=== PATIENT | female | born 1935 | race Caucasian/White ===

== ENCOUNTER 2020-07-16 14:12 | Outpatient (REF) | payer MEDICARE, SELFPAY ==
[2020-07-16 14:58] LABS: MANUAL DIFF FLAG NO
[2020-07-16 15:01] LABS: Basophils Percent Auto 0.5 % (0-2); Eosinophils Absolute Auto 0.1 X10*3/uL (0.0-0.4); Eosinophils Percent Auto 1.6 % (0-4); Hematocrit 38.2 % (37-47); Imm Gran Abs Auto 0.06 X10*3/uL (0.00-0.03); Imm Gran Pct Auto 0.8 % (0.0-0.4); Lymphocytes Absolute Auto 1.5 X10*3/uL (1.2-4.9); Lymphocytes Percent Auto 18.9 % (20-40); Mean Corpuscular HGB Conc 31.4 g/dl (31.0-35.0); Mean Corpuscular Hemoglobin 28.6 pg (27.0-33.0); Mean Platelet Volume 10.2 fL (9.4-12.3); Monocytes Absolute Auto 0.6 X10*3/uL (0.1-1.2); Monocytes Percent Auto 7.1 % (2-11); Neutrophils Absolute Auto 5.7 X10*3/uL (2.0-8.3); Neutrophils Percent Auto 71.1 % (45-73); Platelet Count 351 X10*3/uL (160-400); Red Cell Distribution Width 13.3 % (11.0-16.0)
[2020-07-16 15:30] LABS: Alanine Aminotransferase < 6 U/L (0-31); Albumin Level 3.7 g/dL (3.5-5.0); Alkaline Phosphatase 326 U/L (39-117); Amylase 51 U/L (28-100); Anion Gap 14 (12-20); Aspartate Amino Transferase 20 U/L (5-31); Bilirubin Direct 0.3 mg/dL (0.0-0.5); Bilirubin Total 0.5 mg/dL (0.0-1.0); Blood Urea Nitrogen 24 mg/dL (9-16); Calcium 9.1 mg/dL (8.4-10.2); Carbon Dioxide 26 mmol/L (22-29); Chloride 103 mmol/L (96-108); Estimated Glomerular Filt Rate 48; Glucose Random 97 mg/dL (60-115); Lipase 18 U/L (8-78); Potassium 4.5 mmol/l (3.3-5.1); Sodium 138 mmol/L (135-145); Total Protein 7.6 g/dL (6.5-8.0)
== END 2020-07-16 14:13 | disposition home or self-care (01) ==
LOC: HO.LAB 14:12
PROVIDERS: PCP Internal Medicine; Visit Provider Internal Medicine
DX: R94.5 Abnormal results of liver function studies (principal); R10.9 Unspecified abdominal pain
CPT/HCPCS: 36415; 80053; 80076; 82150; 82248; 83690; 85025

== ENCOUNTER 2020-08-18 13:52 | Outpatient (REF) | payer MEDICARE, SELFPAY ==
--- NOTE | ~2020-08-18 | XR_ITS ---
EXAMINATION: XR HAND WRIST, RIGHT CLINICAL INFORMATION: Injury, pain COMPARISON: None TECHNIQUE: The right hand and wrist are imaged together in large [id number] images for a total of 3 views. FINDINGS: There is transverse fracture at junction base and proximal shaft second, third, and fourth finger proximal phalanges. There is mild dorsal and lateral angulation distal fragments. No dislocation or destructive process. There are some accentuated trabecular markings distal shaft fourth metacarpal without cortical disruption. No visible fracture. There is prior fusion first MCP joint with osseous fusion of the joint and overlying compression plate and screws. The ulnar variance is neutral. There are degenerative changes of the triscaphe joint and first carpometacarpal joint. Prominent osteoarthritic changes involve the first, second, and third digits with lesser degenerative changes fourth and fifth DIP joints. XR/XR hand wrist RT IMPRESSION: 1. Fractures second, third, and fourth finger proximal phalanges at junction base and proximal shaft. 2. Arthritic changes lateral carpus and DIP joints. 3. Fusion first MCP. Orthopedic hardware intact.
== END 2020-08-18 13:53 | disposition home or self-care (01) ==
LOC: HO.HMGCX 13:52
PROVIDERS: PCP Internal Medicine; Visit Provider Nurse Practitioner Family
DX: Z13.89 Encounter for screening for other disorder (principal)
CPT/HCPCS: 73110; 73130

== ENCOUNTER 2020-08-18 14:46 | Emergency (ER) | payer MEDICARE, SELFPAY ==
--- NOTE | ~2020-08-18 | CT_ITS ---
EXAMINATION: CT HEAD WITHOUT CONTRAST CLINICAL INFORMATION: Trauma. Fall. COMPARISON: December 21, 2019. TECHNIQUE: Contiguous helical images of the brain were obtained without IV contrast. Multiplanar reconstructions were performed. DLP: 598 mGy-cm. FINDINGS: There are no pathologic extra-axial fluid collections. The lateral, third, fourth ventricles are mildly prominent, though age-appropriate and concordant with the appearance of the sulci. There is no evidence for acute intraparenchymal hemorrhage or infarct. There is neither mass nor mass effect. There is no shift of midline structures. The paranasal sinuses and mastoid air cells are clear. There are no osseous lesions. CT/CT head/brain wo con IMPRESSION: No evidence for acute intracranial injury. Automated exposure control (Care Dose) Adjustment of the mA and/or kv according to patient size (this includes techniques or standardized protocols for targeted exams where dose is matched to indication / reason for exam; i.e. extremities or head).
[2020-08-18 15:22] VITALS: BP 138/81; PULSE 53; RESP 18; TEMP 36.5; O2SAT 99
[2020-08-18 15:26] VITALS: BP 138/81; PULSE 53; RESP 18; TEMP 36.6; O2SAT 96; BMI 29.2
--- NOTE | 2020-08-18 17:34 | ED.FALL ---
HPI - Fall General Chief Complaint: Fall Stated Complaint: FALL R HAND INJ Time Seen by Provider: 08/18/20 15:22 Source: patient Mode of arrival: ambulatory Limitations: no limitations History of Present Illness HPI Narrative: Pleasant 85-year-old female presenting ambulatory with below noted past medical history she was seen today in the urgent care center for a mechanical fall where she tripped and fell for onto her right hand causing fracture to the 2nd 3rd and 4th finger proximal phalanges at the junction base and proximal shaft however the Urgent Care does not have Orthopedic supplies patient was sent here for splinting. Moreover she does take Eliquis for chronic atrial fibrillation and she does report hitting her head. She denies any LOC. this occurred about 8 hours prior to arrival. She denies any other injury. MD complaint: fall Onset (ago): hour(s) Place fall occurred: home Loss of consciousness: none Prolonged down time: no Context: tripped/slipped Location of injury: head Related Data Home Medications Medication Instructions Recorded Confirmed citalopram 40 mg tablet 20 mg PO DAILY 08/18/20 cyanocobalamin (vitamin B-12) 1,000 mcg PO DAILY 08/18/20 1,000 mcg capsule gabapentin 100 mg capsule 100 mg PO TID 08/18/20 losartan 50 mg tablet 50 mg PO DAILY 08/18/20 omeprazole 20 mg capsule,delayed 20 mg PO BID 08/18/20 release tizanidine 2 mg tablet 2 mg PO TID PRN 08/18/20 Previous Rx's Medication Instructions Recorded apixaban 5 mg tablet 5 mg PO BID 90 Days #180 tab 07/21/20 Allergies Allergy/AdvReac Type Severity Reaction Status Date / Time No Known Allergies [NKA] Allergy Verified 08/18/20 13:31 Review of Systems Review of Systems: Constitutional: No Weight loss, No Fever, No Chills, No Night Sweats, No Fatigue, No Malaise ENT/Mouth: No Hearing loss, No Ear Pain, No Nasal Congestion, No Sinus Pain, No Hoarseness, No sore throat, No Rhinorrhea, No Swallowing Difficulty Eyes: No Eye Pain, No Swelling, No Redness, No Foreign Body, No Discharge, No Vision Changes Cardiovascular: No Chest Pain, No SOB, No Dyspnea on Exertion, No Orthopnea, No Edema, No Palpitations Respiratory: No Cough, No Sputum, No Wheezing, No Smoke Exposure, No Dyspnea Gastrointestinal: No Nausea, No Vomiting, No Diarrhea, No Constipation, No abdominal Pain, No Hematochezia, No Melena Genitourinary: No Dysuria, No Urinary Frequency, No Hematuria, No Urinary Incontinence, No Urgency, No Flank Pain, No Urinary Flow Changes, No Hesitancy Musculoskeletal: No joint pain, No Myalgias, No Joint Swelling, as noted per HPI Skin: No Skin Lesions, No rash Neuro: No Weakness, No Numbness, No Paresthesias, No Loss of Consciousness, No Dizziness, No Headache Psych: No Social Issues Heme/Lymph: No Bruising, No Bleeding,No Lymphadenopathy Endocrine: No Polyuria, No Polydipsia, No Temperature Intolerance Yes all other systems are reviewed and are negative [facility] Past Medical History Medical History (Updated 08/18/20 @ 17:39 by Tre Prieto NP) Afib Arthritis CAD (coronary artery disease) Cataract Chiari malformation GERD (gastroesophageal reflux disease) Surgical History (Updated 08/18/20 @ 15:28 by Kemar Gomez) H/O heart artery stent Social History Social History Advance Directives: No Advance Directives Information Provided: Yes Physical Exam Vital Signs: Vital Signs: Last Vital Signs Temp 98 F 08/18/20 15:26 Pulse 53 08/18/20 15:26 Resp 18 08/18/20 15:26 BP 138/81 08/18/20 15:26 Pulse Ox 96 08/18/20 15:26 Body Mass Index 29.2 Reviewed Const: General: cooperative and healthy appearing; No acute distress or intoxicated appearing Nutritional Appearance: average body habitus Orientation/consciousness: patient oriented x3 HENMT: Head: Yes normal to inspection Ears: hearing grossly normal bilaterally Eyes: General: appearance normal, both eyes and all related structures Visual Chung: normal visual chung by confrontation Neck: Neck: Yes normal visual inspection, No positive Brudzinski's sign, No positive Kernig's sign and No tender Thyroid: Thyroid normal Chest: Chest palpation & inspection: normal inspection of the chest Resp: Effort & Inspection: normal respiratory effort Cardio: Jugular venous distension: no JVD Rhythm: regular rhythm Heart sounds: S1 normal heart sound present and S2 normal heart sound present GI: Inspection: Yes normal to inspection Percussion: Yes normal to percussion Auscultation: normal bowel sounds : General: Yes no CVA tenderness Back/Spine/Pelvis: Back: no CVA tenderness Skin: General skin exam: no rashes or lesions noted Neuro: General: patient oriented x3 Extrem: Other: Right hand has full range of motion at the wrist. Fingers are slightly ecchymosis with very slight swelling. Cap refill within normal limits. General: Yes normal to inspection Course Course Course Narrative: Head CT given that she is on Eliquis, x-ray reviewed from the outpatient clinic will placed in a volar splint. Case discussed with Dr. Spence orthopedics recommendation for follow-up in 2-[address] Davis in office. Reevaluation(s) Reevaluation #1: Head CT unremarkable delayed bleeding signs reviewed though this did occur about 8 hours prior to arrival low probability. Home safety reviewed stable for discharge with outpatient follow-up. Discharge Plan Discharge Clinical Impression: Fall, Finger fracture Patient Disposition: Home, Self-Care Instructions: Finger Fracture (ED), Fall Prevention (ED), Safe Use of Anticoagulants (ED) Additional Instructions: Leave the splint in place until you see the hand doctor Ice, elevate, compress Tylenol for pain Follow-up with Dr. Davis Return if any concerns or worsening symptoms Thank you Prescriptions: No Action Eliquis 5 mg tablet 5 mg PO BID 90 Days Qty: 180 RF: 1 Referrals: Robina Davis MD [Physician] - 2 days
== END 2020-08-18 17:57 | disposition home or self-care (01) ==
PROVIDERS: Emergency Provider Internal Medicine; PCP Internal Medicine
DX: S62.642A Nondisplaced fracture of proximal phalanx of right middle finger, initial encounter for closed fracture (principal); S62.644A Nondisplaced fracture of proximal phalanx of right ring finger, initial encounter for closed fracture; W01.0XXA Fall on same level from slipping, tripping and stumbling without subsequent striking against object, initial encounter; I48.91 Unspecified atrial fibrillation; Y93.9 Activity, unspecified; Y92.019 Unspecified place in single-family (private) house as the place of occurrence of the external cause; Y99.9 Unspecified external cause status; Z79.01 Long term (current) use of anticoagulants
CPT/HCPCS: 29125; 70450; 73110; 73130; 99283; 99284

== ENCOUNTER → 2020-08-20 12:45 | Outpatient (BNVA) | payer MEDICARE, SELFPAY | PROVIDERS: PCP Internal Medicine; Visit Provider Orthopaedic Surgery | DX: S62.610A Displaced fracture of proximal phalanx of right index finger, initial encounter for closed fracture (principal); S62.612A Displaced fracture of proximal phalanx of right middle finger, initial encounter for closed fracture; S62.614A Displaced fracture of proximal phalanx of right ring finger, initial encounter for closed fracture | CPT/HCPCS: 99202 ==

== ENCOUNTER 2020-08-27 10:54 | Day surgery (SDC) | payer MEDICARE, SELFPAY ==
--- NOTE | 2020-08-26 10:05 | P.CONAN_ITS ---
Documented by User: Angela Milana 08/26/20 10:39 HPI - Anesthesia Eval Consult details Narrative: 85yo F for Right Closed Reduction Perc Pinning,index,middle,ring fingers eliquis for afib PMFSH Active Problems Active Problems: All Active Problems (Updated 08/20/20 @ 14:23 by Robina aDvis MD) Fracture of proximal phalanx of right ring finger (Acute) Fracture of proximal phalanx of right middle finger (Acute) Fracture of proximal phalanx of right index finger (Acute) Hand injury (Acute) Wrist injury (Acute) Past Medical History Medical History Afib Anxiety Arthritis Asthma CAD (coronary artery disease) Cataract Chiari malformation Depression Essential tremor Fibromyalgia GERD (gastroesophageal reflux disease) H/O small bowel obstruction HLD (hyperlipidemia) HTN (hypertension) Osteoarthritis Surgical History Surgical History H/O heart artery stent Social History Social History Are you a primary acute care occupational therapist to a significant other at home: Yes ( is in a wheelchair) Do you presently have visiting nurse or other home services: Yes (Family to help with cooking and cleaning, also dtr is an RN) Alcohol intake: never Smoking Status: Never smoker Smoked in Last 30 Days: No Use of substances other than those prescribed or required for medical reasons: No Advance Directives: No Advance Directives Information Provided: Yes Recently lost weight without trying: Yes Current occupational status: unemployed Current occupation: right handed Meds Allergies Allergy/AdvReac Type Severity Reaction Status Date / Time No Known Allergies [NKA] Allergy Verified 08/20/20 13:03 Home Medications Medication Instructions Recorded Confirmed Last Taken Type citalopram 40 mg tablet 20 mg PO DAILY 08/18/20 08/26/20 History cyanocobalamin (vitamin B-12) 1,000 mcg PO DAILY 08/18/20 08/26/20 History 1,000 mcg capsule gabapentin 100 mg capsule 100 mg PO TID 08/18/20 08/26/20 History losartan 50 mg tablet 50 mg PO DAILY 08/18/20 08/26/20 History omeprazole 20 mg capsule,delayed 20 mg PO BID 08/18/20 08/26/20 History release tizanidine 2 mg tablet 2 mg PO TID PRN 08/18/20 08/26/20 History Exam Exam Date and Time: August 26, 2020 1005 Pertinent Lab Results Pertinent Lab Results: Laboratory Tests 07/16/20 07/16/20 14:37 14:37 WBC 8.0 Hgb 12.0 Hct 38.2 Plt Count 351 Sodium 138 Potassium 4.5 Chloride 103 Carbon Dioxide 26 BUN 24 H Creatinine 1.08 Narrative Narrative: EKG 12/2019 SB @ [address] and T wave abn ECHO 04/2019 Nml LV sys function with impaired relaxation (LVEF 60-65%) Nml valves Nml RV sys pressure No pericard effusion Lexiscan MIBI 06/2019 (s/p stenting) Nml perfusion. No ischemia or infarction. Gated LVEF nml No transient ischemic dilation EKG portion reported: baseline with flat ST's in all leads and with unspecific ST changes in leads 1,2 and T inversion in lead 3 and aVF. No arrythmias. Normotensive response to test. Assessment and Plan Assessment Anesthesia Assessment: Chart Reviewed Documented by User: Che Gunter 08/27/20 12:19 PMFSH Past Medical History Medical History Afib Anxiety Arthritis Asthma CAD (coronary artery disease) Cataract Chiari malformation Depression Essential tremor Fibromyalgia GERD (gastroesophageal reflux disease) H/O small bowel obstruction HLD (hyperlipidemia) HTN (hypertension) Osteoarthritis Surgical History Surgical History H/O heart artery stent Social History Social History Are you a primary acute care occupational therapist to a significant other at home: Yes ( is in a wheelchair) Do you presently have visiting nurse or other home services: Yes (Family to help with cooking and cleaning, also dtr is an RN) Alcohol intake: never Smoking Status: Never smoker Smoked in Last 30 Days: No Use of substances other than those prescribed or required for medical reasons: No Advance Directives: No Advance Directives Information Provided: Yes Recently lost weight without trying: Yes Current occupational status: unemployed Current occupation: right handed Meds Allergies Allergy/AdvReac Type Severity Reaction Status Date / Time No Known Allergies [NKA] Allergy Verified 08/20/20 13:03 Home Medications Medication Instructions Recorded Confirmed Last Taken Type citalopram 40 mg tablet 20 mg PO DAILY 08/18/20 08/26/20 History cyanocobalamin (vitamin B-12) 1,000 mcg PO DAILY 08/18/20 08/26/20 History 1,000 mcg capsule gabapentin 100 mg capsule 100 mg PO TID 08/18/20 08/26/20 History losartan 50 mg tablet 50 mg PO DAILY 08/18/20 08/26/20 History omeprazole 20 mg capsule,delayed 20 mg PO BID 08/18/20 08/26/20 History release tizanidine 2 mg tablet 2 mg PO TID PRN 08/18/20 08/26/20 History Assessment and Plan Assessment Anesthesia Assessment: Anesthesia Plan Discussed and Chart Reviewed Final Anesthetic Review NPO: Yes ASA Class: III Final Preanesthetic Review: No Changes in Pt Med Stat, Meds/Allgs Chart Reviewed, Consent Obtained/Reviewed and Anes Risks/Benef Reviewed Patient Risk: Intermediate Procedure Risk: Low Assessment/Block/Sedation in SS: Assess/Block/Sedation-SS Anesthetic Plan Anesthetic Plan: GA Disposition: Standard PACU
[2020-08-26 10:35] VITALS: BMI 29.2
[2020-08-27] VITALS (13 sets, daily range): BP systolic 115–145; BP diastolic 32–61; PULSE 58–72; RESP 16–20; TEMP 36.3–37; O2SAT 95–100; BMI 29.2
--- NOTE | ~2020-08-27 | FL_ITS ---
EXAMINATION: XR FLUOROSCOPY WITH IMAGES CLINICAL INFORMATION: Fractures proximal phalanges second, third, and fourth fingers. COMPARISON: Radiographs right hand 08/18/2020 TECHNIQUE: Fluoroscopy performed by Dr. Robina Davis. Fluoroscopy time: 1.37 minutes DAP: 37.97 mGycm2 Images: 3 FINDINGS: The proximal metacarpal fractures are reduced with single pin second and fourth fingers and 2 pins for the third finger. Fracture fragments are in near-anatomic alignment. Hardware is intact. There is old hardware again noted first ray. FL/FL guidance in OR IMPRESSION: Status post reduction fractures second, third, fourth fingers.
[2020-08-27] MEDS: Lactated Ringers 1,000 ML 50 ML IVCONT (11:56)
--- NOTE | 2020-08-27 12:19 | P.CONAN_ITS ---
[facility] Active Problems Active Problems: All Active Problems (Updated 08/26/20 @ 10:34 by Angela kim) Fracture of proximal phalanx of right ring finger (Acute) Fracture of proximal phalanx of right middle finger (Acute) Fracture of proximal phalanx of right index finger (Acute) Hand injury (Acute) Wrist injury (Acute) Past Medical History Medical History Afib Anxiety Arthritis Asthma CAD (coronary artery disease) Cataract Chiari malformation Depression Essential tremor Fibromyalgia GERD (gastroesophageal reflux disease) H/O small bowel obstruction HLD (hyperlipidemia) HTN (hypertension) Osteoarthritis Surgical History Surgical History H/O heart artery stent Social History Social History Are you a primary clinical manager home care to a significant other at home: Yes ( is in a wheelchair) Do you presently have visiting nurse or other home services: Yes (Family to help with cooking and cleaning, also dtr is an RN) Alcohol intake: never Smoking Status: Never smoker Smoked in Last 30 Days: No Use of substances other than those prescribed or required for medical reasons: No Advance Directives: No Advance Directives Information Provided: Yes Recently lost weight without trying: Yes Current occupational status: unemployed Current occupation: right handed Meds Allergies Allergy/AdvReac Type Severity Reaction Status Date / Time No Known Allergies [NKA] Allergy Verified 08/20/20 13:03 Active Medications: Current Medications Generic Name Dose Route Start Last Admin Trade Name Freq PRN Reason Stop Dose Admin Albuterol Sulfate 2.5 mg 08/27/20 10:57 Albuterol Sulfate (0.083%) 2.5 Mg/3 Ml Vial.Neb INHALE ONCE PRN Shortness of Breath/Wheezing Lactated Ringer's 1,000 mls @ 50 mls/hr 08/27/20 11:55 08/27/20 11:56 Lr IVCONT 50 mls/hr .Q20H CARLA Administration Home Medications Medication Instructions Recorded Confirmed Last Taken Type citalopram 40 mg tablet 20 mg PO DAILY 08/18/20 08/26/20 History cyanocobalamin (vitamin B-12) 1,000 mcg PO DAILY 08/18/20 08/26/20 History 1,000 mcg capsule gabapentin 100 mg capsule 100 mg PO TID 08/18/20 08/26/20 History losartan 50 mg tablet 50 mg PO DAILY 08/18/20 08/26/20 History omeprazole 20 mg capsule,delayed 20 mg PO BID 08/18/20 08/26/20 History release tizanidine 2 mg tablet 2 mg PO TID PRN 08/18/20 08/26/20 History Exam Exam Date and Time: August 27, 2020 121 Height,Weight and Vital Signs: Height 5 ft Weight 68.039 kg Last Vital Signs Temp 98.6 F 08/27/20 11:24 Pulse 58 08/27/20 11:24 Resp 16 08/27/20 11:24 BP 145/61 H 08/27/20 11:24 Pulse Ox 99 08/27/20 11:24 Airway Mallampati Class: II TM Dist: >3cm Neck ROM: Limited
--- NOTE | 2020-08-27 14:29 | MHC.SHP ---
Pre-Procedural Eval Section B Chief Complaint: fx of index,middle,and ring finger Allergies: Allergies Allergy/AdvReac Type Severity Reaction Status Date / Time No Known Allergies [NKA] Allergy Verified 08/20/20 13:03 Plan I have reviewed the history and physical and performed a pertinent physical examination on my patient. No changes have occurred unless specified.
--- NOTE | 2020-08-27 14:29 | W.PM.OPN ---
Operative Note Operative Note Date of Service: 08/27/20 Narrative: Operative Note Narrative: Preop diagnosis: 1. Right index finger proximal phalanx base fracture 2. Right middle finger proximal phalanx base fracture 3. Right ring finger proximal phalanx base fracture Postop diagnosis: Same Procedure: 1. Right index finger proximal phalanx base fracture closed reduction percutaneous pinning 2. Right middle finger proximal phalanx base fracture closed reduction percutaneous pinning 3. Right ring finger proximal phalanx base fracture closed reduction percutaneous pinning Surgeon: Robina Davis MD Anesthesia: Mac plus regional block Findings: Finger fractures Implants: 0.045 K-wires x4 Tourniquet time: None minutes EBL: 5.0 ml Specimen: None Drains: None Complications: None Disposition: Brought to the recovery room in stable condition Plan: Follow-up in 10-14 days for wound check and placement in a finger spica cast Anticipate K-wire removal between 4-5 weeks postop Likely to need hand therapy Indications: The patient is a 85 year old woman with right index finger, middle finger, ring finger proximal phalanx base fractures . The risks and benefits of operative treatment, including but not limited to risk of damage to blood vessels, nerves, tendons, infection, recurrence, persistent pain or numbness, incomplete resolution of preoperative symptoms, or need for further surgery were discussed with the patient and they wished to proceed with surgery. Procedure: Once consent was obtained patient was brought back to the operating suite and placed in the operating table in a supine position. . Perioperative antibiotics and anesthesia was administered by the anesthesia team. A tourniquet was applied to the proximal aspect of the right upper extremity and the limb was prepped and draped in a standard surgical fashion. Tourniquet was not inflated FluoroScan was used throughout the case to assess our fracture reduction and placement of all implants. I 1st performed a gentle closed reduction on the patient's right index finger proximal phalanx. I then placed a 0.045 K-wire through the ulnar base of the proximal phalanx. It was advanced distally across the fracture site and into the shaft of the proximal phalanx. I was satisfied with our reduction and placement of the K-wire. I then performed a gentle closed reduction on the patient's right middle finger proximal phalanx. I then placed a 0.045 K-wire through the ulnar base of the proximal phalanx. It was advanced distally across the fracture site and into the shaft of the proximal phalanx. A 2nd 0.045 K-wire was passed through the radial base of the proximal phalanx. This also was advanced distally across the fracture site and into the shaft of the proximal phalanx. I was satisfied with our reduction and placement of these K-wires. I then performed a gentle closed reduction on the patient's right ring finger proximal phalanx. I then placed a 0.045 K-wire through the radial base of the proximal phalanx. It was advanced distally across the fracture site and into the shaft of the proximal phalanx. I was satisfied with our reduction and placement of this K-wire. The fingers were assessed in some extension and also in flexion. No rotational or angular malalignment was appreciated. Pins were bent cut short had pin caps applied. The were copiously irrigated with normal saline. . The wound was infiltrated with some 1% lidocaine with epinephrine for postop pain control and a sterile dressing was applied. She also had a transverse laceration in the palm that appear to be healing well. We placed a dressing across his wound is well. A volar splint extending from the PIP joints of the volar forearm was then placed.. The patient appears to have tolerated the procedure well and with no complications. All digits were well vascularized conclusion of the case.
[2020-08-27] MEDS: Acetaminophen 325 MG TABLET 650 MG PO (14:44)
[2020-08-27] MEDS: oxyCODONE HCl Immed Release 5 MG TABLET PO (14:45)
[2020-08-27] MEDS: fentaNYL citrate/PF 100 MCG/2 ML VIAL 25 MCG IVPUSH ×3 (14:45→14:55)
== END 2020-08-27 16:00 | disposition home or self-care (01) ==
PROVIDERS: PCP Internal Medicine; Visit Provider Orthopaedic Surgery
PROC: (CPT 26742; principal; 2020-08-27 12:30)
DX: S62.610A Displaced fracture of proximal phalanx of right index finger, initial encounter for closed fracture (principal); S62.612A Displaced fracture of proximal phalanx of right middle finger, initial encounter for closed fracture; S62.614A Displaced fracture of proximal phalanx of right ring finger, initial encounter for closed fracture; W01.0XXA Fall on same level from slipping, tripping and stumbling without subsequent striking against object, initial encounter; Y93.9 Activity, unspecified; Y92.9 Unspecified place or not applicable; Y99.8 Other external cause status; J45.909 Unspecified asthma, uncomplicated; I10 Essential (primary) hypertension; G25.0 Essential tremor; I48.91 Unspecified atrial fibrillation; Z79.02 Long term (current) use of antithrombotics/antiplatelets; Z79.899 Other long term (current) drug therapy
CPT/HCPCS: 26742 ×3; J0690; J1100; J2405; J3010

== ENCOUNTER 2020-09-08 10:55 | Outpatient (REF) | payer MEDICARE, SELFPAY ==
--- NOTE | ~2020-09-08 | XR_ITS ---
EXAMINATION: XR HAND, RIGHT CLINICAL INFORMATION: Pain in the right hand COMPARISON: 08/18/2020 TECHNIQUE: PA, lateral, and oblique views of the right hand. FINDINGS: K wire placement performed across the fractures of the proximal phalanges of the second, third, and fourth digit. Alignment is near-anatomic. There are [address] at the third digit. Plate and screw fixation across the first metacarpophalangeal joint is unchanged. Advanced degenerative changes at the distal interphalangeal joints of the second and third digits. The carpal rows are aligned. Degenerative changes at the triscaphe joint and first carpal metacarpal joint. Mild soft tissue swelling of the hand. XR/XR hand RT min 3V IMPRESSION: K wire fixation of the fractures at the second, third, and fourth digit proximal phalanges with alignment maintained. Degenerative changes as above.
== END 2020-09-08 10:56 | disposition home or self-care (01) ==
LOC: HO.HOSX 10:55
PROVIDERS: PCP Internal Medicine; Visit Provider Orthopaedic Surgery
DX: S62.614D Displaced fracture of proximal phalanx of right ring finger, subsequent encounter for fracture with routine healing (principal); S62.621D Displaced fracture of middle phalanx of left index finger, subsequent encounter for fracture with routine healing; S62.620D Displaced fracture of middle phalanx of right index finger, subsequent encounter for fracture with routine healing; Z47.89 Encounter for other orthopedic aftercare
CPT/HCPCS: 73130; 99212

== ENCOUNTER 2020-10-01 11:04 | Outpatient (REF) | payer MEDICARE, SELFPAY ==
--- NOTE | ~2020-10-01 | XR_ITS ---
EXAMINATION: XR HAND, RIGHT CLINICAL INFORMATION: Right hand pain COMPARISON: None TECHNIQUE: PA, lateral, and oblique views of the right hand. FINDINGS: There are fractures of the bases of the second third and fourth proximal phalanges with K wire fixation. This appears unchanged. Bone alignment is near anatomic and appears unchanged. Fracture lines are still seen.. There is a plate and screws across the first MCP joint and ankylosis of the joint. There is arthritis at the IP joints. There are there is arthritis at the first DETENTION joint and trapezoid trapezium scaphoid joints. XR/XR hand RT min 3V IMPRESSION: ORIF of second third and fourth phalanx fractures unchanged from previous exam. Plate and screws and arthrodesis of the first MCP joint. Arthritis.
== END 2020-10-01 11:05 | disposition home or self-care (01) ==
LOC: HO.HOSX 11:04
PROVIDERS: PCP Internal Medicine; Visit Provider Orthopaedic Surgery
DX: S62.610D Displaced fracture of proximal phalanx of right index finger, subsequent encounter for fracture with routine healing (principal); S62.612D Displaced fracture of proximal phalanx of right middle finger, subsequent encounter for fracture with routine healing; S62.614D Displaced fracture of proximal phalanx of right ring finger, subsequent encounter for fracture with routine healing
CPT/HCPCS: 73130; 99212

== ENCOUNTER 2020-10-06 10:21 | Outpatient (REF) | payer MEDICARE, SELFPAY ==
[2020-10-06 13:37] LABS: SARS COV2 PCR INHOUSE POSITIVE (Negative)
== END 2020-10-06 10:22 | disposition home or self-care (01) ==
LOC: HO.LAB 10:21
PROVIDERS: Visit Provider Internal Medicine
DX: Z20.822 Contact with and (suspected) exposure to COVID-19 (principal)
CPT/HCPCS: C9803; U0003

== ENCOUNTER 2020-10-28 16:02 | Outpatient (REF) | payer MEDICARE, SELFPAY ==
--- NOTE | ~2020-10-28 | XR_ITS ---
EXAMINATION: XR HAND, RIGHT CLINICAL INFORMATION: Hand pain. COMPARISON: 09/21/2020 TECHNIQUE: PA, lateral, and oblique views of the right hand. FINDINGS: Redemonstrated is plate and screw across the 1st MCP joint and ankylosis of the joint. Interval removal of the previously noted K wires in the 2nd, 3rd, 4th proximal phalanges. Partial healing of the fractures of the base of the 2nd, 3rd, 4th proximal phalanges with portion of the fracture plane remaining visible. Redemonstrated is arthritis in the hand. This includes severe triscaphe, severe 2nd and 3rd DIP joint arthritis. Diffuse osteopenia. No acute fractures identified. XR/XR hand RT min 3V IMPRESSION: Interval removal of the hardware, with partial healing of the 2nd, 3rd, 4th proximal phalangeal fractures. Plate and screw hardware with arthrodesis of the 1st MCP joint.
== END 2020-10-28 16:03 | disposition home or self-care (01) ==
LOC: HO.HOSX 16:02
PROVIDERS: Visit Provider Orthopaedic Surgery
DX: M79.641 Pain in right hand (principal)
CPT/HCPCS: 73130

== ENCOUNTER → 2020-10-29 14:58 | Outpatient (BNVA) | payer MEDICARE, SELFPAY | PROVIDERS: PCP Internal Medicine; Visit Provider Orthopaedic Surgery | DX: S62.614D Displaced fracture of proximal phalanx of right ring finger, subsequent encounter for fracture with routine healing (principal); S62.612D Displaced fracture of proximal phalanx of right middle finger, subsequent encounter for fracture with routine healing; S62.610D Displaced fracture of proximal phalanx of right index finger, subsequent encounter for fracture with routine healing | CPT/HCPCS: 99212 ==

== ENCOUNTER 2020-11-03 13:20 | Outpatient (REF) | payer MEDICARE, SELFPAY ==
[2020-11-03 14:15] LABS: MANUAL DIFF FLAG NO
[2020-11-03 14:23] LABS: Basophils Percent Auto 0.3 % (0-2); Eosinophils Absolute Auto 0.1 X10*3/uL (0.0-0.4); Eosinophils Percent Auto 1.6 % (0-4); Hematocrit 37.7 % (37-47); Hemoglobin 11.6 g/dl (12.0-16.0); Imm Gran Abs Auto 0.04 X10*3/uL (0.00-0.03); Imm Gran Pct Auto 0.5 % (0.0-0.4); Lymphocytes Absolute Auto 1.5 X10*3/uL (1.2-4.9); Lymphocytes Percent Auto 18.6 % (20-40); Mean Corpuscular HGB Conc 30.8 g/dl (31.0-35.0); Mean Corpuscular Volume 94.3 fL (80-98); Mean Platelet Volume 10.3 fL (9.4-12.3); Monocytes Absolute Auto 0.4 X10*3/uL (0.1-1.2); Monocytes Percent Auto 5.3 % (2-11); Neutrophils Absolute Auto 5.9 X10*3/uL (2.0-8.3); Neutrophils Percent Auto 73.7 % (45-73); Platelet Count 240 X10*3/uL (160-400); White Blood Count 7.9 X10*3/uL (4.8-10.8)
[2020-11-03 14:49] LABS: Alanine Aminotransferase 13 U/L (0-31); Albumin Level 3.9 g/dL (3.5-5.0); Alkaline Phosphatase 162 U/L (39-117); Anion Gap 12 (12-20); Aspartate Amino Transferase 28 U/L (5-31); Bilirubin Total 0.4 mg/dL (0.0-1.0); Blood Urea Nitrogen 19 mg/dL (9-16); Calcium 9.4 mg/dL (8.4-10.2); Carbon Dioxide 29 mmol/L (22-29); Chloride 101 mmol/L (96-108); Estimated Glomerular Filt Rate > 60; Glucose Random 121 mg/dL (60-115); Potassium 4.6 mmol/L (3.3-5.1); Sodium 137 mmol/L (135-145); Total Protein 7.2 g/dL (6.5-8.0)
== END 2020-11-03 13:21 | disposition home or self-care (01) ==
LOC: HO.LAB 13:20
PROVIDERS: PCP Internal Medicine; Visit Provider Internal Medicine
DX: I10 Essential (primary) hypertension (principal); K21.9 Gastro-esophageal reflux disease without esophagitis; E78.00 Pure hypercholesterolemia, unspecified
CPT/HCPCS: 36415; 80053; 85025

== ENCOUNTER 2020-11-04 11:54 | Emergency (ER) | payer MEDICARE, SELFPAY ==
--- NOTE | ~2020-11-04 | XR_ITS ---
EXAMINATION: RIGHT ELBOW, RIGHT HAND WRIST AND RIGHT SHOULDER CLINICAL INFORMATION: Fall, pain. COMPARISON: Right hand 10/21/2020 TECHNIQUE: Right elbow 3 views. Right hand and wrist 3 views. Right shoulder 3 views FINDINGS: Right elbow: There is no visible acute fracture, dislocation or subluxation. There is no abnormal joint effusion. The soft tissues are normal. Right shoulder: There is no visible acute fracture or dislocation. The cephalic migration of humeral head in relation to the acromion with lateral acromial spurring. There is mild arthritic changes right AC joint. The soft tissues are normal. Right hand/wrist: Again visualized is a plate and screws present first MCP joint for ankylosis of the joint. No acute fracture or dislocation seen right hand. There is severe loss of PIP and DIP joint space of all digits with periarticular spurring. There are healing fractures proximal end proximal phalanges third and fourth digits. XR/XR elbow RT 2V IMPRESSION: Unremarkable right elbow exam. Cephalic migration of humeral head in relation to acromion with inferior acromial spurring. No visible acute fracture, dislocation or subluxation seen. Ankylosed first metacarpophalangeal joint with plate and screws along the dorsal aspect. Healing fractures proximal end proximal phalanx third and fourth digits.
--- NOTE | ~2020-11-04 | XR_ITS ---
EXAMINATION: RIGHT ELBOW, RIGHT HAND WRIST AND RIGHT SHOULDER CLINICAL INFORMATION: Fall, pain. COMPARISON: Right hand 10/21/2020 TECHNIQUE: Right elbow 3 views. Right hand and wrist 3 views. Right shoulder 3 views FINDINGS: Right elbow: There is no visible acute fracture, dislocation or subluxation. There is no abnormal joint effusion. The soft tissues are normal. Right shoulder: There is no visible acute fracture or dislocation. The cephalic migration of humeral head in relation to the acromion with lateral acromial spurring. There is mild arthritic changes right AC joint. The soft tissues are normal. Right hand/wrist: Again visualized is a plate and screws present first MCP joint for ankylosis of the joint. No acute fracture or dislocation seen right hand. There is severe loss of PIP and DIP joint space of all digits with periarticular spurring. There are healing fractures proximal end proximal phalanges third and fourth digits. XR/XR hand wrist RT IMPRESSION: Unremarkable right elbow exam. Cephalic migration of humeral head in relation to acromion with inferior acromial spurring. No visible acute fracture, dislocation or subluxation seen. Ankylosed first metacarpophalangeal joint with plate and screws along the dorsal aspect. Healing fractures proximal end proximal phalanx third and fourth digits.
--- NOTE | ~2020-11-04 | XR_ITS ---
EXAMINATION: RIGHT ELBOW, RIGHT HAND WRIST AND RIGHT SHOULDER CLINICAL INFORMATION: Fall, pain. COMPARISON: Right hand 10/21/2020 TECHNIQUE: Right elbow 3 views. Right hand and wrist 3 views. Right shoulder 3 views FINDINGS: Right elbow: There is no visible acute fracture, dislocation or subluxation. There is no abnormal joint effusion. The soft tissues are normal. Right shoulder: There is no visible acute fracture or dislocation. The cephalic migration of humeral head in relation to the acromion with lateral acromial spurring. There is mild arthritic changes right AC joint. The soft tissues are normal. Right hand/wrist: Again visualized is a plate and screws present first MCP joint for ankylosis of the joint. No acute fracture or dislocation seen right hand. There is severe loss of PIP and DIP joint space of all digits with periarticular spurring. There are healing fractures proximal end proximal phalanges third and fourth digits. XR/XR shoulder RT min 2V IMPRESSION: Unremarkable right elbow exam. Cephalic migration of humeral head in relation to acromion with inferior acromial spurring. No visible acute fracture, dislocation or subluxation seen. Ankylosed first metacarpophalangeal joint with plate and screws along the dorsal aspect. Healing fractures proximal end proximal phalanx third and fourth digits.
[2020-11-04 12:09] VITALS: BP 138/71; PULSE 73; RESP 18; TEMP 36.6; O2SAT 98; BMI 30.2
--- NOTE | 2020-11-04 12:13 | ED.FALL ---
HPI - Fall General Chief Complaint: Fall Stated Complaint: mechanical fall, ?wrist fracture Time Seen by Provider: 11/04/20 12:11 Source: EMS Mode of arrival: EMS Limitations: no limitations History of Present Illness HPI Narrative: 85 yo female with past medical history of afib on eliquis, anxiety, arthritis, asthma, CAD, depression, esential tremor, fibromyalgia, GERD, HTN, HLD here with complaints of right wrist/hand pain s/p fall. Denies hitting head or LOC. Received 100mcg IN fentanyl by EMS. Related Data Home Medications Medication Instructions Recorded Confirmed citalopram 40 mg tablet 20 mg PO DAILY 08/18/20 cyanocobalamin (vitamin B-12) 1,000 mcg PO DAILY 08/18/20 1,000 mcg capsule gabapentin 100 mg capsule 100 mg PO TID 08/18/20 losartan 50 mg tablet 50 mg PO DAILY 08/18/20 omeprazole 20 mg capsule,delayed 20 mg PO BID 08/18/20 release tizanidine 2 mg tablet 2 mg PO TID PRN 08/18/20 Previous Rx's Medication Instructions Recorded apixaban 5 mg tablet 5 mg PO BID 90 Days #180 tab 07/21/20 hydrocodone-acetaminophen 1 tab PO Q4-6H PRN #10 tab 08/27/20 metoprolol tartrate 25 mg tablet 12.5 mg PO BID 90 Days #90 tab 09/01/20 cephalexin 500 mg capsule 500 mg PO BID #10 cap 10/01/20 atorvastatin 20 mg tablet 20 mg PO DAILY #90 tab 10/27/20 oxycodone 5 mg PO Q6H PRN #10 tab 11/04/20 Allergies Allergy/AdvReac Type Severity Reaction Status Date / Time No Known Allergies [NKA] Allergy Verified 10/29/20 15:06 Review of Systems Review of Systems: Yes all other systems are reviewed and are negative Constitutional: Constitutional: Reports no additional constitutional complaints, Denies body ache(s), Denies chills, Denies fever(s), Denies headache(s) and Denies weakness Eyes: Eyes: Reports no additional eye complaints and Denies change in vision ENT: Reports system reviewed and no additional complaints, except as documented, Denies dizziness, Denies headache(s), Denies nasal congestion, Denies nasal discharge and Denies neck pain Cardiovascular: Cardiovascular: Reports no additional cardiovascular complaints, Denies chest pain, Denies leg edema and Denies dyspnea Respiratory: Respiratory: Reports no additional respiratory complaints, Denies cough and Denies dyspnea Gastrointestinal: Gastrointestinal: Reports no additional gastrointestinal complaints, Denies abdominal pain, Denies diarrhea, Denies nausea and Denies vomiting Genitourinary: Genitourinary: Reports no additional female genitourinary complaints and Denies urinary incontinence Musculoskeletal: Musculoskeletal: Reports no additional musculoskeletal complaints, Denies back pain, Reports arthralgias, Reports joint swelling, Reports limited range of motion, Denies neck pain, Denies numbness and Denies tingling Integumentary/Breasts: Skin/Breast: Reports system reviewed and no additional complaints, except as docu and Denies rash Neurologic: Reports system reviewed and no additional complaints, except as documented, Denies Abnormal speech present, Denies dizziness, Denies headache(s), Denies numbness, Denies tingling and Denies weakness PMFSH Past Medical History Attestation statement: The following information was validated with the patient. Source: old records reviewed and nursing notes reviewed Medical History Afib Anxiety Arthritis Asthma CAD (coronary artery disease) Cataract Chiari malformation Depression Essential tremor Fibromyalgia GERD (gastroesophageal reflux disease) H/O small bowel obstruction HLD (hyperlipidemia) HTN (hypertension) Osteoarthritis Surgical History H/O heart artery stent Social History Social History Alcohol intake: never Smoking Status: Never smoker Current occupational status: unemployed Current occupation: right handed Physical Exam Vital Signs: Vital Signs: Last Vital Signs Temp 98 F 11/04/20 12:09 Pulse 73 11/04/20 12:09 Resp 18 11/04/20 12:09 BP 138/71 11/04/20 12:09 Pulse Ox 98 11/04/20 12:09 Body Mass Index 30.2 Const: General: cooperative, healthy appearing, comfortable and no acute distress Orientation/consciousness: patient oriented x3 Limitations: no limitations HENMT: Head: Yes normal to inspection Ears: hearing grossly normal bilaterally General nose exam: Normal external nose present Face and sinus: Yes normal facial exam Mouth: Normal oral and palatal mucosa present Throat: Yes posterior oropharynx normal Eyes: General: appearance normal, both eyes and all related structures Pupils: Equal, round and reactive pupils present Neck: Neck: Yes normal visual inspection Chest: Chest palpation & inspection: normal inspection of the chest Resp: Effort & Inspection: normal respiratory effort Auscultation: clear to auscultation bilaterally Cardio: Rate: regular rate Rhythm: regular rhythm Peripheral pulses: Peripheral pulses 2+ throughout GI: Inspection: Yes normal to inspection Palpation (GI): Soft to palpation and nontender Auscultation: normal bowel sounds Back/Spine/Pelvis: Thoracic/Lumbar Spine: thoracic and lumbar spine normal to inspection Skin: General skin exam: no rashes or lesions noted Neuro: General: patient oriented x3, no focal motor deficits and normal sensation to monofilament Cranial nerves: Yes Equal, round and reactive pupils present, Yes Bilaterally intact EOM present, Yes Nystagmus not present, Yes Normal facial strength present and Yes Midline tongue present Cognition (Neuro): normal cognition Speech: No Abnormal speech present Gait exam (Neuro): Normal gait present Motor exam (neuro): 5/5 motor strength present throughout Sensory Exam: Normal double simultaneous stimulation for sensation Extrem: Other: Tenderness over the dorsal radial wrist with mild swelling. Palpable distal pulses. Neurovascular intact distally. No tenderness over the hand. There is some mild discomfort over the lateral elbow with full range of motion with no obvious deformity. Mild tenderness over the proximal humerus with no obvious swelling or deformity. Full range of motion General: Yes normal to inspection Course Course Course Narrative: Mechanical fall here with right upper extremity pain and swelling. Received fentanyl intranasal prior to arrival. No head injury or loss of consciousness. Neurologically intact. Will need x-rays, analgesia. 1300-x-rays read as no acute fracture dislocation. On my own independent review there is a distal impacted radial fracture with no angulation or displacement. Patient has significant tenderness over this site. Called radiology for review. Will place and volar splint and sling and have follow-up with Orthopedics. Reviewed worrisome signs and symptoms of when to return to the emergency department. Comfortable discharge home. Procedures Orthopedic Splinting/Casting Injury #1: Side: right Upper Extremity Injury Location: forearm Upper Extremity Immobilizer: sling/shoulder immobilizer and volar splint MDM - Fall Medical Records Attestation: I reviewed the patient's medical records. Lab Data Attestation: I reviewed the patient's lab results. Imaging Data Right elbow x-ray: Attestation: I personally reviewed and interpreted this imaging study as follows: Radiologist's impression: Right elbow: There is no visible acute fracture, dislocation or subluxation. There is no abnormal joint effusion. The soft tissues are normal. right humerus: Attestation: I personally reviewed and interpreted this imaging study as follows: Radiologist's impression: Right shoulder: There is no visible acute fracture or dislocation. The cephalic migration of humeral head in relation to the acromion with lateral acromial spurring. There is mild arthritic changes right AC joint. The soft tissues are normal. right hand/wrist x-ray: Attestation: I personally reviewed and interpreted this imaging study as follows: Radiologist's impression: Right hand/wrist: Again visualized is a plate and screws present first MCP joint for ankylosis of the joint. No acute fracture or dislocation seen right hand. There is severe loss of PIP and DIP joint space of all digits with periarticular spurring. There are healing fractures proximal end proximal phalanges third and fourth digits. Discharge Plan Discharge Clinical Impression: Wrist injury Qualifiers: Encounter type: initial encounter Laterality: right Qualified Code(s): S69.91XA - Unspecified injury of right wrist, hand and finger(s), initial encounter Patient Disposition: Home, Self-Care Instructions: Wrist Injury (ED) Additional Instructions: Your x-ray shows a small fracture in the radius which is the bone in the lower arm near the wrist. You have been placed in a splint. This must stay dry at all times. Do not remove it. Sling for elevation Follow-up with Dr. Davis Prescriptions: New oxycodone 5 mg tablet 5 mg PO Q6H PRN (Reason: pain) Qty: 10 RF: 0 No Action Eliquis 5 mg tablet 5 mg PO BID 90 Days Qty: 180 RF: 1 metoprolol tartrate 25 mg tablet 12.5 mg PO BID 90 Days Qty: 90 RF: 3 atorvastatin 20 mg tablet 20 mg PO DAILY Qty: 90 RF: 1 hydrocodone-acetaminophen 5-325 mg tablet 1 tab PO Q4-6H PRN (Reason: pain) Qty: 10 RF: 0 cephalexin 500 mg capsule 500 mg PO BID Qty: 10 RF: 0 Referrals: Robina Davis MD [Physician] - 2 days Interventions: ED Discharge Assessment Last Done: 11/04/20 13:47 Discharge Date/Time: 11/04/20 13:49
[2020-11-04] MEDS: Acetaminophen 325 MG TABLET 650 MG PO (12:21)
[2020-11-04] MEDS: oxyCODONE HCl Immed Release 5 MG TABLET PO (12:22)
== END 2020-11-04 13:49 | disposition home or self-care (01) ==
PROVIDERS: Emergency Provider Emergency Medicine; PCP Internal Medicine
DX: S69.91XA Unspecified injury of right wrist, hand and finger(s), initial encounter (principal); W01.0XXA Fall on same level from slipping, tripping and stumbling without subsequent striking against object, initial encounter; Y93.9 Activity, unspecified; Y92.039 Unspecified place in apartment as the place of occurrence of the external cause; Y99.9 Unspecified external cause status; I10 Essential (primary) hypertension; I48.0 Paroxysmal atrial fibrillation
CPT/HCPCS: 29125; 73030; 73070; 73110; 73130; 99283; 99284

== ENCOUNTER → 2020-11-05 14:23 | Outpatient (BNVA) | payer MEDICARE, SELFPAY | PROVIDERS: Visit Provider Orthopaedic Surgery | DX: S52.501A Unspecified fracture of the lower end of right radius, initial encounter for closed fracture (principal) | CPT/HCPCS: 25600; 99212 ==

== ENCOUNTER 2020-11-10 18:00 | Outpatient (REF) | payer MEDICARE, SELFPAY | END 2020-11-10 18:01 | disposition home or self-care (01) | LOC: HO.HOSX 18:00 | PROVIDERS: Visit Provider Orthopaedic Surgery | DX: Z13.89 Encounter for screening for other disorder (principal) ==

== ENCOUNTER → 2020-11-11 15:11 | Outpatient (BNVA) | payer MEDICARE, SELFPAY | PROVIDERS: PCP Internal Medicine; Referring Provider Internal Medicine; Visit Provider Internal Medicine | DX: I25.10 Atherosclerotic heart disease of native coronary artery without angina pectoris (principal); I48.0 Paroxysmal atrial fibrillation; I10 Essential (primary) hypertension | CPT/HCPCS: 93005; 99212 ==

== ENCOUNTER 2020-11-12 14:33 | Outpatient (REF) | payer MEDICARE, SELFPAY ==
--- NOTE | ~2020-11-12 | XR_ITS ---
EXAMINATION: XR WRIST, RIGHT CLINICAL INFORMATION: Pain COMPARISON: Previous x-ray 11/04/2020 TECHNIQUE: 3 views right wrist FINDINGS: There is a plate and screws across the first MCP joint and ankylosis of the joint space. There is a transverse nondisplaced distal radius fracture. There is a fracture of the proximal phalanx of the second through fourth fingers that appears unchanged. The bones are osteopenic. Soft tissues are unremarkable. XR/XR wrist RT min 3V IMPRESSION: No change in transverse nondisplaced distal radius fracture and fractures of the base of the second and third and fourth proximal phalanges.
== END 2020-11-12 14:34 | disposition home or self-care (01) ==
LOC: HO.HOSX 14:33
PROVIDERS: Visit Provider Orthopaedic Surgery
DX: S52.501D Unspecified fracture of the lower end of right radius, subsequent encounter for closed fracture with routine healing (principal); S62.610D Displaced fracture of proximal phalanx of right index finger, subsequent encounter for fracture with routine healing; S62.612D Displaced fracture of proximal phalanx of right middle finger, subsequent encounter for fracture with routine healing; S62.614D Displaced fracture of proximal phalanx of right ring finger, subsequent encounter for fracture with routine healing; M25.641 Stiffness of right hand, not elsewhere classified
CPT/HCPCS: 73110; 99212

== ENCOUNTER 2020-12-02 16:24 | Outpatient (REF) | payer MEDICARE, SELFPAY | END 2020-12-02 16:25 | disposition home or self-care (01) | LOC: HO.HOSX 16:24 | PROVIDERS: Visit Provider Orthopaedic Surgery | DX: Z13.89 Encounter for screening for other disorder (principal) ==

== ENCOUNTER 2020-12-03 09:11 | Outpatient (REF) | payer MEDICARE, SELFPAY ==
--- NOTE | ~2020-12-03 | XR_ITS ---
EXAMINATION: XR WRIST, RIGHT CLINICAL INFORMATION: Distal radius fracture, follow-up. COMPARISON: 11/04/2020 right wrist radiographs. TECHNIQUE: PA, lateral, and oblique views of the right wrist. FINDINGS: Again seen is a healing/healed transverse fracture of the distal radial metaphysis with good anatomic alignment. Increased sclerosis is seen at the level the fracture. Mild widening of the distal radial ulnar joint space is seen. The carpal bones are normally aligned. Moderate first carpometacarpal and triscaphe degenerative joint changes are seen. A reconstruction plate in the first digit transfixing of the metacarpal phalangeal joint is intact without abnormality. XR/XR wrist RT min 3V IMPRESSION: Evidence for interval healing of distal radial metaphysis fracture with good anatomic alignment. No other significant change.
== END 2020-12-03 09:12 | disposition home or self-care (01) ==
LOC: HO.HOSX 09:11
PROVIDERS: Visit Provider Orthopaedic Surgery
DX: S62.614D Displaced fracture of proximal phalanx of right ring finger, subsequent encounter for fracture with routine healing (principal); S62.612D Displaced fracture of proximal phalanx of right middle finger, subsequent encounter for fracture with routine healing; S62.610D Displaced fracture of proximal phalanx of right index finger, subsequent encounter for fracture with routine healing; S52.501D Unspecified fracture of the lower end of right radius, subsequent encounter for closed fracture with routine healing
CPT/HCPCS: 73110; 99212

== ENCOUNTER → 2020-12-31 11:28 | Outpatient (BNVA) | payer MEDICARE, SELFPAY | PROVIDERS: PCP Internal Medicine; Visit Provider Orthopaedic Surgery | DX: S52.501D Unspecified fracture of the lower end of right radius, subsequent encounter for closed fracture with routine healing (principal); M25.641 Stiffness of right hand, not elsewhere classified | CPT/HCPCS: 99212 ==

== ENCOUNTER → 2021-01-14 14:24 | Outpatient (BNVA) | payer MEDICARE, SELFPAY | PROVIDERS: PCP Internal Medicine; Visit Provider Physician Assistant | DX: M12.811 Other specific arthropathies, not elsewhere classified, right shoulder (principal) | CPT/HCPCS: 20610; 99212; J1040 ==

== ENCOUNTER 2021-01-28 14:53 | Outpatient (REF) | payer MEDICARE, SELFPAY ==
[2021-01-28 15:40] LABS: MANUAL DIFF FLAG NO
[2021-01-28 15:42] LABS: Basophils Percent Auto 0.3 % (0-2); Eosinophils Absolute Auto 0.2 X10*3/uL (0.0-0.4); Eosinophils Percent Auto 2.3 % (0-4); Hematocrit 39.7 % (37-47); Hemoglobin 12.2 g/dl (12.0-16.0); Imm Gran Abs Auto 0.05 X10*3/uL (0.00-0.03); Imm Gran Pct Auto 0.6 % (0.0-0.4); Lymphocytes Absolute Auto 1.4 X10*3/uL (1.2-4.9); Lymphocytes Percent Auto 17.4 % (20-40); Mean Corpuscular HGB Conc 30.7 g/dl (31.0-35.0); Mean Corpuscular Hemoglobin 28.6 pg (27.0-33.0); Mean Corpuscular Volume 93.2 fL (80-98); Mean Platelet Volume 11.3 fL (9.4-12.3); Monocytes Absolute Auto 0.7 X10*3/uL (0.1-1.2); Monocytes Percent Auto 9.2 % (2-11); Neutrophils Absolute Auto 5.6 X10*3/uL (2.0-8.3); Neutrophils Percent Auto 70.2 % (45-73); Platelet Count 195 X10*3/uL (160-400); Red Blood Count 4.26 X10*6/uL (4.20-5.50); Red Cell Distribution Width 13.5 % (11.0-16.0); White Blood Count 7.9 X10*3/uL (4.8-10.8)
[2021-01-28 15:49] LABS: Estimated Average Glucose 111 mg/dL; Hemoglobin A1c % 5.5 %
[2021-01-28 15:57] LABS: Alanine Aminotransferase 11 U/L (0-31); Alkaline Phosphatase 172 U/L (39-117); Anion Gap 15 (12-20); Aspartate Amino Transferase 18 U/L (5-31); Bilirubin Total 0.3 mg/dL (0.0-1.0); Blood Urea Nitrogen 22 mg/dL (9-16); C Reactive Protein 0.47 mg/dL (< or = 0.50); Calcium 9.5 mg/dL (8.4-10.2); Carbon Dioxide 27 mmol/L (22-29); Chloride 102 mmol/L (96-108); Estimated Glomerular Filt Rate > 60; Glucose Random 86 mg/dL (60-115); Potassium 4.6 mmol/L (3.3-5.1); Sodium 139 mmol/L (135-145); Total Protein 7.6 g/dL (6.5-8.0)
== END 2021-01-28 14:54 | disposition home or self-care (01) ==
LOC: HO.LAB 14:53
PROVIDERS: PCP Internal Medicine; Visit Provider Internal Medicine
DX: I48.0 Paroxysmal atrial fibrillation (principal); I10 Essential (primary) hypertension; R73.03 Prediabetes; R06.02 Shortness of breath
CPT/HCPCS: 36415; 80053; 83036; 85025; 86140

== ENCOUNTER 2021-02-02 14:00 | Outpatient (RCR) | payer MEDICARE, SELFPAY ==
--- NOTE | 2021-01-08 15:08 | MHC.PT.EP ---
[facility] [place] Office [place] Office [place] Office [address] Miguel Cui [address] [phone] F: [phone] F: [phone] F: [phone] F: [phone] Physical Therapy Plan of Care Date of Evaluation: Date of Surgery: Diagnosis: This is an 85 yo female presenting to skilled PT with a script for balance and fall prevention Assessment: This is an 85 yo female presenting to skilled PT with a script for balance and fall prevention. Patient arrives today after multiple falls this year (at least 9 times in the past 3 years). Her last fall caused a distal radius fracture, nondisplaced on 11/04, being followed by ortho and not having surgery (also in aug, fx middle three fingers and had surgery, no OT). She was referred for OT and PT. She reports that the past two falls she does not recall what actually happened; does not remember dizziness or tripping. She walks with a straight cane, still drives. She has a cleaning lady who comes every 2 weeks. Assessment reveals pain that ranges up to a 7/10 in the shoulder. She demos decreased gross/general UB and LB ROM, decreased shoulder/RU strength/LB strength, impaired gait pattern with poor use of cane, Decreased balance as evidenced by DGI, impaired safety and functional transfers as well as gross functional decline with housework, driving. She is a good candidate for skilled PT 2x/wk for 10wks to address balance deficits, strength deficits as well as functional safety concerns. I spoke with OT and they are okay with PT also treating wrist deficits as well. I will put a call in to ortho to let them know as well. Frequency and Duration: The patient will be seen 2x/wk for 10 wks Short Term Goals: I in HEP proper use of cane Assess [place] Longterm Goals: at least 4/5 B shoulders, wrist and LE's at least 10 degs improvement in shoulder AROM on the R able to open jar on own improve DGI to non falls risk level Treatment Plan: Modalities to reduce pain, spasms and effusion. Manual therapy to restore motion and function. Therapeutic exercise to improve strength and flexibility. Neuromuscular re-education for posture and balance. Therapeutic activities to return to functional activities of daily living. Electronically signed by: Cecelia Medeiros PT Please sign and return to therapist. Thank you for your referral.
--- NOTE | 2021-02-02 15:35 | MHC.PT.DC ---
[facility] [place] Office [place] Office [place] Office [address] Miguel Cui [address] [phone] F: [phone] F: [phone] F: [phone] F: [phone] Physical Therapy Discharge Report Diagnosis: This is an 85 yo female presenting to skilled PT with a script for balance and fall prevention Date of Surgery: Date of Evaluation: 01/08/21 Date of Discharge: Treatments to Date: 6 Cancellations to Date: 0 No Shows to Date: 0 Discharge Status: Achieved Goals Improved Function Independent with HEP Patient Elected to Stop Discharge Summary: Reviewed josue TOPETE ability to perform on own safely and educated her on anatomy and healing times. She reports that she is ready for DC at this time. DC to HEP. Electronically signed by: Cecelia Medeiros PT Please sign and return to therapist. Thank you for your referral.
== END 2021-02-02 15:35 | disposition home or self-care (01) ==
LOC: HO.PTCHIC 14:00
PROVIDERS: PCP Internal Medicine; Visit Provider Orthopaedic Surgery
DX: Z91.81 History of falling (principal)
CPT/HCPCS: 97110; 97112; 97163

== ENCOUNTER 2021-05-01 14:40 | Outpatient (REF) | payer MEDICARE, SELFPAY ==
[2021-05-01 15:00] LABS: MANUAL DIFF FLAG NO
[2021-05-01 15:17] LABS: Basophils Percent Auto 0.3 % (0-2); Eosinophils Absolute Auto 0.2 X10*3/uL (0.0-0.4); Hematocrit 39.4 % (37-47); Hemoglobin 12.1 g/dl (12.0-16.0); Imm Gran Abs Auto 0.06 X10*3/uL (0.00-0.03); Imm Gran Pct Auto 0.8 % (0.0-0.4); Lymphocytes Absolute Auto 1.7 X10*3/uL (1.2-4.9); Lymphocytes Percent Auto 21.8 % (20-40); Mean Corpuscular HGB Conc 30.7 g/dl (31.0-35.0); Mean Corpuscular Hemoglobin 29.1 pg (27.0-33.0); Mean Corpuscular Volume 94.7 fL (80-98); Mean Platelet Volume 10.2 fL (9.4-12.3); Monocytes Absolute Auto 0.7 X10*3/uL (0.1-1.2); Monocytes Percent Auto 8.3 % (2-11); Neutrophils Absolute Auto 5.3 X10*3/uL (2.0-8.3); Neutrophils Percent Auto 66.8 % (45-73); Platelet Count 239 X10*3/uL (160-400); Red Blood Count 4.16 X10*6/uL (4.20-5.50); Red Cell Distribution Width 13.8 % (11.0-16.0)
[2021-05-01 15:39] LABS: Alanine Aminotransferase < 6 U/L (0-31); Albumin Level 4.2 g/dL (3.5-5.0); Alkaline Phosphatase 126 U/L (39-117); Anion Gap 13 (12-20); Aspartate Amino Transferase 21 U/L (5-31); Bilirubin Total 0.3 mg/dL (0.0-1.0); Blood Urea Nitrogen 28 mg/dL (9-16); C Reactive Protein 0.12 mg/dL (< or = 0.50); Calcium 9.3 mg/dL (8.4-10.2); Carbon Dioxide 28 mmol/L (22-29); Chloride 102 mmol/L (96-108); Estimated Glomerular Filt Rate 50; Glucose Random 95 mg/dL (60-115); Lipase 18 U/L (8-78); Potassium 4.7 mmol/L (3.3-5.1); Sodium 138 mmol/L (135-145); Total Protein 7.5 g/dL (6.5-8.0)
== END 2021-05-01 14:41 | disposition home or self-care (01) ==
LOC: HO.LAB 14:40
PROVIDERS: PCP Internal Medicine; Visit Provider Internal Medicine
DX: R10.9 Unspecified abdominal pain (principal); I25.10 Atherosclerotic heart disease of native coronary artery without angina pectoris
CPT/HCPCS: 36415; 80053; 83690; 85025; 86140

== ENCOUNTER 2021-10-20 10:46 | Inpatient (IN) | payer MEDICARE, SELFPAY ==
[2021-10-20] VITALS (9 sets, daily range): BP systolic 100–138; BP diastolic 55–88; PULSE 66–170; RESP 16–20; TEMP 36.1–36.9; O2SAT 94–98; BMI 35.0
--- NOTE | 2021-10-20 | ECG_ITS ---
Test Reason : chest pain Blood Pressure : / mmHG Vent. Rate : 161 BPM Atrial Rate : 000 BPM P-R Int : 000 ms QRS Dur : 090 ms QT Int : 288 ms P-R-T Axes : 000 -13 211 degrees QTc Int : 471 ms Atrial fibrillation with rapid ventricular response Marked ST abnormality, possible inferolateral subendocardial injury Abnormal ECG When compared with ECG of 21-DEC-2019 19:21, Atrial fibrillation has replaced Sinus rhythm Vent. rate has increased BY [address] now depressed in Inferior leads ST now depressed in Lateral leads T wave inversion now evident in Lateral leads Referred By: Caren Mckinney Electronically Signed By:EDUARDO SHETTY MD
--- NOTE | ~2021-10-20 | NM_ITS ---
Lexiscan Myocardial perfusion study Indication: Elevated troponins, known LAD disease. Technique: The patient was brought in for a Lexiscan perfusion study on 10/22/2021 and was injected 0.4 mg of Lexiscan intravenously. Within a minute of this injection 30 mCi of sestamibi was given intravenously. Images were obtained using the SPECT gamma camera interlaced with the gating device. Images were obtained in supine position. Resting perfusion study was performed on 10/21/2021. Patient was administered 30 mCi of sestamibi intravenously at rest. Images were then obtained in supine position. Total DLP 105mGy-cm. Images were processed with the software and compared side to side in short axis, horizontal long axis and vertical long axis views. Findings: Raw acquisition was reviewed. The stress perfusion study showed mildly diminished tracer uptake in the distal lateral wall. With CT attenuation correction, there is slightly diminished tracer uptake in the apical part of anterior wall. Overall these are probably artifactual. The gated study shows normal LV systolic function with calculated LVEF of 61%. LV cavity is normal in size. The gated study shows normal wall thickening and contraction of segments. Resting study shows no significant perfusion abnormality. Gating at rest reveals normal wall motion with ejection fraction at 71%. The findings are consistent with mild reversible apical lateral defect but with normal contractility and likely artifactual. NM/NM [place] perf SPECT rest & str Impression: 1. Myocardial perfusion imaging study shows likely normal myocardial perfusion. 2. Gated LVEF is 61% during stress and 71% during rest. 3. Transient ischemic dilatation not present. EKG component of the test reported separately.
--- NOTE | ~2021-10-20 | XR_ITS ---
EXAMINATION: XR CHEST CLINICAL INFORMATION: Dyspnea. COMPARISON: 03/29/2018 chest radiographs. TECHNIQUE: Frontal view of the chest was obtained. FINDINGS: No significant abnormality is noted involving the heart, lungs, mediastinum, bony thorax or soft tissues. XR/XR chest 1V IMPRESSION: No acute cardiopulmonary process.
--- NOTE | 2021-10-20 10:57 | ED.CHESTPAIN ---
HPI - Chest Pain General Chief Complaint: Chest Pain Stated Complaint: CHEST PAIN Time Seen by Provider: 10/20/21 10:55 Source: patient Mode of arrival: EMS Limitations: other (vague historian) History of Present Illness MD complaint: chest pain (shortness of breath, sweats, heaviness, not feeling well) Pertinent past history: other (afib) Onset (ago): day(s) (2+ days ago) Timing of current episode: episodic Prior episodes: Yes Onset: during rest and during exertion Pain location: right chest Pain radiation: none Severity: moderate Quality: dull Relieving factors: nothing Exacerbating factors: exertion and movement Context: other (states she doesn't always take her medications and missed DOAC yesterday. she hasn't been feeling well recently. Unable to take any medications this AM) Associated symptoms: nausea and dyspnea Treatment prior to arrival: none Related Data Home Medications Medication Instructions Recorded Confirmed citalopram 40 mg tablet 20 mg PO DAILY 08/18/20 10/20/21 carbidopa 25 mg-levodopa 100 mg 2 tab PO TID 11/11/20 10/20/21 tablet primidone 50 mg tablet 50 mg PO DAILY 11/11/20 10/20/21 gabapentin 300 mg capsule 300 mg PO TID 01/14/21 10/20/21 omeprazole 20 mg capsule,delayed 1 cap PO BID PRN 10/20/21 10/20/21 release Previous Rx's Medication Instructions Recorded atorvastatin 20 mg tablet 20 mg PO DAILY #90 tab 04/23/21 apixaban 5 mg tablet (Eliquis) 5 mg PO BID 90 Days #180 tab 07/29/21 metoprolol tartrate 25 mg tablet 12.5 mg PO BID 90 Days #90 tab 09/04/21 Allergies Allergy/AdvReac Type Severity Reaction Status Date / Time No Known Allergies [NKA] Allergy Verified 10/20/21 11:04 Review of Systems Review of Systems: Constitutional : No Weight loss, No Fever, No Chills, pos sweats ENT/Mouth : No sore throat, No Rhinorrhea Eyes: No Eye Pain, No Swelling Cardiovascular : pos Chest Pain, pos SOB, no Dyspnea on Exertion, No Orthopnea, No Edema, No Palpitations Respiratory : No Cough, No Sputum Gastrointestinal : pos Nausea, No Vomiting, No Diarrhea, No abdominal Pain, No Hematochezia, No Melena Genitourinary : No Dysuria, No Urinary Frequency Musculoskeletal : No joint pain, No Myalgias, No Joint Swelling Skin : No Skin Lesions, No rash Neuro : pos Weakness, No Numbness, No Dizziness, No Headache Psych : No Anxiety/Panic, No Depression Heme/Lymph: No Bruising, No Lymphadenopathy Endocrine : No Polyuria, No Polydipsia All other systems reviewed and are negative [facility] Past Medical History Attestation statement: The following information was validated with the patient. Medical History (Updated 10/20/21 @ 17:11 by Chanel Barrett RN) Afib Anxiety Arthritis Asthma Atherosclerotic cardiovascular disease CAD (coronary artery disease) Cataract Chiari malformation Depression Essential tremor Fibromyalgia GERD (gastroesophageal reflux disease) H/O small bowel obstruction HLD (hyperlipidemia) HTN (hypertension) Osteoarthritis Paroxysmal atrial fibrillation Surgical History H/O heart artery stent Family History Family History (Updated 10/20/21 @ 17:10 by Chanel Barrett RN) Mother CAD (coronary artery disease) Social History Social History (Updated 10/20/21 @ 17:09 by Chanel Barrett RN) Household Members: Spouse Housing: House Are you a primary health careers instructor to a significant other at home: Yes ( is in a wheelchair) Do you presently have visiting nurse or other home services: Yes (Family to help with cooking and cleaning, also dtr is an RN) Alcohol intake: never Patient Tobacco Use Status: Never used Tobacco Use of substances other than those prescribed or required for medical reasons: No Currently Displaying Signs/Symptoms of Drug Intoxication Withdrawal: No Have you been hit, kicked, punched, or otherwise hurt by someone within the past year? If so, by whom?: No Do you feel safe in your current relationship?: Yes Is there a partner from a previous relationship who is making you feel unsafe now?: No Are you made to feel afraid or neglected: No Advance Directives: Yes Advance Directives Information Provided: No Advance Directives on File: No Advance Directives Date on File: 10/20/21 Do you have thoughts of harming others: None Do you have a plan to hurt others: No Plan Recently lost weight without trying: No How much weight loss: 2-13 pounds Eating poorly because of decreased appetite: No Nutrition screen score: 1 Nutrition Risks: No Nutritional Risk Current occupational status: unemployed Current occupation: right handed Physical Exam Vital Signs: Vital Signs: Last Vital Signs Temp 96.9 F 10/20/21 18:54 Pulse 80 10/20/21 18:54 Resp 20 10/20/21 18:54 BP 116/57 L 10/20/21 18:54 Pulse Ox 94 10/20/21 18:54 BMI result Body Mass Index 35.0 Appearance: Alert. Oriented X3. No acute distress. Eyes: Pupils equal, round and reactive to light. ENT: Pharynx normal. Neck: Normal inspection. Neck supple. CVS: tachycardic and irregular heart rate and rhythm. Pulses normal. Respiratory: No respiratory distress. Breath sounds bases diminished. Abdomen: Soft and nontender. Skin: Skin warm and dry. pale skin color. Normal skin turgor. Extremities: No lower extremity edema. No calf ttp Neuro: Oriented X 3. No motor deficit. No sensory deficit. Course Course Course Narrative: BP stable repeat dilt ordered two doses of dilt BP holding dilt gtt ordered HR 120s still on dilt gtt will admit for further HR control MDM - Chest Pain MDM Narrative Medical decision making narrative: 86 yo female with HTN, HLD, afib on eliquis and metoprolol chronic headaches - had MRI recently with headaches - no ICH possible chiari malformation notes that she has been feeling sweaty with chest pain and dyspnea. At this time will need labs, IV dilt, CXR, missed her eliquis yesterday. At this time she is in rapid afib. Did mention her medications were messing up her stomach and hasn't been compliant. At this time will likely end up on dilt gtt and admission for rapid afib possibly related to non compliance Lab Data Result diagrams: 10/20/21 11:22 10/20/21 11:22 Labs: Lab Results 10/20/21 10/20/21 10/20/21 Range/Units 11:22 11:22 11:22 WBC 9.5 (4.8-10.8) X10*3/uL RBC 4.91 (4.20-5.50) X10*6/uL Hgb 14.4 (12.0-16.0) g/dl Hct 44.3 (37.0-47.0) % MCV 90.2 (80.0-98.0) fL MCH 29.3 (27.0-33.0) pg MCHC 32.5 (31.0-35.0) g/dl RDW 13.2 (11.0-16.0) % Plt Count 231 (160-400) X10*3/uL MPV 11.1 (9.4-12.3) fL Immature Gran % (Auto) 0.4 (0.0-0.4) % Neut % (Auto) 72.2 (45-73) % Lymph % (Auto) 19.4 L (20-40) % [place] % (Auto) 7.3 (2-11) % Eos % (Auto) 0.5 (0-4) % Baso % (Auto) 0.2 (0-2) % Lymph # (Auto) 1.8 (1.2-4.9) X10*3/uL [place] # (Auto) 0.7 (0.1-1.2) X10*3/uL Eos # (Auto) 0.1 (0.0-0.4) X10*3/uL Baso # (Auto) 0.0 (0.0-0.2) X10*3/uL Abs Immat Gran (auto) 0.04 H (0.00-0.03) X10*3/uL Absolute Neuts (auto) 6.9 (2.0-8.3) x10*3/uL Absolute Nucleated RBC 0.000 (0.0-0.012) X10*3/uL Nucleated RBC % (auto) 0.0 (0.0-0.2) /100WBC PT (9.9-13.0) SEC INR (0.9-1.1) APTT (24.1-38.0) SEC Sodium 138 (135-145) mmol/L Potassium 4.1 (3.3-5.1) mmol/L Chloride 104 (96-108) mmol/L Carbon Dioxide 19 L (22-29) mmol/L Anion Gap 19 (12-20) BUN 17 H (9-16) mg/dL Creatinine 0.84 (0.5-1.4) mg/dL Estim Creat Clear Calc 46.2 Estimated GFR > 60 Random Glucose 137 H (60-115) mg/dL Calcium 10.2 D (8.4-10.2) mg/dL Magnesium 1.6 (1.6-2.6) mg/dL Total Bilirubin 0.8 (0.0-1.0) mg/dL Direct Bilirubin 0.3 (0.0-0.5) mg/dL AST 19 (5-31) U/L ALT 15 (0-31) U/L Alkaline Phosphatase 111 (39-117) U/L Troponin I High Sens (<3.5-17.0) ng/L B-Natriuretic Peptide 290 H (<100) pg/mL Total Protein 7.8 (6.5-8.0) g/dL Albumin 4.2 (3.5-5.0) g/dL Lipase 19 (8-78) U/L TSH (0.32-4.0) uIU/mL COVID-19 (JACEY) (Negative) COVID-19 Clin Com 10/20/21 10/20/21 10/20/21 Range/Units 11:22 11:22 11:22 WBC (4.8-10.8) X10*3/uL RBC (4.20-5.50) X10*6/uL Hgb (12.0-16.0) g/dl Hct (37.0-47.0) % MCV (80.0-98.0) fL MCH (27.0-33.0) pg MCHC (31.0-35.0) g/dl RDW (11.0-16.0) % Plt Count (160-400) X10*3/uL MPV (9.4-12.3) fL Immature Gran % (Auto) (0.0-0.4) % Neut % (Auto) (45-73) % Lymph % (Auto) (20-40) % [place] % (Auto) (2-11) % Eos % (Auto) (0-4) % Baso % (Auto) (0-2) % Lymph # (Auto) (1.2-4.9) X10*3/uL [place] # (Auto) (0.1-1.2) X10*3/uL Eos # (Auto) (0.0-0.4) X10*3/uL Baso # (Auto) (0.0-0.2) X10*3/uL Abs Immat Gran (auto) (0.00-0.03) X10*3/uL Absolute Neuts (auto) (2.0-8.3) x10*3/uL Absolute Nucleated RBC (0.0-0.012) X10*3/uL Nucleated RBC % (auto) (0.0-0.2) /100WBC PT 13.8 H (9.9-13.0) SEC INR 1.2 H (0.9-1.1) APTT 39.5 H (24.1-38.0) SEC Sodium (135-145) mmol/L Potassium (3.3-5.1) mmol/L Chloride (96-108) mmol/L Carbon Dioxide (22-29) mmol/L Anion Gap (12-20) BUN (9-16) mg/dL Creatinine (0.5-1.4) mg/dL Estim Creat Clear Calc Estimated GFR Random Glucose (60-115) mg/dL Calcium (8.4-10.2) mg/dL Magnesium (1.6-2.6) mg/dL Total Bilirubin (0.0-1.0) mg/dL Direct Bilirubin (0.0-0.5) mg/dL AST (5-31) U/L ALT (0-31) U/L Alkaline Phosphatase (39-117) U/L Troponin I High Sens 12.3 (<3.5-17.0) ng/L B-Natriuretic Peptide (<100) pg/mL Total Protein (6.5-8.0) g/dL Albumin (3.5-5.0) g/dL Lipase (8-78) U/L TSH (0.32-4.0) uIU/mL COVID-19 (JACEY) Negative (Negative) COVID-19 Clin Com See Note 10/20/21 Range/Units 11:22 WBC (4.8-10.8) X10*3/uL RBC (4.20-5.50) X10*6/uL Hgb (12.0-16.0) g/dl Hct (37.0-47.0) % MCV (80.0-98.0) fL MCH (27.0-33.0) pg MCHC (31.0-35.0) g/dl RDW (11.0-16.0) % Plt Count (160-400) X10*3/uL MPV (9.4-12.3) fL Immature Gran % (Auto) (0.0-0.4) % Neut % (Auto) (45-73) % Lymph % (Auto) (20-40) % [place] % (Auto) (2-11) % Eos % (Auto) (0-4) % Baso % (Auto) (0-2) % Lymph # (Auto) (1.2-4.9) X10*3/uL [place] # (Auto) (0.1-1.2) X10*3/uL Eos # (Auto) (0.0-0.4) X10*3/uL Baso # (Auto) (0.0-0.2) X10*3/uL Abs Immat Gran (auto) (0.00-0.03) X10*3/uL Absolute Neuts (auto) (2.0-8.3) x10*3/uL Absolute Nucleated RBC (0.0-0.012) X10*3/uL Nucleated RBC % (auto) (0.0-0.2) /100WBC PT (9.9-13.0) SEC INR (0.9-1.1) APTT (24.1-38.0) SEC Sodium (135-145) mmol/L Potassium (3.3-5.1) mmol/L Chloride (96-108) mmol/L Carbon Dioxide (22-29) mmol/L Anion Gap (12-20) BUN (9-16) mg/dL Creatinine (0.5-1.4) mg/dL Estim Creat Clear Calc Estimated GFR Random Glucose (60-115) mg/dL Calcium (8.4-10.2) mg/dL Magnesium (1.6-2.6) mg/dL Total Bilirubin (0.0-1.0) mg/dL Direct Bilirubin (0.0-0.5) mg/dL AST (5-31) U/L ALT (0-31) U/L Alkaline Phosphatase (39-117) U/L Troponin I High Sens (<3.5-17.0) ng/L B-Natriuretic Peptide (<100) pg/mL Total Protein (6.5-8.0) g/dL Albumin (3.5-5.0) g/dL Lipase (8-78) U/L TSH 1.26 (0.32-4.0) uIU/mL COVID-19 (JACEY) (Negative) COVID-19 Clin Com ECG Data ECG #1: Attestation: I personally reviewed and interpreted this ECG as follows: ECG interpretation date: 10/20/21 ECG interpretation time: 11:20 Interpretation: Rate: 161 Rhythm: afib with RVR [place]: left Normal QRS complex. ST T wave : ST seg depressions lateral leads no MELITON qTC: normal prior studies:changed from prior The study has been interpreted contemporaneously by me. . Critical Care Time Critical Care Time Critical Care Time: Yes Total Critical Care Time: 45 Attestation: dilt gtt, repeat IV bolus I attest to this time spent taking care of the patient Discharge Plan Discharge Clinical Impression: Atrial fibrillation with rapid ventricular response Patient Disposition: Admitted As Inpatient Interventions: Admission Worksheet (ED) Last Done: 10/20/21 15:36 Discharge Date/Time: 10/20/21 15:37
[2021-10-20] MEDS: dilTIAZem HCL 50 MG/10 ML VIAL 10 MG IVPUSH ×2 (11:09→11:19)
[2021-10-20 11:28] LABS: MANUAL DIFF FLAG NO
[2021-10-20 11:30] LABS: Basophils Percent Auto 0.2 % (0-2); Eosinophils Absolute Auto 0.1 X10*3/uL (0.0-0.4); Eosinophils Percent Auto 0.5 % (0-4); Hematocrit 44.3 % (37.0-47.0); Hemoglobin 14.4 g/dl (12.0-16.0); Imm Gran Abs Auto 0.04 X10*3/uL (0.00-0.03); Imm Gran Pct Auto 0.4 % (0.0-0.4); Lymphocytes Absolute Auto 1.8 X10*3/uL (1.2-4.9); Lymphocytes Percent Auto 19.4 % (20-40); Mean Corpuscular HGB Conc 32.5 g/dl (31.0-35.0); Mean Corpuscular Hemoglobin 29.3 pg (27.0-33.0); Mean Corpuscular Volume 90.2 fL (80.0-98.0); Mean Platelet Volume 11.1 fL (9.4-12.3); Monocytes Absolute Auto 0.7 X10*3/uL (0.1-1.2); Monocytes Percent Auto 7.3 % (2-11); Neutrophils Absolute Auto 6.9 x10*3/uL (2.0-8.3); Neutrophils Percent Auto 72.2 % (45-73); Platelet Count 231 X10*3/uL (160-400); Red Blood Count 4.91 X10*6/uL (4.20-5.50); Red Cell Distribution Width 13.2 % (11.0-16.0); White Blood Count 9.5 X10*3/uL (4.8-10.8)
[2021-10-20] MEDS: dilTIAZem HCL 125 MG in 0.9 % Sodium Chloride 100 ML 10 MG IVCONT (11:39)
[2021-10-20 11:40] LABS: INTERNATIONAL NORM RATIO 1.2 (0.9-1.1); Prothrombin Time 13.8 SEC (9.9-13.0)
[2021-10-20 11:43] LABS: Partial Thromboplastin Time 39.5 SEC (24.1-38.0)
[2021-10-20 11:49] LABS: B Type Natriuretic Peptide 290 pg/mL (<100); COVID-19 Test Negative (Negative)
[2021-10-20] MEDS: dilTIAZem HCL 125 MG in 0.9 % Sodium Chloride 100 ML 15 MG IVCONT (11:54)
[2021-10-20 12:05] LABS: TSH reflex Free T4 1.26 uIU/mL (0.32-4.0)
[2021-10-20 12:23] LABS: Alanine Aminotransferase 15 U/L (0-31); Albumin Level 4.2 g/dL (3.5-5.0); Alkaline Phosphatase 111 U/L (39-117); Anion Gap 19 (12-20); Aspartate Amino Transferase 19 U/L (5-31); Bilirubin Direct 0.3 mg/dL (0.0-0.5); Bilirubin Total 0.8 mg/dL (0.0-1.0); Blood Urea Nitrogen 17 mg/dL (9-16); Calcium 10.2 mg/dL (8.4-10.2); Carbon Dioxide 19 mmol/L (22-29); Chloride 104 mmol/L (96-108); Creatinine Clr Calc Pharmacy 46.2; Estimated Glomerular Filt Rate > 60; Glucose Random 137 mg/dL (60-115); Lipase 19 U/L (8-78); Magnesium 1.6 mg/dL (1.6-2.6); Potassium 4.1 mmol/L (3.3-5.1); Sodium 138 mmol/L (135-145); Total Protein 7.8 g/dL (6.5-8.0)
--- NOTE | 2021-10-20 12:23 | PHA.MEDREC ---
Pharmacy Consult ? Medication Reconciliation Pharmacy has completed the medication reconciliation.
[2021-10-20 12:25] LABS: Troponin-I High Sensitivity 12.3 ng/L (<3.5-17.0)
--- NOTE | 2021-10-20 14:01 | P.HPHOSP_ITS ---
History of Present Illness Date of Service: 10/20/21 Chief Complaint: chest discomfort 86F with pmh CAD, pafib, presented with 1 day chest discomfort. Patient states that on a.m. of admission she was walking around and suddenly felt a strange sensation in her chest, diaphoretic, lightheaded. She decided to go to bed, and that she laid on her left side and felt an indescribable discomfort in her chest associated with shortness of breath. She denies nausea, vomiting, fever, chills. Patient came to the ED, in ED patient was in atrial fibrillation with rapid ventricular response in the 200s, she received IV diltiazem and heart rate improved to 120s to 150s with significant improvement in symptoms. Review of Systems Review of Systems: Constitutional: Denies fever, denies Chills Eyes: denies blurry vision ENT: denies sore throat CVS: chest pain Respiratory: dyspnea GI: Decreased appetite : denies dysuria MSK: denies neck pain Skin: denies rash Neuro: denies specific motor weakness Psych: denies suicidal ideation Endocrine: denies heat/cold intolerance Hematologic: denies easy bleeding Allergy: denies hives [facility] Medical History Afib Anxiety Arthritis Asthma Atherosclerotic cardiovascular disease CAD (coronary artery disease) Cataract Chiari malformation Depression Essential tremor Fibromyalgia GERD (gastroesophageal reflux disease) H/O small bowel obstruction HLD (hyperlipidemia) HTN (hypertension) Osteoarthritis Paroxysmal atrial fibrillation Family History Mother CAD (coronary artery disease) Surgical History H/O heart artery stent Social History Are you a primary landcare 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 to a significant other at home: Yes ( is in a wheelchair) Do you presently have visiting nurse or other home services: Yes (Family to help with cooking and cleaning, also dtr is an RN) Alcohol intake: never Patient Tobacco Use Status: Never used Tobacco Advance Directives: Yes Advance Directives Information Provided: No Advance Directives on File: No Current occupational status: unemployed Current occupation: right handed Meds Allergies Allergy/AdvReac Type Severity Reaction Status Date / Time No Known Allergies [NKA] Allergy Verified 10/20/21 11:04 Active Medications: Current Medications Acetaminophen (Acetaminophen 325 Mg Tablet) 650 mg PO Q6H PRN PRN Reason: Pain, Mild (Pain Scale 1-3) Apixaban (Apixaban 5 Mg Tablet) 5 mg PO BID [facility] Atorvastatin Calcium (Atorvastatin Calcium 20 Mg Tablet) 20 mg PO BEDTIME [facility] Carbidopa/Levodopa (Carbidopa/Levodopa 25/100 Tablet) 2 tab PO TID [facility] Escitalopram Oxalate (Escitalopram Oxalate 20 Mg Tablet) 20 mg PO DAILY [facility] Gabapentin (Gabapentin 300 Mg Capsule) 300 mg PO TID [facility] Diltiazem HCl 125 mg/ Sodium (Chloride) 125 mls @ 0 mls/hr IVCONT .Q0M [facility]; Protocol Last Admin: 10/20/21 11:54 Dose: 15 mg/hr, 15 mls/hr Documented by: Magnesium Oxide (Magnesium Oxide 400 Mg Tablet) 400 mg PO BIDPC [facility] Metoprolol Tartrate (Metoprolol Tartrate 12.5 Mg Halftab) 12.5 mg PO BID [facility]; Protocol Omeprazole (Omeprazole 20 Mg Capsule.) 20 mg PO BID PRN PRN Reason: Acid Reflux Pharmacy Consult (Consult Rx Perform Med Rec) 1 each MISCELLANE ONCE PRN PRN Reason: Consult order Primidone (Primidone 50 Mg Tablet) 50 mg PO DAILY [facility] Sodium Chloride (0.9 % Sodium Chloride Flush 3 Ml Syringe) 3 ml IVFLUSH QSHIFT [facility] Home Medications Medication Instructions Recorded Confirmed Last Taken Type citalopram 40 mg tablet 20 mg PO DAILY 08/18/20 10/20/21 10/18/21 History carbidopa 25 mg-levodopa 100 mg 2 tab PO TID 11/11/20 10/20/21 10/18/21 History tablet primidone 50 mg tablet 50 mg PO DAILY 11/11/20 10/20/21 10/18/21 History gabapentin 300 mg capsule 300 mg PO TID 01/14/21 10/20/21 10/18/21 History omeprazole 20 mg capsule,delayed 1 cap PO BID PRN 10/20/21 10/20/21 10/18/21 History release Physical Exam Vital Signs and Narrative: Vital Signs: Last Vital Signs Temp 98.2 F 10/20/21 11:05 Pulse 115 H 10/20/21 13:32 Resp 19 10/20/21 13:32 BP 123/88 10/20/21 13:32 Pulse Ox 97 10/20/21 13:32 BMI result Body Mass Index 35.0 General: no acute distress HEENT: atraumatic Neck: normal to visual inspection CVS: S1, S2, Rapid irregular Resp: CTA bilateral Chest: non tender GI: soft, non tender, non distended : no CVA tenderness Skin: echymoses Extremities: no edema Neuro: Oriented X3, grossly intact Psych: cooperative Results Labs CBC and Chem 7: 10/20/21 11:22 10/20/21 11:22 Labs: Laboratory Results - last 24 hr 10/20/21 10/20/21 10/20/21 11:22 11:22 11:22 MCV 90.2 MCH 29.3 MCHC 32.5 RDW 13.2 Plt Count 231 MPV 11.1 Immature Gran % (Auto) 0.4 Neut % (Auto) 72.2 Lymph % (Auto) 19.4 L [place] % (Auto) 7.3 Eos % (Auto) 0.5 Baso % (Auto) 0.2 Lymph # (Auto) 1.8 [place] # (Auto) 0.7 Eos # (Auto) 0.1 Baso # (Auto) 0.0 Abs Immat Gran (auto) 0.04 H Absolute Neuts (auto) 6.9 Absolute Nucleated RBC 0.000 Nucleated RBC % (auto) 0.0 PT INR APTT Anion Gap 19 Estim Creat Clear Calc 46.2 Estimated GFR > 60 Random Glucose 137 H Calcium 10.2 D Magnesium 1.6 Total Bilirubin 0.8 Direct Bilirubin 0.3 AST 19 ALT 15 Alkaline Phosphatase 111 Troponin I High Sens B-Natriuretic Peptide 290 H Total Protein 7.8 Albumin 4.2 Lipase 19 TSH COVID-19 (JACEY) COVID-19 Clin Com 10/20/21 10/20/21 10/20/21 11:22 11:22 11:22 MCV MCH MCHC RDW Plt Count MPV Immature Gran % (Auto) Neut % (Auto) Lymph % (Auto) [place] % (Auto) Eos % (Auto) Baso % (Auto) Lymph # (Auto) [place] # (Auto) Eos # (Auto) Baso # (Auto) Abs Immat Gran (auto) Absolute Neuts (auto) Absolute Nucleated RBC Nucleated RBC % (auto) PT 13.8 H INR 1.2 H APTT 39.5 H Anion Gap Estim Creat Clear Calc Estimated GFR Random Glucose Calcium Magnesium Total Bilirubin Direct Bilirubin AST ALT Alkaline Phosphatase Troponin I High Sens 12.3 B-Natriuretic Peptide Total Protein Albumin Lipase TSH COVID-19 (JACEY) Negative COVID-19 Clin Com See Note 10/20/21 11:22 MCV MCH MCHC RDW Plt Count MPV Immature Gran % (Auto) Neut % (Auto) Lymph % (Auto) [place] % (Auto) Eos % (Auto) Baso % (Auto) Lymph # (Auto) [place] # (Auto) Eos # (Auto) Baso # (Auto) Abs Immat Gran (auto) Absolute Neuts (auto) Absolute Nucleated RBC Nucleated RBC % (auto) PT INR APTT Anion Gap Estim Creat Clear Calc Estimated GFR Random Glucose Calcium Magnesium Total Bilirubin Direct Bilirubin AST ALT Alkaline Phosphatase Troponin I High Sens B-Natriuretic Peptide Total Protein Albumin Lipase TSH 1.26 COVID-19 (JACEY) COVID-19 Clin Com Imaging Radiologist's Impressions: Impressions Chest X-Ray 10/20/21 12:21 IMPRESSION: No acute cardiopulmonary process. Assessment and Plan (1) Atrial fibrillation with rapid ventricular response: Status: Acute Plan 86F presented with chest discomfort, found to have atrial fibrillation with rapid ventricular response paroxysmal atrial fibrillation with rapid ventricular response IV diltiazem infusion check troponin repeat Cardiology eval monitor on telemetry continue Eliquis metoprolol coronary disease continue Eliquis and statin essential tremor continue Sinemet and primidone mood disorder Lexapro mild hypo magnesemia of 1.6 magnesium supplement, monitor DNR/DNI patient was symptomatic AFib with rapid ventricular response requiring continuous IV infusion of diltiazem with risk factors of coronary disease and advanced age, therefore likely to require at least 2 midnights in the hospital. Quality Stroke Does the patient have a stroke diagnosis?: No VTE Prior VTE?: No VTE Risk Level:: Medical - moderate - high VTE Device Contraindication: Treatment Not Indicated VTE Drug Contraindication: N/A - Med Ordered
--- NOTE | 2021-10-20 14:53 | PC.NURSE ---
patient assisted to bedside commode, patient noted to feel dizzy with standing and beceomes increasingly tachy to 160's. at rest returns to rate of 120'2. patient in no obvious distress post commode use, states im tired
[2021-10-20] MEDS: 0.9 % Sodium Chloride Flush 3 ML SYRINGE IVFLUSH ×2 (16:59→20:44)
[2021-10-20] MEDS: Carbidopa/Levodopa 25/100 TABLET 2 TAB PO ×2 (16:59→20:43)
[2021-10-20] MEDS: Magnesium Oxide 400 MG TABLET PO (16:59)
--- NOTE | 2021-10-20 18:17 | PC.NURSE ---
PT c/o of nausea and dry MD nithya notified. Telephone ordered received for 4mg IVPUSH Zofran Q8HR PRN.
--- NOTE | 2021-10-20 18:24 | PC.NURSE ---
PT converted back to SR, made aware;new order to stop Cardizem drip and monitor while Lopressor added to regimen.
[2021-10-20] MEDS: Metoprolol Tartrate 12.5 MG HALFTAB PO (18:30)
[2021-10-20] MEDS: ondansetron HCL 4 MG/2 ML VIAL IVPUSH (18:36)
[2021-10-20] MEDS: Apixaban 5 MG TABLET PO (20:42)
[2021-10-21] VITALS (7 sets, daily range): BP systolic 107–136; BP diastolic 55–65; PULSE 59–71; RESP 16–20; TEMP 36.1–36.9; O2SAT 95–98
[2021-10-21] MEDS: ondansetron HCL 4 MG/2 ML VIAL IVPUSH (04:50)
[2021-10-21 05:41] LABS: Hemoglobin 13.4 g/dl (12.0-16.0); Mean Corpuscular HGB Conc 31.9 g/dl (31.0-35.0); Mean Corpuscular Hemoglobin 29.6 pg (27.0-33.0); Mean Corpuscular Volume 92.9 fL (80.0-98.0); Mean Platelet Volume 10.8 fL (9.4-12.3); Platelet Count 228 X10*3/uL (160-400); Red Blood Count 4.52 X10*6/uL (4.20-5.50); Red Cell Distribution Width 13.4 % (11.0-16.0); White Blood Count 8.9 X10*3/uL (4.8-10.8)
[2021-10-21 06:26] LABS: Anion Gap 15 (12-20); Blood Urea Nitrogen 20 mg/dL (9-16); Calcium 9.3 mg/dL (8.4-10.2); Carbon Dioxide 22 mmol/L (22-29); Chloride 102 mmol/L (96-108); Creatinine Clr Calc Pharmacy 42.7; Estimated Glomerular Filt Rate 59; Glucose Fasting 129 mg/dL (60-99); Potassium 4.1 mmol/L (3.3-5.1); Sodium 135 mmol/L (135-145)
--- NOTE | 2021-10-21 09:21 | MHC.CM.PN ---
CM met with Patient at bedside and addressed IMM with her, providing her with the original and placing a copy on the chart.[facility] and uses a cane to assist with mobility. Patient states that she may need a new VNA (she is caring for her who is in a w/c and has Dementia); CM explained that family may need to assist her in getting her more care support. Home is the goal for dc and CM has initiated and will follow for dc planning. PCP is Dr. Wesley Livingston and Patient has received Moderna/Covid vax X3.
--- NOTE | 2021-10-21 09:49 | ECG_ITS ---
Test Reason : CHECK QTC Blood Pressure : / mmHG Vent. Rate : 067 BPM Atrial Rate : 067 BPM P-R Int : 144 ms QRS Dur : 082 ms QT Int : 432 ms P-R-T Axes : 056 -17 019 degrees QTc Int : 456 ms Normal sinus rhythm Normal ECG When compared with ECG of 21-OCT-2021 10:19, Nonspecific T wave abnormality, improved in Lateral leads Referred By: Eamon Garcia Electronically Signed By:EAMON GARCIA MD
--- NOTE | 2021-10-21 09:49 | ECG_ITS ---
Test Reason : CK QTC CK NSR Blood Pressure : / mmHG Vent. Rate : 066 BPM Atrial Rate : 066 BPM P-R Int : 138 ms QRS Dur : 082 ms QT Int : 420 ms P-R-T Axes : 035 -12 -03 degrees QTc Int : 440 ms Normal sinus rhythm Nonspecific T wave abnormality Abnormal ECG When compared with ECG of 20-OCT-2021 11:02, Sinus rhythm has replaced Atrial fibrillation Vent. rate has decreased BY [address] no longer depressed in Inferior leads ST no longer depressed in Anterolateral leads T wave inversion no longer evident in Lateral leads Referred By: Eamon Garcia Electronically Signed By:EAMON GARCIA MD
[2021-10-21] MEDS: Metoprolol Tartrate 12.5 MG HALFTAB PO ×2 (09:52→20:08)
[2021-10-21] MEDS: Carbidopa/Levodopa 25/100 TABLET 2 TAB PO ×3 (09:52→20:08)
[2021-10-21] MEDS: Primidone 50 MG TABLET PO (09:52)
[2021-10-21] MEDS: Magnesium Oxide 400 MG TABLET PO ×2 (09:52→15:45)
[2021-10-21] MEDS: Escitalopram Oxalate 20 MG TABLET PO (09:52)
[2021-10-21] MEDS: Apixaban 5 MG TABLET PO ×2 (09:52→20:08)
[2021-10-21] MEDS: 0.9 % Sodium Chloride Flush 3 ML SYRINGE IVFLUSH ×3 (09:53→20:09)
--- NOTE | 2021-10-21 10:37 | P.CONCA_ITS ---
History of Present Illness History of Present Illness Date of Service: 10/21/21 Requesting physician: Shannan Dutton Consult reason: atrial fibrillation Chief complaint: afib rvr Narrative: I was requested to see Cintia in cardiology consultation today for recurrent atrial fibrillation rapid ventricular response leading to hospitalization. She is 86-year-old woman who sees Dr. Flores in cardiology clinic with prior history of LAD stenting in 2018 for symptoms of shortness of breath although she is not 100% sure, paroxysmal atrial fibrillation on oral anticoagulation with Eliquis, present to the hospital yesterday not feeling well. She says she has a lot of stress recently because of taking care of her who has dementia. She is having involved in his care and is not be able to cope up with it. Yesterday morning she started feeling not well short of breath and developed upper retrosternal chest pressure associated with weakness. She subsequently called her son and then called EMT who brought her to the hospital. In the hospital she was noted to have atrial fibrillation rapid ventricular response. She said she was given couple boluses of IV medications and heart rate will come down she would feel better. On presentation troponin were negative however after 4 hours a troponin emerson from 12.3-83. Around 17:00 yesterday she converted back to sinus rhythm. And since then she has been feeling well. No more chest pressure. She is very anxious about having to go home again to take care of her . She feels that she is weak. She had no lightheadedness or syncope yesterday. She does not recall her symptoms with prior atrial fibrillation. She takes all her medications. Also takes her oral anticoagulation without missing the dose. Review of Systems Constitutional: Constitutional: Reports lethargy and Reports weakness Eyes: Eyes: Reports no additional eye complaints Cardiovascular: Cardiovascular: Reports chest pain at rest, Reports palpitations and Reports dyspnea Respiratory: Respiratory: Reports no additional respiratory complaints and Reports dyspnea Gastrointestinal: Gastrointestinal: Reports no additional gastrointestinal complaints Genitourinary: Genitourinary: Reports no additional female genitourinary complaints Musculoskeletal: Musculoskeletal: Reports no additional musculoskeletal complaints Integumentary/Breasts: Skin/Breast: Reports system reviewed and no additional complaints, except as docu Neurologic: Reports system reviewed and no additional complaints, except as documented and Reports weakness Psychiatric: Psychiatric: Reports no additional psychiatric complaints Endocrine: Endocrine: Reports no additional endocrine complaints and Reports palpitations Hematologic/Lymphatic: Hematologic/Lymphatic: Reports no additional hematologic/lymphatic complaints [facility] Past Medical History Medical History Afib Anxiety Arthritis Asthma Atherosclerotic cardiovascular disease CAD (coronary artery disease) Cataract Chiari malformation Depression Essential tremor Fibromyalgia GERD (gastroesophageal reflux disease) H/O small bowel obstruction HLD (hyperlipidemia) HTN (hypertension) Osteoarthritis Paroxysmal atrial fibrillation Family History Family History Mother CAD (coronary artery disease) Surgical History Surgical History H/O heart artery stent Social History Social History Household Members: Spouse Housing: House Are you a primary menagerie caretaker to a significant other at home: Yes ( is in a wheelchair) Do you presently have visiting nurse or other home services: Yes (Family to help with cooking and cleaning, also dtr is an RN) Alcohol intake: never Patient Tobacco Use Status: Never used Tobacco Use of substances other than those prescribed or required for medical reasons: No Currently Displaying Signs/Symptoms of Drug Intoxication Withdrawal: No Have you been hit, kicked, punched, or otherwise hurt by someone within the past year? If so, by whom?: No Do you feel safe in your current relationship?: Yes Is there a partner from a previous relationship who is making you feel unsafe now?: No Are you made to feel afraid or neglected: No Advance Directives: Yes Advance Directives Information Provided: No Advance Directives on File: No Advance Directives Date on File: 10/20/21 Do you have thoughts of harming others: None Do you have a plan to hurt others: No Plan Recently lost weight without trying: No How much weight loss: 2-13 pounds Eating poorly because of decreased appetite: No Nutrition screen score: 1 Nutrition Risks: No Nutritional Risk service: No Current occupational status: retired Current occupation: right handed Meds Allergies Allergy/AdvReac Type Severity Reaction Status Date / Time No Known Allergies [NKA] Allergy Verified 10/20/21 11:04 Active Medications: Current Medications Acetaminophen (Acetaminophen 325 Mg Tablet) 650 mg PO Q6H PRN PRN Reason: Pain, Mild (Pain Scale 1-3) Apixaban (Apixaban 5 Mg Tablet) 5 mg PO BID [facility] Last Admin: 10/21/21 09:52 Dose: 5 mg Documented by: Atorvastatin Calcium (Atorvastatin Calcium 20 Mg Tablet) 20 mg PO BEDTIME [facility] Carbidopa/Levodopa (Carbidopa/Levodopa 25/100 Tablet) 2 tab PO TID [facility] Last Admin: 10/21/21 09:52 Dose: 2 tab Documented by: Dronedarone (Dronedarone Hcl 400 Mg Tablet) 400 mg PO BID [facility] Escitalopram Oxalate (Escitalopram Oxalate 20 Mg Tablet) 20 mg PO DAILY [facility] Last Admin: 10/21/21 09:52 Dose: 20 mg Documented by: Gabapentin (Gabapentin 300 Mg Capsule) 300 mg PO TID [facility] Last Admin: 10/21/21 10:02 Dose: Not Given Documented by: Magnesium Oxide ([facility] Last Admin: 10/21/21 09:52 Dose: 400 mg Documented by: Metoclopramide HCl (Metoclopramide Hcl 5 Mg Tablet) 5 mg PO TIDAC [facility] Metoprolol Tartrate (Metoprolol Tartrate 12.5 Mg Halftab) 12.5 mg PO BID [facility]; Protocol Last Admin: 10/21/21 09:52 Dose: 12.5 mg Documented by: Omeprazole (Omeprazole 20 Mg Capsule.Dr) 20 mg PO BID@0630,1630 [facility] Ondansetron HCl (Ondansetron Hcl 4 Mg/2 Ml Vial) 4 mg IVPUSH Q8H PRN PRN Reason: Nausea Last Admin: 10/21/21 04:50 Dose: 4 mg Documented by: Pharmacy Consult (Consult Rx Perform Med Rec) 1 each MISCELLANE ONCE PRN PRN Reason: Consult order Primidone (Primidone 50 Mg Tablet) 50 mg PO DAILY [facility] Last Admin: 10/21/21 09:52 Dose: 50 mg Documented by: Sodium Chloride (0.9 % Sodium Chloride Flush 3 Ml Syringe) 3 ml IVFLUSH QSHIFT [facility] Last Admin: 10/21/21 09:53 Dose: 3 ml Documented by: Home Medications Medication Instructions Recorded Confirmed Last Taken Type citalopram 40 mg tablet 20 mg PO DAILY 08/18/20 10/20/21 10/18/21 History carbidopa 25 mg-levodopa 100 mg 2 tab PO TID 11/11/20 10/20/21 10/18/21 History tablet primidone 50 mg tablet 50 mg PO DAILY 11/11/20 10/20/21 10/18/21 History gabapentin 300 mg capsule 300 mg PO TID 01/14/21 10/20/21 10/18/21 History omeprazole 20 mg capsule,delayed 1 cap PO BID PRN 10/20/21 10/20/21 10/18/21 History release Physical Exam Vital Signs: Vital Signs: Last Vital Signs Temp 98.5 F 10/21/21 07:25 Pulse 59 10/21/21 07:25 Resp 18 10/21/21 07:25 BP 119/57 L 10/21/21 07:25 Pulse Ox 97 10/21/21 07:25 BMI result Body Mass Index 35.0 Const: General: cooperative, comfortable, no acute distress, alert, awake and anxious Nutritional Appearance: obese Orientation/consciousness: patient oriented x3 Limitations: no limitations HEENT: Head: Yes normocephalic and Yes atraumatic Neck: Neck: Yes trachea midline, Yes supple and Yes no JVD Chest: Chest palpation & inspection: normal inspection of the chest Resp: Effort & Inspection: normal respiratory effort Auscultation: clear to auscultation bilaterally Cardio: Jugular venous distension: no JVD Palpation: normal PMI Rate: regular rate Rhythm: regular rhythm Heart sounds: S1 normal heart sound present, S2 normal heart sound present, no click, no gallops and no murmurs GI: Auscultation: normal bowel sounds Skin: General skin exam: no rashes or lesions noted Neuro: General: patient oriented x3 and no focal motor deficits Extrem: General: Yes no clubbing, cyanosis or edema Psych: Appearance: grossly normal Affect: Anxious affect present Objective Labs and Meds Result diagrams: 10/21/21 05:22 10/21/21 05:22 Lab results: Laboratory Results - last 24 hr 10/20/21 10/20/21 10/20/21 11:22 11:22 11:22 WBC 9.5 RBC 4.91 Hgb 14.4 Hct 44.3 MCV 90.2 MCH 29.3 MCHC 32.5 RDW 13.2 Plt Count 231 MPV 11.1 Immature Gran % (Auto) 0.4 Neut % (Auto) 72.2 Lymph % (Auto) 19.4 L [place] % (Auto) 7.3 Eos % (Auto) 0.5 Baso % (Auto) 0.2 Lymph # (Auto) 1.8 [place] # (Auto) 0.7 Eos # (Auto) 0.1 Baso # (Auto) 0.0 Abs Immat Gran (auto) 0.04 H Absolute Neuts (auto) 6.9 Absolute Nucleated RBC 0.000 Nucleated RBC % (auto) 0.0 PT INR APTT Sodium 138 Potassium 4.1 Chloride 104 Carbon Dioxide 19 L Anion Gap 19 BUN 17 H Creatinine 0.84 Estim Creat Clear Calc 46.2 Estimated GFR > 60 Random Glucose 137 H Fasting Glucose Calcium 10.2 D Magnesium 1.6 Total Bilirubin 0.8 Direct Bilirubin 0.3 AST 19 ALT 15 Alkaline Phosphatase 111 Troponin I High Sens B-Natriuretic Peptide 290 H Total Protein 7.8 Albumin 4.2 Lipase 19 TSH COVID-19 (JACEY) COVID-19 [facility] 10/20/21 10/20/21 10/20/21 11:22 11:22 11:22 WBC RBC Hgb Hct MCV MCH MCHC RDW Plt Count MPV Immature Gran % (Auto) Neut % (Auto) Lymph % (Auto) [place] % (Auto) Eos % (Auto) Baso % (Auto) Lymph # (Auto) [place] # (Auto) Eos # (Auto) Baso # (Auto) Abs Immat Gran (auto) Absolute Neuts (auto) Absolute Nucleated RBC Nucleated RBC % (auto) PT 13.8 H INR 1.2 H APTT 39.5 H Sodium Potassium Chloride Carbon Dioxide Anion Gap BUN Creatinine Estim Creat Clear Calc Estimated GFR Random Glucose Fasting Glucose Calcium Magnesium Total Bilirubin Direct Bilirubin AST ALT Alkaline Phosphatase Troponin I High Sens 12.3 B-Natriuretic Peptide Total Protein Albumin Lipase TSH COVID-19 (JACEY) Negative COVID-19 [employer] See Note 10/20/21 10/20/21 10/21/21 11:22 15:07 05:22 WBC 8.9 RBC 4.52 Hgb 13.4 Hct 42.0 MCV 92.9 MCH 29.6 MCHC 31.9 RDW 13.4 Plt Count 228 MPV 10.8 Immature Gran % (Auto) Neut % (Auto) Lymph % (Auto) [place] % (Auto) Eos % (Auto) Baso % (Auto) Lymph # (Auto) [place] # (Auto) Eos # (Auto) Baso # (Auto) Abs Immat Gran (auto) Absolute Neuts (auto) Absolute Nucleated RBC 0.000 Nucleated RBC % (auto) 0.0 PT INR APTT Sodium Potassium Chloride Carbon Dioxide Anion Gap BUN Creatinine Estim Creat Clear Calc Estimated GFR Random Glucose Fasting Glucose Calcium Magnesium Total Bilirubin Direct Bilirubin AST ALT Alkaline Phosphatase Troponin I High Sens 83.0 H* D B-Natriuretic Peptide Total Protein Albumin Lipase TSH 1.26 COVID-19 (JACEY) COVID-19 Clin Com 10/21/21 05:22 WBC RBC Hgb Hct MCV MCH MCHC RDW Plt Count MPV Immature Gran % (Auto) Neut % (Auto) Lymph % (Auto) [place] % (Auto) Eos % (Auto) Baso % (Auto) Lymph # (Auto) [place] # (Auto) Eos # (Auto) Baso # (Auto) Abs Immat Gran (auto) Absolute Neuts (auto) Absolute Nucleated RBC Nucleated RBC % (auto) PT INR APTT Sodium 135 Potassium 4.1 Chloride 102 Carbon Dioxide 22 Anion Gap 15 BUN 20 H Creatinine 0.91 Estim Creat Clear Calc 42.7 Estimated GFR 59 Random Glucose Fasting Glucose 129 H Calcium 9.3 D Magnesium 2.0 Total Bilirubin Direct Bilirubin AST ALT Alkaline Phosphatase Troponin I High Sens B-Natriuretic Peptide Total Protein Albumin Lipase TSH COVID-19 (JACEY) COVID-19 Clin Com Imaging Radiologist's impression: Impressions Chest X-Ray 10/20/21 12:21 IMPRESSION: No acute cardiopulmonary process. Assessment and Plan (1) Chest pressure: Status: Acute Patient presents with symptoms of chest pressure as a predominant symptom associated with atrial fibrillation rapid ventricular response most likely sugge stive of rate-related myocardial ischemia. However given her prior history of CAD and bump in troponin, need to rule out obstructive CAD. Will obtain a inpatient myocardial perfusion imaging for further assessment of her myocardial perfusion. She will have resting perfusion study performed today and stress tomorrow. Also obtain an echocardiogram to assess LV systolic and diastolic function. (2) Paroxysmal atrial fibrillation: Status: Acute Paroxysmal atrial fibrillation leading to hospitalization. Most likely cause for most of her symptoms. She requires rhythm control approach to prevent recurrent hospitalization. Given her multiple risk factors will start her on Multaq 400 mg b.i.d.. Watch EKG for QT prolongation given her other medications she is on. Management was discussed with her in details. She remains very anxious and says she has lot of stress at home. Social intervention needs to be pursued. Continue full oral anticoagulation, currently on Eliquis 5 mg b.i.d.. Will follow with you Procedures Date of Service Date of Service: 10/21/21
--- NOTE | 2021-10-21 10:45 | CA_ITS ---
Acquisition Time: 2021-10-22 10:18:06 Total Exercise Time: 00:02:00 Test Indications: Abnormal ECG Medications: SEE EMAR Protocol: LEXISCAN Max HR: 091 BPM 67% of Pred: 135 BPM Max BP: 102/064 mmHG Max Work Load: 1.0 METS Pharmacological stress test using Lexiscan while sitting. Pt reported feeling of lightheaded after the injection., reversed with Aminophyline 75 mg IV. EKG with no arrhythmia, non-diagnostic for ischemia. Nuclear images to follow. Normotensive response to test. Test reviewed with Dr. Garcia. Referred By: Eamon Garcia Overread By: Augustina Rodriguez NP
--- NOTE | 2021-10-21 10:45 | CA_ITS ---
Transthoracic Echocardiogram Patient (Last, First, Middle): Cintia Gandhi, Gender: Female Date of : 1935 Age: 86 Procedure Date: 10/21/2021 Procedure Type: Transthoracic Echocardiogram Location: [facility] Height: 154.94 cm Weight: 81.65 kg BSA: 1.81 m2 Heart Rate: bpm BP: 119 / 57 mmHg Sales Merchandiser: Referring MD: Eamon Garcia MD [employer] Design Engineer: Eamon Garcia MD Symptoms: Elevated troponin, paroxysmal atrial fibrillation Study Quality: Fair ECG Rhythm: Sinus Conclusions: - 1. Normal LV systolic function with impaired relaxation filling pattern 2. Moderate mitral calcification with normal cardiac valvular Doppler 3. Normal RV systolic pressure 4. No gross pericardial effusion Findings Procedure Information Contrast agent, definity, is being given per protocol without apparent complications. Left Ventricle Normal left ventricular size, thickness, and systolic function. The visually estimated ejection fraction is between 60-65%. Spectral Doppler is indicative of an impaired relaxation filling pattern. E/E prime ratio is between 8 and 15 consistent with indeterminate filling pressures. Right Ventricle Normal right ventricular cavity size and systolic function. Atria The left atrium is mildly dilated. There is no evidence of interatrial shunt. The right atrium is normal in size. Aortic Valve The aortic valve was not well visualized. There is mild calcification of the aortic valve. There is no aortic valve stenosis. There is no aortic valve regurgitation. Mitral Valve The mitral valve was not well visualized. There is moderate posterior mitral leaflet thickening. There is moderate mitral annular calcification. There is trace mitral valve regurgitation. There is no mitral valve stenosis. Pulmonic Valve The pulmonic valve was not well visualized. Tricuspid Valve Likely normal tricuspid valve structure and function. There is mild tricuspid valve regurgitation. The right ventricular systolic pressure is normal. The right ventricular systolic pressure is 32 mmHg. There is no evidence of pulmonary hypertension. Great Vessels All visible segments of the aorta are normal in size. The pulmonary artery was not well visualized. Venous The inferior vena cava is normal in size and collapses greater than 50% with inspiration. Pericardium/Pleural There is no evidence of pericardial effusion. Prior Study Comparison No significant change compared to prior study dated: 04/30/2019. Measurements 2D Linear Measurements IVSd: 1.02 0.6-0.9/0.6-1.0 cm LVIDd: 3.73 3.9-5.3/4.2-5.9 cm LVIDd Index: 2.06 2.4-3.2/2.2-3.1 cm/m2 LVIDs: 2.21 2.0-3.6 cm LVPWd: 1.11 0.7-1.1 cm Ao Root: 3.10 2.1-3.5 cm LA Diam: 3.40 2.7-3.8/3.0-4.0 cm LAIDs Index: 1.88 1.5-2.3 cm/m2 LV Mass: 155.31 67-162/88-224 g LV Mass Index: 85.81 43-95/49-115 g/m2 LVOT Diam: 2.00 3.0+(-)1.3 cm Mitral Valve E'Lateral: 7.40 E'Medial: 6.09 Aortic Valve AoV Pk Efrain: 1.21 AoV Mn Efrain: 0.83 AoV VTI: 0.30 AoV Pk Grad: 6.00 Aov Mn Grad: 3.00 CARLEE Cont.VTI: 2.70 LVOT LVOT Pk Efrain: 1.01 LVOT Mn Efrain: 0.79 LVOT VTI: 0.26 LVOT Pk Grad: 4.00 LVOT Mn Grad: 3.00 LVOT Diam: 2.00 LVOT Area: 3.14 Diastolic Function E'Medial: 6.09 E' Laterial: 7.40 Tricuspid Valve TR Pk Efrain: 2.69 TR Pk Grad: 29.00 RA Press: 3.00 RVSP: 32.00 Great Vessels Aorta Ao Root-2D: 3.10 2.0-3.7 cm Ao Asc: 3.10 2.1-3.4 cm Pulmonary Valve PV Pk Efrain: 0.81 Peak PV Grad: 3.00 Updated in Other Vendor System with Status of Final Eamon Garcia MD electronically signed on 10/21/2021 12:20:52 PM with status of Final
[2021-10-21] MEDS: Dronedarone HCl 400 MG TABLET PO ×2 (11:58→20:08)
[2021-10-21] MEDS: Metoclopramide HCl 5 MG TABLET PO ×2 (11:58→15:45)
[2021-10-21] MEDS: Omeprazole 20 MG CAPSULE.DR PO ×2 (11:59→15:45)
--- NOTE | 2021-10-21 12:58 | P.PNIM_ITS ---
Subjective Subjective Date of Service: 10/21/21 Interval History: the patient was seen and evaluated this morning Laying in bed, feels improvement of the chest tightness Still complaining of abdominal discomfort, nausea Denies any fever, chills or shortness of breath No reported other overnight events. Systemic review: No fever, chills or weakness chest discomfort at presentation, palpitation No shortness of breath or coughing abdominal discomfort associated with mild nausea and no vomiting No urinary symptoms No any rash or wounds Physical Exam Vital Signs: Vital Signs: Last Vital Signs Temp 98.5 F 10/21/21 07:25 Pulse 59 10/21/21 11:09 Resp 18 10/21/21 07:25 BP 119/57 L 10/21/21 11:09 Pulse Ox 97 10/21/21 11:09 BMI result Body Mass Index 35.0 Objective Data Active Medications Acetaminophen (Acetaminophen 325 Mg Tablet) 650 mg PO Q6H PRN PRN Reason: Pain, Mild (Pain Scale 1-3) Apixaban (Apixaban 5 Mg Tablet) 5 mg PO BID [facility] Last Admin: 10/21/21 09:52 Dose: 5 mg Documented by: SURINDER Atorvastatin Calcium (Atorvastatin Calcium 20 Mg Tablet) 20 mg PO BEDTIME [facility] Carbidopa/Levodopa (Carbidopa/Levodopa 25/100 Tablet) 2 tab PO TID [facility] Last Admin: 10/21/21 09:52 Dose: 2 tab Documented by: SURINDER Dronedarone (Dronedarone Hcl 400 Mg Tablet) 400 mg PO BID [facility] Last Admin: 10/21/21 11:58 Dose: 400 mg Documented by: SURINDER Escitalopram Oxalate (Escitalopram Oxalate 20 Mg Tablet) 20 mg PO DAILY [facility] Last Admin: 10/21/21 09:52 Dose: 20 mg Documented by: SURINDER Gabapentin (Gabapentin 300 Mg Capsule) 300 mg PO TID [facility] Last Admin: 10/21/21 10:02 Dose: Not Given Documented by: SURINDER Non-Admin Reason: Patient Refused Magnesium Oxide (Magnesium Oxide 400 Mg Tablet) 400 mg PO BIDPC [facility] Last Admin: 10/21/21 09:52 Dose: 400 mg Documented by: SURINDER Metoclopramide HCl (Metoclopramide Hcl 5 Mg Tablet) 5 mg PO TIDAC [facility] Last Admin: 10/21/21 11:58 Dose: 5 mg Documented by: SURINDER Metoprolol Tartrate (Metoprolol Tartrate 12.5 Mg Halftab) 12.5 mg PO BID [facility]; Protocol Last Admin: 10/21/21 09:52 Dose: 12.5 mg Documented by: SURINDER Omeprazole (Omeprazole 20 Mg Capsule.Dr) 20 mg PO BID@0630,1630 [facility] Last Admin: 10/21/21 11:59 Dose: 20 mg Documented by: SURINDER Ondansetron HCl (Ondansetron Hcl 4 Mg/2 Ml Vial) 4 mg IVPUSH Q8H PRN PRN Reason: Nausea Last Admin: 10/21/21 04:50 Dose: 4 mg Documented by: IVETTE Pharmacy Consult (Consult Rx Perform Med Rec) 1 each MISCELLANE ONCE PRN PRN Reason: Consult order Primidone (Primidone 50 Mg Tablet) 50 mg PO DAILY [facility] Last Admin: 10/21/21 09:52 Dose: 50 mg Documented by: SURINDER Sodium Chloride (0.9 % Sodium Chloride Flush 3 Ml Syringe) 3 ml IVFLUSH QSHIFT [facility] Last Admin: 10/21/21 09:53 Dose: 3 ml Documented by: SURINDER Labs CBC & Chem 7: 10/21/21 05:22 10/21/21 05:22 Labs: Laboratory Results - last 24 hr 10/20/21 10/21/21 10/21/21 15:07 05:22 05:22 MCV 92.9 MCH 29.6 MCHC 31.9 RDW 13.4 Plt Count 228 MPV 10.8 Absolute Nucleated RBC 0.000 Nucleated RBC % (auto) 0.0 Anion Gap 15 Estim Creat Clear Calc 42.7 Estimated GFR 59 Fasting Glucose 129 H Calcium 9.3 D Magnesium 2.0 Troponin I High Sens 83.0 H* D Assessment and Plan (1) Atrial fibrillation with rapid ventricular response: Status: Acute (2) Chest pressure: Status: Acute Plan 86F presented with chest discomfort, found to have atrial fibrillation with rapid ventricular response paroxysmal atrial fibrillation with rapid ventricular response Converted back to sinus discontinue IV diltiazem infusion Cardiology input appreciated continue Eliquis continue metoprolol chest pressure with hx coronary disease could be rate-related myocardial ischemia to do inpatient myocardial perfusion imaging. resting perfusion study performed today and stress tomorrow echocardiogram showing within normal LV systolic and diastolic function with no wall motion abnormality continue Eliquis and statin essential tremor continue Sinemet and primidone mood disorder Lexapro mild hypo magnesemia magnesium supplement, monitor DNR/DNI patient will need to stay overnight to continue evaluation for chest pressure with risk factors of coronary disease and advanced age given high chance of decompensation Quality Stroke Does the patient have a stroke diagnosis?: No VTE Prior VTE?: No VTE Risk Level:: Medical - moderate - high VTE Device Contraindication: Treatment Not Indicated VTE Drug Contraindication: N/A - Med Ordered
[2021-10-21] MEDS: Acetaminophen 325 MG TABLET 650 MG PO (15:45)
[2021-10-21] MEDS: Atorvastatin Calcium 20 MG TABLET PO (20:08)
[2021-10-22 03:28] VITALS: BP 112/53; PULSE 56; RESP 16; TEMP 36.4; O2SAT 97
[2021-10-22] MEDS: Omeprazole 20 MG CAPSULE.DR PO ×2 (05:53→16:14)
[2021-10-22 06:43] LABS: Anion Gap 12 (12-20); Blood Urea Nitrogen 19 mg/dL (9-16); Calcium 9.2 mg/dL (8.4-10.2); Carbon Dioxide 27 mmol/L (22-29); Chloride 102 mmol/L (96-108); Creatinine Clr Calc Pharmacy 45.1; Estimated Glomerular Filt Rate > 60; Glucose Random 102 mg/dL (60-115); Potassium 4.7 mmol/L (3.3-5.1); Sodium 136 mmol/L (135-145)
[2021-10-22 07:13] VITALS: BP 119/55; PULSE 56; RESP 19; TEMP 36.5; O2SAT 98
--- NOTE | 2021-10-22 08:54 | HE.PHANOTE ---
Patient is currently on Sinemet and Reglan, I messaged the provider to discuss the interaction between the two medications. Reglan can decrease the affect of Sinemet, I made him aware and he stated he would look into changing it after seeing the patient this morning.
[2021-10-22 09:34] VITALS: BP 119/55; PULSE 56; O2SAT 98
--- NOTE | 2021-10-22 10:07 | P.PNCA_ITS ---
Subjective Subjective Date of Service: 10/22/21 Principal diagnosis: Paroxysmal atrial fibrillation, elevated troponins Interval history: Patient complains of some GI issues but no cardiac symptoms. Overnight has remained in normal sinus rhythm. Hemodynamically stable. Awaiting to undergo stress test. Echocardiogram showed normal LV systolic function with no major valvular abnormalities. Review of Systems Constitutional: Reports no additional constitutional complaints Eyes: Reports no additional eye complaints Cardiovascular: Reports no additional cardiovascular complaints Gastrointestinal: Reports dyspepsia Musculoskeletal: Reports no additional musculoskeletal complaints Skin/Breast: Reports system reviewed and no additional complaints, except as docu Reports system reviewed and no additional complaints, except as documented Psychiatric: Reports no additional psychiatric complaints Endocrine: Reports no additional endocrine complaints Physical Exam Vital Signs: Last Vital Signs Temp 97.7 F 10/22/21 07:13 Pulse 56 10/22/21 09:34 Resp 19 10/22/21 07:13 BP 119/55 L 10/22/21 09:34 Pulse Ox 98 10/22/21 09:34 BMI result Body Mass Index 35.0 Const General: cooperative, comfortable, no acute distress, alert, awake and anxious Nutritional Appearance: obese Orientation/consciousness: patient oriented x3 Neck Neck: Yes trachea midline, Yes supple and Yes no JVD Resp Effort & Inspection: normal respiratory effort Auscultation: clear to auscultation bilaterally Cardio Jugular venous distension: no JVD Palpation: normal PMI Rate: regular rate Rhythm: regular rhythm Heart sounds: S1 normal heart sound present, S2 normal heart sound present, no click, no gallops and no murmurs GI Auscultation: normal bowel sounds Neuro General: patient oriented x3 and no focal motor deficits Objective Labs and Meds Result diagrams: 10/21/21 05:22 10/22/21 05:47 Lab results: Laboratory Results - last 24 hr 10/22/21 05:47 Sodium 136 Potassium 4.7 Chloride 102 Carbon Dioxide 27 Anion Gap 12 BUN 19 H Creatinine 0.86 Estim Creat Clear Calc 45.1 Estimated GFR > 60 Random Glucose 102 Calcium 9.2 Progress Note: A&P Assessment and plan (1) Paroxysmal atrial fibrillation: Status: Acute Assessment and Plan: Paroxysmal atrial fibrillation, has remained suppressed. Led to hospitalization. Continue Multaq therapy to suppress atrial fibrillation. Continue full oral anticoagulation Eliquis. Importance of compliance with medications especially not missing oral anticoagulants to reduce stroke risk was discussed with her. She understands agrees. Blood pressure is well optimized. (2) Elevated troponin: Status: Acute Assessment and Plan: Elevated troponin most likely secondary to atrial fibrillation rapid ventricular response. Given her prior CAD history needs to undergo myocardial perfusion imaging to assess for myocardial ischemia. Further treatment based on the finding of the stress test. If this is negative she can be discharged home later today. Will set up for outpatient follow-up. Will follow with you. Thank you for allowing me to partake in the care Fall Risk Details Current Medications: Current Medications Acetaminophen (Acetaminophen 325 Mg Tablet) 650 mg PO Q6H PRN PRN Reason: Pain, Mild (Pain Scale 1-3) Last Admin: 10/21/21 15:45 Dose: 650 mg Documented by: Apixaban (Apixaban 5 Mg Tablet) 5 mg PO BID [facility] [place] Last Admin: 10/21/21 20:08 Dose: 5 mg Documented by: Atorvastatin Calcium (Atorvastatin Calcium 20 Mg Tablet) 20 mg PO BEDTIME [facility] [place] Last Admin: 10/21/21 20:08 Dose: 20 mg Documented by: Carbidopa/Levodopa (Carbidopa/Levodopa 25/100 Tablet) 2 tab PO TID [facility] [place] Last Admin: 10/21/21 20:08 Dose: 2 tab Documented by: Dronedarone (Dronedarone Hcl 400 Mg Tablet) 400 mg PO BID [facility] [place] Last Admin: 10/21/21 20:08 Dose: 400 mg Documented by: Escitalopram Oxalate (Escitalopram Oxalate 20 Mg Tablet) 20 mg PO DAILY [facility] [place] Last Admin: 10/21/21 09:52 Dose: 20 mg Documented by: Gabapentin (Gabapentin 300 Mg Capsule) 300 mg PO TID [facility] [place] Last Admin: 10/21/21 20:08 Dose: Not Given Documented by: Magnesium Oxide (Magnesium Oxide 400 Mg Tablet) 400 mg PO BIDPC [facility] [place] Last Admin: 10/21/21 15:45 Dose: 400 mg Documented by: Metoclopramide HCl (Metoclopramide Hcl 5 Mg Tablet) 5 mg PO TIDAC [facility] [place] Last Admin: 10/21/21 15:45 Dose: 5 mg Documented by: Metoprolol Tartrate (Metoprolol Tartrate 12.5 Mg Halftab) 12.5 mg PO BID [facility] [place]; Protocol Last Admin: 10/21/21 20:08 Dose: 12.5 mg Documented by: Omeprazole (Omeprazole 20 Mg Capsule.) 20 mg PO BID@0630,1630 [facility] [place] Last Admin: 10/22/21 05:53 Dose: 20 mg Documented by: Ondansetron HCl (Ondansetron Hcl 4 Mg/2 Ml Vial) 4 mg IVPUSH Q8H PRN PRN Reason: Nausea Last Admin: 10/21/21 04:50 Dose: 4 mg Documented by: Pharmacy Consult (Consult Rx Perform Med Rec) 1 each MISCELLANE ONCE PRN PRN Reason: Consult order Primidone (Primidone 50 Mg Tablet) 50 mg PO DAILY [facility] [place] Last Admin: 10/21/21 09:52 Dose: 50 mg Documented by: Simethicone (Simethicone 80 Mg Tab.Chew) 80 mg PO QIDWMHS [facility] [place] Sodium Chloride (0.9 % Sodium Chloride Flush 3 Ml Syringe) 3 ml IVFLUSH QSHIFT [facility] [place] Last Admin: 10/21/21 20:09 Dose: 3 ml Documented by: Time Spent With Patient Time: Total time spent is greater than 50% in coordination of care (as documented) at patient's floor/unit and/or counseling patient: Progress Note: Quality Stroke Does the patient have a stroke diagnosis?: No Procedures Date of Service Date of Service: 10/22/21
[2021-10-22] MEDS: Apixaban 5 MG TABLET PO (11:58)
[2021-10-22] MEDS: Metoprolol Tartrate 12.5 MG HALFTAB PO (11:58)
[2021-10-22] MEDS: Simethicone 80 MG TAB.CHEW PO ×2 (11:58→16:14)
[2021-10-22] MEDS: Dronedarone HCl 400 MG TABLET PO (11:58)
[2021-10-22] MEDS: Magnesium Oxide 400 MG TABLET PO (11:58)
[2021-10-22] MEDS: Primidone 50 MG TABLET PO (11:58)
[2021-10-22] MEDS: Carbidopa/Levodopa 25/100 TABLET 2 TAB PO ×2 (11:59→16:14)
[2021-10-22 12:00] VITALS: BP 117/73; PULSE 63; RESP 17; TEMP 36.9; O2SAT 97
[2021-10-22] MEDS: 0.9 % Sodium Chloride Flush 3 ML SYRINGE IVFLUSH ×2 (12:04→16:15)
[2021-10-22] MEDS: Escitalopram Oxalate 20 MG TABLET PO (12:04)
--- NOTE | 2021-10-22 13:59 | W.MHC.F2F ---
Service Date Service Date: 10/22/21 Encounter Date of encounter: 10/22/21 Reasons for Services Signs and symptoms assessed: Physical deconditioning Reason for physical therapy: home safety and mobility and therapeutic exercises Homebound: Leaving the home is medically contraindicated at this time without the asist of a device and/or another person due th the listed conditions above and below. Reason homebound: unsteady gait / fall risk Certification: Based on the above findings, I certify that this patient is confined to the home and needs intermittent detention care, physical therapy and/or speech therapy, or continues to need occupational therapy. The patient is under my care, and I have initiated the establishment of the plan of care. The patient will be followed by a physician who will periodically review the plan of care.
--- NOTE | 2021-10-22 14:00 | MHC.CM.PN ---
Patient has been medically cleared for dc to home today, with services. A referral was made to Indira HERNANDEZ, who has been notified of today's dc. Last IMM addressed yesterday.
--- NOTE | 2021-10-22 14:01 | PM.DS ---
DS: Providers Provider Date of Service: 10/22/21 Date of admission: 10/20/21 14:00 Primary care physician: Wesley Livingston MD Consults: 10/20/21 13:29 Consult to Cardiology Routine Consulting Provider: Eamon Garcia Reason for consultation: afib rvr DS: Diagnosis Discharge Diagnosis (1) Elevated troponin: Status: Acute (2) Chest pressure: Status: Acute (3) Atrial fibrillation with rapid ventricular response: Status: Acute DS: Summary Hospital Course Hospital Course: admission note HPI 86F with pmh CAD, pafib, presented with 1 day chest discomfort. ? Patient states that on a.m. of admission she was walking around and suddenly felt a strange sensation in her chest, diaphoretic, lightheaded.? She decided to go to bed, and that she laid on her left side and felt an indescribable discomfort in her chest associated with shortness of breath.? She denies nausea, vomiting, fever, chills.? Patient came to the ED, in ED patient was in atrial fibrillation with rapid ventricular response in the 200s, she received IV diltiazem and heart rate improved to 120s to 150s with significant improvement in symptoms.? Hospital course The patient was admitted to the hospital for evaluation of chest pressure in found to have atrial fibrillation with RVR in the emergency treated with IV Cardizem drip with good response as the patient converted back to sinus rhythm and was evaluated by Cardiology team who recommended starting Multaq. Evaluated by myocardial perfusion imaging and stress test for possible coronary syndrome Which came back negative. Echo showed normal LV systolic and diastolic function. Cardiology cleared the patient to be discharged home to continue Eliquis and statin. Take medications as prescribed Start Multaq 400 mg twice Daily Start taking omeprazole 20 mg twice Daily To follow up with Cardiology as outpatient. Time Spent with Patient Time attestation: Total time spent providing and/or coordinating discharge services: Discharge coordination time: Greater than 30 minutes Quality: Safe Use of Opioids Does Pt have an Active Cancer Diagnosis on the Problem List?: No Quality: Stroke Does the patient have a stroke diagnosis?: No Physical Exam Vital Signs: Vital Signs: Last Vital Signs Temp 98.5 F 10/22/21 12:00 Pulse 63 10/22/21 12:00 Resp 17 10/22/21 12:00 BP 117/73 10/22/21 12:00 Pulse Ox 97 04/21/22 12:00 BMI result Body Mass Index 35.0 Const: Other: Constitutional : Alert, oriented, not in distress Neck : Normal inspection, Supple Cardiovascular : RRR, no JVP, no lower extremity edema Respiratory : fair bilateral air entry, no crackles, wheezes or rhonchi Gastrointestinal: soft, lax, Normal bowel sounds, Non tender Skin : Warm, Dry Neurological : Alert & oriented x3, No focal deficit , CN 2-12 within normal DS: Data Data Completed and Pending Labs on day of discharge: Laboratory Results - last 24 hr 10/22/21 05:47 Sodium 136 Potassium 4.7 Chloride 102 Carbon Dioxide 27 Anion Gap 12 BUN 19 H Creatinine 0.86 Estim Creat Clear Calc 45.1 Estimated GFR > 60 Random Glucose 102 Calcium 9.2 Discharge Plan Discharge Patient Disposition: Home Health Service Discharge Diagnosis: atrial fibrillation with rapid ventricular response Chest pressure Referrals: Indira Coelho [Outside] - 1 Week Wesley Livingston MD [Primary Care Provider] - 1 Week Discharge Medications: New Multaq 400 mg Tablet 400 mg PO BID Qty: 60 0RF Continued atorvastatin 20 mg tablet 20 mg PO DAILY Qty: 90 3RF Eliquis 5 mg tablet 5 mg PO BID 90 Days Qty: 180 3RF metoprolol tartrate 25 mg tablet 12.5 mg PO BID 90 Days Qty: 90 3RF citalopram 40 mg tablet 20 mg PO DAILY 0RF gabapentin 300 mg capsule 300 mg PO TID 0RF carbidopa-levodopa 25-100 mg tablet 2 tab PO TID 0RF primidone 50 mg tablet 50 mg PO DAILY 0RF Changed omeprazole 20 mg capsule,delayed release(DR/EC) 1 cap PO BID Qty: 60 0RF Discharge Orders: Discharge Order (Routine); Ordered 10/22/21 Ordered By: Shannan Dutton Diet: advance to usual diet Activity on Discharge: As tolerated Stand Alone Forms: Patient Portal Discharge page Care Plan Goals: Read below Health Concerns: Read below Plan of Treatment: Read below Assessment: you were admitted to the hospital for evaluation of chest pressure. Found to have rapid atrial fibrillation requiring IV and oral medications with better control as your rhythm converted back to regular sinus. Evaluated by service dispatcher who recommended starting Multaq 400 mg twice daily. You were also evaluated by a stress test which came back negative for any acute coronary syndrome. Take your medications as prescribed Start Multaq 400 mg twice Daily Start taking omeprazole 20 mg twice Daily To follow up with Cardiology as outpatient.
== END 2021-10-22 17:15 | disposition home health service (06) | DRG 310 ==
LOC: HO.ED 13:15 → HO.EDOVER 14:10 → HO.IMC 14:18
PROVIDERS: Admitting Provider Internal Medicine; Emergency Provider Emergency Medicine; PCP Internal Medicine; Visit Provider Student in an Organized Health Care Education/Training Program
DX: I48.0 Paroxysmal atrial fibrillation (principal); Z66 Do not resuscitate; G25.0 Essential tremor; E83.42 Hypomagnesemia; I25.10 Atherosclerotic heart disease of native coronary artery without angina pectoris; E78.5 Hyperlipidemia, unspecified; Z79.01 Long term (current) use of anticoagulants; Z20.822 Contact with and (suspected) exposure to COVID-19; Z79.899 Other long term (current) drug therapy
CPT/HCPCS: 36415; 71045; 78452; 80048; 80076; 83690; 83735; 83880; 84443; 84484; 85025; 85027; 85610; 85730; 87635; 93005; 93017; 93306; 96365; 96366; 96375; 97110; 97116; 97162; 99285; 99291; A9500; J0280; J2405; J2785; Q9957

== ENCOUNTER 2021-11-05 13:23 | Outpatient (REF) | payer MEDICARE, SELFPAY ==
[2021-11-05 13:41] LABS: MANUAL DIFF FLAG NO
[2021-11-05 14:11] LABS: Basophils Percent Auto 0.3 % (0-2); Eosinophils Absolute Auto 0.3 X10*3/uL (0.0-0.4); Hematocrit 39.4 % (37.0-47.0); Hemoglobin 12.5 g/dl (12.0-16.0); Imm Gran Abs Auto 0.04 X10*3/uL (0.00-0.03); Imm Gran Pct Auto 0.5 % (0.0-0.4); Lymphocytes Absolute Auto 1.9 X10*3/uL (1.2-4.9); Lymphocytes Percent Auto 21.6 % (20-40); Mean Corpuscular HGB Conc 31.7 g/dl (31.0-35.0); Mean Corpuscular Hemoglobin 29.5 pg (27.0-33.0); Mean Corpuscular Volume 92.9 fL (80.0-98.0); Monocytes Absolute Auto 0.6 X10*3/uL (0.1-1.2); Monocytes Percent Auto 7.1 % (2-11); Neutrophils Absolute Auto 5.8 x10*3/uL (2.0-8.3); Neutrophils Percent Auto 67.5 % (45-73); Platelet Count 245 X10*3/uL (160-400); Red Blood Count 4.24 X10*6/uL (4.20-5.50); Red Cell Distribution Width 13.2 % (11.0-16.0); White Blood Count 8.6 X10*3/uL (4.8-10.8)
[2021-11-05 14:47] LABS: Alanine Aminotransferase < 6 U/L (0-31); Albumin Level 3.8 g/dL (3.5-5.0); Alkaline Phosphatase 98 U/L (39-117); Anion Gap 12 (12-20); Aspartate Amino Transferase 20 U/L (5-31); Bilirubin Total 0.4 mg/dL (0.0-1.0); Blood Urea Nitrogen 16 mg/dL (9-16); Calcium 9.5 mg/dL (8.4-10.2); Carbon Dioxide 26 mmol/L (22-29); Chloride 104 mmol/L (96-108); Estimated Glomerular Filt Rate 59; Glucose Random 104 mg/dL (60-115); Potassium 4.5 mmol/L (3.3-5.1); Sodium 137 mmol/L (135-145)
== END 2021-11-05 13:24 | disposition home or self-care (01) ==
LOC: HO.LAB 13:23
PROVIDERS: PCP Internal Medicine; Visit Provider Internal Medicine
DX: I48.0 Paroxysmal atrial fibrillation (principal); I10 Essential (primary) hypertension; G20 Parkinson's disease; R10.9 Unspecified abdominal pain
CPT/HCPCS: 36415; 80053; 85025

== ENCOUNTER → 2021-11-18 14:11 | Outpatient (BNVA) | payer MEDICARE, SELFPAY | PROVIDERS: PCP Internal Medicine; Referring Provider Internal Medicine; Visit Provider Internal Medicine | DX: I25.10 Atherosclerotic heart disease of native coronary artery without angina pectoris (principal); I48.0 Paroxysmal atrial fibrillation; I10 Essential (primary) hypertension | CPT/HCPCS: 93005; 99212 ==

== ENCOUNTER 2021-11-30 18:42 | Emergency (ER) | payer MEDICARE, SELFPAY ==
--- NOTE | ~2021-11-30 | CT_ITS ---
EXAMINATION: CT ABDOMEN AND PELVIS WITHOUT CONTRAST CLINICAL INFORMATION: Abdominal pain, weight loss, nausea and vomiting. COMPARISON: CT abdomen dated from 10/04/2019. TECHNIQUE: Multidetector volumetric imaging was performed from the superior aspect of the liver through the pubic symphysis. Sagittal and coronal reformatted images were obtained on the technologist's workstation. This CT examination was performed using dose optimization techniques as appropriate, variously including the following: *Automated exposure control *Adjustment of mA and/or kV according to patient size (this includes techniques or standardized protocols for targeted exams where dose is matched to indication/reason for exam; i.e. extremities or head) *Use of iterative reconstruction technique DLP: 819 mGy-cm FINDINGS: LUNG BASES: Platelike opacities predominantly in the region of the lingula, likely representing subsegmental atelectasis. No dense consolidation or pleural effusion. Partially imaged coronary calcifications. LIVER, GALLBLADDER, AND BILIARY TREE: Hepatic steatosis. The gallbladder is not visualized and could be contracted or surgically removed. There is no biliary ductal dilatation. PANCREAS: Atrophic. SPLEEN: Unremarkable. ADRENAL GLANDS: Unchanged asymmetric prominence of the left adrenal gland. KIDNEYS AND URETERS: No nephrolithiasis or hydronephrosis. Exophytic subcentimeter water density cyst in the lower pole of the right kidney. BLADDER: Unremarkable. GASTROINTESTINAL TRACT: No evidence of bowel obstruction. No acute diverticulitis or colitis. The appendix is not definitely visualized, however there are no regional inflammatory changes to suspect acute appendicitis. ABDOMINAL WALL: No significant hernia is appreciated. LYMPH NODES: No lymphadenopathy by size criteria. VASCULAR: Scattered atherosclerotic disease. PELVIC VISCERA: Unremarkable. OSSEOUS STRUCTURES: Posterior fusion hardware at L4-L5. No acute or aggressive appearing osseous abnormalities. Multilevel degenerative changes of the spine. CT/CT abdomen pelvis wo con IMPRESSION: The lack of intravenous contrast limits evaluation of the solid visceral organs including the liver, spleen, pancreas, and kidneys. Hepatic steatosis. No significant bowel abnormality. Atherosclerotic disease and coronary calcifications.
[2021-11-30 19:03] VITALS: BP 115/65; PULSE 77; RESP 18; TEMP 36.7; O2SAT 97; BMI 32.8
--- NOTE | 2021-11-30 20:13 | ECG_ITS ---
Test Reason : NAUSEA Blood Pressure : / mmHG Vent. Rate : 065 BPM Atrial Rate : 065 BPM P-R Int : 142 ms QRS Dur : 080 ms QT Int : 416 ms P-R-T Axes : 042 -12 013 degrees QTc Int : 432 ms Normal sinus rhythm Normal ECG When compared with ECG of 21-OCT-2021 13:53, No significant change was found Referred By: Keila Gautam Electronically Signed By:EDUARDO SHETTY MD
--- NOTE | 2021-11-30 20:15 | ED_ITS ---
HPI - Abdominal Pain General Chief Complaint: Abdominal Pain Stated Complaint: nausea/vomiting/abd pain Time Seen by Provider: 11/30/21 20:12 Source: patient Mode of arrival: ambulatory Limitations: no limitations History of Present Illness HPI narrative: 86 yo female with history of HTN, afib, anxiety, asthma, CAD, fibromyalgia, HLD, depression, hx SBO, arthritis, hx falls who presents to the ER from home with g eneralized weakness for the last 3 months along with nausea, vomiting and middle abdominal pain. She presents with her daughter who helps provide history. Daughter reports the patient had a similar episode a few years ago, had a million dollar workup with Dr. Amador that was negative. She lost 70 lbs at that time. She eventually slowly got better. For the last 3-4 months patient reports increased stress at home caring for her with dementia. She had been depressed and anxious. He sometimes yells and scares her. She has been unable to take her SSRI due to interactions with her cardiac medications. She saw her PCP last week for the same who ordered labs and CT scan with plan to restart a new antidepressant soon. She has made statements in frustration that she doesn't want to do this anymore. She has lost about 15 lbs unintentionally. MD elicited complaint: abdominal pain Pertinent past history: none Onset (ago): month(s) Pain Consistency: constant Location: epigastric Severity: moderate Quality: aching Radiation: none Migration to: no migration Exacerbating factors: eating Relieving factors: nothing Context: history of similar episodes Associated symptoms: nausea Related Data Home Medications Medication Instructions Recorded Confirmed carbidopa 25 mg-levodopa 100 mg 2 tab PO TID 11/11/20 11/18/21 tablet primidone 50 mg tablet 50 mg PO DAILY 11/11/20 11/18/21 gabapentin 300 mg capsule 300 mg PO TID 01/14/21 11/18/21 Previous Rx's Medication Instructions Recorded atorvastatin 20 mg tablet 20 mg PO DAILY #90 tab 04/23/21 apixaban 5 mg tablet (Eliquis) 5 mg PO BID 90 Days #180 tab 07/29/21 metoprolol tartrate 25 mg tablet 12.5 mg PO BID 90 Days #90 tab 09/04/21 omeprazole 20 mg capsule,delayed 1 cap PO BID #60 cap 10/22/21 release dronedarone 400 mg tablet (Multaq) 400 mg PO BID 90 Days #180 tab 11/18/21 Allergies Allergy/AdvReac Type Severity Reaction Status Date / Time No Known Allergies [NKA] Allergy Verified 11/30/21 19:03 Review of Systems Review of Systems Constitutional: No Fever, No Chills ENT/Mouth: No sore throat, No Rhinorrhea, No Swallowing Difficulty Eyes: No Eye Pain, No Swelling, No Redness Cardiovascular: No Chest Pain, No SOB, No Orthopnea, No Edema Respiratory: No Cough, No Sputum, No Wheezing, No dyspnea Gastrointestinal: + Nausea, + Vomiting, No Diarrhea, + abdominal Pain, No Hematochezia, No Melena Genitourinary: No Dysuria, No Urinary Frequency, No Hematuria Musculoskeletal: No joint pain, No Myalgias Skin: No Skin Lesions, No rash Neuro: + Weakness, No Numbness, No Dizziness, + Headache Psych: + Anxiety/Panic, + Depression, No SI Heme/Lymph: No Bruising, No Lymphadenopathy Endocrine: No Polyuria, No Polydipsia PMFSH Past Medical History Medical History Afib Anxiety Arthritis Asthma Atherosclerotic cardiovascular disease CAD (coronary artery disease) Cataract Chiari malformation Depression Essential tremor Fibromyalgia GERD (gastroesophageal reflux disease) H/O small bowel obstruction HLD (hyperlipidemia) HTN (hypertension) Osteoarthritis Paroxysmal atrial fibrillation Surgical History H/O heart artery stent Family History Family History Mother CAD (coronary artery disease) Social History Social History Household Members: Spouse Housing: House Are you a primary healthcare translator to a significant other at home: Yes ( is in a wheelchair) Do you presently have visiting nurse or other home services: Yes (Family to help with cooking and cleaning, also dtr is an RN) Alcohol intake: never Patient Tobacco Use Status: Never used Tobacco Advance Directives: Yes Advance Directives on File: Yes Advance Directives Date on File: 10/20/21 service: No Current occupational status: retired Current occupation: right handed Physical Exam ED Vital Signs: Vital Signs - 24 hr 05/30/22 19:03 11/30/21 20:48 Temperature 98.0 F 98.4 F Pulse Rate 77 65 Respiratory Rate 18 16 Blood Pressure 115/65 142/67 H Pulse Oximetry 97 98 BMI result Body Mass Index 32.8 Appearance: Alert. Oriented X3. No acute distress. Eyes: Pupils equal, round and reactive to light. ENT: Pharynx normal. Neck: Normal inspection. Neck supple. CVS: Normal heart rate and rhythm. Pulses normal. Respiratory: No respiratory distress. Breath sounds normal. Abdomen: Soft and nontender. +BS x4 Skin: Skin warm and dry. Normal skin color. Normal skin turgor. No rashes. Extremities: No lower extremity edema. Neuro: Oriented X 3. No motor deficit. No sensory deficit. Resting hand tremor noted. Flat affect. CN II-XII intact. Course Course Course Narrative: 86-year-old female with history of COPD, hypertension, hyperlipidemia, depression who presents to the ED with worsening stressors at home, generalized weakness related to decreased p.o. intake, nausea and upset stomach. This has been going on for several months at home. She has a history of the same several years ago with a negative workup. Her PCP was planning to initiate a basic workup this time with lab workup and CT scan and plan to reinitiate a different antidepressant. She has labs and CT scan ordered for next week, will perform them today to rule out any organic pathology. Will give her IV fluids, daughter thinks she is dehydrated. Reevaluation(s) Reevaluation #1: Lab workup and CT scan are unremarkable. She is tolerating p.o. Spoke with the daughter at length about her concerns. She would like the patient to get seen by geriatric psychiatrist with concerns for debilitating depression and anxiety. It is causing her to have physical manifestations of nausea, generalized weakness and decreased p.o. intake. Will plan to get care team evaluation, Psychiatry evaluation, physical therapy evaluation and Case Management involved. Will place patient on physician observation at this time. Physician observation started at 10:25pm. Patient placed in physician observation because patient is awaiting CARE team, psych, PT, and case management evaluation. At the time observation was started patient's vital signs were stable. Patient is alert and oriented. Neuro exam is non-focal. CV: RRR and lungs are clear. Will continue to monitor. MDM - Abdominal Pain Medical Records Attestation: I reviewed the patient's medical records. Lab Data Attestation: I reviewed the patient's lab results. Result diagrams: 11/30/21 20:44 11/30/21 20:44 Labs: Lab Results 11/30/21 11/30/21 11/30/21 Range/Units 20:44 20:44 20:44 WBC 8.7 (4.8-10.8) X10*3/uL RBC 4.91 (4.20-5.50) X10*6/uL Hgb 14.6 (12.0-16.0) g/dl Hct 45.9 (37.0-47.0) % MCV 93.5 (80.0-98.0) fL MCH 29.7 (27.0-33.0) pg MCHC 31.8 (31.0-35.0) g/dl RDW 13.3 (11.0-16.0) % Plt Count 250 (160-400) X10*3/uL MPV 11.3 (9.4-12.3) fL Immature Gran % (Auto) 0.6 H (0.0-0.4) % Neut % (Auto) 75.4 H (45-73) % Lymph % (Auto) 14.9 L (20-40) % [place] % (Auto) 7.2 (2-11) % Eos % (Auto) 1.7 (0-4) % Baso % (Auto) 0.2 (0-2) % Lymph # (Auto) 1.3 (1.2-4.9) X10*3/uL [place] # (Auto) 0.6 (0.1-1.2) X10*3/uL Eos # (Auto) 0.2 (0.0-0.4) X10*3/uL Baso # (Auto) 0.0 (0.0-0.2) X10*3/uL Abs Immat Gran (auto) 0.05 H (0.00-0.03) X10*3/uL Absolute Neuts (auto) 6.5 (2.0-8.3) x10*3/uL Absolute Nucleated RBC 0.000 (0.0-0.012) X10*3/uL Nucleated RBC % (auto) 0.0 (0.0-0.2) /100WBC Sodium 137 (135-145) mmol/L Potassium 4.8 (3.3-5.1) mmol/L Chloride 104 (96-108) mmol/L Carbon Dioxide 22 (22-29) mmol/L Anion Gap 16 (12-20) BUN 23 H (9-16) mg/dL Creatinine 1.11 (0.5-1.4) mg/dL Estim Creat Clear Calc 33.7 Estimated GFR 47 Random Glucose 113 (60-115) mg/dL Calcium 9.6 (8.4-10.2) mg/dL Magnesium 1.7 (1.6-2.6) mg/dL Total Bilirubin 0.6 (0.0-1.0) mg/dL Direct Bilirubin 0.2 (0.0-0.5) mg/dL AST 23 (5-31) U/L ALT 6 (0-31) U/L Alkaline Phosphatase 115 (39-117) U/L Troponin I High Sens (<3.5-17.0) ng/L Total Protein 7.5 (6.5-8.0) g/dL Albumin 3.9 (3.5-5.0) g/dL Lipase 13 (8-78) U/L TSH (0.32-4.0) uIU/mL COVID-19 (JACEY) Negative (Negative) COVID-19 Clin Com See Note Influenza Type A (NAOMY) (Negative) Influenza Type B (NAOMY) (Negative) Influenza A & B Note 11/30/21 11/30/21 11/30/21 Range/Units 20:44 20:44 20:44 WBC (4.8-10.8) X10*3/uL RBC (4.20-5.50) X10*6/uL Hgb (12.0-16.0) g/dl Hct (37.0-47.0) % MCV (80.0-98.0) fL MCH (27.0-33.0) pg MCHC (31.0-35.0) g/dl RDW (11.0-16.0) % Plt Count (160-400) X10*3/uL MPV (9.4-12.3) fL Immature Gran % (Auto) (0.0-0.4) % Neut % (Auto) (45-73) % Lymph % (Auto) (20-40) % [place] % (Auto) (2-11) % Eos % (Auto) (0-4) % Baso % (Auto) (0-2) % Lymph # (Auto) (1.2-4.9) X10*3/uL [place] # (Auto) (0.1-1.2) X10*3/uL Eos # (Auto) (0.0-0.4) X10*3/uL Baso # (Auto) (0.0-0.2) X10*3/uL Abs Immat Gran (auto) (0.00-0.03) X10*3/uL Absolute Neuts (auto) (2.0-8.3) x10*3/uL Absolute Nucleated RBC (0.0-0.012) X10*3/uL Nucleated RBC % (auto) (0.0-0.2) /100WBC Sodium (135-145) mmol/L Potassium (3.3-5.1) mmol/L Chloride (96-108) mmol/L Carbon Dioxide (22-29) mmol/L Anion Gap (12-20) BUN (9-16) mg/dL Creatinine (0.5-1.4) mg/dL Estim Creat Clear Calc Estimated GFR Random Glucose (60-115) mg/dL Calcium (8.4-10.2) mg/dL Magnesium (1.6-2.6) mg/dL Total Bilirubin (0.0-1.0) mg/dL Direct Bilirubin (0.0-0.5) mg/dL AST (5-31) U/L ALT (0-31) U/L Alkaline Phosphatase (39-117) U/L Troponin I High Sens 5.7 D (<3.5-17.0) ng/L Total Protein (6.5-8.0) g/dL Albumin (3.5-5.0) g/dL Lipase (8-78) U/L TSH 1.57 (0.32-4.0) uIU/mL COVID-19 (JACEY) (Negative) COVID-19 Clin Com Influenza Type A (NAOMY) Negative (Negative) Influenza Type B (NAOMY) Negative (Negative) Influenza A & B Note See Note ECG Data Attestation: I personally reviewed and interpreted this ECG as follows: ECG interpretation date: 11/30/21 ECG interpretation time: 22:27 Prior ECG tracings: available for review Interpretation: normal sinus rhythm, HR 65 bpm, normal UT interval, normal QTc Critical Care Time Critical Care Time Critical Care Time: No Discharge Plan Discharge Clinical Impression: Depression, Adult failure to thrive Prescriptions: No Action atorvastatin 20 mg tablet 20 mg PO DAILY Qty: 90 3RF Eliquis 5 mg tablet 5 mg PO BID 90 Days Qty: 180 3RF metoprolol tartrate 25 mg tablet 12.5 mg PO BID 90 Days Qty: 90 3RF omeprazole 20 mg capsule,delayed release(DR/EC) 1 cap PO BID Qty: 60 0RF Multaq 400 mg tablet 400 mg PO BID 90 Days Qty: 180 3RF gabapentin 300 mg capsule 300 mg PO TID 0RF carbidopa-levodopa 25-100 mg tablet 2 tab PO TID 0RF primidone 50 mg tablet 50 mg PO DAILY 0RF
[2021-11-30 20:48] VITALS: BP 142/67; PULSE 65; RESP 16; TEMP 36.9; O2SAT 98
[2021-11-30 20:49] LABS: MANUAL DIFF FLAG NO
[2021-11-30 20:50] LABS: Basophils Percent Auto 0.2 % (0-2); Eosinophils Absolute Auto 0.2 X10*3/uL (0.0-0.4); Eosinophils Percent Auto 1.7 % (0-4); Hematocrit 45.9 % (37.0-47.0); Hemoglobin 14.6 g/dl (12.0-16.0); Imm Gran Abs Auto 0.05 X10*3/uL (0.00-0.03); Imm Gran Pct Auto 0.6 % (0.0-0.4); Lymphocytes Absolute Auto 1.3 X10*3/uL (1.2-4.9); Lymphocytes Percent Auto 14.9 % (20-40); Mean Corpuscular HGB Conc 31.8 g/dl (31.0-35.0); Mean Corpuscular Hemoglobin 29.7 pg (27.0-33.0); Mean Corpuscular Volume 93.5 fL (80.0-98.0); Mean Platelet Volume 11.3 fL (9.4-12.3); Monocytes Absolute Auto 0.6 X10*3/uL (0.1-1.2); Monocytes Percent Auto 7.2 % (2-11); Neutrophils Absolute Auto 6.5 x10*3/uL (2.0-8.3); Neutrophils Percent Auto 75.4 % (45-73); Platelet Count 250 X10*3/uL (160-400); Red Blood Count 4.91 X10*6/uL (4.20-5.50); Red Cell Distribution Width 13.3 % (11.0-16.0); White Blood Count 8.7 X10*3/uL (4.8-10.8)
[2021-11-30 21:06] LABS: Alanine Aminotransferase 6 U/L (0-31); Albumin Level 3.9 g/dL (3.5-5.0); Alkaline Phosphatase 115 U/L (39-117); Anion Gap 16 (12-20); Aspartate Amino Transferase 23 U/L (5-31); Bilirubin Direct 0.2 mg/dL (0.0-0.5); Bilirubin Total 0.6 mg/dL (0.0-1.0); Blood Urea Nitrogen 23 mg/dL (9-16); Calcium 9.6 mg/dL (8.4-10.2); Carbon Dioxide 22 mmol/L (22-29); Chloride 104 mmol/L (96-108); Creatinine Clr Calc Pharmacy 33.7; Estimated Glomerular Filt Rate 47; Glucose Random 113 mg/dL (60-115); Lipase 13 U/L (8-78); Magnesium 1.7 mg/dL (1.6-2.6); Potassium 4.8 mmol/L (3.3-5.1); Sodium 137 mmol/L (135-145); Total Protein 7.5 g/dL (6.5-8.0)
[2021-11-30 21:11] LABS: COVID-19 Test Negative (Negative); IDNOW Serial# 16C4AD1C; Influenza A Negative (Negative); Influenza B2 Negative (Negative); Troponin-I High Sensitivity 5.7 ng/L (<3.5-17.0)
[2021-11-30] MEDS: 0.9 % Sodium Chloride 1,000 ML 999 ML IVCONT (21:23)
[2021-11-30 21:25] LABS: TSH reflex Free T4 1.57 uIU/mL (0.32-4.0)
[2021-12-01] VITALS: BP 138/55; PULSE 65; RESP 16; TEMP 36.9; O2SAT 98
[2021-12-01] MEDS: Acetaminophen 325 MG TABLET 650 MG PO (00:38)
[2021-12-01] MEDS: Melatonin 3 MG TABLET PO (00:38)
[2021-12-01 01:06] LABS: Appearance Urine CLEAR; Color Urine DK YELLOW; Glucose Urine UA NEG (NEG); Leukocyte Esterase Urine NEG (NEG); Nitrite Urine NEG (NEG); Specific Gravity - Urine >= 1.030 (1.005-1.025); Urine Blood NEG (NEG); Urine Ketones 15 MG/DL (NEG); Urine Protein NEG (NEG-TRACE)
[2021-12-01 05:05] VITALS: BP 138/64; PULSE 67; RESP 16; TEMP 36.6; O2SAT 87
--- NOTE | 2021-12-01 05:06 | PC.NURSE ---
PATIENT AMBULATED TO BATHROOM WITH 1 ASSIST ,PATIENT VOID 2 TIMES DURING THE NIGHT .
--- NOTE | 2021-12-01 05:10 | PC.NURSE ---
patient ate a few bites of apple sauce and had ice chips throughout the night
[2021-12-01 07:12] VITALS: BP 146/55; PULSE 65; RESP 14; TEMP 37.1; O2SAT 97
--- NOTE | 2021-12-01 07:45 | PHA.MEDREC ---
Pharmacy Consult ? Medication Reconciliation Pharmacy has completed the medication reconciliation. Patient able to confirm all medications. Nesha Hernandes, YulietD
--- NOTE | 2021-12-01 07:54 | MHC.CM.ED ---
Received case management consult overnight. Patient also has a Care Team consult. Per last night's Care Team assessment, patient is to be a re-eval by Care Team this morning. Case management will defer to Care Team at this time. CM will re-eval if needed.
[2021-12-01 07:55] VITALS: BP 146/55; PULSE 65; O2SAT 97
[2021-12-01] MEDS: Dronedarone HCl 400 MG TABLET PO (09:19)
[2021-12-01] MEDS: Primidone 50 MG TABLET PO (09:19)
[2021-12-01] MEDS: Apixaban 5 MG TABLET PO (09:20)
[2021-12-01] MEDS: Carbidopa/Levodopa 25/100 TABLET 2 TAB PO (09:20)
[2021-12-01] MEDS: Metoprolol Tartrate 12.5 MG HALFTAB PO (09:20)
[2021-12-01] MEDS: Atorvastatin Calcium 20 MG TABLET PO (09:21)
[2021-12-01] MEDS: Omeprazole 20 MG CAPSULE.DR PO (09:21)
[2021-12-01] MEDS: Ondansetron ODT 4 MG TAB.RAPDIS TRANSLINGU (10:15)
[2021-12-01 10:37] VITALS: BP 145/58; PULSE 60; RESP 15; TEMP 36.9; O2SAT 95
[2021-12-01 13:14] VITALS: BP 137/60; PULSE 67; RESP 15; TEMP 36.7; O2SAT 98
--- NOTE | 2021-12-01 13:40 | MHC.CM.ED ---
Patient seen and cleared by Care Team. Patient will be seen for psych for medication recommendations. Patient's antidepressant was recently discontinued because of a possible interaction with another medication. Patient provides 24/7 care for her who is wheelchair bound and has dementia. Patient is active with Indira HERNANDEZ. Indira aware of patient being in the ER. Patient also receives [employer] hours. Patient's daughter, Jonelle is a RN at [facility] [place] Jonelle aware of plan. Continue to monitor for d/c needs.
--- NOTE | 2021-12-01 17:34 | PM.PSYCN ---
History of Present Illness Date of Service: 12/01/21 Chief Complaint: nausea/vomiting/abd pain Reason for Consult: concern of interaction between citalopram and multaq (qtc prolongation ) Discussed with referring provider: Yes HPI Narrative: Mrs. Stone is a 86 year-old male with hx of MDD, initially presented to [facility] due to GI symptoms- poor appetite, diarrhea, abdominal pain. She was medically cleared. She also reported multiple stressors at home mostly caring his his who has advanced dementia. Pt was with her daughter by bedside. Pt reports she had been on citalopram but does not think it was beneficial as she states she didn't notice any improvement in her mood. Her PCP had recently restarted citalopram. However, pt was recently started on multaq for arrhythmia. Pharmacy concern about increase qtc prolongation with combination of both medications. Pt denies suicidal or homicidal ideation. She endorses poor appetite, fatigue, depressed mood. Pt also reports poor sleep. Past Psychiatric History: Inpatient: none OP: none- PCP prescribing antidepressant. Suicide attempts: none Past trial: citalopram Medical Evaluation Reviewed: Yes [facility] Medical History Afib Anxiety Arthritis Asthma Atherosclerotic cardiovascular disease CAD (coronary artery disease) Cataract Chiari malformation Depression Essential tremor Fibromyalgia GERD (gastroesophageal reflux disease) H/O small bowel obstruction HLD (hyperlipidemia) HTN (hypertension) Osteoarthritis Paroxysmal atrial fibrillation Surgical History H/O heart artery stent Diagnostics Vital Signs (24Hr): Vital Signs - 24 hr 11/30/21 19:03 11/30/21 20:48 12/01/21 00:00 Temperature 98.0 F 98.4 F 98.4 F Pulse Rate 77 65 65 Respiratory Rate 18 16 16 Blood Pressure 115/65 142/67 H 138/55 L Pulse Oximetry 97 98 98 12/01/21 05:05 12/01/21 07:12 12/01/21 07:55 Temperature 97.8 F 98.8 F Pulse Rate 67 65 65 Respiratory Rate 16 14 Blood Pressure 138/64 146/55 H 146/55 H Pulse Oximetry 87 L 97 97 12/01/21 10:37 12/01/21 13:14 Temperature 98.5 F 98.0 F Pulse Rate 60 67 Respiratory Rate 15 15 Blood Pressure 145/58 H 137/60 Pulse Oximetry 95 98 BMI result Body Mass Index 32.8 Labs Results: 11/30/21 20:44 11/30/21 20:44 Labs: Laboratory Results - last 48 hr 11/30/21 11/30/21 11/30/21 20:44 20:44 20:44 WBC 8.7 RBC 4.91 Hgb 14.6 Hct 45.9 MCV 93.5 MCH 29.7 MCHC 31.8 RDW 13.3 Plt Count 250 MPV 11.3 Immature Gran % (Auto) 0.6 H Neut % (Auto) 75.4 H Lymph % (Auto) 14.9 L [place] % (Auto) 7.2 Eos % (Auto) 1.7 Baso % (Auto) 0.2 Lymph # (Auto) 1.3 [place] # (Auto) 0.6 Eos # (Auto) 0.2 Baso # (Auto) 0.0 Abs Immat Gran (auto) 0.05 H Absolute Neuts (auto) 6.5 Absolute Nucleated RBC 0.000 Nucleated RBC % (auto) 0.0 Sodium 137 Potassium 4.8 Chloride 104 Carbon Dioxide 22 Anion Gap 16 BUN 23 H Creatinine 1.11 Estim Creat Clear Calc 33.7 Estimated GFR 47 Random Glucose 113 Calcium 9.6 Magnesium 1.7 Total Bilirubin 0.6 Direct Bilirubin 0.2 AST 23 ALT 6 Alkaline Phosphatase 115 Troponin I High Sens Total Protein 7.5 Albumin 3.9 Lipase 13 TSH Urine Color Urine Appearance Urine pH Ur Specific [place] Urine Protein Urine Glucose (UA) Urine Ketones Urine Blood Urine Nitrite Ur Leukocyte Esterase COVID-19 (JACEY) Negative COVID-19 Clin Com See Note Influenza Type A (NAOMY) Influenza Type B (NAOMY) Influenza A & B Note 11/30/21 11/30/21 11/30/21 20:44 20:44 20:44 WBC RBC Hgb Hct MCV MCH MCHC RDW Plt Count MPV Immature Gran % (Auto) Neut % (Auto) Lymph % (Auto) [place] % (Auto) Eos % (Auto) Baso % (Auto) Lymph # (Auto) [place] # (Auto) Eos # (Auto) Baso # (Auto) Abs Immat Gran (auto) Absolute Neuts (auto) Absolute Nucleated RBC Nucleated RBC % (auto) Sodium Potassium Chloride Carbon Dioxide Anion Gap BUN Creatinine Estim Creat Clear Calc Estimated GFR Random Glucose Calcium Magnesium Total Bilirubin Direct Bilirubin AST ALT Alkaline Phosphatase Troponin I High Sens 5.7 D Total Protein Albumin Lipase TSH 1.57 Urine Color Urine Appearance Urine pH Ur Specific [place] Urine Protein Urine Glucose (UA) Urine Ketones Urine Blood Urine Nitrite Ur Leukocyte Esterase COVID-19 (JACEY) COVID-19 Clin Com Influenza Type A (NAOMY) Negative Influenza Type B (NAOMY) Negative Influenza A & B Note See Note 12/01/21 00:55 WBC RBC Hgb Hct MCV MCH MCHC RDW Plt Count MPV Immature Gran % (Auto) Neut % (Auto) Lymph % (Auto) [place] % (Auto) Eos % (Auto) Baso % (Auto) Lymph # (Auto) [place] # (Auto) Eos # (Auto) Baso # (Auto) Abs Immat Gran (auto) Absolute Neuts (auto) Absolute Nucleated RBC Nucleated RBC % (auto) Sodium Potassium Chloride Carbon Dioxide Anion Gap BUN Creatinine Estim Creat Clear Calc Estimated GFR Random Glucose Calcium Magnesium Total Bilirubin Direct Bilirubin AST ALT Alkaline Phosphatase Troponin I High Sens Total Protein Albumin Lipase TSH Urine Color DK YELLOW Urine Appearance CLEAR Urine pH 6.0 Ur Specific [place] >= 1.030 H Urine Protein NEG Urine Glucose (UA) NEG Urine Ketones 15 Urine Blood NEG Urine Nitrite NEG Ur Leukocyte Esterase NEG COVID-19 (JACEY) COVID-19 Clin Com Influenza Type A (NAOMY) Influenza Type B (NAOMY) Influenza A & B Note Imaging Radiology Impressions: ITS Impressions Abdomen/Pelvis CT 11/30/21 21:13 IMPRESSION: The lack of intravenous contrast limits evaluation of the solid visceral organs including the liver, spleen, pancreas, and kidneys. Hepatic steatosis. No significant bowel abnormality. Atherosclerotic disease and coronary calcifications. Mental Status Exam Mental Status Exam Narrative: Appearance: casually groomed, fair hygiene in NAD Behavior: cooperative psychomotor: no agitation or retardation noted Speech:clear, normal rate/rhythm/volume, spontaneous Thought process: linear Thought content:no signs of psychosis, feeling tired, but no SI Mood: overwhelmed Affect: blunted SI:none HI:none VH/AH: none Delusions: none Insight/judgment:intact x 2. Memory/cog: alert, oriented x 3. not formally tested. Medications Allergies Allergies Allergy/AdvReac Type Severity Reaction Status Date / Time No Known Allergies [NKA] Allergy Verified 11/30/21 19:03 Assessment & Plan Assessment & Plan (1) Depression: Qualifiers: Major depression recurrence: recurrent Active/Remission status: currently active Major depression episode severity: moderate Code(s): F32.9 - Major depressive disorder, single episode, unspecified Plan Mrs. Gandhi is a 86 year-old woman with hx of MDD. Initially came to ED for GI symptoms- no clear cause and is now medically cleared. Pt wants to start antidepressant- she has been on citalopram but didn't find it helpful. We discussed starting remeron for depression, sleep and hopefully help with poor appetite. In general- multaq and other qtc prolonging agents not contraindicated but needs to be closely monitored. When pt was admitted here in the hospital for medical reasons, pt was on both citalopram and multaq and there was no evidence of qtc prolongation. However, citalopram has not been very effective for Mrs. Gandhi, therefore recommend she tries different medication. PLAN 1. No need for inpatient level of care. Pt was referred by care team to individual psychotherapy. PCP can continue prescribing antidepressant. 2. Start remeron 15mg po qhs- rx sent to her pharmacy. I spent __25____ minutes with the patient and/or on the patient floor today, greater than?50% of which was spent counseling/coordinating care.
--- NOTE | 2021-12-08 12:46 | MHC.CARE ---
Pt's daughter called on 12/07 hoping to speak with CARE about her mother & discuss what referrals were put out. CARE Team spoek with daughter on 12/08 and provided information regarding [facility] and the date the referral was submitted.
== END 2021-12-01 16:50 | disposition home or self-care (01) ==
PROVIDERS: Physician Assistant; Emergency Provider Student in an Organized Health Care Education/Training Program; PCP Internal Medicine
DX: R11.2 Nausea with vomiting, unspecified (principal); I10 Essential (primary) hypertension; R53.1 Weakness; I25.10 Atherosclerotic heart disease of native coronary artery without angina pectoris; F33.1 Major depressive disorder, recurrent, moderate; R62.7 Adult failure to thrive; I48.91 Unspecified atrial fibrillation; Z20.822 Contact with and (suspected) exposure to COVID-19; Z79.01 Long term (current) use of anticoagulants; Z79.899 Other long term (current) drug therapy
CPT/HCPCS: 74176; 80048; 80076; 81003; 83690; 83735; 84443; 84484; 85025; 87502; 87635; 93005; 96360; 97161; 99284; 99285

== ENCOUNTER → 2022-01-19 13:12 | Outpatient (BNVA) | payer MEDICARE, SELFPAY | PROVIDERS: PCP Internal Medicine; Visit Provider Psychiatry & Neurology Neurology | DX: R51.9 Headache, unspecified (principal); G89.29 Other chronic pain; R25.1 Tremor, unspecified; G24.3 Spasmodic torticollis | CPT/HCPCS: 99202 ==

== ENCOUNTER 2022-02-09 20:29 | Inpatient (IN) | payer MEDICARE, SELFPAY ==
--- NOTE | ~2022-02-09 | XR_ITS ---
EXAMINATION: XR CHEST CLINICAL INFORMATION: NG tube COMPARISON: 10/20/2021. TECHNIQUE: Frontal view of the chest was obtained. FINDINGS: Enteric tube extends to the level of the distal esophagus before bending upon itself and extending proximally. This does not enter the stomach. Cardiac leads overlie the chest. Lung volumes are low. Streaky opacities at the left base. No pleural effusion or pneumothorax. No edema. The cardiomediastinal silhouette is normal in size with a calcified aorta. XR/XR chest 1V IMPRESSION: Enteric tube terminating in the esophagus after bending upon itself. Suggest repositioning. Low lung volumes with left basilar opacity. This favors atelectasis.
--- NOTE | ~2022-02-09 | CT_ITS ---
EXAMINATION: CT ABDOMEN AND PELVIS WITHOUT CONTRAST CLINICAL INFORMATION: No bowel movement. History of obstruction. Right upper quadrant pain. COMPARISON: CT abdomen pelvis 11/30/2021 TECHNIQUE: Multidetector volumetric imaging was performed from the superior aspect of the liver through the pubic symphysis. Sagittal and coronal reformatted images were obtained on the technologist's workstation. This CT examination was performed using dose optimization techniques as appropriate, variously including the following: *Automated exposure control *Adjustment of mA and/or kV according to patient size (this includes techniques or standardized protocols for targeted exams where dose is matched to indication/reason for exam; i.e. extremities or head) *Use of iterative reconstruction technique DLP: 999 mGy-cm FINDINGS: Visualized lung bases demonstrate mild dependent atelectasis. Liver is normal in size but demonstrates diffusely decreased attenuation suggesting hepatic steatosis. The gallbladder is not visualized and suspected to be surgically absent. There is fatty atrophy of the pancreas. The spleen and adrenal glands are unremarkable. No renal calculi or hydronephrosis of either kidney. Small right renal cyst again noted. Debris-filled stomach. There are several mildly dilated loops of small bowel with several scattered air-fluid levels. Loops of small bowel measure up to 3.3 cm in maximum dimension. A well-defined transition zone is not identified. The colon is normal in caliber and demonstrates a normal stool burden. A tiny fat-containing umbilical hernia appreciated. Normal caliber abdominal aorta demonstrating moderate atherosclerotic disease. No retroperitoneal lymphadenopathy. Bladder is decompressed and therefore not accurately evaluated. Atrophic uterus. No gross free pelvic fluid. No inguinal lymphadenopathy. Diffuse osteopenia. Degenerative and postsurgical changes of the spine. CT/CT abdomen pelvis wo con IMPRESSION: Dilated loops of small bowel scattered air-fluid levels suggesting an obstructive process, however, a definitive transition zone is not well identified. Clinical correlation recommended. Fleischner guidelines were followed.
[2022-02-09 20:33] VITALS: BP 110/46; PULSE 62; RESP 20; TEMP 36.6; O2SAT 95; BMI 35.8
--- NOTE | 2022-02-09 20:44 | ED.CHESTPAIN ---
HPI - Chest Pain General Chief Complaint: Chest Pain Stated Complaint: abdominal pain Time Seen by Provider: 02/09/22 20:33 Source: patient and EMS Mode of arrival: EMS Limitations: no limitations Related Data Home Medications Medication Instructions Recorded Confirmed carbidopa 25 mg-levodopa 100 mg 2 tab PO TID 11/11/20 01/19/22 tablet primidone 50 mg tablet 50 mg PO DAILY 11/11/20 01/19/22 diphenhydramine 25 2 tab PO BEDTIME 12/01/21 01/19/22 mg-acetaminophen 500 mg tablet (Tylenol PM Extra Strength) Previous Rx's Medication Instructions Recorded atorvastatin 20 mg tablet 20 mg PO DAILY #90 tabs 04/23/21 apixaban 5 mg tablet (Eliquis) 5 mg PO BID 90 days #180 tabs 07/29/21 metoprolol tartrate 25 mg tablet 12.5 mg PO BID 90 days #90 tabs 09/04/21 omeprazole 20 mg capsule,delayed 1 cap PO BID #60 caps 10/22/21 release dronedarone 400 mg tablet (Multaq) 400 mg PO BID 90 days #180 tabs 11/18/21 mirtazapine 15 mg tablet 15 mg PO BEDTIME #30 tabs 12/01/21 baclofen 10 mg tablet 10 mg PO BEDTIME #30 tabs 01/19/22 gabapentin 100 mg capsule 100 mg PO TID #90 caps 01/19/22 Allergies Allergy/AdvReac Type Severity Reaction Status Date / Time No Known Allergies [NKA] Allergy Verified 01/19/22 13:18 [facility] Past Medical History Medical History Afib Anxiety Arthritis Asthma Atherosclerotic cardiovascular disease CAD (coronary artery disease) Cataract Chiari malformation Depression Essential tremor Fibromyalgia GERD (gastroesophageal reflux disease) H/O small bowel obstruction HLD (hyperlipidemia) HTN (hypertension) Osteoarthritis Paroxysmal atrial fibrillation Surgical History H/O heart artery stent History of appendectomy History of back surgery History of cholecystectomy Family History Family History Mother CAD (coronary artery disease) Social History Social History Household Members: Spouse Housing: House Are you a primary healthcare recruiter to a significant other at home: Yes ( is in a wheelchair) Do you presently have visiting nurse or other home services: Yes (Family to help with cooking and cleaning, also dtr is an RN) Alcohol intake: never Patient Tobacco Use Status: Never used Tobacco Advance Directives Date on File: 10/20/21 service: No Current occupational status: retired Current occupation: right handed Physical Exam Vital Signs: Vital Signs: Last Vital Signs Temp 96.8 F 02/09/22 20:33 Pulse 61 02/09/22 20:33 Resp 16 02/09/22 20:33 BP 142/68 H 02/09/22 20:33 Pulse Ox 96 02/09/22 20:33 O2 Del Method 02/09/22 20:33 BMI result Body Mass Index 26.3 Discharge Plan Discharge Prescriptions: No Action atorvastatin 20 mg tablet 20 mg PO DAILY Qty: 90 3RF Eliquis 5 mg tablet 5 mg PO BID 90 Days Qty: 180 3RF metoprolol tartrate 25 mg tablet 12.5 mg PO BID 90 Days Qty: 90 3RF diphenhydramine-acetaminophen [Tylenol PM Extra Strength] 25-500 mg Tablet 2 tab PO BEDTIME mirtazapine 15 mg tablet 15 mg PO BEDTIME Qty: 30 1RF omeprazole 20 mg capsule,delayed release(DR/EC) 1 cap PO BID Qty: 60 0RF Multaq 400 mg tablet 400 mg PO BID 90 Days Qty: 180 3RF carbidopa-levodopa 25-100 mg tablet 2 tab PO TID primidone 50 mg tablet 50 mg PO DAILY baclofen 10 mg tablet 10 mg PO BEDTIME Qty: 30 1RF gabapentin 100 mg capsule 100 mg PO TID Qty: 90 6RF
[2022-02-09 20:45] VITALS: BP 110/46; PULSE 64; TEMP 36.6; O2SAT 94
--- NOTE | 2022-02-09 20:49 | ED_ITS ---
HPI - Abdominal Pain General Chief Complaint: Abdominal Pain Stated Complaint: abdominal pain Time Seen by Provider: 02/09/22 20:33 Source: patient and EMS Mode of arrival: EMS Limitations: no limitations History of Present Illness HPI narrative: 81-year-old female with history of hypertension, atrial fibrillation on Eliquis, CABG, cholescystectomy, and bowel obstruction who presents to the ED via EMS with acute onset abdominal pain since this morning, now worsening. She states that this morning she began having pain in her right upper quadrant that has gradually migrated to the epigastric region since onset. It is cramping in character. Additionally she endorses nausea without vomiting. She tells me that she has not had a bowel movement in 2 days and has not passed gas today. She last ate at noon today. She reports calling EMS earlier and upon their arrival she was noted to be lightheaded, feeling weak. EMS noted a blood pressure 95/55. She tells me now that this has resolved. Denies fever, chills, chest pain, palpitations, shortness of breath, back pain, vomiting, or diarrhea. MD elicited complaint: abdominal pain and other Onset (ago): day(s) (1) Location: epigastric and RUQ Severity: severe Quality: cramping Related Data Home Medications Medication Instructions Recorded Confirmed carbidopa 25 mg-levodopa 100 mg 2 tab PO TID 11/11/20 01/19/22 tablet primidone 50 mg tablet 50 mg PO DAILY 11/11/20 01/19/22 diphenhydramine 25 2 tab PO BEDTIME 12/01/21 01/19/22 mg-acetaminophen 500 mg tablet (Tylenol PM Extra Strength) Previous Rx's Medication Instructions Recorded atorvastatin 20 mg tablet 20 mg PO DAILY #90 tabs 04/23/21 apixaban 5 mg tablet (Eliquis) 5 mg PO BID 90 days #180 tabs 07/29/21 metoprolol tartrate 25 mg tablet 12.5 mg PO BID 90 days #90 tabs 09/04/21 omeprazole 20 mg capsule,delayed 1 cap PO BID #60 caps 10/22/21 release dronedarone 400 mg tablet (Multaq) 400 mg PO BID 90 days #180 tabs 11/18/21 mirtazapine 15 mg tablet 15 mg PO BEDTIME #30 tabs 12/01/21 baclofen 10 mg tablet 10 mg PO BEDTIME #30 tabs 01/19/22 gabapentin 100 mg capsule 100 mg PO TID #90 caps 01/19/22 Allergies Allergy/AdvReac Type Severity Reaction Status Date / Time No Known Allergies [NKA] Allergy Verified 01/19/22 13:18 Review of Systems Review of Systems Constitutional : No Weight loss, No Fever, No Chills, No Fatigue, No Malaise ENT/Mouth : No sore throat, No Rhinorrhea Eyes: No Eye Pain, No Swelling, No Redness Cardiovascular : No Chest Pain, No SOB, No Dyspnea on Exertion, No Orthopnea, No Edema, No Palpitations Respiratory : No Cough, No Sputum, No Wheezing Gastrointestinal : + Nausea, No Vomiting, No Diarrhea, + Constipation, + abdominal Pain, No Hematochezia, No Melena Genitourinary : No Dysuria, No Urinary Frequency, No Hematuria, Musculoskeletal : No joint pain, No Myalgias, No Joint Swelling Skin : No Skin Lesions, No rash Neuro : No Weakness, No Numbness, No Dizziness, No Headache All other systems reviewed and are negative Yes all other systems are reviewed and are negative FOR[facility]LY [facility], [facility] Past Medical History Attestation statement: The following information was validated with the patient. Source: old records reviewed and nursing notes reviewed Medical History Afib Anxiety Arthritis Asthma Atherosclerotic cardiovascular disease CAD (coronary artery disease) Cataract Chiari malformation Depression Essential tremor Fibromyalgia GERD (gastroesophageal reflux disease) H/O small bowel obstruction HLD (hyperlipidemia) HTN (hypertension) Osteoarthritis Paroxysmal atrial fibrillation Surgical History H/O heart artery stent History of appendectomy History of back surgery History of cholecystectomy Family History Family History Mother CAD (coronary artery disease) Social History Social History Household Members: Spouse Housing: House Are you a primary senior care manager to a significant other at home: Yes ( is in a wheelchair) Do you presently have visiting nurse or other home services: Yes (Family to help with cooking and cleaning, also dtr is an RN) Alcohol intake: never Patient Tobacco Use Status: Never used Tobacco Advance Directives: Yes Advance Directives Information Provided: No Advance Directives on File: No Advance Directives Date on File: 10/20/21 service: No Current occupational status: retired Current occupation: right handed Physical Exam ED Vital Signs: Vital Signs - 24 hr 02/09/22 20:33 02/09/22 20:45 Temperature 97.8 F 97.8 F Pulse Rate 62 64 Respiratory Rate 20 Blood Pressure 110/46 L 110/46 L Pulse Oximetry 95 94 Oxygen Delivery Method Room Air Room Air BMI result Body Mass Index 35.8 VSS Appearance: Alert.? Oriented X3.?Patient lying uncomfortably on the stretcher, holding her abdomen. Head: Normocephalic, atraumatic, no step-offs or deformities Eyes: Pupils equal, round and reactive to light.? Neck: Normal inspection.? Neck supple.? CVS: Normal heart rate and rhythm.? Pulses normal.? Respiratory: No respiratory distress.? Breath sounds normal.? Abdomen: Soft, TTP in the right upper quadrant and epigastric region. Hypoactive BS throughout. Skin: Skin warm and dry.? Normal skin color.? Normal skin turgor.? Extremities: No lower extremity edema.? No calf ttp. 5/5 strength to bilateral upper and lower extremities Neuro: Oriented X 3.? No motor deficit.? No sensory deficit. Course Reevaluation(s) Reevaluation #1: Patient with slight leukocytosis 14.2, chemistry with no acute electrolyte abnormalities requiring intervention. COVID negative, CT of the abdomen and pelvis showing dilated loops of small bowel with scattered air fluid levels concerning for possible obstruction. Urine is pending. I did it tiger text (Surgery) for his imput. Time: 22:34 Reevaluation #2: Patient now vomiting, Zofran ordered. Dr. Carrillo recommends NG tube and adm ission, surgery would prefer patient to be a medical admit due to age and medical issues. Time: 22:34 Reevaluation #3: Patient getting an NG tube by nursing. Patient will be admitted to the hospitalist team for further evaluation and treatment. Educated patient family members on plan. Time: 22:42 MDM - Abdominal Pain MDM Narrative Medical decision making narrative: 2034 81-year-old female with history of hypertension, atrial fibrillation on Eliquis, cholescystectomy, and bowel obstruction presenting with acute onset RUQ/ epigastric pain, nausea, and constipation x1 day. History of afib, bowel o bstruction. Has not had a BM in 2 days. Denies chest pain or shortness of breath. Physical exam significant for RUQ/ epigastric tenderness to palpation and hypoactive bowel sounds throughout. Suspicion for bowel obstruction. Plan at this time is to order basic labs and ct abdomen/ pelvis. Lab Data Result diagrams: 02/09/22 21:21 02/09/22 21:21 Labs: Lab Results 02/09/22 02/09/22 02/09/22 Range/Units 21:21 21:21 21:21 WBC 14.2 H (4.8-10.8) X10*3/uL RBC 4.23 (4.20-5.50) X10*6/uL Hgb 12.7 (12.0-16.0) g/dl Hct 40.5 (37.0-47.0) % MCV 95.7 (80.0-98.0) fL MCH 30.0 (27.0-33.0) pg MCHC 31.4 (31.0-35.0) g/dl RDW 13.1 (11.0-16.0) % Plt Count 227 (160-400) X10*3/uL MPV 10.6 (9.4-12.3) fL Immature Gran % (Auto) 0.6 H (0.0-0.4) % Neut % (Auto) 82.8 H (45-73) % Lymph % (Auto) 10.9 L (20-40) % [place] % (Auto) 4.5 (2-11) % Eos % (Auto) 1.0 (0-4) % Baso % (Auto) 0.2 (0-2) % Lymph # (Auto) 1.6 (1.2-4.9) X10*3/uL [place] # (Auto) 0.6 (0.1-1.2) X10*3/uL Eos # (Auto) 0.1 (0.0-0.4) X10*3/uL Baso # (Auto) 0.0 (0.0-0.2) X10*3/uL Abs Immat Gran (auto) 0.09 H (0.00-0.03) X10*3/uL Absolute Neuts (auto) 11.8 H (2.0-8.3) x10*3/uL Absolute Nucleated RBC 0.000 (0.0-0.012) X10*3/uL Nucleated RBC % (auto) 0.0 (0.0-0.2) /100WBC Sodium 141 (135-145) mmol/L Potassium 4.2 (3.3-5.1) mmol/L Chloride 107 (96-108) mmol/L Carbon Dioxide 23 (22-29) mmol/L Anion Gap 15 (12-20) BUN 20 H (9-16) mg/dL Creatinine 1.12 (0.5-1.4) mg/dL Estim Creat Clear Calc 35.1 Estimated GFR 46 Random Glucose 161 H (60-115) mg/dL Calcium 8.9 D (8.4-10.2) mg/dL Magnesium 1.8 (1.6-2.6) mg/dL Total Bilirubin 0.5 (0.0-1.0) mg/dL AST 16 (5-31) U/L ALT 9 (0-31) U/L Alkaline Phosphatase 90 D (39-117) U/L Total Protein 6.8 (6.5-8.0) g/dL Albumin 3.8 (3.5-5.0) g/dL Lipase 11 (8-78) U/L COVID-19 (JACEY) Negative (Negative) COVID-19 Clin Com See Note Critical Care Time Critical Care Time Critical Care Time: Yes Total Critical Care Time: 40 Attestation: I attest to this time spent taking care of the patient, obtaining history, physical, reviewing labs, imaging, speaking to my attending, speaking to jonny fernando. Discharge Plan Discharge Clinical Impression: Bowel obstruction, Nausea & vomiting Prescriptions: No Action atorvastatin 20 mg tablet 20 mg PO DAILY Qty: 90 3RF Eliquis 5 mg tablet 5 mg PO BID 90 Days Qty: 180 3RF metoprolol tartrate 25 mg tablet 12.5 mg PO BID 90 Days Qty: 90 3RF diphenhydramine-acetaminophen [Tylenol PM Extra Strength] 25-500 mg Tablet 2 tab PO BEDTIME mirtazapine 15 mg tablet 15 mg PO BEDTIME Qty: 30 1RF omeprazole 20 mg capsule,delayed release(DR/EC) 1 cap PO BID Qty: 60 0RF Multaq 400 mg tablet 400 mg PO BID 90 Days Qty: 180 3RF carbidopa-levodopa 25-100 mg tablet 2 tab PO TID primidone 50 mg tablet 50 mg PO DAILY baclofen 10 mg tablet 10 mg PO BEDTIME Qty: 30 1RF gabapentin 100 mg capsule 100 mg PO TID Qty: 90 6RF
[2022-02-09] MEDS: 0.9 % Sodium Chloride 1,000 ML 999 ML IV (21:22)
[2022-02-09 21:29] LABS: Basophils Percent Auto 0.2 % (0-2); Eosinophils Absolute Auto 0.1 X10*3/uL (0.0-0.4); Hematocrit 40.5 % (37.0-47.0); Hemoglobin 12.7 g/dl (12.0-16.0); Imm Gran Abs Auto 0.09 X10*3/uL (0.00-0.03); Imm Gran Pct Auto 0.6 % (0.0-0.4); Lymphocytes Absolute Auto 1.6 X10*3/uL (1.2-4.9); Lymphocytes Percent Auto 10.9 % (20-40); MANUAL DIFF FLAG NO; Mean Corpuscular HGB Conc 31.4 g/dl (31.0-35.0); Mean Corpuscular Volume 95.7 fL (80.0-98.0); Mean Platelet Volume 10.6 fL (9.4-12.3); Monocytes Absolute Auto 0.6 X10*3/uL (0.1-1.2); Monocytes Percent Auto 4.5 % (2-11); Neutrophils Absolute Auto 11.8 x10*3/uL (2.0-8.3); Neutrophils Percent Auto 82.8 % (45-73); Platelet Count 227 X10*3/uL (160-400); Red Blood Count 4.23 X10*6/uL (4.20-5.50); Red Cell Distribution Width 13.1 % (11.0-16.0); White Blood Count 14.2 X10*3/uL (4.8-10.8)
[2022-02-09 21:48] LABS: COVID-19 Test Negative (Negative); IDNOW Serial# 55D5AD1C
[2022-02-09 22:00] LABS: Alanine Aminotransferase 9 U/L (0-31); Albumin Level 3.8 g/dL (3.5-5.0); Alkaline Phosphatase 90 U/L (39-117); Anion Gap 15 (12-20); Aspartate Amino Transferase 16 U/L (5-31); Bilirubin Total 0.5 mg/dL (0.0-1.0); Blood Urea Nitrogen 20 mg/dL (9-16); Calcium 8.9 mg/dL (8.4-10.2); Carbon Dioxide 23 mmol/L (22-29); Chloride 107 mmol/L (96-108); Creatinine Clr Calc Pharmacy 35.1; Estimated Glomerular Filt Rate 46; Glucose Random 161 mg/dL (60-115); Lipase 11 U/L (8-78); Magnesium 1.8 mg/dL (1.6-2.6); Potassium 4.2 mmol/L (3.3-5.1); Sodium 141 mmol/L (135-145); Total Protein 6.8 g/dL (6.5-8.0)
--- NOTE | 2022-02-09 22:07 | PC.NURSE ---
pt requesting pain medication, MD aware.
[2022-02-09] MEDS: Morphine Sulfate 4 MG/ML CARTRIDGE IVPUSH (22:29)
[2022-02-09 22:31] VITALS: BP 150/89; PULSE 66; RESP 12; O2SAT 97
[2022-02-09] MEDS: ondansetron HCL 4 MG/2 ML VIAL IVPUSH (22:40)
[2022-02-09] MEDS: Lactated Ringers 1,000 ML 100 ML IVCONT (23:47)
--- NOTE | 2022-02-09 23:52 | PC.NURSE ---
to note RN Rey attempt NG tube placement with no success, during removal of NG tube pt nose started bleeding, to ntoe pt on blood thinners, MD Mckinney at bedside, per MD plan is to wait until pt nose stops bleeding to attempt NG tube placement again, pt not actively throwing up at this time.
[2022-02-09 23:53] VITALS: BP 139/57; PULSE 70; RESP 15; O2SAT 88
[2022-02-10] MEDS: Oxymetazoline HCl 0.05 % Nasal 15 ML SPRAY 2 SPRAY NOSTRIL-B (00:20)
--- NOTE | 2022-02-10 00:20 | PC.NURSE ---
MD Mckinney attempt NG tube placement x2 with no success/
[2022-02-10] MEDS: Lidocaine HCl 2 % Urojet 10 ML JEL.PF.APP TOPICAL (00:21)
[2022-02-10] MEDS: ondansetron HCL 4 MG/2 ML VIAL IVPUSH ×2 (00:36→14:46)
[2022-02-10] MEDS: Morphine Sulfate 4 MG/ML CARTRIDGE IVPUSH ×2 (00:36→14:46)
[2022-02-10 04:42] LABS: MANUAL DIFF FLAG NO
[2022-02-10 04:44] LABS: Basophils Percent Auto 0.2 % (0-2); Eosinophils Percent Auto 0.2 % (0-4); Hematocrit 39.3 % (37.0-47.0); Hemoglobin 12.4 g/dl (12.0-16.0); Imm Gran Abs Auto 0.07 X10*3/uL (0.00-0.03); Imm Gran Pct Auto 0.6 % (0.0-0.4); Lymphocytes Percent Auto 7.6 % (20-40); Mean Corpuscular HGB Conc 31.6 g/dl (31.0-35.0); Mean Corpuscular Hemoglobin 30.7 pg (27.0-33.0); Mean Corpuscular Volume 97.3 fL (80.0-98.0); Mean Platelet Volume 10.8 fL (9.4-12.3); Monocytes Absolute Auto 0.7 X10*3/uL (0.1-1.2); Monocytes Percent Auto 5.4 % (2-11); Neutrophils Absolute Auto 10.8 x10*3/uL (2.0-8.3); Platelet Count 229 X10*3/uL (160-400); Red Blood Count 4.04 X10*6/uL (4.20-5.50); Red Cell Distribution Width 13.2 % (11.0-16.0); White Blood Count 12.6 X10*3/uL (4.8-10.8)
[2022-02-10 05:03] LABS: Anion Gap 15 (12-20); Blood Urea Nitrogen 19 mg/dL (9-16); Calcium 8.4 mg/dL (8.4-10.2); Carbon Dioxide 23 mmol/L (22-29); Chloride 108 mmol/L (96-108); Estimated Glomerular Filt Rate 55; Glucose Random 140 mg/dL (60-115); Potassium 4.8 mmol/L (3.3-5.1); Sodium 141 mmol/L (135-145)
[2022-02-10 06:00] VITALS: BP 162/73; PULSE 62; RESP 17; O2SAT 100
--- NOTE | 2022-02-10 06:41 | P.HPHOSP_ITS ---
History of Present Illness Date of Service: 02/09/22 Chief Complaint: abdominal distension /pain this is an 86-year-old female with past medical history of bowel obstruction over 10 years ago, HTN, asthma, CAD, Chiari malformation, fibromyalgia, GERD, HLD, and paroxysmal AFib who presents to the hospital with complaints of swollen abdomen, as well as abdominal pain, 10/10, constant, nonradiating, patient repo rts that her last BM was 2 days ago, she has not passed any gas in the meanwhile. She denies any fever or chills, no chest pain, no shortness of breath, no cough, no urinary symptoms and no lower extremity edema. No headache or change in vision, no numbness tingling. On arrival to the ED patient hemodynamically stable with no significant abnormal vitals Labs are significant for WBC count of 14.2, BUN of 20, creatinine of 1.12 which is around her baseline, labs otherwise unremarkable Abdominal pelvic CT shows dilated loops of small bowel scattered air-fluid levels suggesting an obstructive process, given her extensive past medical history and H surgical service wanted patient to be admitted to Medicine with consult surgery Review of Systems Review of Systems: Yes all other systems are reviewed and are negative [facility] Medical History Afib Anxiety Arthritis Asthma Atherosclerotic cardiovascular disease CAD (coronary artery disease) Cataract Chiari malformation Depression Essential tremor Fibromyalgia GERD (gastroesophageal reflux disease) H/O small bowel obstruction HLD (hyperlipidemia) HTN (hypertension) Osteoarthritis Paroxysmal atrial fibrillation Family History Mother CAD (coronary artery disease) Surgical History H/O heart artery stent History of appendectomy History of back surgery History of cholecystectomy Social History Household Members: Spouse Housing: House Are you a primary family day care worker to a significant other at home: Yes ( is in a wheelchair) Do you presently have visiting nurse or other home services: Yes (Family to help with cooking and cleaning, also dtr is an RN) Alcohol intake: never Patient Tobacco Use Status: Never used Tobacco Advance Directives: Yes Advance Directives Information Provided: No Advance Directives on File: No Advance Directives Date on File: 10/20/21 service: No Current occupational status: retired Current occupation: right handed Meds Allergies Allergy/AdvReac Type Severity Reaction Status Date / Time No Known Allergies [NKA] Allergy Verified 01/19/22 13:18 Active Medications: Current Medications Acetaminophen (Acetaminophen 325 Mg Tablet) 650 mg PO Q6H PRN PRN Reason: Pain, Mild (Pain Scale 1-3) Heparin Sodium (Porcine) (Heparin Sodium,Porcine 5,000 Unit/Ml Vial) 5,000 unit SUBCUT Q12H COUNTS INCLUDE 234 BEDS AT THE [facility] Lactated Ringer's (Lr) 1,000 mls @ 100 mls/hr IVCONT .Q10H COUNTS INCLUDE 234 BEDS AT THE [facility] Last Admin: 02/09/22 23:47 Dose: 100 mls/hr Morphine Sulfate (Morphine Sulfate 4 Mg/Ml Cartridge) 4 mg IVPUSH Q4H PRN; Pro tocol PRN Reason: Pain, Severe (Pain Scale 7-10) Last Admin: 02/10/22 00:36 Dose: 4 mg Ondansetron HCl (Ondansetron Hcl 4 Mg/2 Ml Vial) 4 mg IVPUSH Q8H PRN PRN Reason: Nausea and Vomiting Last Admin: 02/10/22 00:36 Dose: 4 mg Sodium Chloride (0.9 % Sodium Chloride Flush 3 Ml Syringe) [facility] Last Admin: 02/10/22 00:06 Dose: Not Given Home Medications Medication Instructions Recorded Confirmed Last Taken Type carbidopa 25 mg-levodopa 100 mg 2 tab PO TID 11/11/20 01/19/22 11/30/21 History tablet primidone 50 mg tablet 50 mg PO DAILY 11/11/20 01/19/22 11/30/21 History diphenhydramine 25 2 tab PO BEDTIME 12/01/21 01/19/22 11/29/21 History mg-acetaminophen 500 mg tablet (Tylenol PM Extra Strength) Physical Exam Vital Signs and Narrative: Vital Signs: Last Vital Signs Temp 97.8 F 02/09/22 20:45 Pulse 62 02/10/22 06:00 Resp 17 02/10/22 06:00 BP 162/73 H 02/10/22 06:00 Pulse Ox 100 02/10/22 06:00 O2 Del Method 02/10/22 06:00 O2 Flow Rate 4 02/10/22 06:00 BMI result Body Mass Index 35.8 Const: General: cooperative and no acute distress Orientation/consciousnes s: patient oriented x3 Eyes: General: appearance normal, both eyes and all related structures Resp: Effort & Inspection: normal respiratory effort Auscultation: clear to auscultation bilaterally Cardio: Rate: regular rate Rhythm: regular rhythm GI: Other: distended abdomen, tender on palpation, no rebound no guarding hyperactive bowel sounds Palpation (GI): Soft to palpation Skin: General skin exam: no rashes or lesions noted Neuro: General: patient oriented x3 Cognition (Neuro): normal cognition Extrem: General: Yes normal to inspection and Yes no pedal edema Results Labs CBC and Chem 7: 02/10/22 04:12 02/10/22 04:12 Labs: Laboratory Results - last 24 hr 02/09/22 02/09/22 02/09/22 21:21 21:21 21:21 MCV 95.7 MCH 30.0 MCHC 31.4 RDW 13.1 Plt Count 227 MPV 10.6 Immature Gran % (Auto) 0.6 H Neut % (Auto) 82.8 H Lymph % (Auto) 10.9 L [place] % (Auto) 4.5 Eos % (Auto) 1.0 Baso % (Auto) 0.2 Lymph # (Auto) 1.6 [place] # (Auto) 0.6 Eos # (Auto) 0.1 Baso # (Auto) 0.0 Abs Immat Gran (auto) 0.09 H Absolute Neuts (auto) 11.8 H Absolute Nucleated RBC 0.000 Nucleated RBC % (auto) 0.0 Anion Gap 15 Estim Creat Clear Calc 35.1 Estimated GFR 46 Random Glucose 161 H Calcium 8.9 D Magnesium 1.8 Total Bilirubin 0.5 AST 16 ALT 9 Alkaline Phosphatase 90 D Total Protein 6.8 Albumin 3.8 Lipase 11 COVID-19 (JACEY) Negative COVID-19 Clin Com See Note 02/10/22 02/10/22 04:12 04:12 MCV 97.3 MCH 30.7 MCHC 31.6 RDW 13.2 Plt Count 229 MPV 10.8 Immature Gran % (Auto) 0.6 H Neut % (Auto) 86.0 H Lymph % (Auto) 7.6 L [place] % (Auto) 5.4 Eos % (Auto) 0.2 Baso % (Auto) 0.2 Lymph # (Auto) 1.0 L [place] # (Auto) 0.7 Eos # (Auto) 0.0 Baso # (Auto) 0.0 Abs Immat Gran (auto) 0.07 H Absolute Neuts (auto) 10.8 H Absolute Nucleated RBC 0.000 Nucleated RBC % (auto) 0.0 Anion Gap 15 Estim Creat Clear Calc 41.0 Estimated GFR 55 Random Glucose 140 H Calcium 8.4 Magnesium Total Bilirubin AST ALT Alkaline Phosphatase Total Protein Albumin Lipase COVID-19 (JACEY) COVID-19 Clin Com Imaging Radiologist's Impressions: Impressions Abdomen/Pelvis CT 02/09/22 21:04 IMPRESSION: Dilated loops of small bowel scattered air-fluid levels suggesting an obstructive process, however, a definitive transition zone is not well identified. Clinical correlation recommended. Fleischner guidelines were followed. Chest X-Ray 02/09/22 23:07 IMPRESSION: Enteric tube terminating in the esophagus after bending upon itself. Suggest repositioning. Low lung volumes with left basilar opacity. This favors atelectasis. Assessment and Plan (1) Bowel obstruction: Status: Acute Plan 86-year-old female with past medical history of AFib among others presents to the hospital with complaints of abdominal distension found to have small-bowel obstruction # acute small-bowel obstruction - patient has history of abdominal procedures in the past with a history of small-bowel obstruction over 10 years ago - hemodynamically stable at this time, NG-tube attempted to be placed twice with no success, patient currently has no vomiting - general surgery consulted - patient made NPO, pain control # paroxysmal AFib - continue Eliquis and metoprolol # Parkinson's? - continue carbidopa levodopa # GERD - continue omeprazole DVT prophylaxis: Eliquis Quality Stroke Does the patient have a stroke diagnosis?: No VTE Prior VTE?: No VTE Risk Level:: Medical - moderate - high VTE Device Contraindication: Treatment Not Indicated VTE Drug Contraindication: N/A - Med Ordered
--- NOTE | 2022-02-10 07:33 | PM.CNGS ---
History of Present Illness Consult details Consult date: 02/10/22 Requesting physician: Gertrude Austin Narrative: 86-year-old female patient presenting with complaints of abdominal pain in the epigastrium and right upper quadrant associated with nausea, vomiting, and constipation. The pain began approximately 24 hours prior mainly in the right upper quadrant in gradually radiated into the epigastrium. Her last bowel movement was least 2-3 days prior to admission although she reports this is not unusual for her. She also had the sensation that her abdomen was getting tighter over the last several weeks. She has undergone previous abdominal surgery including cholecystectomy, appendectomy, bowel resection for small-bowel obstruction. She has had numerous previous episodes of small-bowel obstruction. The patient currently lives alone and her was admitted to a senior living approximately 2 weeks ago. She has a history of atrial fibrillation and is currently on Eliquis for this. Review of Systems Review of Systems: Yes all other systems are reviewed and are negative Cardiovascular: Cardiovascular: Denies chest pain, Denies rapid heart rate, Reports lightheadedness and Denies dyspnea Respiratory: Respiratory: Denies chest congestion, Denies cough, Denies hemoptysis and Denies dyspnea Gastrointestinal: Gastrointestinal: Reports as per HPI, Reports abdominal pain, Reports bloating, Reports constipation and Denies heartburn Genitourinary: Genitourinary: Denies urinary incontinence, Denies urinary hesitancy and Denies urinary urgency Neurologic: Reports tremor(s) PMFSH Past Medical History Medical History Afib Anxiety Arthritis Asthma Atherosclerotic cardiovascular disease CAD (coronary artery disease) Cataract Chiari malformation Depression Essential tremor Fibromyalgia GERD (gastroesophageal reflux disease) H/O small bowel obstruction HLD (hyperlipidemia) HTN (hypertension) Osteoarthritis Paroxysmal atrial fibrillation Family History Family History Mother CAD (coronary artery disease) Surgical History Surgical History H/O heart artery stent History of appendectomy History of back surgery History of cholecystectomy Social History Social History Household Members: Spouse Housing: House Are you a primary intensive care ambulance paramedic to a significant other at home: Yes ( is in a wheelchair) Do you presently have visiting nurse or other home services: Yes (Family to help with cooking and cleaning, also dtr is an RN) Alcohol intake: never Patient Tobacco Use Status: Never used Tobacco Advance Directives: Yes Advance Directives Information Provided: No Advance Directives on File: No Advance Directives Date on File: 10/20/21 service: No Current occupational status: retired Current occupation: right handed Meds Allergies Allergy/AdvReac Type Severity Reaction Status Date / Time No Known Allergies [NKA] Allergy Verified 01/19/22 13:18 Active Medications: Current Medications Acetaminophen (Acetaminophen 325 Mg Tablet) 650 mg PO Q6H PRN PRN Reason: Pain, Mild (Pain Scale 1-3) Heparin Sodium (Porcine) (Heparin Sodium,Porcine 5,000 Unit/Ml Vial) 5,000 unit [facility]BCUT [facility] Lactated Ringer's (Lr) 1,000 mls @ 100 mls/hr IVCONT .Q10H [facility] Last Admin: 02/09/22 23:47 Dose: 100 mls/hr Morphine Sulfate (Morphine Sulfate 4 Mg/Ml Cartridge) 4 mg IVPUSH Q4H PRN; Protocol PRN Reason: Pain, Severe (Pain Scale 7-10) Last Admin: 02/10/22 00:36 Dose: 4 mg Ondansetron HCl (Ondansetron Hcl 4 Mg/2 Ml Vial) 4 mg IVPUSH Q8H PRN PRN Reason: Nausea and Vomiting Last Admin: 02/10/22 00:36 Dose: 4 mg Pharmacy Consult (Consult Rx Perform Med Rec) 1 each MISCELLANE ONCE PRN PRN Reason: Consult order Sodium Chloride (0.9 % Sodium Chloride Flush 3 Ml Syringe) 3 ml IVFLUSH [facility] Last Admin: 02/10/22 00:06 Dose: Not Given Home Medications Medication Instructions Recorded Confirmed Last Taken Type carbidopa 25 mg-levodopa 100 mg 2 tab PO TID 11/11/20 01/19/22 11/30/21 History tablet primidone 50 mg tablet 50 mg PO DAILY 11/11/20 01/19/22 11/30/21 History citalopram 40 mg tablet 1 tab PO DAILY 02/10/22 Unknown History Physical Exam Vital Signs: Vital Signs: Last Vital Signs Temp 97.8 F 02/09/22 20:45 Pulse 62 08/10/22 06:00 Resp 17 02/10/22 06:00 BP 162/73 H 02/10/22 06:00 Pulse Ox 100 02/10/22 06:00 O2 Del Method 02/10/22 06:00 O2 Flow Rate 4 02/10/22 06:00 BMI result Body Mass Index 35.8 Const: General: cooperative, no acute distress and well developed Nutritional Appearance: well nourished Orientation/consciousness: patient oriented x3 Limitations: no limitations HEENT: Head: Yes normocephalic and Yes atraumatic Ears: hearing grossly normal bilaterally Neck: Neck: Yes normal visual inspection and Yes no JVD Resp: Effort & Inspection: normal respiratory effort Auscultation: clear to auscultation bilaterally Cardio: Jugular venous distension: no JVD Rate: regular rate Rhythm: regular rhythm Heart sounds: S1 normal heart sound present and S2 normal heart sound present GI: Inspection: Yes distended and Yes obesity Palpation (GI): Soft to palpation, nontender, no guarding and not rigid Percussion: Yes tympanic to percussion Auscultation: Absent bowel sounds Rectal Exam - Female: deferred Skin: General skin exam: no rashes or lesions noted and dry skin Neuro: General: patient oriented x3 Extrem: General: Yes no clubbing, cyanosis or edema Results Labs Result diagrams: 02/10/22 04:12 02/10/22 04:12 Labs: Abnormal lab results 02/09/22 02/09/22 02/10/22 Range/Units 21:21 21:21 04:12 WBC 14.2 H 12.6 H (4.8-10.8) X10*3/uL RBC 4.04 L (4.20-5.50) X10*6/uL Immature Gran % (Auto) 0.6 H 0.6 H (0.0-0.4) % Neut % (Auto) 82.8 H 86.0 H (45-73) % Lymph % (Auto) 10.9 L 7.6 L (20-40) % Lymph # (Auto) 1.0 L (1.2-4.9) X10*3/uL Abs Immat Gran (auto) 0.09 H 0.07 H (0.00-0.03) X10*3/uL Absolute Neuts (auto) 11.8 H 10.8 H (2.0-8.3) x10*3/uL BUN 20 H (9-16) mg/dL Random Glucose 161 H (60-115) mg/dL 02/10/22 Range/Units 04:12 WBC (4.8-10.8) X10*3/uL RBC (4.20-5.50) X10*6/uL Immature Gran % (Auto) (0.0-0.4) % Neut % (Auto) (45-73) % Lymph % (Auto) (20-40) % Lymph # (Auto) (1.2-4.9) X10*3/uL Abs Immat Gran (auto) (0.00-0.03) X10*3/uL Absolute Neuts (auto) (2.0-8.3) x10*3/uL BUN 19 H (9-16) mg/dL Random Glucose 140 H (60-115) mg/dL Short CBC 02/09/22 02/10/22 Range/Units 21:21 04:12 WBC 14.2 H 12.6 H (4.8-10.8) X10*3/uL Hgb 12.7 12.4 (12.0-16.0) g/dl Hct 40.5 39.3 (37.0-47.0) % Plt Count 227 229 (160-400) X10*3/uL BMP 02/09/22 02/10/22 21:21 04:12 Sodium 141 141 Potassium 4.2 4.8 Chloride 107 108 Carbon Dioxide 23 23 BUN 20 H 19 H Creatinine 1.12 0.96 Calcium 8.9 D 8.4 Liver Function 02/09/22 Range/Units 21:21 Total Bilirubin 0.5 (0.0-1.0) mg/dL AST 16 (5-31) U/L ALT 9 (0-31) U/L Alkaline Phosphatase 90 D (39-117) U/L Albumin 3.8 (3.5-5.0) g/dL All other labs normal. Imaging Abdomen CT scan report/results: image reviewed CT scan - pelvis: image reviewed Assessment and Plan (1) Bowel obstruction: Status: Acute Plan 86-year-old female patient presenting with complaints of upper abdominal discomfort, nausea, vomiting, and constipation presenting to the emergency department for further evaluation. She was noted to have an elevated WBC of [address] abdomen and pelvis with findings consistent with small-bowel obstruction. She has a long history of bowel obstructions and previously underwent surgery bowel obstruction requiring a bowel resection. This morning she feels somewhat improved but does still have some nausea. She reports passing flatus this morning. An attempt at placing and NG tube was unsuccessful and resulted in patient developing a nose bleed. The decision was made to avoid any further attempts at NG tube decompression. Recommend continuing bowel rest with IV fluid hydration. Will attempt non operative management as long as the patient is improving. Procedures Date of Service Date of Service: 02/10/22
--- NOTE | 2022-02-10 08:48 | PHA.MEDREC ---
Pharmacy Consult ? Medication Reconciliation Pharmacy has completed the medication reconciliation.Pt krys historian, knew most meds. Pt's grandasherghter at bedside on phone with pt's daughter, confirmed doses
--- NOTE | 2022-02-10 08:53 | MHC.CM.PN ---
Patient lives in a condo, now alone r/t her being a Resident at [facility] and anticipating that he will require LTC. Patient's Daughter/HCP/Jonelle is a RN here at [facility] and IMM addressed with her also (original to be given to Patient and a copy placed on the chart). Home no services vs new VNA is the goal and CM has initiated and will follow for dc planning. Patient has received Moderna/Covid vax X3 and her PCP is Dr. Wesley Livingston.
[2022-02-10] MEDS: Heparin Sodium,Porcine 5,000 UNIT/ML VIAL 5000 UNIT SUBCUT ×2 (10:42→20:29)
[2022-02-10] MEDS: Lactated Ringers 1,000 ML 100 ML IVCONT ×2 (10:43→20:31)
--- NOTE | 2022-02-10 11:02 | P.PNIM_ITS ---
Subjective Subjective Date of Service: 02/10/22 Interval History: cc: abd pain interval history:some flatus, no BMs Cardiovascular Cardiovascular: Reports no additional cardiovascular complaints Respiratory Respiratory: Reports no additional respiratory complaints Physical Exam Vital Signs: Vital Signs: Last Vital Signs Temp 97.8 F 02/09/22 20:45 Pulse 62 02/10/22 06:00 Resp 17 02/10/22 06:00 BP 162/73 H 02/10/22 06:00 Pulse Ox 100 02/10/22 06:00 O2 Del Method 02/10/22 06:00 O2 Flow Rate 4 02/10/22 06:00 BMI result Body Mass Index 35.8 General: AO X 3, no acute distress Resp: CTA bilateral, no accessory muscles used CVS: S1,S2,RRR GI: soft, non tender, non distended Neuro: motor grossly intact, alert Psych: appropriate affect, appropriate insight Objective Data Active Medications Acetaminophen (Acetaminophen 325 Mg Tablet) 650 mg PO Q6H PRN PRN Reason: Pain, Mild (Pain Scale 1-3) Heparin Sodium (Porcine) (Heparin Sodium,Porcine 5,000 Unit/Ml Vial) 5,000 unit SUBCUT Q12H [facility] Last Admin: 02/10/22 10:42 Dose: 5,000 unit Documented By: KRISHNA Lactated Ringer's (Lr) 1,000 mls @ 100 mls/hr IVCONT .Q10H [facility] Last Admin: 02/10/22 10:43 Dose: 100 mls/hr Documented By: KRISHNA Morphine Sulfate (Morphine Sulfate 4 Mg/Ml Cartridge) 4 mg IVPUSH Q4H PRN; Protocol PRN Reason: Pain, Severe (Pain Scale 7-10) Last Admin: 02/10/22 00:36 Dose: 4 mg Documented By: LUCIE Ondansetron HCl (Ondansetron Hcl 4 Mg/2 Ml Vial) 4 mg IVPUSH Q8H PRN PRN Reason: Nausea and Vomiting Last Admin: 02/10/22 00:36 Dose: 4 mg Documented By: LUCIE Pharmacy Consult (Consult Rx Perform Med Rec) 1 each MISCELLANE ONCE PRN PRN Reason: Consult order Sodium Chloride (0.9 % Sodium Chloride Flush 3 Ml Syringe) 3 ml IVFLUSH QSHIFT [facility] Last Admin: 02/10/22 08:36 Dose: Not Given Documented By: KRISHNA Non-Admin Reason: IV Running Labs CBC & Chem 7: 02/10/22 04:12 02/10/22 04:12 Labs: Laboratory Results - last 24 hr 02/09/22 02/09/22 02/09/22 21:21 21:21 21:21 MCV 95.7 MCH 30.0 MCHC 31.4 RDW 13.1 Plt Count 227 MPV 10.6 Immature Gran % (Auto) 0.6 H Neut % (Auto) 82.8 H Lymph % (Auto) 10.9 L [place] % (Auto) 4.5 Eos % (Auto) 1.0 Baso % (Auto) 0.2 Lymph # (Auto) 1.6 [place] # (Auto) 0.6 Eos # (Auto) 0.1 Baso # (Auto) 0.0 Abs Immat Gran (auto) 0.09 H Absolute Neuts (auto) 11.8 H Absolute Nucleated RBC 0.000 Nucleated RBC % (auto) 0.0 Anion Gap 15 Estim Creat Clear Calc 35.1 Estimated GFR 46 Random Glucose 161 H Calcium 8.9 D Magnesium 1.8 Total Bilirubin 0.5 AST 16 ALT 9 Alkaline Phosphatase 90 D Total Protein 6.8 Albumin 3.8 Lipase 11 COVID-19 (JACEY) Negative COVID-19 Clin Com See Note 02/10/22 02/10/22 04:12 04:12 MCV 97.3 MCH 30.7 MCHC 31.6 RDW 13.2 Plt Count 229 MPV 10.8 Immature Gran % (Auto) 0.6 H Neut % (Auto) 86.0 H Lymph % (Auto) 7.6 L [place] % (Auto) 5.4 Eos % (Auto) 0.2 Baso % (Auto) 0.2 Lymph # (Auto) 1.0 L [place] # (Auto) 0.7 Eos # (Auto) 0.0 Baso # (Auto) 0.0 Abs Immat Gran (auto) 0.07 H Absolute Neuts (auto) 10.8 H Absolute Nucleated RBC 0.000 Nucleated RBC % (auto) 0.0 Anion Gap 15 Estim Creat Clear Calc 41.0 Estimated GFR 55 Random Glucose 140 H Calcium 8.4 Magnesium Total Bilirubin AST ALT Alkaline Phosphatase Total Protein Albumin Lipase COVID-19 (JACEY) COVID-19 Clin Com Assessment and Plan (1) Bowel obstruction: Status: Acute Plan 86-year-old female with past medical history of paroxysmal atrial fib rillation, Parkinson's, GERD, presented with recurrent SBO acute recurrent SBO NPO, IVF, surgery following paroxysmal afib multaq, lopressor, holding AC for possible surgery in sinus parkinsons sinemet CAD statin, beta miguelangel, holding AC reason for continued hospitalization: awaiting return of bowel function Quality Stroke Does the patient have a stroke diagnosis?: No VTE Prior VTE?: No VTE Risk Level:: Medical - moderate - high VTE Device Contraindication: Treatment Not Indicated VTE Drug Contraindication: N/A - Med Ordered
[2022-02-10 14:28] VITALS: BP 145/62; PULSE 71; RESP 20; TEMP 37.4; O2SAT 93
[2022-02-10] MEDS: 0.9 % Sodium Chloride Flush 3 ML SYRINGE IVFLUSH (14:46)
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
[2022-02-10] MEDS: Baclofen 10 MG TABLET 5 MG PO (20:28)
[2022-02-10] MEDS: Carbidopa/Levodopa 25/100 TABLET 2 TAB PO (20:28)
[2022-02-10] MEDS: Metoprolol Tartrate 12.5 MG HALFTAB PO (20:28)
[2022-02-10] MEDS: Magnesium Oxide 400 MG TABLET PO (20:29)
[2022-02-10] MEDS: Mirtazapine 15 MG TABLET PO (20:29)
[2022-02-10] MEDS: Gabapentin 100 MG CAPSULE PO (20:29)
[2022-02-10 20:30] VITALS: BP 145/64; PULSE 73; RESP 20; TEMP 37; O2SAT 96
[2022-02-11] VITALS (7 sets, daily range): BP systolic 115–164; BP diastolic 63–77; PULSE 70–119; RESP 15–18; TEMP 36.3–37.2; O2SAT 90–98; BMI 37.6
[2022-02-11] MEDS: Morphine Sulfate 4 MG/ML CARTRIDGE IVPUSH (06:29)
[2022-02-11] MEDS: Lactated Ringers 1,000 ML 100 ML IVCONT ×3 (06:33→23:12)
--- NOTE | 2022-02-11 07:44 | P.PNGS_ITS ---
Subjective Subjective Date of Service: 02/11/22 Interval history: Overall feels improved, passing some flatus but no bowel movement yet. Does report some hiccups this morning. Denies any vomiting. Physical Exam Vital Signs: Vital Signs: Last Vital Signs Temp 98.2 F 02/11/22 06:04 Pulse 72 02/11/22 06:04 Resp 16 02/11/22 06:04 BP 148/68 H 02/11/22 06:04 Pulse Ox 98 02/11/22 06:04 O2 Del Method 02/11/22 06:04 O2 Flow Rate 1 02/11/22 06:04 BMI result Body Mass Index 37.6 Const: General: cooperative and comfortable Nutritional Appearance: well nourished Orientation/consciousness: patient oriented x3 Limitations: no limitations Resp: Effort & Inspection: normal respiratory effort, no audible wheezes, no cough and no respiratory distress GI: Other: Soft, mildly distended, tympanitic to percussion, no rebound, no guarding. Skin: Other: Warm, dry, no rashes Neuro: General: patient oriented x3 Extrem: Other: No edema Objective Data Active Medications Acetaminophen (Acetaminophen 325 Mg Tablet) 650 mg PO Q6H PRN PRN Reason: Pain, Mild (Pain Scale 1-3) Atorvastatin Calcium (Atorvastatin Calcium 20 Mg Tablet) 20 mg PO DAILY [facility] Baclofen (Baclofen 10 Mg Tablet) 5 mg PO BEDTIME [facility] Last Admin: 02/10/22 20:28 Dose: 5 mg Documented By: NAVEEN Carbidopa/Levodopa (Carbidopa/Levodopa 25/100 Tablet) 2 tab PO TID [facility] Last Admin: 02/10/22 20:28 Dose: 2 tab Documented By: NAVEEN Dronedarone (Dronedarone Hcl 400 Mg Tablet) 400 mg PO BID [facility] Last Admin: 02/10/22 20:34 Dose: Not Given Documented By: NAVEEN Non-Admin Reason: Med Not Available Escitalopram Oxalate (Escitalopram Oxalate 20 Mg Tablet) 20 mg PO DAILY [facility] Gabapentin (Gabapentin 100 Mg Capsule) 100 mg PO BID [facility] Last Admin: 02/10/22 20:29 Dose: 100 mg Documented By: NAVEEN Heparin Sodium (Porcine) (Heparin Sodium,Porcine 5,000 Unit/Ml Vial) 5,000 unit SUBCUT Q12H [facility] Last Admin: 02/10/22 20:29 Dose: 5,000 unit Documented By: NAVEEN Lactated Ringer's (Lr) 1,000 mls @ 100 mls/hr IVCONT .Q10H [facility] Last Admin: 02/11/22 06:33 Dose: 100 mls/hr Documented By: CARMELO Magnesium Oxide (Magnesium Oxide 400 Mg Tablet) 400 mg PO BEDTIME [facility] Last Admin: 02/10/22 20:29 Dose: 400 mg Documented By: NAVEEN Metoprolol Tartrate (Metoprolol Tartrate 12.5 Mg Halftab) 12.5 mg PO BID [facility]; Protocol Last Admin: 02/10/22 20:28 Dose: 12.5 mg Documented By: NAVEEN Mirtazapine (Mirtazapine 15 Mg Tablet) 15 mg PO BEDTIME [facility] Last Admin: 02/10/22 20:29 Dose: 15 mg Documented By: NAVEEN Morphine Sulfate (Morphine Sulfate 4 Mg/Ml Cartridge) 4 mg IVPUSH Q4H PRN; Protocol PRN Reason: Pain, Severe (Pain Scale 7-10) Last Admin: 02/11/22 06:29 Dose: 4 mg Documented By: CARMELO Omeprazole (Omeprazole 20 Mg Capsule.Dr) 20 mg PO BID PRN PRN Reason: Acid Reflux Ondansetron HCl (Ondansetron Hcl 4 Mg/2 Ml Vial) 4 mg IVPUSH Q8H PRN PRN Reason: Nausea and Vomiting Last Admin: 02/10/22 14:46 Dose: 4 mg Documented By: NAVEEN Pharmacy Consult (Consult Rx Perform Med Rec) 1 each MISCELLANE ONCE PRN PRN Reason: Consult order Sodium Chloride (0.9 % Sodium Chloride Flush 3 Ml Syringe) 3 ml IVFLUSH QSHIFT [facility] Last Admin: 02/10/22 23:04 Dose: Not Given Documented By: NAVEEN Non-Admin Reason: IV Running Vitamin D (Cholecalciferol (Vitamin D3) 25 Mcg Tablet) 25 mcg PO DAILY [facility] Labs CBC & Chem 7: 02/10/22 04:12 02/10/22 04:12 Procedures Date of Service Date of Service: 02/11/22 Progress Note: A&P Assessment and plan (1) Bowel obstruction: Status: Acute Plan 86-year-old female patient with 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 Patient is passing flatus but no bowel movement yet. Abdomen is soft but tympanitic to percussion. Previous attempt at nasogastric tube insertion was aborted due to nasal bleeding. Patient is now off the apixaban. Patient may need tube inserted if no improvement in the bowel obstruc tion. Stomach was quite large on CT and this certainly would help her hiccups. Will continue non operative management. Time Spent With Patient Time: Total time spent is greater than 50% in coordination of care (as documented) at patient's floor/unit and/or counseling patient: Quality Stroke Does the patient have a stroke diagnosis?: No VTE Prior VTE?: No VTE Risk Level:: Medical - moderate - high VTE Device Contraindication: Treatment Not Indicated VTE Drug Contraindication: N/A - Med Ordered
[2022-02-11] MEDS: Heparin Sodium,Porcine 5,000 UNIT/ML VIAL 5000 UNIT SUBCUT ×2 (10:09→20:44)
[2022-02-11] MEDS: ondansetron HCL 4 MG/2 ML VIAL IVPUSH (10:09)
--- NOTE | 2022-02-11 14:44 | P.PNIM_ITS ---
Subjective Subjective Date of Service: 02/11/22 Interval History: Seen and evaluated this morning Abdominal pain has improved but still not having bowel movement Passing small amount of gas No reported overnight events Review of Systems Review of Systems: Yes all other systems are reviewed and are negative Physical Exam Vital Signs: Vital Signs: Last Vital Signs Temp 97.7 F 02/11/22 11:56 Pulse 70 02/11/22 11:56 Resp 16 02/11/22 11:56 BP 153/69 H 02/11/22 11:56 Pulse Ox 90 L 02/11/22 11:56 O2 Del Method 02/11/22 11:56 O2 Flow Rate 1 02/11/22 08:00 BMI result Body Mass Index 37.6 Const: Other: Constitutional : Alert, oriented, not in distress Neck : Normal inspection, Supple Cardiovascular : RRR, no JVP, no lower extremity edema Respiratory : fair bilateral air entry, no crackles, wheezes or rhonchi Gastrointestinal: soft, lax, decreased bowel sounds, Non tender Skin : Warm, Dry Neurological : Alert & oriented x3, No focal deficit , CN 2-12 within normal Objective Data Active Medications Acetaminophen (Acetaminophen 325 Mg Tablet) 650 mg PO Q6H PRN PRN Reason: Pain, Mild (Pain Scale 1-3) Atorvastatin Calcium (Atorvastatin Calcium 20 Mg Tablet) 20 mg PO DAILY [facility] Last Admin: 02/11/22 10:15 Dose: Not Given Documented By: ALFREDO Non-Admin Reason: NPO Baclofen (Baclofen 10 Mg Tablet) 5 mg PO BEDTIME [facility] Last Admin: 02/10/22 20:28 Dose: 5 mg Documented By: NAVEEN Carbidopa/Levodopa (Carbidopa/Levodopa 25/100 Tablet) 2 tab PO TID [facility] Last Admin: 02/11/22 14:25 Dose: Not Given Documented By: DREW Non-Admin Reason: NPO Dronedarone (Dronedarone Hcl 400 Mg Tablet) 400 mg PO BID [facility] Last Admin: 02/11/22 10:23 Dose: Not Given Documented By: ALFREDO Non-Admin Reason: NPO Escitalopram Oxalate (Escitalopram Oxalate 20 Mg Tablet) 20 mg PO DAILY [facility] Last Admin: 02/11/22 10:23 Dose: Not Given Documented By: ALFREDO Non-Admin Reason: NPO Gabapentin (Gabapentin 100 Mg Capsule) 100 mg PO BID [facility] Last Admin: 02/11/22 10:23 Dose: Not Given Documented By: ALFREDO Non-Admin Reason: NPO Heparin Sodium (Porcine) (Heparin Sodium,Porcine 5,000 Unit/Ml Vial) 5,000 unit SUBCUT Q12H [facility] Last Admin: 02/11/22 10:09 Dose: 5,000 unit Documented By: ALFREDO Lactated Ringer's (Lr) 1,000 mls @ 100 mls/hr IVCONT .Q10H [facility] Last Admin: 02/11/22 13:50 Dose: 100 mls/hr Documented By: DREW Magnesium Oxide (Magnesium Oxide 400 Mg Tablet) 400 mg PO BEDTIME [facility] Last Admin: 02/10/22 20:29 Dose: 400 mg Documented By: NAVEEN Metoprolol Tartrate (Metoprolol Tartrate 12.5 Mg Halftab) 12.5 mg PO BID [facility]; Protocol Last Admin: 02/11/22 10:24 Dose: Not Given Documented By: ALFREDO Non-Admin Reason: NPO Mirtazapine (Mirtazapine 15 Mg Tablet) 15 mg PO BEDTIME [facility] Last Admin: 02/10/22 20:29 Dose: 15 mg Documented By: NAVEEN Morphine Sulfate (Morphine Sulfate 4 Mg/Ml Cartridge) 4 mg IVPUSH Q4H PRN; Protocol PRN Reason: Pain, Severe (Pain Scale 7-10) Last Admin: 02/11/22 06:29 Dose: 4 mg Documented By: CARMELO Omeprazole (Omeprazole 20 Mg Capsule.Dr) 20 mg PO BID PRN PRN Reason: Acid Reflux Ondansetron HCl (Ondansetron Hcl 4 Mg/2 Ml Vial) 4 mg IVPUSH Q8H PRN PRN Reason: Nausea and Vomiting Last Admin: 02/11/22 10:09 Dose: 4 mg Documented By: ALFREDO Pharmacy Consult (Consult Rx Perform Med Rec) 1 each MISCELLANE ONCE PRN PRN Reason: Consult order Sodium Chloride (0.9 % Sodium Chloride Flush 3 Ml Syringe) 3 ml IVFLUSH QSHIFT [facility] Last Admin: 02/11/22 09:09 Dose: Not Given Documented By: ALFREDO Non-Admin Reason: IV Running Vitamin D (Cholecalciferol (Vitamin D3) 25 Mcg Tablet) 25 mcg PO DAILY [facility] Last Admin: 02/11/22 10:17 Dose: Not Given Documented By: ALFREDO Non-Admin Reason: NPO Labs CBC & Chem 7: 02/10/22 04:12 02/10/22 04:12 Assessment and Plan (1) Bowel obstruction: Status: Acute Plan 86-year-old female with past medical history of paroxysmal atrial fibrillation, Parkinson's, GERD, presented with recurrent SBO acute recurrent SBO Keep NPO Continue IVF surgery input appreciated, supportive measures and consider NG tube paroxysmal afib Continue multaq, lopressor holding AC for possible surgery in sinus rhythm parkinsons sinemet CAD statin, beta miguelangel, holding AC reason for continued hospitalization: awaiting return of bowel function Quality Stroke Does the patient have a stroke diagnosis?: No VTE Prior VTE?: No VTE Risk Level:: Medical - moderate - high VTE Device Contraindication: Treatment Not Indicated VTE Drug Contraindication: N/A - Med Ordered
[2022-02-11] MEDS: 0.9 % Sodium Chloride Flush 3 ML SYRINGE IVFLUSH (16:49)
[2022-02-12 03:47] VITALS: BP 107/52; PULSE 76; RESP 18; TEMP 37.2; O2SAT 98
[2022-02-12 06:58] LABS: Hemoglobin 11.1 g/dl (12.0-16.0); Mean Corpuscular HGB Conc 31.7 g/dl (31.0-35.0); Mean Corpuscular Hemoglobin 30.2 pg (27.0-33.0); Mean Corpuscular Volume 95.1 fL (80.0-98.0); Platelet Count 182 X10*3/uL (160-400); Red Blood Count 3.68 X10*6/uL (4.20-5.50); Red Cell Distribution Width 12.8 % (11.0-16.0); White Blood Count 7.2 X10*3/uL (4.8-10.8)
[2022-02-12 07:16] VITALS: BP 119/58; PULSE 70; RESP 17; TEMP 36.4; O2SAT 96
[2022-02-12 07:21] LABS: Anion Gap 17 (12-20); Blood Urea Nitrogen 11 mg/dL (9-16); Calcium 8.1 mg/dL (8.4-10.2); Carbon Dioxide 22 mmol/L (22-29); Chloride 104 mmol/L (96-108); Creatinine Clr Calc Pharmacy 53.9; Estimated Glomerular Filt Rate > 60; Glucose Random 71 mg/dL (60-115); Potassium 4.9 mmol/L (3.3-5.1); Sodium 138 mmol/L (135-145)
--- NOTE | 2022-02-12 08:29 | PM.PNGS ---
Subjective Subjective Date of Service: 02/12/22 Interval history: Patient feels much improved today with no abdominal pain. She has multiple episodes of loose stool throughout the night. Does report some rawness in the perianal skin. Physical Exam Vital Signs: Vital Signs: Last Vital Signs Temp 97.5 F 02/12/22 07:16 Pulse 70 02/12/22 07:16 Resp 17 02/12/22 07:16 BP 119/58 L 02/12/22 07:16 Pulse Ox 96 02/12/22 07:16 O2 Del Method 02/12/22 07:16 O2 Flow Rate 1 02/12/22 07:16 BMI result Body Mass Index 37.6 Const: General: cooperative and comfortable Nutritional Appearance: well nourished Orientation/consciousness: patient oriented x3 Limitations: no limitations Resp: Effort & Inspection: normal respiratory effort, no audible wheezes, no cough and no respiratory distress GI: Other: Soft, mildly distended, no tympany to percussion, no rebound, no guarding. Skin: Other: Warm, dry, no rashes Neuro: General: patient oriented x3 Extrem: Other: No edema Objective Data Active Medications Acetaminophen (Acetaminophen 325 Mg Tablet) 650 mg PO Q6H PRN PRN Reason: Pain, Mild (Pain Scale 1-3) Atorvastatin Calcium (Atorvastatin Calcium 20 Mg Tablet) 20 mg PO DAILY [facility] Last Admin: 02/11/22 10:15 Dose: Not Given Documented By: ALFREDO Non-Admin Reason: NPO Baclofen (Baclofen 10 Mg Tablet) 5 mg PO BEDTIME [facility] Last Admin: 02/11/22 19:49 Dose: Not Given Documented By: LANEY Non-Admin Reason: NPO Carbidopa/Levodopa (Carbidopa/Levodopa 25/100 Tablet) 2 tab PO TID [facility] Last Admin: 02/11/22 19:49 Dose: Not Given Documented By: LANEY Non-Admin Reason: NPO Dronedarone (Dronedarone Hcl 400 Mg Tablet) 400 mg PO BID [facility] Last Admin: 02/11/22 19:49 Dose: Not Given Documented By: LANEY Non-Admin Reason: NPO Escitalopram Oxalate (Escitalopram Oxalate 20 Mg Tablet) 20 mg PO DAILY [facility] Last Admin: 02/11/22 10:23 Dose: Not Given Documented By: ALFREDO Non-Admin Reason: NPO Gabapentin (Gabapentin 100 Mg Capsule) 100 mg PO BID [facility] Last Admin: 02/11/22 19:49 Dose: Not Given Documented By: LANEY Non-Admin Reason: NPO Heparin Sodium (Porcine) (Heparin Sodium,Porcine 5,000 Unit/Ml Vial) 5,000 unit SUBCUT Q12H [facility] Last Admin: 02/11/22 20:44 Dose: 5,000 unit Documented By: LANEY Magnesium Oxide (Magnesium Oxide 400 Mg Tablet) 400 mg PO BEDTIME [facility] Last Admin: 02/11/22 19:49 Dose: Not Given Documented By: LANEY Non-Admin Reason: NPO Metoprolol Tartrate (Metoprolol Tartrate 12.5 Mg Halftab) 12.5 mg PO BID [facility]; Protocol Last Admin: 02/11/22 20:40 Dose: Not Given Documented By: LANEY Non-Admin Reason: NPO Mirtazapine (Mirtazapine 15 Mg Tablet) 15 mg PO BEDTIME [facility] Last Admin: 02/11/22 20:40 Dose: Not Given Documented By: LANEY Non-Admin Reason: NPO Morphine Sulfate (Morphine Sulfate 4 Mg/Ml Cartridge) 4 mg IVPUSH Q4H PRN; Protocol PRN Reason: Pain, Severe (Pain Scale 7-10) Last Admin: 02/11/22 06:29 Dose: 4 mg Documented By: CARMELO Omeprazole (Omeprazole 20 Mg Capsule.Dr) 20 mg PO BID PRN PRN Reason: Acid Reflux Ondansetron HCl (Ondansetron Hcl 4 Mg/2 Ml Vial) 4 mg IVPUSH Q8H PRN PRN Reason: Nausea and Vomiting Last Admin: 02/11/22 10:09 Dose: 4 mg Documented By: ALFREDO Pharmacy Consult (Consult Rx Perform Med Rec) 1 each MISCELLANE ONCE PRN PRN Reason: Consult order Sodium Chloride (0.9 % Sodium Chloride Flush 3 Ml Syringe) 3 ml IVFLUSH QSHIFT [facility] Last Admin: 02/11/22 20:40 Dose: Not Given Documented By: LANEY Non-Admin Reason: IV Running Vitamin D (Cholecalciferol (Vitamin D3) 25 Mcg Tablet) 25 mcg PO DAILY [facility] Last Admin: 02/11/22 10:17 Dose: Not Given Documented By: HO.NGENOAL Non-Admin Reason: NPO Labs CBC & Chem 7: 02/12/22 05:50 02/12/22 05:50 Labs: Laboratory Results - last 24 hr 02/12/22 02/12/22 05:50 05:50 MCV 95.1 MCH 30.2 MCHC 31.7 RDW 12.8 Plt Count 182 MPV 11.0 Absolute Nucleated RBC 0.000 Nucleated RBC % (auto) 0.0 Anion Gap 17 Estim Creat Clear Calc 53.9 Estimated GFR > 60 Random Glucose 71 Calcium 8.1 L Procedures Date of Service Date of Service: 02/12/22 Progress Note: A&P Assessment and plan (1) Bowel obstruction: Status: Acute Plan Patient is much improved today with multiple bowel movements consistent with a resolving small-bowel obstruction. Her abdomen is soft and nondistended with no tympany. Will start on clear liquids and advance slowly over the next several days. Patient expressed understanding and agrees with the plan. Time Spent With Patient Time: Total time spent is greater than 50% in coordination of care (as documented) at patient's floor/unit and/or counseling patient: Quality Stroke Does the patient have a stroke diagnosis?: No VTE Prior VTE?: No VTE Risk Level:: Medical - moderate - high VTE Device Contraindication: Treatment Not Indicated VTE Drug Contraindication: N/A - Med Ordered
[2022-02-12] MEDS: Gabapentin 100 MG CAPSULE PO ×2 (08:52→20:19)
[2022-02-12] MEDS: Metoprolol Tartrate 12.5 MG HALFTAB PO ×2 (08:52→20:20)
[2022-02-12] MEDS: Dronedarone HCl 400 MG TABLET PO ×2 (08:52→20:20)
[2022-02-12] MEDS: Carbidopa/Levodopa 25/100 TABLET 2 TAB PO ×3 (08:52→20:21)
[2022-02-12] MEDS: Cholecalciferol (Vitamin D3) 25 MCG TABLET PO (08:52)
[2022-02-12] MEDS: 0.9 % Sodium Chloride Flush 3 ML SYRINGE IVFLUSH ×3 (08:52→20:21)
[2022-02-12] MEDS: Atorvastatin Calcium 20 MG TABLET PO (08:52)
[2022-02-12] MEDS: Escitalopram Oxalate 20 MG TABLET PO (08:52)
--- NOTE | 2022-02-12 08:56 | P.CDIC_ITS ---
CDI Concurrent Query Documentation Clarification: PHYSICIAN'S DOCUMENTATION REQUEST Date of Query: 02/12/22 0856 Patient Name: Cintia Gandhi Admit Date: 02/09/22 Dear Doctor, A review of the medical record indicates additional documentation may be needed. Please review below and update the documentation accordingly. Risk Factors/Clinical Indicators/Treatments Nursing notes for Height and Weight noted patient is obese Class II BMI: 37.6 5ft in height. If possible, please provide an associated diagnosis related to the abnormal BMI, such as: For a BMI >= 35: * Overweight * Obesity * Due to excess calories * Drug induced * Due to other cause * Severe or Morbid Obesity * With alveolar hypoventilation * Without alveolar hypoventilation Or: * BMI is not significant * Other (please specify) * Unable to determine Use of terms such as suspected, likely, concern for, or probable (associated with a specific diagnosis that is being evaluated, monitored, or treated as if it exists) are acceptable and can be coded in the inpatient setting, when documented at the time of discharge. Thank you, Juliane Villarreal [facility], CDIS Extension: [phone] Please use your independent medical judgment in providing your response. THIS QUERY IS PART OF THE PERMANENT MEDICAL RECORD Provider Response: Other Other Diagnosis: Obesity due to excess calories
[2022-02-12 11:23] VITALS: BP 127/61; PULSE 70; RESP 17; TEMP 36.3; O2SAT 94
[2022-02-12] MEDS: Nystatin Oral Susp 500,000 UNIT/5 ML ORAL.SUSP 400000 UNIT PO ×3 (13:33→20:19)
--- NOTE | 2022-02-12 14:32 | P.PNIM_ITS ---
Subjective Subjective Date of Service: 02/12/22 Interval History: Seen and evaluated this morning Abdominal pain resolved, having bowel movements overnight Complaining of sore throat No reported overnight events Review of Systems Review of Systems: Yes all other systems are reviewed and are negative Physical Exam Vital Signs: Vital Signs: Last Vital Signs Temp 97.3 F 02/12/22 11:23 Pulse 70 02/12/22 11:23 Resp 17 02/12/22 11:23 BP 127/61 02/12/22 11:23 Pulse Ox 94 02/12/22 11:23 O2 Del Method 02/12/22 11:23 O2 Flow Rate 1 02/12/22 07:16 BMI result Body Mass Index 37.6 Const: Other: Constitutional : Alert, oriented, not in distress Neck : Normal inspection, Supple Throat: Has thrush on her tongue Cardiovascular : RRR, no JVP, no lower extremity edema Respiratory : fair bilateral air entry, no crackles, wheezes or rhonchi Gastrointestinal: soft, lax, decreased bowel sounds, Non tender Skin : Warm, Dry Neurological : Alert & oriented x3, No focal deficit , CN 2-12 within normal Objective Data Active Medications Acetaminophen (Acetaminophen 325 Mg Tablet) 650 mg PO Q6H PRN PRN Reason: Pain, Mild (Pain Scale 1-3) Atorvastatin Calcium (Atorvastatin Calcium 20 Mg Tablet) 20 mg PO DAILY [facility] Last Admin: 02/12/22 08:52 Dose: 20 mg Documented By: ALFREDO Baclofen (Baclofen 10 Mg Tablet) 5 mg PO BEDTIME [facility] Last Admin: 02/11/22 19:49 Dose: Not Given Documented By: LANEY Non-Admin Reason: NPO Carbidopa/Levodopa (Carbidopa/Levodopa 25/100 Tablet) 2 tab PO TID [facility] Last Admin: 02/12/22 13:34 Dose: 2 tab Documented By: DREW Dronedarone (Dronedarone Hcl 400 Mg Tablet) 400 mg PO BID [facility] Last Admin: 02/12/22 08:52 Dose: 400 mg Documented By: ALFREDO Escitalopram Oxalate (Escitalopram Oxalate 20 Mg Tablet) 20 mg PO DAILY [facility] Last Admin: 02/12/22 08:52 Dose: 20 mg Documented By: ALFREDO Gabapentin (Gabapentin 100 Mg Capsule) 100 mg PO BID [facility] Last Admin: 02/12/22 08:52 Dose: 100 mg Documented By: ALFREDO Magnesium Oxide (Magnesium Oxide 400 Mg Tablet) 400 mg PO BEDTIME [facility] Last Admin: 02/11/22 19:49 Dose: Not Given Documented By: LANEY Non-Admin Reason: NPO Metoprolol Tartrate (Metoprolol Tartrate 12.5 Mg Halftab) 12.5 mg PO BID [facility]; Protocol Last Admin: 02/12/22 08:52 Dose: 12.5 mg Documented By: ALFREDO Mirtazapine (Mirtazapine 15 Mg Tablet) 15 mg PO BEDTIME [facility] Last Admin: 02/11/22 20:40 Dose: Not Given Documented By: LANEY Non-Admin Reason: NPO Morphine Sulfate (Morphine Sulfate 4 Mg/Ml Cartridge) 4 mg IVPUSH Q4H PRN; Protocol PRN Reason: Pain, Severe (Pain Scale 7-10) Last Admin: 02/11/22 06:29 Dose: 4 mg Documented By: CARMELO Nystatin (Nystatin Oral Susp 500,000 Unit/5 Ml Oral.Susp) 400,000 unit PO QID [facility]; Protocol Last Admin: 02/12/22 13:33 Dose: 400,000 unit Documented By: DREW Omeprazole (Omeprazole 20 Mg Capsule.Dr) 20 mg PO BID PRN PRN Reason: Acid Reflux Ondansetron HCl (Ondansetron Hcl 4 Mg/2 Ml Vial) 4 mg IVPUSH Q8H PRN PRN Reason: Nausea and Vomiting Last Admin: 02/11/22 10:09 Dose: 4 mg Documented By: ALFREDO Pharmacy Consult (Consult Rx Perform Med Rec) 1 each MISCELLANE ONCE PRN PRN Reason: Consult order Sodium Chloride (0.9 % Sodium Chloride Flush 3 Ml Syringe) 3 ml IVFLUSH QSHIFT [facility] Last Admin: 02/12/22 08:52 Dose: 3 ml Documented By: ALFREDO Vitamin D (Cholecalciferol (Vitamin D3) 25 Mcg Tablet) 25 mcg PO DAILY [facility] Last Admin: 02/12/22 08:52 Dose: 25 mcg Documented By: ALFREDO Labs CBC & Chem 7: 02/12/22 05:50 02/12/22 05:50 Labs: Laboratory Results - last 24 hr 02/12/22 02/12/22 05:50 05:50 MCV 95.1 MCH 30.2 MCHC 31.7 RDW 12.8 Plt Count 182 MPV 11.0 Absolute Nucleated RBC 0.000 Nucleated RBC % (auto) 0.0 Anion Gap 17 Estim Creat Clear Calc 53.9 Estimated GFR > 60 Random Glucose 71 Calcium 8.1 L Assessment and Plan (1) Bowel obstruction: Status: Acute Plan 86-year-old female with past medical history of paroxysmal atrial fibrillation, Parkinson's, GERD, presented with recurrent SBO acute recurrent SBO Improving Start clear liquid surgery input appreciated, advanced diet as tolerated Thrush Start nystatin mouthwash paroxysmal afib Continue multaq, lopressor holding AC for possible surgery in sinus rhythm parkinsons sinemet CAD statin, beta miguelangel, holding AC reason for continued hospitalization: awaiting return of bowel function Quality Stroke Does the patient have a stroke diagnosis?: No VTE Prior VTE?: No VTE Risk Level:: Medical - moderate - high VTE Device Contraindication: Treatment Not Indicated VTE Drug Contraindication: N/A - Med Ordered
[2022-02-12 15:04] VITALS: BP 137/60; PULSE 65; RESP 17; TEMP 36.8; O2SAT 97
[2022-02-12 19:03] VITALS: BP 144/68; PULSE 73; RESP 16; TEMP 36.5; O2SAT 97
[2022-02-12] MEDS: Mirtazapine 15 MG TABLET PO (20:19)
[2022-02-12] MEDS: Baclofen 10 MG TABLET 5 MG PO (20:20)
[2022-02-12] MEDS: Magnesium Oxide 400 MG TABLET PO (20:21)
[2022-02-13] VITALS (7 sets, daily range): BP systolic 119–149; BP diastolic 56–83; PULSE 63–75; RESP 17–18; TEMP 36.1–36.7; O2SAT 94–97
[2022-02-13 06:10] LABS: Hematocrit 34.6 % (37.0-47.0); Hemoglobin 11.3 g/dl (12.0-16.0); Mean Corpuscular HGB Conc 32.7 g/dl (31.0-35.0); Mean Corpuscular Hemoglobin 30.5 pg (27.0-33.0); Mean Corpuscular Volume 93.5 fL (80.0-98.0); Mean Platelet Volume 11.1 fL (9.4-12.3); Platelet Count 185 X10*3/uL (160-400); Red Cell Distribution Width 12.8 % (11.0-16.0); White Blood Count 6.7 X10*3/uL (4.8-10.8)
[2022-02-13 06:45] LABS: Anion Gap 16 (12-20); Blood Urea Nitrogen 10 mg/dL (9-16); Calcium 8.5 mg/dL (8.4-10.2); Carbon Dioxide 26 mmol/L (22-29); Chloride 103 mmol/L (96-108); Creatinine Clr Calc Pharmacy 53.1; Estimated Glomerular Filt Rate > 60; Glucose Random 78 mg/dL (60-115); Potassium 4.2 mmol/L (3.3-5.1); Sodium 141 mmol/L (135-145)
[2022-02-13] MEDS: 0.9 % Sodium Chloride Flush 3 ML SYRINGE IVFLUSH ×3 (09:20→19:58)
[2022-02-13] MEDS: Atorvastatin Calcium 20 MG TABLET PO (09:21)
[2022-02-13] MEDS: Metoprolol Tartrate 12.5 MG HALFTAB PO ×2 (09:22→19:57)
[2022-02-13] MEDS: Cholecalciferol (Vitamin D3) 25 MCG TABLET PO (09:22)
[2022-02-13] MEDS: Dronedarone HCl 400 MG TABLET PO ×2 (09:22→19:57)
[2022-02-13] MEDS: Gabapentin 100 MG CAPSULE PO ×2 (09:22→19:58)
[2022-02-13] MEDS: Escitalopram Oxalate 20 MG TABLET PO (09:22)
[2022-02-13] MEDS: Carbidopa/Levodopa 25/100 TABLET 2 TAB PO ×3 (09:22→19:57)
[2022-02-13] MEDS: Nystatin Oral Susp 500,000 UNIT/5 ML ORAL.SUSP 400000 UNIT PO ×4 (09:22→19:56)
--- NOTE | 2022-02-13 11:13 | P.PNIM_ITS ---
Subjective Subjective Date of Service: 02/13/22 Interval History: Seen and evaluated this morning Denies any abdominal pain, tolerating clear liquids having bowel movements overnight Complaining of sore throat No reported overnight events Review of Systems Review of Systems: Yes all other systems are reviewed and are negative Physical Exam Vital Signs: Vital Signs: Last Vital Signs Temp 98 F 02/13/22 06:50 Pulse 64 02/13/22 06:50 Resp 18 02/13/22 06:50 BP 148/69 H 02/13/22 06:50 Pulse Ox 96 02/13/22 06:50 O2 Del Method Ambu-Bag 02/13/22 06:50 O2 Flow Rate 1 02/12/22 07:16 BMI result Body Mass Index 37.6 Const: Other: Constitutional : Alert, oriented, not in distress Neck : Normal inspection, Supple Throat: Has thrush on her tongue Cardiovascular : RRR, no JVP, no lower extremity edema Respiratory : fair bilateral air entry, no crackles, wheezes or rhonchi Gastrointestinal: soft, lax, normal bowel sounds, Non tender Skin : Warm, Dry Neurological : Alert & oriented x3, No focal deficit , CN 2-12 within normal Objective Data Active Medications Acetaminophen (Acetaminophen 325 Mg Tablet) 650 mg PO Q6H PRN PRN Reason: Pain, Mild (Pain Scale 1-3) Atorvastatin Calcium (Atorvastatin Calcium 20 Mg Tablet) 20 mg PO DAILY [facility] Last Admin: 02/13/22 09:21 Dose: 20 mg Documented By: TAINA Baclofen (Baclofen 10 Mg Tablet) 5 mg PO BEDTIME [facility] Last Admin: 02/12/22 20:20 Dose: 5 mg Documented By: JOSEP Carbidopa/Levodopa (Carbidopa/Levodopa 25/100 Tablet) 2 tab PO TID [facility] Last Admin: 02/13/22 09:22 Dose: 2 tab Documented By: TAINA Dronedarone (Dronedarone Hcl 400 Mg Tablet) 400 mg PO BID [facility] Last Admin: 02/13/22 09:22 Dose: 400 mg Documented By: TAINA Escitalopram Oxalate (Escitalopram Oxalate 20 Mg Tablet) 20 mg PO DAILY [facility] Last Admin: 02/13/22 09:22 Dose: 20 mg Documented By: TAINA Gabapentin (Gabapentin 100 Mg Capsule) 100 mg PO BID [facility] Last Admin: 02/13/22 09:22 Dose: 100 mg Documented By: TAINA Magnesium Oxide (Magnesium Oxide 400 Mg Tablet) 400 mg PO BEDTIME [facility] Last Admin: 02/12/22 20:21 Dose: 400 mg Documented By: JOSEP Metoprolol Tartrate (Metoprolol Tartrate 12.5 Mg Halftab) 12.5 mg PO BID [facility]; Protocol Last Admin: 02/13/22 09:22 Dose: 12.5 mg Documented By: TAINA Mirtazapine (Mirtazapine 15 Mg Tablet) 15 mg PO BEDTIME [facility] Last Admin: 02/12/22 20:19 Dose: 15 mg Documented By: JOSEP Morphine Sulfate (Morphine Sulfate 4 Mg/Ml Cartridge) 4 mg IVPUSH Q4H PRN; Protocol PRN Reason: Pain, Severe (Pain Scale 7-10) Last Admin: 02/11/22 06:29 Dose: 4 mg Documented By: CARMELO Nystatin (Nystatin Oral Susp 500,000 Unit/5 Ml Oral.Susp) 400,000 unit PO QID [facility]; Protocol Last Admin: 02/13/22 09:22 Dose: 400,000 unit Documented By: TAINA Omeprazole (Omeprazole 20 Mg Capsule.Dr) 20 mg PO BID PRN PRN Reason: Acid Reflux Ondansetron HCl (Ondansetron Hcl 4 Mg/2 Ml Vial) 4 mg IVPUSH Q8H PRN PRN Reason: Nausea and Vomiting Last Admin: 02/11/22 10:09 Dose: 4 mg Documented By: ALFREDO Pharmacy Consult (Consult Rx Perform Med Rec) 1 each MISCELLANE ONCE PRN PRN Reason: Consult order Sodium Chloride (0.9 % Sodium Chloride Flush 3 Ml Syringe) 3 ml IVFLUSH QSHIFT [facility] Last Admin: 02/13/22 09:20 Dose: 3 ml Documented By: TAINA Vitamin D (Cholecalciferol (Vitamin D3) 25 Mcg Tablet) 25 mcg PO DAILY [facility] Last Admin: 02/13/22 09:22 Dose: 25 mcg Documented By: TAINA Labs CBC & Chem 7: 02/13/22 05:21 02/13/22 05:21 Labs: Laboratory Results - last 24 hr 02/13/22 02/13/22 05:21 05:21 MCV 93.5 MCH 30.5 MCHC 32.7 RDW 12.8 Plt Count 185 MPV 11.1 Absolute Nucleated RBC 0.000 Nucleated RBC % (auto) 0.0 Anion Gap 16 Estim Creat Clear Calc 53.1 Estimated GFR > 60 Random Glucose 78 Calcium 8.5 Assessment and Plan (1) Bowel obstruction: Status: Acute Plan 86-year-old female with past medical history of paroxysmal atrial fibrillation, Parkinson's, GERD, presented with recurrent SBO acute recurrent SBO Improving Advanced diet to bland surgery input appreciated, advanced diet as tolerated Thrush Continue nystatin mouthwash paroxysmal afib Continue multaq, lopressor holding AC for possible surgery in sinus rhythm parkinsons sinemet CAD statin, beta miguelangel, holding AC reason for continued hospitalization: awaiting return of bowel function Quality Stroke Does the patient have a stroke diagnosis?: No VTE Prior VTE?: No VTE Risk Level:: Medical - moderate - high VTE Device Contraindication: Treatment Not Indicated VTE Drug Contraindication: N/A - Med Ordered
--- NOTE | 2022-02-13 11:18 | PM.PNGS ---
Subjective Subjective Date of Service: 02/13/22 Patient reports: no new complaints and feels better Interval history: The patient is seen in coverage and reports that she is doing well She denies any chest pain, difficulty breathing or shortness of breath Physical Exam Vital Signs: Vital Signs: Last Vital Signs Temp 98 F 02/13/22 11:14 Pulse 64 02/13/22 11:14 Resp 18 02/13/22 11:14 BP 142/70 H 02/13/22 11:14 Pulse Ox 94 02/13/22 11:14 O2 Del Method 02/13/22 11:14 O2 Flow Rate 1 02/12/22 07:16 BMI result Body Mass Index 37.6 Abdomen is soft and nontender She is nontoxic and in good spirits No peritoneal sign is present Objective Data Active Medications Acetaminophen (Acetaminophen 325 Mg Tablet) 650 mg PO Q6H PRN PRN Reason: Pain, Mild (Pain Scale 1-3) Atorvastatin Calcium (Atorvastatin Calcium 20 Mg Tablet) 20 mg PO DAILY [facility] Last Admin: 02/13/22 09:21 Dose: 20 mg Documented By: TAINA Baclofen (Baclofen 10 Mg Tablet) 5 mg PO BEDTIME [facility] Last Admin: 02/12/22 20:20 Dose: 5 mg Documented By: JOSEP Carbidopa/Levodopa (Carbidopa/Levodopa 25/100 Tablet) 2 tab PO TID [facility] Last Admin: 02/13/22 09:22 Dose: 2 tab Documented By: TAINA Dronedarone (Dronedarone Hcl 400 Mg Tablet) 400 mg PO BID [facility] Last Admin: 02/13/22 09:22 Dose: 400 mg Documented By: TAINA Escitalopram Oxalate (Escitalopram Oxalate 20 Mg Tablet) 20 mg PO DAILY [facility] Last Admin: 02/13/22 09:22 Dose: 20 mg Documented By: TAINA Gabapentin (Gabapentin 100 Mg Capsule) 100 mg PO BID [facility] Last Admin: 02/13/22 09:22 Dose: 100 mg Documented By: TAINA Magnesium Oxide (Magnesium Oxide 400 Mg Tablet) 400 mg PO BEDTIME [facility] Last Admin: 02/12/22 20:21 Dose: 400 mg Documented By: JOSEP Metoprolol Tartrate (Metoprolol Tartrate 12.5 Mg Halftab) 12.5 mg PO BID [facility]; Protocol Last Admin: 02/13/22 09:22 Dose: 12.5 mg Documented By: TAINA Mirtazapine (Mirtazapine 15 Mg Tablet) 15 mg PO BEDTIME [facility] Last Admin: 02/12/22 20:19 Dose: 15 mg Documented By: JOSEP Morphine Sulfate (Morphine Sulfate 4 Mg/Ml Cartridge) 4 mg IVPUSH Q4H PRN; Protocol PRN Reason: Pain, Severe (Pain Scale 7-10) Last Admin: 02/11/22 06:29 Dose: 4 mg Documented By: CARMELO Nystatin (Nystatin Oral Susp 500,000 Unit/5 Ml Oral.Susp) 400,000 unit PO QID [facility]; Protocol Last Admin: 02/13/22 09:22 Dose: 400,000 unit Documented By: TAINA Omeprazole (Omeprazole 20 Mg Capsule.Dr) 20 mg PO BID PRN PRN Reason: Acid Reflux Ondansetron HCl (Ondansetron Hcl 4 Mg/2 Ml Vial) 4 mg IVPUSH Q8H PRN PRN Reason: Nausea and Vomiting Last Admin: 02/11/22 10:09 Dose: 4 mg Documented By: ALFREDO Pharmacy Consult (Consult Rx Perform Med Rec) 1 each MISCELLANE ONCE PRN PRN Reason: Consult order Sodium Chloride (0.9 % Sodium Chloride Flush 3 Ml Syringe) 3 ml IVFLUSH QSHIFT [facility] Last Admin: 02/13/22 09:20 Dose: 3 ml Documented By: TAINA Vitamin D (Cholecalciferol (Vitamin D3) 25 Mcg Tablet) 25 mcg PO DAILY [facility] Last Admin: 02/13/22 09:22 Dose: 25 mcg Documented By: TAINA Labs CBC & Chem 7: 02/13/22 05:21 02/13/22 05:21 Labs: Laboratory Results - last 24 hr 02/13/22 02/13/22 05:21 05:21 MCV 93.5 MCH 30.5 MCHC 32.7 RDW 12.8 Plt Count 185 MPV 11.1 Absolute Nucleated RBC 0.000 Nucleated RBC % (auto) 0.0 Anion Gap 16 Estim Creat Clear Calc 53.1 Estimated GFR > 60 Random Glucose 78 Calcium 8.5 Procedures Date of Service Date of Service: 02/13/22 Progress Note: A&P Assessment and plan (1) Bowel obstruction: Status: Acute Plan The patient appears progressed and is surgically stable for discharge Instructions regarding diet and activity reviewed and apparently understood. Questions answered. Time Spent With Patient Time: Total time spent is greater than 50% in coordination of care (as documented) at patient's floor/unit and/or counseling patient: Quality Stroke Does the patient have a stroke diagnosis?: No VTE Prior VTE?: No VTE Risk Level:: Medical - moderate - high VTE Device Contraindication: Treatment Not Indicated VTE Drug Contraindication: N/A - Med Ordered
--- NOTE | 2022-02-13 12:08 | PC.NURSE ---
PATIENT A/OX4, AMBULATES WITH ASSISTANCE WITH WHEELED WALKER. OOB-AMBULATED [place]. ADVANCED DIET ORDER PLACED, PATIENT ABLE TO TOLERATE 2 PIECES OF TOAST AND PO FLUIDS.
[2022-02-13] MEDS: Baclofen 10 MG TABLET 5 MG PO (19:56)
[2022-02-13] MEDS: Magnesium Oxide 400 MG TABLET PO (19:58)
[2022-02-13] MEDS: Mirtazapine 15 MG TABLET PO (19:58)
[2022-02-14 03:07] VITALS: BP 110/61; PULSE 67; RESP 17; TEMP 36.5; O2SAT 94
[2022-02-14 07:58] VITALS: BP 121/66; PULSE 62; RESP 16; TEMP 37.3; O2SAT 94
[2022-02-14] MEDS: Cholecalciferol (Vitamin D3) 25 MCG TABLET PO (08:47)
[2022-02-14] MEDS: Nystatin Oral Susp 500,000 UNIT/5 ML ORAL.SUSP 400000 UNIT PO ×2 (08:47→12:40)
[2022-02-14] MEDS: Gabapentin 100 MG CAPSULE PO (08:47)
[2022-02-14] MEDS: Carbidopa/Levodopa 25/100 TABLET 2 TAB PO ×2 (08:47→14:19)
[2022-02-14] MEDS: Escitalopram Oxalate 20 MG TABLET PO (08:47)
[2022-02-14] MEDS: Atorvastatin Calcium 20 MG TABLET PO (08:47)
[2022-02-14] MEDS: Metoprolol Tartrate 12.5 MG HALFTAB PO (08:47)
[2022-02-14] MEDS: Dronedarone HCl 400 MG TABLET PO (08:47)
[2022-02-14] MEDS: 0.9 % Sodium Chloride Flush 3 ML SYRINGE IVFLUSH (08:49)
--- NOTE | 2022-02-14 10:59 | P.DS_ITS ---
DS: Providers Provider Date of Service: 02/14/22 Date of admission: 02/09/22 23:09 Primary care physician: Wesley Livingston MD Consults: 02/09/22 22:34 Consult to General Surgery Stat Consulting Provider: Gregory Carrillo Reason for consultation: Bowel obstruction Has provider been notified: No DS: Diagnosis Discharge Diagnosis (1) Bowel obstruction: Status: Acute DS: Summary Hospital Course Hospital Course: Admission note HPI ?this is an 86-year-old female with past medical history of bowel obstruction over 10 years ago, HTN, asthma, CAD, Chiari malformation, fibromyalgia, GERD,? HLD, and paroxysmal AFib who presents to the hospital with complaints of swollen abdomen, as well as abdominal pain, 10/10, constant, nonradiating, patient reports that her last BM was 2 days ago, she has not passed any gas in the meanwhile. ? She denies any fever or chills, no chest pain, no shortness of breath, no cough, no urinary symptoms and no lower extremity edema.? No? headache or change in vision, no numbness tingling. ? On arrival to the ED patient hemodynamically stable with no significant abnormal vitals Labs are significant for WBC count of? 14.2, BUN of 20, creatinine of 1.12 which is around her baseline, labs otherwise unremarkable Abdominal pelvic CT shows dilated loops of small bowel scattered air-fluid levels suggesting an obstructive process, ?given her extensive past medical history and? H surgical service wanted patient to be admitted to Medicine with consult surgery Hospital course The patient was admitted for abdominal pain. CT scan showed loops of small bowel with air-fluid levels suggestive of intestinal obstruction. Evaluated by surgical team who followed her during the hospital stay. Treated with conservative measures of IV fluid, nausea and pain medications with good response as she start moving her bowels and tolerated advancing diet to regular. She was able to ambulate using her walker. Had bowel movements. To be discharged home to continue advancing her diet as tolerated and to follow- up with her PCP as Scheduled. Noted to have thrush that was treated with nystatin with good response. Continue statin for 3 more days continue to gradually advance your diet Please come back to the hospital for any worsening abdominal pain, nausea or vomiting. Time Spent with Patient Time attestation: Total time spent providing and/or coordinating discharge services: Discharge coordination time: Greater than 30 minutes Quality: Safe Use of Opioids Does Pt have an Active Cancer Diagnosis on the Problem List?: No Quality: Stroke Does the patient have a stroke diagnosis?: No Physical Exam Vital Signs: Vital Signs: Last Vital Signs Temp 99.2 F 02/14/22 07:58 Pulse 62 02/14/22 07:58 Resp 16 02/14/22 07:58 BP 121/66 02/14/22 07:58 Pulse Ox 94 02/14/22 07:58 O2 Del Method 02/14/22 07:58 O2 Flow Rate 1 02/12/22 07:16 BMI result Body Mass Index 37.6 Const: Other: Constitutional : Alert, oriented, not in distress Neck : Normal inspection, Supple Throat: Has thrush on her tongue Cardiovascular : RRR, no JVP, no lower extremity edema Respiratory : fair bilateral air entry, no crackles, wheezes or rhonchi Gastrointestinal: soft, lax, normal bowel sounds, Non tender Skin : Warm, Dry Neurological : Alert & oriented x3, No focal deficit , CN 2-12 within normal DS: Data Imaging CT scan - abdomen: Radiologist's impression: ITS Impressions Abdomen/Pelvis CT 02/09/22 21:04 IMPRESSION: Dilated loops of small bowel scattered air-fluid levels suggesting an obstructive process, however, a definitive transition zone is not well identified. Clinical correlation recommended. Fleischner guidelines were followed. Chest X-Ray 02/09/22 23:07 IMPRESSION: Enteric tube terminating in the esophagus after bending upon itself. Suggest repositioning. Low lung volumes with left basilar opacity. This favors atelectasis. Discharge Plan Discharge Patient Disposition: Home, Self-Care Discharge Diagnosis: intestinal obstruction Referrals: Wesley Livingston MD [Primary Care Provider] - 1 Week Discharge Medications: Continued atorvastatin 20 mg tablet 20 mg PO DAILY Qty: 90 3RF Eliquis 5 mg tablet 5 mg PO BID 90 Days Qty: 180 3RF metoprolol tartrate 25 mg tablet 12.5 mg PO BID 90 Days Qty: 90 3RF baclofen 10 mg tablet 10 mg PO BEDTIME Qty: 30 1RF mirtazapine 15 mg tablet 15 mg PO BEDTIME Qty: 30 1RF citalopram 40 mg tablet 1 tab PO DAILY magnesium 200 mg Tablet 400 mg PO BEDTIME cholecalciferol (vitamin D3) 25 mcg (1,000 unit) Tablet 25 mcg PO DAILY omeprazole 20 mg capsule,delayed release(DR/EC) 1 cap PO BID PRN (Reason: Acid Reflux) gabapentin 100 mg capsule 100 mg PO BID Multaq 400 mg tablet 400 mg PO BID 90 Days Qty: 180 3RF carbidopa-levodopa 25-100 mg tablet 2 tab PO TID primidone 50 mg tablet 50 mg PO DAILY Discharge Orders: Discharge Order (Routine); Ordered 02/14/22 Ordered By: Shannan Dutton Diet: Advance to usual diet Activity on Discharge: As tolerated Stand Alone Forms: Patient Portal Discharge page Care Plan Goals: Read below Health Concerns: Read below Plan of Treatment: Read below Assessment: you were admitted to the L4 abdominal pain. Found to have intestinal obstruction as abdominal images confirmed. Evaluated by surgical team and treated with conservative measures with IV fluid and pain medication with good response over the course of hospital stay as your diet was advanced gradually. continue to gradually advance your diet Please come back to the hospital for any worsening abdominal pain, nausea or vomiting.
--- NOTE | 2022-02-14 11:01 | MHC.CM.PN ---
Patient has been medically cleared for dc to home today, self care. CM addressed IMM with Patient at bedside and provided her with the original and placed a copy on the chart. Patient states that she is pleased to be going home today and that her Daughter, who is a RN here, will transport her home, once her shift is completed.
[2022-02-14 11:34] VITALS: BP 141/67; PULSE 67; RESP 16; TEMP 36.8; O2SAT 96
== END 2022-02-14 16:11 | disposition home or self-care (01) | DRG 390 ==
LOC: HO.ED 22:43 → HO.EDOVER 23:13 → HO.S3 02-11 04:36
PROVIDERS: Physician Assistant; Admitting Provider Internal Medicine; Emergency Provider Emergency Medicine; PCP Internal Medicine; Visit Provider Student in an Organized Health Care Education/Training Program
DX: K56.50 Intestinal adhesions [bands], unspecified as to partial versus complete obstruction (principal); I25.10 Atherosclerotic heart disease of native coronary artery without angina pectoris; K21.9 Gastro-esophageal reflux disease without esophagitis; I10 Essential (primary) hypertension; I48.0 Paroxysmal atrial fibrillation; G20 Parkinson's disease; M79.7 Fibromyalgia; E66.9 Obesity, unspecified; Z68.37 Body mass index [BMI] 37.0-37.9, adult; Z20.822 Contact with and (suspected) exposure to COVID-19; Z95.1 Presence of aortocoronary bypass graft; Z79.01 Long term (current) use of anticoagulants; Z79.899 Other long term (current) drug therapy
CPT/HCPCS: 36415; 71045; 74176; 80048; 80053; 83690; 83735; 85025; 85027; 87635; 96361; 96374; 96375; 99285; J2270; J2405

== ENCOUNTER → 2022-02-18 14:34 | Outpatient (BNVA) | payer MEDICARE, SELFPAY | PROVIDERS: PCP Internal Medicine; Referring Provider Internal Medicine; Visit Provider Internal Medicine | DX: I48.0 Paroxysmal atrial fibrillation (principal); I25.10 Atherosclerotic heart disease of native coronary artery without angina pectoris; I10 Essential (primary) hypertension; I05.9 Rheumatic mitral valve disease, unspecified | CPT/HCPCS: 93005; 99212 ==

== ENCOUNTER → 2022-03-09 13:44 | Outpatient (BNVA) | payer MEDICARE, SELFPAY | PROVIDERS: PCP Internal Medicine; Visit Provider Psychiatry & Neurology Neurology | DX: R25.1 Tremor, unspecified (principal); G24.3 Spasmodic torticollis; G89.29 Other chronic pain; R51.9 Headache, unspecified; Z79.899 Other long term (current) drug therapy | CPT/HCPCS: 99212 ==

== ENCOUNTER 2022-05-03 13:15 | Outpatient (REF) | payer MEDICARE, SELFPAY ==
[2022-05-03 13:31] LABS: MANUAL DIFF FLAG NO
[2022-05-03 13:52] LABS: Basophils Percent Auto 0.4 % (0-2); Eosinophils Absolute Auto 0.4 X10*3/uL (0.0-0.4); Eosinophils Percent Auto 4.2 % (0-4); Hematocrit 39.9 % (37.0-47.0); Hemoglobin 12.5 g/dl (12.0-16.0); Imm Gran Abs Auto 0.08 X10*3/uL (0.00-0.03); Imm Gran Pct Auto 0.8 % (0.0-0.4); Lymphocytes Absolute Auto 1.5 X10*3/uL (1.2-4.9); Lymphocytes Percent Auto 15.1 % (20-40); Mean Corpuscular HGB Conc 31.3 g/dl (31.0-35.0); Mean Corpuscular Hemoglobin 29.3 pg (27.0-33.0); Mean Corpuscular Volume 93.7 fL (80.0-98.0); Mean Platelet Volume 10.3 fL (9.4-12.3); Monocytes Absolute Auto 0.8 X10*3/uL (0.1-1.2); Monocytes Percent Auto 7.8 % (2-11); Neutrophils Absolute Auto 6.9 x10*3/uL (2.0-8.3); Neutrophils Percent Auto 71.7 % (45-73); Platelet Count 257 X10*3/uL (160-400); Red Blood Count 4.26 X10*6/uL (4.20-5.50); Red Cell Distribution Width 12.5 % (11.0-16.0); White Blood Count 9.7 X10*3/uL (4.8-10.8)
[2022-05-03 14:11] LABS: Alanine Aminotransferase < 6 U/L (0-31); Albumin Level 3.9 g/dL (3.5-5.0); Alkaline Phosphatase 121 U/L (39-117); Anion Gap 20 (12-20); Aspartate Amino Transferase 25 U/L (5-31); Bilirubin Total 0.3 mg/dL (0.0-1.0); Blood Urea Nitrogen 23 mg/dL (9-16); C Reactive Protein 0.34 mg/dL (< or = 0.50); Calcium 9.9 mg/dL (8.4-10.2); Carbon Dioxide 22 mmol/L (22-29); Chloride 102 mmol/L (96-108); Cholesterol 131 mg/dL; Estimated Glomerular Filt Rate > 60; Glucose Random 109 mg/dL (60-115); Lipase 10 U/L (8-78); Potassium 4.8 mmol/L (3.3-5.1); Sodium 139 mmol/L (135-145)
== END 2022-05-03 13:16 | disposition home or self-care (01) ==
LOC: HO.LAB 13:15
PROVIDERS: PCP Internal Medicine; Visit Provider Internal Medicine
DX: R10.9 Unspecified abdominal pain (principal); K21.9 Gastro-esophageal reflux disease without esophagitis; I25.10 Atherosclerotic heart disease of native coronary artery without angina pectoris; G20 Parkinson's disease
CPT/HCPCS: 36415; 80053; 82465; 83690; 85025; 86140

== ENCOUNTER 2022-05-12 13:24 | Outpatient (REF) | payer MEDICARE, SELFPAY ==
--- NOTE | ~2022-05-12 | CT_ITS ---
EXAMINATION: CT ABDOMEN AND PELVIS WITH CONTRAST CLINICAL INFORMATION: History of small bowel obstruction. Acute abdominal pain. COMPARISON: CT abdomen and pelvis without contrast 02/09/2022. TECHNIQUE: Multidetector volumetric images were obtained from the superior aspect of the liver through the pubic symphysis following administration 85 mL of Omnipaque 350 intravenous contrast. Sagittal and coronal reformatted images were obtained on the technologist's workstation. Oral contrast: No This CT examination was performed using dose optimization techniques as appropriate, variously including the following: *Automated exposure control *Adjustment of mA and/or kV according to patient size (this includes techniques or standardized protocols for targeted exams where dose is matched to indication/reason for exam; i.e. extremities or head) *Use of iterative reconstruction technique DLP: 622 mGy-cm FINDINGS: LUNG BASES: Minimal linear atelectatic changes both lung bases. Heart size is normal. There is dense mitral valve and coronary artery calcifications. No pericardial effusion. No abnormal size mediastinal lymph nodes. LIVER, GALLBLADDER, AND BILIARY TREE: The liver is normal in size, shape, and attenuation. No focal hepatic lesion or biliary ductal dilatation is present. The gallbladder is not visualized. PANCREAS: Unremarkable. SPLEEN: Unremarkable. 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 ADRENAL GLANDS: Unremarkable. KIDNEYS AND URETERS: The kidneys are normal in size, shape, and attenuation. No hydronephrosis, hydroureter, or calculi seen. No perinephric stranding. There is a 1 cm cyst midpole left kidney. BLADDER: Unremarkable. GASTROINTESTINAL TRACT: Oral contrast opacified small bowel loops are normal caliber. Appendix is not visualized. There is scattered stool in the colon without distention or mural thickening. The stomach is nondilated. ABDOMINAL WALL: No significant hernia is appreciated. LYMPH NODES: Normal. VASCULAR: Unremarkable. PELVIC VISCERA: The uterus is anteverted and appears unremarkable. No free air or free fluid. No evidence of hernia. No abnormal pelvic or inguinal lymph nodes. OSSEOUS STRUCTURES: There is L4-L5 disc prosthesis stabilized with posterior hardware. No aggressive lytic or sclerotic process seen. There is vacuum degeneration L5-S1 disc level. CT/CT abdomen pelvis w IV con IMPRESSION: No acute intra-abdominal process seen. No dilated small bowel loops seen as were noted on the previous study 02/09/2022. Mild constipation. Small cyst midpole left kidney not visualized on the previous study due to lack of IV contrast. Fleischner guidelines were followed.
[2022-05-12] MEDS: iohexoL 350 MG/ML 100 ML INFUS..BTL IV (16:06)
[2022-05-12] MEDS: Barium Sulfate Oral (Vanilla) 450 ML ORAL.SUSP 900 ML PO (16:06)
== END 2022-05-12 13:25 | disposition home or self-care (01) ==
LOC: HO.CT 13:24
PROVIDERS: PCP Internal Medicine; Visit Provider Internal Medicine
DX: R10.0 Acute abdomen (principal)
CPT/HCPCS: 74177; Q9967

== ENCOUNTER → 2022-05-20 14:57 | Outpatient (BNVA) | payer MEDICARE, SELFPAY | PROVIDERS: PCP Internal Medicine; Referring Provider Internal Medicine; Visit Provider Internal Medicine | DX: I48.91 Unspecified atrial fibrillation (principal) | CPT/HCPCS: 93005 ==

== ENCOUNTER → 2022-06-17 11:40 | Outpatient (BNVA) | payer MEDICARE, SELFPAY | PROVIDERS: PCP Internal Medicine; Visit Provider Psychiatry & Neurology Neurology | DX: G24.3 Spasmodic torticollis (principal); R51.9 Headache, unspecified; G89.29 Other chronic pain | CPT/HCPCS: 99212 ==

== ENCOUNTER 2022-07-10 02:58 | Emergency (ER) | payer MEDICARE, SELFPAY ==
--- NOTE | ~2022-07-10 | CT_ITS ---
EXAMINATION: NONCONTRAST HEAD CT NONCONTRAST MAXILLOFACIAL CT NONCONTRAST CERVICAL SPINE CT INDICATION INFORMATION: Fall. COMPARISON: 12/21/2019 TECHNIQUE: Separate noncontrast CT examinations of the head, maxillofacial bones, and cervical spine were performed. Coronal and sagittal images were created for each examination at the technologist workstation. This CT examination was performed using dose optimization techniques as appropriate, variously including the following: *Automated exposure control *Adjustment of mA and/or kV according to patient size (this includes techniques or standardized protocols for targeted exams where dose is matched to indication/reason for exam; i.e. extremities or head) *Use of iterative reconstruction technique DLP: 1315 mGy-cm FINDINGS: Head: There is no evidence of acute intracranial hemorrhage or territorial infarction. No abnormal mass effect or midline shift is seen. Villanueva to white matter differentiation is well preserved. No extra-axial fluid collections are identified. No hydrocephalus. No significant volume loss. Patchy periventricular and deep white matter hypoattenuation is consistent with moderate small vessel ischemic changes. Chronic bilateral gangliocapsular lacunar infarcts. Right frontal calvarial subgaleal hematoma and associated scalp swelling. No calvarial fracture. The mastoid air cells are well aerated. Maxillofacial: No acute maxillofacial fractures are seen. The pterygoid plates are intact. The lamina papyracea are intact. The zygomatic arches are intact. The orbital rims are intact. Mandible and temporomandibular joints are intact. The frontal, maxillary, ethmoid, and sphenoid sinuses are well aerated. The uncinate process is normal bilaterally. The infundibula and middle meati are patent. Chronic rightward bowing of the osseous septum. The orbits demonstrate a normal appearance bilaterally. The globes are intact, and there are no suspicious findings to suggest retrobulbar hemorrhage. Soft tissues unremarkable. Cervical spine: Intact ACDF hardware at C5-C6. Stable minimal anterolisthesis of C3 over C4 and C4 over C5 related to hypertrophic facet arthropathy which is present throughout the cervical spine. The atlantoaxial and atlantooccipital articulations are intact. Vertebral body heights maintained. No evidence of acute fracture. No prevertebral soft tissue swelling. Imaged lungs are clear. The thyroid gland is unremarkable. CT/CT cervical spine wo IV con IMPRESSION: 1. No acute intracranial findings. 2. No acute maxillofacial fracture. 3. No acute fracture or malalignment of the cervical spine.
[2022-07-10 03:09] VITALS: BP 172/71; PULSE 63; RESP 14; O2SAT 97; BMI 34.2
--- NOTE | 2022-07-10 03:09 | PC.NURSE ---
Pt c/o 9/10 pain R frontal part of head- hematoma; Some R knee pain /10
[2022-07-10 03:22] VITALS: BP 167/64; PULSE 60; RESP 16; TEMP 36.6; O2SAT 96
--- NOTE | 2022-07-10 03:26 | PC.NURSE ---
pt is a&ox4; no apparent distress, resting quietly, requested warm blanket- given
--- NOTE | 2022-07-10 03:40 | ED_ITS ---
HPI - Fall General Chief Complaint: Fall Stated Complaint: Fall Time Seen by Provider: 07/10/22 03:16 Source: patient Mode of arrival: EMS History of Present Illness HPI Narrative: 86-year-old female who is on anticoagulation is brought in by EMS when she got up to go to the bathroom and was using her cane but then states that the cane slipped out from underneath her and she fell hitting her head and denies any loss of consciousness. She currently is having pain or her right forehead, right cheek and in the triage note she had complained of some right knee in arm pain but this seems to have resolved. Related Data Home Medications Medication Instructions Recorded Confirmed carbidopa 25 mg-levodopa 100 mg 2 tab PO TID 11/11/20 06/17/22 tablet cholecalciferol (vitamin D3) 25 25 mcg PO DAILY 02/10/22 06/17/22 mcg (1,000 unit) tablet citalopram 40 mg tablet 1 tab PO DAILY 02/10/22 03/09/22 magnesium 200 mg tablet 400 mg PO BEDTIME 02/10/22 06/17/22 omeprazole 20 mg capsule,delayed 1 cap PO BID PRN Acid Reflux 02/10/22 06/17/22 release Previous Rx's Medication Instructions Recorded apixaban 5 mg tablet (Eliquis) 5 mg PO BID 90 days #180 tabs 07/29/21 metoprolol tartrate 25 mg tablet 12.5 mg PO BID 90 days #90 tabs 09/04/21 dronedarone 400 mg tablet (Multaq) 400 mg PO BID 90 days #180 tabs 11/18/21 mirtazapine 15 mg tablet 15 mg PO BEDTIME #30 tabs 12/01/21 nystatin 100,000 unit/mL oral 400,000 unit PO QID 3 days #48 mL 02/14/22 suspension gabapentin 100 mg capsule 100 mg PO BID #60 caps 03/09/22 baclofen 10 mg tablet 10 mg PO BEDTIME #30 tabs 03/11/22 atorvastatin 20 mg tablet 20 mg PO DAILY #90 tabs 04/19/22 Allergies Allergy/AdvReac Type Severity Reaction Status Date / Time No Known Allergies [NKA] Allergy Verified 06/17/22 11:42 Review of Systems Review of Systems: Pertinent positives and negatives as stated in HPI PMF Past Medical History Source: nursing notes reviewed Medical History Afib Anxiety Arthritis Asthma Atherosclerotic cardiovascular disease CAD (coronary artery disease) Cataract Chiari malformation Depression Essential tremor Fibromyalgia GERD (gastroesophageal reflux disease) H/O small bowel obstruction HLD (hyperlipidemia) HTN (hypertension) Osteoarthritis Paroxysmal atrial fibrillation Surgical History H/O heart artery stent History of appendectomy History of back surgery History of cholecystectomy Family History Family History Mother CAD (coronary artery disease) Social History Social History Household Members: None Housing: Condominium Are you a primary career based intervention coordinator to a significant other at home: Yes ( is in a wheelchair) Do you presently have visiting nurse or other home services: No Alcohol intake: never Patient Tobacco Use Status: Never used Tobacco Smoked in Last 30 Days: No Use of substances other than those prescribed or required for medical reasons: No Advance Directives: Yes Advance Directives on File: Yes Advance Directives Date on File: 10/20/21 service: No Current occupational status: retired Current occupation: right handed Physical Exam Vital Signs: Vital Signs: Last Vital Signs Temp 97.9 F 07/10/22 03:22 Pulse 60 07/10/22 03:22 Resp 16 07/10/22 03:22 BP 167/64 H 07/10/22 03:22 Pulse Ox 96 07/10/22 03:22 O2 Del Method 07/10/22 03:22 BMI result Body Mass Index 34.2 VITAL SIGNS: Reviewed. GENERAL: Well developed, well nourished, in no acute distress. HEAD: Normocephalic/hematoma to right forehead and slightly reddened area over the right maxilla EYES: PERRLA, EOMI EARS: Ext canals without abnormality, TMs non-bulging and non-erythematous NOSE: Nares patent bilateral OROPHARYNX: no oral lesions noted, posterior pharynx clear NECK: Supple, no adenopathy LUNGS: Normal breath sounds. No adventitious sounds or accessory muscle use. SpO2<96> CARDIOVASCULAR: Regular rate and rhythm without noted murmurs, no JVD or lower extremity edema. ABDOMEN: Soft, non-tender, non-distended with bowel sounds. PELVIS: Stable, nontender MUSCULOSKELETAL: No tenderness, deformities, or effusions noted on gross inspection. EXTREMITIES: No cyanosis, clubbing or edema; RIGHT UPPER EXTREMITY/RIGHT LOWER EXTREMITY: Full range of motion at hip shoulder elbow knee ankle wrist and otherwise neurovascularly intact to the distal portions SKIN: Inspection of the skin reveals no rashes NEUROLOGIC: Alert and oriented x 4. Strength and sensation to light touch were grossly intact x 4, cranial nerves 2-12 are grossly intact. Medical Decision Making Medical Decision Making MDM Narrative: 86-year-old female with a mechanical fall and no LOC. My interpretation is in agreement with radiology's impression all imaging studies. After review of CT c-spine imaging that demonstrated no acute findings and exam was without midline tenderness on palpation or on ROM. No focal neurological deficits to suggest spinal cord injury. I have placed a compression dressing over the hematoma on the right forehead. Patient is otherwise hemodynamically stable for discharge to home. Differential Diagnosis Differential Diagnoses: The differential diagnosis associated with the presentation includes See above Radiology Impression Radiologist Impression: My interpretation is in agreement with radiology's impression of the imaging studies. Discharge Plan Discharge Clinical Impression: Accident due to mechanical fall without injury, Chronic anticoagulation Patient Disposition: Home, Self-Care Instructions: Fall Prevention for Older Adults (ED) Additional Instructions: 1. Resume all home medications as prescribed. 2. I recommend that you keep the compression dressing in place for 12 hours. Then use ice to unexposed skin for 5-10 minutes, 3 to 4 times a day. You will developed blood tracing down around her right eye. 3. Follow-up with your primary care provider on Tuesday. Return to the ER for any worsening symptoms. Prescriptions: No Action Eliquis 5 mg tablet 5 mg PO BID 90 Days Qty: 180 3RF metoprolol tartrate 25 mg tablet 12.5 mg PO BID 90 Days Qty: 90 3RF baclofen 10 mg tablet 10 mg PO BEDTIME Qty: 30 1RF atorvastatin 20 mg tablet 20 mg PO DAILY Qty: 90 3RF mirtazapine 15 mg tablet 15 mg PO BEDTIME Qty: 30 1RF citalopram 40 mg tablet 1 tab PO DAILY magnesium 200 mg Tablet 400 mg PO BEDTIME cholecalciferol (vitamin D3) 25 mcg (1,000 unit) Tablet 25 mcg PO DAILY omeprazole 20 mg capsule,delayed release(DR/EC) 1 cap PO BID PRN (Reason: Acid Reflux) nystatin 100,000 unit/mL Suspension 400,000 unit PO QID 3 Days Qty: 48 0RF Protocol: Apply to: Apply to: swish and swallow Multaq 400 mg tablet 400 mg PO BID 90 Days Qty: 180 3RF carbidopa-levodopa 25-100 mg tablet 2 tab PO TID gabapentin 100 mg capsule 100 mg PO BID Qty: 60 6RF Referrals: Wesley Livingston MD [Primary Care Provider] -
--- NOTE | 2022-07-10 05:27 | PC.NURSE ---
Pt sleeping no apparent distress, will continue to monitor
[2022-07-10] MEDS: Acetaminophen 325 MG TABLET 975 MG PO (06:39)
--- NOTE | 2022-07-10 06:43 | PC.NURSE ---
Discharge instructions given and explained to patient, no apparent distress; ambulates safely and independently with cane (patient did not have cane with her so mode of d/c by wheelchair); alert and oriented; pt leaving with son (Bret)
== END 2022-07-10 06:40 | disposition home or self-care (01) ==
PROVIDERS: Emergency Provider Student in an Organized Health Care Education/Training Program; PCP Internal Medicine
DX: S00.83XA Contusion of other part of head, initial encounter (principal); W17.89XA Other fall from one level to another, initial encounter; Y93.9 Activity, unspecified; Y92.039 Unspecified place in apartment as the place of occurrence of the external cause; Y99.9 Unspecified external cause status
CPT/HCPCS: 70450; 70486; 72125; 99284

== ENCOUNTER 2022-07-23 13:55 | Outpatient (REF) | payer MEDICARE, SELFPAY ==
[2022-07-23 14:11] LABS: MANUAL DIFF FLAG NO
[2022-07-23 14:55] LABS: Basophils Percent Auto 0.3 % (0-2); Eosinophils Absolute Auto 0.2 X10*3/uL (0.0-0.4); Eosinophils Percent Auto 1.9 % (0-4); Hematocrit 38.9 % (37.0-47.0); Hemoglobin 12.3 g/dl (12.0-16.0); Imm Gran Abs Auto 0.09 X10*3/uL (0.00-0.03); Imm Gran Pct Auto 0.9 % (0.0-0.4); Lymphocytes Absolute Auto 1.7 X10*3/uL (1.2-4.9); Lymphocytes Percent Auto 15.6 % (20-40); Mean Corpuscular HGB Conc 31.6 g/dl (31.0-35.0); Mean Corpuscular Hemoglobin 28.2 pg (27.0-33.0); Mean Corpuscular Volume 89.2 fL (80.0-98.0); Mean Platelet Volume 10.1 fL (9.4-12.3); Monocytes Absolute Auto 0.8 X10*3/uL (0.1-1.2); Monocytes Percent Auto 7.2 % (2-11); Neutrophils Absolute Auto 7.9 x10*3/uL (2.0-8.3); Neutrophils Percent Auto 74.1 % (45-73); Platelet Count 261 X10*3/uL (160-400); Red Blood Count 4.36 X10*6/uL (4.20-5.50); Red Cell Distribution Width 14.1 % (11.0-16.0); White Blood Count 10.6 X10*3/uL (4.8-10.8)
[2022-07-23 15:42] LABS: Alanine Aminotransferase 6 U/L (0-31); Albumin Level 3.9 g/dL (3.5-5.0); Alkaline Phosphatase 121 U/L (39-117); Anion Gap 15 (12-20); Aspartate Amino Transferase 15 U/L (5-31); Bilirubin Total 0.4 mg/dL (0.0-1.0); Blood Urea Nitrogen 19 mg/dL (9-16); Calcium 9.1 mg/dL (8.4-10.2); Carbon Dioxide 24 mmol/L (22-29); Chloride 103 mmol/L (96-108); Estimated Glomerular Filt Rate 55; Glucose Random 127 mg/dL (60-115); Potassium 4.1 mmol/L (3.3-5.1); Sodium 138 mmol/L (135-145); Total Protein 6.9 g/dL (6.5-8.0)
== END 2022-07-23 13:56 | disposition home or self-care (01) ==
LOC: HO.LAB 13:55
PROVIDERS: PCP Internal Medicine; Visit Provider Internal Medicine
DX: R00.2 Palpitations (principal); G20 Parkinson's disease; I12.9 Hypertensive chronic kidney disease with stage 1 through stage 4 chronic kidney disease, or unspecified chronic kidney disease; N18.9 Chronic kidney disease, unspecified; Z91.81 History of falling
CPT/HCPCS: 36415; 80053; 85025

== ENCOUNTER 2022-09-17 11:31 | Emergency (ER) | payer MEDICARE, SELFPAY ==
[2022-09-17 11:37] VITALS: BP 159/107; PULSE 101; O2SAT 96
[2022-09-17 11:44] VITALS: BP 160/83; PULSE 94; RESP 18; TEMP 36.8; O2SAT 97; BMI 34.7
--- NOTE | 2022-09-17 11:45 | ED.EPISTAXIS ---
History of Present Illness General Chief Complaint: Epistaxis Stated Complaint: From home, nose bleed x 30 min per EMS Time Seen by Provider: 09/17/22 11:43 Source: patient and EMS Mode of arrival: EMS Limitations: no limitations History of Present Illness HPI Narrative: 87-year-old female with history of afib on Eliquis, HTN, HLD, GERD, fibromyalgia, depression, CAD, asthma, anxiety, who presents to the ER from home via EMS for evaluation of a spontaneous right nare nose bleed that started 30 minutes prior to arrival. She was sitting down, able to take her daily meds when it just started bleeding. She denies any recent trauma however fell one month ago and has had recurrent nose bleeds since. She arrives to the ER with active blowing Location: Yes right nares Onset/current episode: Yes minute(s) (45) Duration: Yes constant Pertinent past history: Yes history of previous nose bleed Context: Yes history of previous nose bleed and Yes other anticoagulant use Treatment prior to arrival: Yes nose pinching and Yes head leaning forward Related Data Home Medications Medication Instructions Recorded Confirmed carbidopa 25 mg-levodopa 100 mg 2 tab PO TID 11/11/20 06/17/22 tablet cholecalciferol (vitamin D3) 25 25 mcg PO DAILY 02/10/22 06/17/22 mcg (1,000 unit) tablet citalopram 40 mg tablet 1 tab PO DAILY 02/10/22 03/09/22 magnesium 200 mg tablet 400 mg PO BEDTIME 02/10/22 06/17/22 omeprazole 20 mg capsule,delayed 1 cap PO BID PRN Acid Reflux 02/10/22 06/17/22 release Previous Rx's Medication Instructions Recorded dronedarone 400 mg tablet (Multaq) 400 mg PO BID 90 days #180 tabs 11/18/21 mirtazapine 15 mg tablet 15 mg PO BEDTIME #30 tabs 12/01/21 nystatin 100,000 unit/mL oral 400,000 unit PO QID 3 days #48 mL 02/14/22 suspension gabapentin 100 mg capsule 100 mg PO BID #60 caps 03/09/22 atorvastatin 20 mg tablet 20 mg PO DAILY #90 tabs 04/19/22 apixaban 5 mg tablet (Eliquis) 5 mg PO BID 90 days #180 tabs 02/10/23 baclofen 10 mg tablet 10 mg PO BEDTIME #30 tabs 08/13/22 metoprolol tartrate 25 mg tablet 12.5 mg PO BID 90 days #90 tabs 08/30/22 Allergies Allergy/AdvReac Type Severity Reaction Status Date / Time No Known Allergies [NKA] Allergy Verified 09/17/22 11:44 Review of Systems Review of Systems: Yes all other systems are reviewed and are negative [facility] Past Medical History Medical History Afib Anxiety Arthritis Asthma Atherosclerotic cardiovascular disease CAD (coronary artery disease) Cataract Chiari malformation Depression Essential tremor Fibromyalgia GERD (gastroesophageal reflux disease) H/O small bowel obstruction HLD (hyperlipidemia) HTN (hypertension) Osteoarthritis Paroxysmal atrial fibrillation Surgical History H/O heart artery stent History of appendectomy History of back surgery History of cholecystectomy Family History Family History Mother CAD (coronary artery disease) Social History Social History Household Members: None Housing: Condominium Are you a primary health care law specialist to a significant other at home: Yes ( is in a wheelchair) Do you presently have visiting nurse or other home services: No Alcohol intake: current Alcohol intake frequency: holidays/special occasions only Alcohol type: wine Patient Tobacco Use Status: Never used Tobacco Smoked in Last 30 Days: No Use of substances other than those prescribed or required for medical reasons: No Advance Directives: Yes Advance Directives on File: Yes Advance Directives Date on File: 10/20/21 service: No Current occupational status: retired Current occupation: right handed Physical Exam Vital Signs: Vital Signs: Last Vital Signs Temp 98.4 F 09/17/22 13:45 Pulse 83 09/17/22 15:44 Resp 16 09/17/22 15:44 BP 132/54 L 09/17/22 15:44 Pulse Ox 95 09/17/22 15:44 O2 Del Method 09/17/22 15:44 BMI result Body Mass Index 34.7 Appearance: Alert. Oriented X3. No acute distress. Tremulous, nervous appearing Eyes: Pupils equal, round and reactive to light. ENT: Pharynx normal. Right nare with copious amount of bleeding with clots being expressed. Normal inspection to external nose. Internal right nare with pulsating arterial bleed to the right distal septum, resolved post application of cocaine/afrin. Neck: Normal inspection. Neck supple. CVS: Normal heart rate and rhythm. Pulses normal. Respiratory: No respiratory distress. Breath sounds normal. Skin: Skin warm and dry. Normal skin color. Normal skin turgor. No rashes. Extremities: No lower extremity edema. Neuro: Oriented X 3. Medications Administered Discontinued Medications Generic Name Dose Route Start Last Admin Trade Name Freq PRN Reason Stop Dose Admin Cocaine HCl 4 ml 09/17/22 11:51 09/17/22 11:56 Cocaine Hcl 4 % 4 Ml Solution TOPICAL 09/17/22 11:52 4 ml ONCE ONE Administration Protocol Oxymetazoline HCl 2 spray 09/17/22 11:43 09/17/22 11:56 Oxymetazoline Hcl 0.05 % Nasal 15 Ml [place] NOSTRIL-B 09/17/22 11:44 2 spray ONCE ONE Administration Silver Nitrate 1 appl 09/17/22 11:49 09/17/22 11:57 Silver Nitrate Applicator Stick..Ea. TOPICAL 09/17/22 11:50 1 appl ONCE ONE Administration Tranexamic Acid 500 mg 09/17/22 11:43 09/17/22 11:56 Tranexamic Acid 1,000 Mg/10 Ml Vial INTRANASAL 09/17/22 11:44 500 mg ONCE ONE Administration Medical Decision Making Medical Decision Making MDM Narrative: 87-year-old female with history of afib on Eliquis, HTN, HLD, GERD, fibromyalgia, depression, CAD, asthma, anxiety, who presents to the ER from home via EMS for evaluation of a spontaneous right nare nose bleed that started 30 minutes prior to arrival. Patient with copious amount of blood with clots expressed from her right nare, and firm direct pressure applied to nose. ?Arterial pulsating noted to the distal right septum, which resolved after using cotton ball soaked in 4% cocaine and Afrin. Bleeding resolved after 15 minutes. Patient evaluated by attending physician, Dr. Joseph, who examined the patient after epistaxis episode resolved, and no source of bleeding was identified. Long discussion with daughter ([facility] nurse) and patient with discharge care plan including placing a nasal packing especially with her high risk of rebleeding. Patient declines nasal packing to be placed in her right nare at this time. Advised to hold eliquis for 2-3 days and follow up with ENT as scheduled. Advised to return if epistaxis returns. Patient understands and agrees with plan. Differential Diagnosis Differential Diagnoses: The differential diagnosis associated with the presentation includes Epistaxis, anterior epistaxis, posterior epistaxis, facial contusion, laceration, abrasion Independent Historian Clinical information obtained from an independent historian. History obtained from or confirmed by: Other Daughter External Record Review External record reviewed: Prior outpatient labs Chronic Conditions Patient?s care impacted by: Other Atrial fibrillation on Eliquis Procedures Epistaxis Control Time Out Performed: Yes Nostril: Yes right Nose prepped with: Yes cocaine 4% and Yes oxymetazoline Direct inspection: Yes anterior source identified Direct inspection method: Yes nasal speculum Clots removed by: Yes manually Results of treatment: Yes bleeding controlled and Yes treatment well tolerated Complications: Yes none Critical Care Time Critical Care Time Critical Care Time: No Discharge Plan Discharge Clinical Impression: Epistaxis Patient Disposition: Home, Self-Care Instructions: Nosebleed (ED) Additional Instructions: Please follow up with ENT as scheduled. You are at a high risk for another episode of nose bleeding. If this occurs, apply firm, direct pressure and call 9-1-1. Hold eliquis for the next 2-3 days. If you develop new or worsening symptoms call 911 or come back to the ER for further evaluation. Prescriptions: No Action atorvastatin 20 mg tablet 20 mg PO DAILY Qty: 90 3RF Eliquis 5 mg tablet 5 mg PO BID 90 Days Qty: 180 3RF baclofen 10 mg tablet 10 mg PO BEDTIME Qty: 30 1RF metoprolol tartrate 25 mg tablet 12.5 mg PO BID 90 Days Qty: 90 3RF mirtazapine 15 mg tablet 15 mg PO BEDTIME Qty: 30 1RF citalopram 40 mg tablet 1 tab PO DAILY magnesium 200 mg Tablet 400 mg PO BEDTIME cholecalciferol (vitamin D3) 25 mcg (1,000 unit) Tablet 25 mcg PO DAILY omeprazole 20 mg capsule,delayed release(DR/EC) 1 cap PO BID PRN (Reason: Acid Reflux) nystatin 100,000 unit/mL Suspension 400,000 unit PO QID 3 Days Qty: 48 0RF Protocol: Apply to: Apply to: swish and swallow Multaq 400 mg tablet 400 mg PO BID 90 Days Qty: 180 3RF carbidopa-levodopa 25-100 mg tablet 2 tab PO TID gabapentin 100 mg capsule 100 mg PO BID Qty: 60 6RF Interventions: ED Discharge Assessment Last Done: 09/17/22 15:58 Discharge Date/Time: 09/17/22 15:58
[2022-09-17] MEDS: Oxymetazoline HCl 0.05 % Nasal 15 ML SPRAY 2 SPRAY NOSTRIL-B (11:56)
[2022-09-17] MEDS: Tranexamic Acid 1,000 MG/10 ML VIAL 500 MG INTRANASAL (11:56)
[2022-09-17] MEDS: Cocaine HCl 4 % 4 ML SOLUTION TOPICAL (11:56)
[2022-09-17] MEDS: Silver Nitrate Applicator STICK..EA. 1 APPL TOPICAL (11:57)
[2022-09-17 13:45] VITALS: BP 129/64; PULSE 78; RESP 17; TEMP 36.9; O2SAT 96
--- NOTE | 2022-09-17 14:37 | PC.NURSE ---
pt a&ox3, vss, medication administered by provider, bleeding controlled at this time, pt resting quietly.
[2022-09-17 15:44] VITALS: BP 132/54; PULSE 83; RESP 16; O2SAT 95
== END 2022-09-17 15:58 | disposition home or self-care (01) ==
PROVIDERS: Emergency Provider Emergency Medicine; PCP Internal Medicine
DX: R04.0 Epistaxis (principal); I48.91 Unspecified atrial fibrillation; Z79.01 Long term (current) use of anticoagulants; Z79.899 Other long term (current) drug therapy
CPT/HCPCS: 30901; 99284; C9143

== ENCOUNTER → 2022-10-07 12:44 | Outpatient (BNVA) | payer MEDICARE, SELFPAY | PROVIDERS: PCP Internal Medicine; Visit Provider Psychiatry & Neurology Neurology | DX: G24.3 Spasmodic torticollis (principal); R51.9 Headache, unspecified; R25.1 Tremor, unspecified; G89.29 Other chronic pain | CPT/HCPCS: 64616; 99211; J0585 ==

== ENCOUNTER → 2022-10-27 13:07 | Outpatient (BNVA) | payer MEDICARE, SELFPAY | PROVIDERS: PCP Internal Medicine; Referring Provider Internal Medicine; Visit Provider Internal Medicine | DX: I48.0 Paroxysmal atrial fibrillation (principal); I25.10 Atherosclerotic heart disease of native coronary artery without angina pectoris; I05.9 Rheumatic mitral valve disease, unspecified; I10 Essential (primary) hypertension | CPT/HCPCS: 93005; 99212 ==

== ENCOUNTER 2022-12-24 14:01 | Outpatient (REF) | payer MEDICARE, SELFPAY ==
[2022-12-24 14:23] LABS: MANUAL DIFF FLAG NO
[2022-12-24 14:57] LABS: Basophils Percent Auto 0.4 % (0-2); Eosinophils Absolute Auto 0.2 X10*3/uL (0.0-0.4); Eosinophils Percent Auto 1.8 % (0-4); Hematocrit 37.6 % (37.0-47.0); Hemoglobin 11.4 g/dl (12.0-16.0); Imm Gran Abs Auto 0.06 X10*3/uL (0.00-0.03); Imm Gran Pct Auto 0.6 % (0.0-0.4); Lymphocytes Absolute Auto 1.5 X10*3/uL (1.2-4.9); Lymphocytes Percent Auto 14.7 % (20-40); Mean Corpuscular HGB Conc 30.3 g/dl (31.0-35.0); Mean Corpuscular Volume 85.8 fL (80.0-98.0); Mean Platelet Volume 10.8 fL (9.4-12.3); Monocytes Absolute Auto 0.8 X10*3/uL (0.1-1.2); Monocytes Percent Auto 8.1 % (2-11); Neutrophils Absolute Auto 7.7 x10*3/uL (2.0-8.3); Neutrophils Percent Auto 74.4 % (45-73); Platelet Count 274 X10*3/uL (160-400); Red Blood Count 4.38 X10*6/uL (4.20-5.50); Red Cell Distribution Width 14.4 % (11.0-16.0); White Blood Count 10.3 X10*3/uL (4.8-10.8)
[2022-12-24 17:11] LABS: Estimated Average Glucose 111 mg/dL; Hemoglobin A1c % 5.5 %
[2022-12-24 20:11] LABS: Alanine Aminotransferase < 5 U/L (0-31); Albumin Level 3.7 g/dL (3.5-5.0); Alkaline Phosphatase 96 U/L (39-117); Anion Gap 13 (12-20); Aspartate Amino Transferase 16 U/L (5-31); Bilirubin Total 0.4 mg/dL (0.0-1.0); Blood Urea Nitrogen 21 mg/dL (9-16); Calcium 9.7 mg/dL (8.4-10.2); Carbon Dioxide 28 mmol/L (22-29); Chloride 104 mmol/L (96-108); Estimated Glomerular Filt Rate > 60; Glucose Random 104 mg/dL (60-115); Potassium 4.4 mmol/L (3.3-5.1); Sodium 141 mmol/L (135-145)
== END 2022-12-24 14:02 | disposition home or self-care (01) ==
LOC: HO.LAB 14:01
PROVIDERS: PCP Internal Medicine; Visit Provider Internal Medicine
DX: I48.0 Paroxysmal atrial fibrillation (principal); I12.9 Hypertensive chronic kidney disease with stage 1 through stage 4 chronic kidney disease, or unspecified chronic kidney disease; N18.9 Chronic kidney disease, unspecified; R73.03 Prediabetes
CPT/HCPCS: 36415; 80053; 83036; 85025

== ENCOUNTER 2023-01-15 09:17 | Inpatient (IN) | payer MEDICARE, SELFPAY ==
[2023-01-15] VITALS (9 sets, daily range): BP systolic 105–168; BP diastolic 38–85; PULSE 76–90; RESP 13–20; TEMP 36.4–36.9; O2SAT 92–97; BMI 34.8
--- NOTE | ~2023-01-15 | XR_ITS ---
EXAMINATION: XR CHEST CLINICAL INFORMATION: Cough. COMPARISON: Comparison is made to 02/09/2022. TECHNIQUE: Frontal view of the chest was obtained. FINDINGS: Kyphotic positioning and low lung volumes and evaluation. Mild curvilinear markings are seen in the right midlung. The left lung is clear. The heart shows a possible septal closure device in place. The mediastinal structures are unremarkable. XR/XR chest 1V IMPRESSION: Mild curvilinear atelectasis versus scarring in the right midlung. No acute cardiopulmonary process.
--- NOTE | 2023-01-15 09:32 | ECG_ITS ---
Test Reason : FALL Blood Pressure : / mmHG Vent. Rate : 076 BPM Atrial Rate : 076 BPM P-R Int : 150 ms QRS Dur : 086 ms QT Int : 420 ms P-R-T Axes : 040 -07 032 degrees QTc Int : 472 ms Normal sinus rhythm Nonspecific ST abnormality Abnormal ECG When compared with ECG of 30-NOV-2021 20:31, No significant change was found Referred By: Jayashree Boateng Electronically Signed By:EDUARDO SHETTY MD
--- NOTE | 2023-01-15 09:54 | ED.SYNCOPE ---
HPI - Syncope General Chief Complaint: Dizziness Stated Complaint: WEAK,RECENT CARDIAC SURGERY @[facility] Time Seen by Provider: 01/15/23 09:22 Source: patient and family (Daughter) Mode of arrival: EMS History of Present Illness HPI narrative: 87-year-old female who arrives via EMS, postop day 3 from Watchman procedure at [facility], was supposed to be discharged Tuesday evening but felt weak and had near syncopal episode and ended up being admitted and was discharged yesterday. Patient denies any associated shortness of breath, fever, chills but daughter who is at bedside states that this morning patient felt like she had to have a bowel movement and when she began to stand up developed significant diaphoresis, cool, clammy symptoms associated with mild chest discomfort and shortness of breath. This time patient denies any shortness of breath or chest pain/palpitations. Related Data Home Medications Medication Instructions Recorded Confirmed carbidopa 25 mg-levodopa 100 mg 2 tab PO TID 11/11/20 10/27/22 tablet cholecalciferol (vitamin D3) 25 25 mcg PO DAILY 02/10/22 10/27/22 mcg (1,000 unit) tablet citalopram 40 mg tablet 1 tab PO DAILY 02/10/22 10/27/22 magnesium 200 mg tablet 400 mg PO BEDTIME 02/10/22 10/27/22 omeprazole 20 mg capsule,delayed 1 cap PO BID PRN Acid Reflux 02/10/22 10/27/22 release albuterol sulfate 90 mcg/actuation 2 puff inhalation QID PRN 10/27/22 10/27/22 aerosol inhaler apixaban 5 mg tablet (Eliquis) 5 mg PO BID 10/27/22 10/27/22 fluticasone propionate 110 0 mcg inhalation 10/27/22 10/27/22 mcg/actuation HFA aerosol inhaler (Flovent HFA) meclizine 12.5 mg tablet 12.5 mg PO BID 10/27/22 10/27/22 promethazine 12.5 mg tablet 12.5 - 25 mg PO Q6H PRN nausea 10/27/22 10/27/22 Previous Rx's Medication Instructions Recorded mirtazapine 15 mg tablet 15 mg PO BEDTIME #30 tabs 12/01/21 nystatin 100,000 unit/mL oral 400,000 unit PO QID 3 days #48 mL 02/14/22 suspension gabapentin 100 mg capsule 100 mg PO BID #60 caps 03/09/22 atorvastatin 20 mg tablet 20 mg PO DAILY #90 tabs 04/19/22 metoprolol tartrate 25 mg tablet 12.5 mg PO BID 90 days #90 tabs 08/30/22 baclofen 10 mg tablet 10 mg PO BEDTIME #30 tabs 10/25/22 amiodarone 200 mg tablet 200 mg PO DAILY #90 tabs 10/27/22 Allergies Allergy/AdvReac Type Severity Reaction Status Date / Time No Known Allergies [NKA] Allergy Verified 01/15/23 09:38 Review of Systems Review of Systems: Pertinent positives and negatives as stated in [facility] Past Medical History Source: nursing notes reviewed Medical History Afib Anxiety Arthritis Asthma Atherosclerotic cardiovascular disease CAD (coronary artery disease) Cataract Chiari malformation Depression Essential tremor Fibromyalgia GERD (gastroesophageal reflux disease) H/O small bowel obstruction HLD (hyperlipidemia) HTN (hypertension) Osteoarthritis Paroxysmal atrial fibrillation Surgical History H/O heart artery stent History of appendectomy History of back surgery History of cholecystectomy Family History Family History Mother CAD (coronary artery disease) Social History Social History Household Members: None Housing: Condominium Are you a primary primary care coordinator to a significant other at home: Yes ( is in a wheelchair) Do you presently have visiting nurse or other home services: No Alcohol intake: current Alcohol intake frequency: a few times a week Alcohol type: wine Patient Tobacco Use Status: Never used Tobacco Smoked in Last 30 Days: No Use of substances other than those prescribed or required for medical reasons: No Advance Directives: Yes Advance Directives on File: Yes Advance Directives Date on File: 10/20/21 service: No Current occupational status: retired Current occupation: right handed Physical Exam Vital Signs: Vital Signs: Last Vital Signs Temp 98.3 F 01/15/23 09:29 Pulse 90 01/15/23 11:08 Resp 16 01/15/23 09:29 BP 105/85 07/15/23 11:08 Pulse Ox 92 01/15/23 09:29 O2 Del Method Room Air 01/15/23 09:29 BMI result Body Mass Index 34.8 VITAL SIGNS: Reviewed. GENERAL: Elevated BMI, Well developed, well nourished, in no acute distress. HEAD: Normocephalic/atraumatic EYES: PERRLA, EOMI EARS: Ext canals without abnormality NOSE: Nares patent bilateral OROPHARYNX: no oral lesions noted, posterior pharynx clear NECK: Supple, no adenopathy LUNGS: Normal breath sounds. No adventitious sounds or accessory muscle use. SpO2<92> CARDIOVASCULAR: Regular rate and rhythm without noted murmurs, no JVD or lower extremity edema. ABDOMEN: Soft, non-tender, non-distended with bowel sounds. MUSCULOSKELETAL: No tenderness, deformities, or effusions noted on gross inspection. EXTREMITIES: No cyanosis, clubbing or edema; RIGHT GROIN: Insertion site well healed and no surrounding erythema, induration, swelling, ecchymosis SKIN: Inspection of the skin reveals no rashes NEUROLOGIC: Alert and oriented x 4. Strength and sensation to light touch were grossly intact x 4. Medical Decision Making Medical Decision Making MDM Narrative: 87-year-old female with history and clinical presentation, DDX: Near-syncope and will evaluate for infection, anemia, arrhythmia, hypovolemia. In addition, daughter endorses that she will be unable to care for her mother and thinks that the mother may need short-term rehab. 1110: Orthostatics are significantly positive from sitting to standing. 1130: I suspect likely urinary tract infection as a contributing factor to patient's near syncopal episode although she is certainly orthostatics as well as having an elevated troponin level. Will proceed with lactic acid, blood cultures as well as IV antibiotic, I also discussed with Dr. Garcia from Cardiology regarding findings and results and he agrees with admission. Review of hematologic indices demonstrates a leukocytosis with left shift which could be related to a stress leukocytosis but in the setting of positive urinalysis patient will be treated with antibiotics. Patient also with normocytic anemia which is slightly worse than December/2022 although could be indicative of recent procedure. Chemistry indices are grossly within normal limits other than detectable troponin level of 31.8 which will be repeated and is not reflected in any EKG changes. 1200: I discussed case with inpatient hospitalist who accepts admission. Differential Diagnosis Differential Diagnoses: The differential diagnosis associated with the presentation includes Please see the discussion above Admission/Observation Consideration of admission/observation: Escalation of care including admission/observation considered Please see the discussion above Consult Healthcare Provider Management of the patient was discussed with: Hospitalist and Manager Commercial Please see discussion above Lab Data MDM Lab Attestation statement: I reviewed the patient's lab results. Please see discussion above 01/15/23 10:35 01/15/23 10:55 Labs: Lab Results 01/15/23 01/15/23 01/15/23 Range/Units 10:35 10:35 10:35 WBC 13.7 H (4.8-10.8) X10*3/uL RBC 3.74 L (4.20-5.50) X10*6/uL Hgb 9.8 L (12.0-16.0) g/dl Hct 33.2 L (37.0-47.0) % MCV 88.8 (80.0-98.0) fL MCH 26.2 L (27.0-33.0) pg MCHC 29.5 L (31.0-35.0) g/dl RDW 15.3 (11.0-16.0) % Plt Count 265 (160-400) X10*3/uL MPV 10.1 (9.4-12.3) fL Immature Gran % (Auto) 0.7 H (0.0-0.4) % Neut % (Auto) 86.0 H (45-73) % Lymph % (Auto) 6.4 L (20-40) % [place] % (Auto) 6.1 (2-11) % Eos % (Auto) 0.7 (0-4) % Baso % (Auto) 0.1 (0-2) % Lymph # (Auto) 0.9 L (1.2-4.9) X10*3/uL [place] # (Auto) 0.8 (0.1-1.2) X10*3/uL Eos # (Auto) 0.1 (0.0-0.4) X10*3/uL Baso # (Auto) 0.0 (0.0-0.2) X10*3/uL Abs Immat Gran (auto) 0.09 H (0.00-0.03) X10*3/uL Absolute Neuts (auto) 11.8 H (2.0-8.3) x10*3/uL Absolute Nucleated RBC 0.000 (0.0-0.012) X10*3/uL Nucleated RBC % (auto) 0.0 (0.0-0.2) /100WBC PT 18.0 H (10.0-13.1) SEC INR 1.5 H (0.9-1.1) Sodium (135-145) mmol/L Potassium (3.3-5.1) mmol/L Chloride (96-108) mmol/L Carbon Dioxide (22-29) mmol/L Anion Gap (12-20) BUN (9-16) mg/dL Creatinine (0.5-1.4) mg/dL Estim Creat Clear Calc Estimated GFR Random Glucose (60-115) mg/dL Calcium (8.4-10.2) mg/dL Total Bilirubin (0.0-1.0) mg/dL AST (5-31) U/L ALT (0-31) U/L Alkaline Phosphatase (39-117) U/L Troponin I High Sens 31.8 H (<3.5-17.0) ng/L B-Natriuretic Peptide (<100) pg/mL Total Protein (6.5-8.0) g/dL Albumin (3.5-5.0) g/dL Urine Color Urine Appearance Urine pH (5.0-9.0) Ur Specific [place] (1.005-1.025) Urine Protein (Neg-Trace) mg/dL Urine Glucose (UA) (Negative) mg/dL Urine Ketones (Negative) mg/dL Urine Blood (Negative) Urine Nitrite (Negative) Ur Leukocyte Esterase (Negative) Urine RBC (0-2) /HPF Urine WBC (0-5) /HPF Ur Squamous Epith Cells (0-2) /HPF Urine Bacteria (None Seen) Hyaline Casts (0-2) /LPF 01/15/23 01/15/23 01/15/23 Range/Units 10:35 10:55 11:22 WBC (4.8-10.8) X10*3/uL RBC (4.20-5.50) X10*6/uL Hgb (12.0-16.0) g/dl Hct (37.0-47.0) % MCV (80.0-98.0) fL MCH (27.0-33.0) pg MCHC (31.0-35.0) g/dl RDW (11.0-16.0) % Plt Count (160-400) X10*3/uL MPV (9.4-12.3) fL Immature Gran % (Auto) (0.0-0.4) % Neut % (Auto) (45-73) % Lymph % (Auto) (20-40) % [place] % (Auto) (2-11) % Eos % (Auto) (0-4) % Baso % (Auto) (0-2) % Lymph # (Auto) (1.2-4.9) X10*3/uL [place] # (Auto) (0.1-1.2) X10*3/uL Eos # (Auto) (0.0-0.4) X10*3/uL Baso # (Auto) (0.0-0.2) X10*3/uL Abs Immat Gran (auto) (0.00-0.03) X10*3/uL Absolute Neuts (auto) (2.0-8.3) x10*3/uL Absolute Nucleated RBC (0.0-0.012) X10*3/uL Nucleated RBC % (auto) (0.0-0.2) /100WBC PT (10.0-13.1) SEC INR (0.9-1.1) Sodium 140 (135-145) mmol/L Potassium 4.5 (3.3-5.1) mmol/L Chloride 108 (96-108) mmol/L Carbon Dioxide 22 (22-29) mmol/L Anion Gap 15 (12-20) BUN 23 H (9-16) mg/dL Creatinine 0.93 (0.5-1.4) mg/dL Estim Creat Clear Calc 44.2 Estimated GFR 57 Random Glucose 133 H (60-115) mg/dL Calcium 9.6 (8.4-10.2) mg/dL Total Bilirubin 0.3 (0.0-1.0) mg/dL AST 22 (5-31) U/L ALT 13 (0-31) U/L Alkaline Phosphatase 83 (39-117) U/L Troponin I High Sens (<3.5-17.0) ng/L B-Natriuretic Peptide 436 H (<100) pg/mL Total Protein 6.5 (6.5-8.0) g/dL Albumin 3.3 L (3.5-5.0) g/dL Urine Color Yellow Urine Appearance Cloudy Urine pH 5.5 (5.0-9.0) Ur Specific [place] 1.020 (1.005-1.025) Urine Protein 30 (1+) H (Neg-Trace) mg/dL Urine Glucose (UA) Negative (Negative) mg/dL Urine Ketones Trace (Negative) mg/dL Urine Blood Negative (Negative) Urine Nitrite Negative (Negative) Ur Leukocyte Esterase Large (3+) H (Negative) Urine RBC 0-2 (0-2) /HPF Urine WBC >50 H (0-5) /HPF Ur Squamous Epith Cells 11-20 (0-2) /HPF Urine Bacteria 1+ (None Seen) Hyaline Casts 3-5 (0-2) /LPF Independent Interpretation I performed an independent interpretation of an: EKG Interpretation: Normal sinus rhythm, HR-76, no STEMI, HI/QRS/QTC is within normal limits. Radiology Impression Radiologist Impression: No pneumonia, otherwise my interpretation is in agreement with radiology's impression. External Record Review External record reviewed: Outpatient record and Prior outpatient labs Chronic Conditions Patient?s care impacted by: Hypertension and Other CAD Critical Care Time Critical Care Time Critical Care Time: Yes Total Critical Care Time: 30 Attestation: I personally attest to this time spent taking care of the patient. Discharge Plan Discharge Clinical Impression: Near syncope, Elevated troponin, Acute UTI, Anemia Patient Disposition: Admitted As Inpatient
[2023-01-15 10:41] LABS: MANUAL DIFF FLAG NO
[2023-01-15 10:42] LABS: Basophils Percent Auto 0.1 % (0-2); Eosinophils Absolute Auto 0.1 X10*3/uL (0.0-0.4); Eosinophils Percent Auto 0.7 % (0-4); Hematocrit 33.2 % (37.0-47.0); Hemoglobin 9.8 g/dl (12.0-16.0); Imm Gran Abs Auto 0.09 X10*3/uL (0.00-0.03); Imm Gran Pct Auto 0.7 % (0.0-0.4); Lymphocytes Absolute Auto 0.9 X10*3/uL (1.2-4.9); Lymphocytes Percent Auto 6.4 % (20-40); Mean Corpuscular HGB Conc 29.5 g/dl (31.0-35.0); Mean Corpuscular Hemoglobin 26.2 pg (27.0-33.0); Mean Corpuscular Volume 88.8 fL (80.0-98.0); Mean Platelet Volume 10.1 fL (9.4-12.3); Monocytes Absolute Auto 0.8 X10*3/uL (0.1-1.2); Monocytes Percent Auto 6.1 % (2-11); Neutrophils Absolute Auto 11.8 x10*3/uL (2.0-8.3); Platelet Count 265 X10*3/uL (160-400); Red Blood Count 3.74 X10*6/uL (4.20-5.50); Red Cell Distribution Width 15.3 % (11.0-16.0); White Blood Count 13.7 X10*3/uL (4.8-10.8)
[2023-01-15 10:48] LABS: INTERNATIONAL NORM RATIO 1.5 (0.9-1.1)
[2023-01-15 11:01] LABS: Troponin-I High Sensitivity 31.8 ng/L (<3.5-17.0)
[2023-01-15 11:15] LABS: Alanine Aminotransferase 13 U/L (0-31); Albumin Level 3.3 g/dL (3.5-5.0); Alkaline Phosphatase 83 U/L (39-117); Anion Gap 15 (12-20); Aspartate Amino Transferase 22 U/L (5-31); Bilirubin Total 0.3 mg/dL (0.0-1.0); Blood Urea Nitrogen 23 mg/dL (9-16); Calcium 9.6 mg/dL (8.4-10.2); Carbon Dioxide 22 mmol/L (22-29); Chloride 108 mmol/L (96-108); Creatinine Clr Calc Pharmacy 44.2; Estimated Glomerular Filt Rate 57; Glucose Random 133 mg/dL (60-115); Potassium 4.5 mmol/L (3.3-5.1); Sodium 140 mmol/L (135-145); Total Protein 6.5 g/dL (6.5-8.0)
[2023-01-15 11:29] LABS: Appearance Urine Cloudy; Color Urine Yellow; Glucose Urine UA Negative (Negative); Leukocyte Esterase Urine Large (3+) (Negative); Nitrite Urine Negative (Negative); PH 5.5 (5.0-9.0); UMIC TRIGGER UACC YES; Urine Blood Negative (Negative); Urine Ketones Trace mg/dL (Negative); Urine Protein 30 (1+) mg/dL (Neg-Trace)
[2023-01-15 11:32] LABS: Bacteria Urine 1+ (None Seen); RBC Urine 0-2 /HPF (0-2); UACC Culture Trigger YES; WBC Urine >50 /HPF (0-5)
[2023-01-15 11:49] LABS: B Type Natriuretic Peptide 436 pg/mL (<100)
--- NOTE | 2023-01-15 12:04 | PC.NURSE ---
pt axox4, VSS, respirations even and unlabored, occasional nonproductive cough noted. NSR on monitor 80 bpm, sats 96% RA. lung sounds clear. +1 pitting edema noted BLE. pt reports lightheadedness/dizziness upon position changes/standing up. pt is 3 days post op watchmans procedure; incision well appearing, no s+s of infection noted. iv established, labs drawn. pt medicated per sep. daughter at bedside. both aware of plan of care; deny having questions at this time. call angel within reach.
[2023-01-15] MEDS: cefTRIAXone sodium 1 GM in 0.9 % Sodium Chloride 50 ML IV (12:11)
[2023-01-15 12:21] LABS: Lactic Acid 1.8 mmol/L (0.5-2.0)
--- NOTE | 2023-01-15 12:31 | PHA.MEDREC ---
Pharmacy Consult ? Medication Reconciliation Pharmacy has completed the medication reconciliation. Spoke to patient to confirm meds. Patient had med list.
[2023-01-15 12:32] LABS: Troponin-I High Sensitivity 33.4 ng/L (<3.5-17.0)
--- NOTE | 2023-01-15 13:34 | PM.IMHP ---
History of Present Illness Date of Service: 01/15/23 Chief Complaint: Near syncope An 87 years old lady with PMH of Afib s\p Watchmen procedure, CAD, HTN among others who presents to ED with near syncope events. She reports that she had the surgery done Tuesday but she developed orthostatic dizziness and was kept at [facility] until yesterday. This morning she went to the bathroom and upon standing up she felt dizzy, clammy with associated diaphoresis, dyspnea and chest discomfort. She fell and her daughter was near to help her to the floor. Denies any head injury, loss of consciousness or abnormal movements. In ED she was found orthostatic hypotensive upon standing w drop of SBP from 150 to 105. worsened anemia to 9.8 with leukocytosis. Evidence of UTI. Elevated Trop 33-38 with no delta wave. Admitted for further eval and treatment Review of Systems Review of Systems: No fever, chills or but feels weakness upon standing No chest pain, palpitation No shortness of breath or coughing No abdominal pain, nausea or vomiting increase frequency No any rash or wounds PMFSH Medical History Afib Anxiety Arthritis Asthma Atherosclerotic cardiovascular disease CAD (coronary artery disease) Cataract Chiari malformation Depression Essential tremor Fibromyalgia GERD (gastroesophageal reflux disease) H/O small bowel obstruction HLD (hyperlipidemia) HTN (hypertension) Osteoarthritis Paroxysmal atrial fibrillation Family History Mother CAD (coronary artery disease) Surgical History H/O heart artery stent History of appendectomy History of back surgery History of cholecystectomy Social History Household Members: None Housing: House Are you a primary healthcare advisory services manager to a significant other at home: Yes ( is in a wheelchair) Do you presently have visiting nurse or other home services: No Alcohol intake: current Alcohol intake frequency: a few times a week Alcohol type: wine Patient Tobacco Use Status: Never used Tobacco Smoked in Last 30 Days: No Use of substances other than those prescribed or required for medical reasons: No Currently Displaying Signs/Symptoms of Drug Intoxication Withdrawal: No Have you been hit, kicked, punched, or otherwise hurt by someone within the past year? If so, by whom?: No Do you feel safe in your current relationship?: Yes Is there a partner from a previous relationship who is making you feel unsafe now?: No Are you made to feel afraid or neglected: No Holiness Healthcare Practices: nondenominational Advance Directives: Yes Advance Directives on File: Yes Advance Directives Date on File: 10/20/21 Do you have thoughts of harming others: None Recently lost weight without trying: No Eating poorly because of decreased appetite: No Nutrition Risks: No Nutritional Risk Patient : No : No service: No Current occupational status: retired Current occupation: right handed Meds Allergies Allergy/AdvReac Type Severity Reaction Status Date / Time No Known Allergies [NKA] Allergy Verified 01/15/23 09:38 Active Medications: Current Medications Pharmacy Consult (Consult Rx Perform Med Rec) 1 each MISCELLANE ONCE PRN PRN Reason: Consult order Home Medications Medication Instructions Recorded Confirmed Last Taken Type carbidopa 25 mg-levodopa 100 mg 2 tab PO TID 11/11/20 01/15/23 01/14/23 History tablet omeprazole 20 mg capsule,delayed 1 cap PO BID PRN Acid Reflux 02/10/22 01/15/23 Unknown History release albuterol sulfate 90 mcg/actuation 2 puff inhalation QID PRN 10/27/22 01/15/23 Unknown History aerosol inhaler Shortness Of Breath Or Wheezing apixaban 5 mg tablet (Eliquis) 5 mg PO BID 10/27/22 01/15/23 01/14/23 History fluticasone propionate 110 1 puff inhalation BID 10/27/22 01/15/23 01/14/23 History mcg/actuation HFA aerosol inhaler (Flovent HFA) promethazine 12.5 mg tablet 12.5 mg PO Q6H PRN nausea 10/27/22 01/15/23 Unknown History ascorbic acid (vitamin C) 500 mg 500 mg PO DAILY 01/15/23 01/15/23 01/14/23 History tablet (Vitamin C) diphenhydramine 25 2 tab PO BEDTIME PRN pain / sleep 01/15/23 01/15/23 Unknown History mg-acetaminophen 500 mg tablet (Tylenol PM Extra Strength) magnesium 250 mg tablet 250 mg PO DAILY 07/01/15/23 01/14/23 History Physical Exam Vital Signs and Narrative: Vital Signs: Last Vital Signs Temp 98.3 F 01/15/23 09:29 Pulse 84 01/15/23 12:16 Resp 18 01/15/23 12:16 BP 105/85 01/15/23 12:16 Pulse Ox 97 01/15/23 12:16 O2 Del Method Room Air 01/15/23 12:16 BMI result Body Mass Index 34.8 Const: Other: Constitutional : Alert, oriented, not in distress Neck : Normal inspection, Supple Cardiovascular : RRR, no JVP, no lower extremity edema Respiratory : fair bilateral air entry,? no crackles, wheezes or rhonchi Gastrointestinal:? soft, lax, normal bowel sounds, Non tender Skin : Warm, Dry Neurological : Alert & oriented x3, No focal deficit , CN 2-12 within normal Results Labs 01/15/23 10:35 01/15/23 10:55 Labs: Laboratory Results - last 24 hr 01/15/23 01/15/23 01/15/23 10:35 10:35 10:35 MCV 88.8 MCH 26.2 L MCHC 29.5 L RDW 15.3 Plt Count 265 MPV 10.1 Immature Gran % (Auto) 0.7 H Neut % (Auto) 86.0 H Lymph % (Auto) 6.4 L [place] % (Auto) 6.1 Eos % (Auto) 0.7 Baso % (Auto) 0.1 Lymph # (Auto) 0.9 L [place] # (Auto) 0.8 Eos # (Auto) 0.1 Baso # (Auto) 0.0 Abs Immat Gran (auto) 0.09 H Absolute Neuts (auto) 11.8 H Absolute Nucleated RBC 0.000 Nucleated RBC % (auto) 0.0 PT 18.0 H INR 1.5 H Anion Gap Estim Creat Clear Calc Estimated GFR Random Glucose Lactic Acid Calcium Total Bilirubin AST ALT Alkaline Phosphatase Troponin I High Sens 31.8 H B-Natriuretic Peptide Total Protein Albumin Urine Color Urine Appearance Urine pH Ur Specific [place] Urine Protein Urine Glucose (UA) Urine Ketones Urine Blood Urine Nitrite Ur Leukocyte Esterase Urine RBC Urine WBC Ur Squamous Epith Cells Urine Bacteria Hyaline Casts 01/15/23 01/15/23 01/15/23 10:35 10:55 11:22 MCV MCH MCHC RDW Plt Count MPV Immature Gran % (Auto) Neut % (Auto) Lymph % (Auto) [place] % (Auto) Eos % (Auto) Baso % (Auto) Lymph # (Auto) [place] # (Auto) Eos # (Auto) Baso # (Auto) Abs Immat Gran (auto) Absolute Neuts (auto) Absolute Nucleated RBC Nucleated RBC % (auto) PT INR Anion Gap 15 Estim Creat Clear Calc 44.2 Estimated GFR 57 Random Glucose 133 H Lactic Acid Calcium 9.6 Total Bilirubin 0.3 AST 22 ALT 13 Alkaline Phosphatase 83 Troponin I High Sens B-Natriuretic Peptide 436 H Total Protein 6.5 Albumin 3.3 L Urine Color Yellow Urine Appearance Cloudy Urine pH 5.5 Ur Specific [place] 1.020 Urine Protein 30 (1+) H Urine Glucose (UA) Negative Urine Ketones Trace Urine Blood Negative Urine Nitrite Negative Ur Leukocyte Esterase Large (3+) H Urine RBC 0-2 Urine WBC >50 H Ur Squamous Epith Cells 11-20 Urine Bacteria 1+ Hyaline Casts 3-5 01/15/23 01/15/23 11:58 11:58 MCV MCH MCHC RDW Plt Count MPV Immature Gran % (Auto) Neut % (Auto) Lymph % (Auto) [place] % (Auto) Eos % (Auto) Baso % (Auto) Lymph # (Auto) [place] # (Auto) Eos # (Auto) Baso # (Auto) Abs Immat Gran (auto) Absolute Neuts (auto) Absolute Nucleated RBC Nucleated RBC % (auto) PT INR Anion Gap Estim Creat Clear Calc Estimated GFR Random Glucose Lactic Acid 1.8 Calcium Total Bilirubin AST ALT Alkaline Phosphatase Troponin I High Sens 33.4 H B-Natriuretic Peptide Total Protein Albumin Urine Color Urine Appearance Urine pH Ur Specific [place] Urine Protein Urine Glucose (UA) Urine Ketones Urine Blood Urine Nitrite Ur Leukocyte Esterase Urine RBC Urine WBC Ur Squamous Epith Cells Urine Bacteria Hyaline Casts Imaging Radiologist's Impressions: Impressions Chest X-Ray 01/15/23 10:04 IMPRESSION: Mild curvilinear atelectasis versus scarring in the right midlung. No acute cardiopulmonary process. Assessment and Plan (1) Near syncope: Status: Acute (2) Elevated troponin: Status: Acute (3) Acute UTI: Status: Acute (4) Orthostatic hypotension: Status: Acute Plan An 87 years old lady with PMH of Afib s\p Watchmen procedure, CAD, HTN among others who presents to ED with near syncope events. . Near syncope Likely 2/2 postural hypotension , Parkinson, Infection , physical deconditioning increase physical acitivity continue MEtoprolol for now treat infx check orthostatic vitals Elevated trop No ST\T wave changes, no chest pain No Delta change noticed cardiology following [facility] Low iron stores check occult give IV iron UTI pending cultures continue Ceftriaxone Atelactasis Noticed on CXR Incentive spirometry, chest physiotherapy Physical deconditioning PT rec acute rehab parkinsons sinemet CAD statin, beta miguelangel, holding AC Paroxysmal Afib Continue Multaq and Metoprolol On Apixaban DVT PPx Apixaban The patient will need over 2 nights of hospital stay for management of above problems pending safe discharge plan Time Spent With Patient Time: Total time managing care of this patient today ____ minutes. Quality Stroke Does the patient have a stroke diagnosis?: No VTE Prior VTE?: No VTE Risk Level:: Medical - moderate - high VTE Device Contraindication: Treatment Not Indicated VTE Drug Contraindication: N/A - Med Ordered
--- NOTE | 2023-01-15 13:43 | PC.NURSE ---
Pt reporting left sided mid axiallary pain intermittent and shrp in nature. Denies any associated sx. VSS, Dr Dutton made aware
[2023-01-15] MEDS: Carbidopa/Levodopa 25/100 TABLET 2 TAB PO ×2 (18:27→21:39)
[2023-01-15] MEDS: 0.9 % Sodium Chloride Flush 3 ML SYRINGE IVFLUSH ×2 (18:27→21:40)
[2023-01-15] MEDS: Mirtazapine 15 MG TABLET PO (21:39)
[2023-01-15] MEDS: Baclofen 10 MG TABLET PO (21:39)
[2023-01-15] MEDS: Metoprolol Tartrate 12.5 MG HALFTAB PO (21:39)
[2023-01-15] MEDS: Apixaban 5 MG TABLET PO (21:39)
[2023-01-16] VITALS (11 sets, daily range): BP systolic 128–176; BP diastolic 62–77; PULSE 69–90; RESP 18–20; TEMP 36.2–37.6; O2SAT 93–97
[2023-01-16 06:33] LABS: Hematocrit 30.4 % (37.0-47.0); Hemoglobin 9.1 g/dl (12.0-16.0); Mean Corpuscular HGB Conc 29.9 g/dl (31.0-35.0); Mean Corpuscular Hemoglobin 26.2 pg (27.0-33.0); Mean Corpuscular Volume 87.6 fL (80.0-98.0); Mean Platelet Volume 10.2 fL (9.4-12.3); Platelet Count 248 X10*3/uL (160-400); Red Blood Count 3.47 X10*6/uL (4.20-5.50); Red Cell Distribution Width 15.1 % (11.0-16.0); White Blood Count 8.9 X10*3/uL (4.8-10.8)
[2023-01-16 06:52] LABS: Alanine Aminotransferase < 5 U/L (0-31); Albumin Level 3.1 g/dL (3.5-5.0); Alkaline Phosphatase 92 U/L (39-117); Anion Gap 11 (12-20); Aspartate Amino Transferase 19 U/L (5-31); Bilirubin Total 0.3 mg/dL (0.0-1.0); Blood Urea Nitrogen 19 mg/dL (9-16); Calcium 9.2 mg/dL (8.4-10.2); Carbon Dioxide 27 mmol/L (22-29); Chloride 107 mmol/L (96-108); Creatinine Clr Calc Pharmacy 50.7; Estimated Glomerular Filt Rate > 60; Glucose Random 110 mg/dL (60-115); Potassium 3.9 mmol/L (3.3-5.1); Sodium 141 mmol/L (135-145); Total Protein 5.9 g/dL (6.5-8.0)
--- NOTE | 2023-01-16 08:18 | MHC.CM.PN ---
CM met with Patient at bedside and addressed IMM with her, providing Patient with the original and placing a copy on the chart. Patient lives alone ion a condo and she uses a walker to assist with mobility. PT is recommending Acute Rehab and CM has initiated and will follow for dc planning. Patient has received Covid/Moderna vax x3 and her PCP is Dr. Livingston.
[2023-01-16 08:22] LABS: Iron 19 mcg/dL (30-160); Percent Iron Saturation 6 % (15-50); Total Iron Binding Capacity 338 mcg/dL (228-428); Unsaturated Iron Binding 319 ug/dL
[2023-01-16] MEDS: Atorvastatin Calcium 20 MG TABLET PO (08:43)
[2023-01-16] MEDS: Amiodarone HCL 200 MG TABLET PO (08:43)
[2023-01-16] MEDS: Magnesium Oxide 400 MG TABLET 200 MG PO (08:43)
[2023-01-16] MEDS: Apixaban 5 MG TABLET PO ×2 (08:44→21:55)
[2023-01-16] MEDS: Metoprolol Tartrate 12.5 MG HALFTAB PO ×2 (08:44→21:58)
[2023-01-16] MEDS: Ascorbic Acid 500 MG TABLET PO (08:44)
[2023-01-16] MEDS: Carbidopa/Levodopa 25/100 TABLET 2 TAB PO ×3 (08:49→21:58)
[2023-01-16] MEDS: 0.9 % Sodium Chloride Flush 3 ML SYRINGE IVFLUSH ×3 (08:49→22:07)
[2023-01-16] MEDS: cefTRIAXone sodium 1 GM in 0.9 % Sodium Chloride 50 ML IV (11:09)
[2023-01-16] MEDS: guaiFENesin LA 600 MG TAB.ER.12H PO ×2 (11:09→21:55)
--- NOTE | 2023-01-16 11:10 | HO.PM.IMPN ---
Subjective Subjective Date of Service: 01/16/23 Interval History: Seen and evaluated this morning Feels better overall Did not get up yet to report on dizziness complaining of cough and constipation Low iron stores Review of Systems Review of Systems: Yes all other systems are reviewed and are negative Physical Exam Vital Signs: Vital Signs: Last Vital Signs Temp 99.6 F 01/16/23 07:57 Pulse 90 01/16/23 09:30 Resp 20 01/16/23 07:57 BP 147/68 H 01/16/23 09:30 Pulse Ox 95 01/16/23 07:57 O2 Del Method Room Air 01/16/23 07:57 BMI result Body Mass Index 34.8 Const: Other: Constitutional : Alert, oriented, not in distress Neck : Normal inspection, Supple Cardiovascular : RRR, no JVP, no lower extremity edema Respiratory : fair bilateral air entry,? no crackles, wheezes or rhonchi Gastrointestinal:? soft, lax, normal bowel sounds, Non tender Skin : Warm, Dry Neurological : Alert & oriented x3, No focal deficit , CN 2-12 within normal Objective Data Active Medications Acetaminophen (Acetaminophen 325 Mg Tablet) 650 mg PO Q6H PRN PRN Reason: Pain, Mild (Pain Scale 1-3) Albuterol Sulfate (Albuterol Sulfate 90 Mcg 8 Gm Inhaler) 2 puff INHALE QID PRN PRN Reason: Shortness Of Breath Or Wheezing Amiodarone HCl (Amiodarone Hcl 200 Mg Tablet) 200 mg PO DAILY [facility] Last Admin: 01/16/23 08:43 Dose: 200 mg Documented By: GIOVANNI Apixaban (Apixaban 5 Mg Tablet) 5 mg PO BID [facility] Last Admin: 01/16/23 08:44 Dose: 5 mg Documented By: GIOVANNI Ascorbic Acid (Ascorbic Acid 500 Mg Tablet) 500 mg PO DAILY [facility] Last Admin: 01/16/23 08:44 Dose: 500 mg Documented By: GIOVANNI Atorvastatin Calcium (Atorvastatin Calcium 20 Mg Tablet) 20 mg PO DAILY [facility] Last Admin: 01/16/23 08:43 Dose: 20 mg Documented By: GIOVANNI Baclofen (Baclofen 10 Mg Tablet) 10 mg PO BEDTIME [facility] Last Admin: 01/15/23 21:39 Dose: 10 mg Documented By: HINA Carbidopa/Levodopa (Carbidopa/Levodopa 25/100 Tablet) 2 tab PO TID [facility] Last Admin: 01/16/23 08:49 Dose: 2 tab Documented By: GIOVANNI Fluticasone Propionate (Fluticasone Propionate 100 Mcg Blst.W.Dev) 1 puff INHALE RBID [facility] Last Admin: 01/16/23 07:50 Dose: Not Given Documented By: JO Non-Admin Reason: pharmacy called, spoke with Kaleb Guaifenesin (Guaifenesin La 600 Mg Tab.Er.12h) 600 mg PO BID [facility] Last Admin: 01/16/23 11:09 Dose: 600 mg Documented By: GIOVANNI Ceftriaxone Sodium 1 gm/ (Sodium Chloride) 50 mls @ 100 mls/hr IV Q24H [facility] Last Admin: 01/16/23 11:09 Dose: 100 mls/hr Documented By: GIOVANNI Ferric Sodium Gluconate Complex 125 mg/ Sodium Chloride 110 mls @ 100 mls/hr IV DAILY [facility] Stop: 01/18/23 10:05 Lactulose (Lactulose 20 Gm/30 Ml Solution) 20 gm PO DAILY [facility] Last Admin: 01/16/23 10:42 Dose: Not Given Documented By: GIOVANNI Non-Admin Reason: Patient Refused Magnesium Oxide (Magnesium Oxide 400 Mg Tablet) 200 mg PO DAILY [facility] Last Admin: 01/16/23 08:43 Dose: 200 mg Documented By: GIOVANNI Metoprolol Tartrate (Metoprolol Tartrate 12.5 Mg Halftab) 12.5 mg PO BID [facility]; Protocol Last Admin: 01/16/23 08:44 Dose: 12.5 mg Documented By: GIOVANNI Mirtazapine (Mirtazapine 15 Mg Tablet) 15 mg PO BEDTIME [facility] Last Admin: 01/15/23 21:39 Dose: 15 mg Documented By: HINA Omeprazole (Omeprazole 20 Mg Capsule.Dr) 20 mg PO BID PRN PRN Reason: Acid Reflux Ondansetron HCl (Ondansetron Hcl 4 Mg/2 Ml Vial) 4 mg IVPUSH Q8H PRN PRN Reason: Nausea and Vomiting Pharmacy Consult (Consult Rx Perform Med Rec) 1 each MISCELLANE ONCE PRN PRN Reason: Consult order Promethazine HCl (Promethazine Hcl 25 Mg Tablet) 12.5 mg PO Q6H PRN PRN Reason: nausea Psyllium Hydrophilic Mucilloid (Psyllium Seed 3.4 Gm Powd.Pack) 3.4 gm PO DAILY [facility] Last Admin: 01/16/23 11:09 Dose: 3.4 gm Documented By: GIOVANNI Sodium Chloride (0.9 % Sodium Chloride Flush 3 Ml Syringe) 3 ml IVFLUSH QSHIFT [facility] Last Admin: 01/16/23 08:49 Dose: 3 ml Documented By: GIOVANNI Labs 01/16/23 05:55 01/16/23 05:55 Labs: Laboratory Results - last 24 hr 01/15/23 01/15/23 01/15/23 10:35 10:55 11:22 MCV MCH MCHC RDW Plt Count MPV Absolute Nucleated RBC Nucleated RBC % (auto) Anion Gap 15 Estim Creat Clear Calc 44.2 Estimated GFR 57 Random Glucose 133 H Lactic Acid Calcium 9.6 Iron TIBC % Saturation Unsat Iron Binding Total Bilirubin 0.3 AST 22 ALT 13 Alkaline Phosphatase 83 Troponin I High Sens B-Natriuretic Peptide 436 H Total Protein 6.5 Albumin 3.3 L Urine Color Yellow Urine Appearance Cloudy Urine pH 5.5 Ur Specific [place] 1.020 Urine Protein 30 (1+) H Urine Glucose (UA) Negative Urine Ketones Trace Urine Blood Negative Urine Nitrite Negative Ur Leukocyte Esterase Large (3+) H Urine RBC 0-2 Urine WBC >50 H Ur Squamous Epith Cells 11-20 Urine Bacteria 1+ Hyaline Casts 3-5 01/15/23 01/15/23 01/16/23 11:58 11:58 05:55 MCV 87.6 MCH 26.2 L MCHC 29.9 L RDW 15.1 Plt Count 248 MPV 10.2 Absolute Nucleated RBC 0.000 Nucleated RBC % (auto) 0.0 Anion Gap Estim Creat Clear Calc Estimated GFR Random Glucose Lactic Acid 1.8 Calcium Iron TIBC % Saturation Unsat Iron Binding Total Bilirubin AST ALT Alkaline Phosphatase Troponin I High Sens 33.4 H B-Natriuretic Peptide Total Protein Albumin Urine Color Urine Appearance Urine pH Ur Specific [place] Urine Protein Urine Glucose (UA) Urine Ketones Urine Blood Urine Nitrite Ur Leukocyte Esterase Urine RBC Urine WBC Ur Squamous Epith Cells Urine Bacteria Hyaline Casts 01/16/23 05:55 MCV MCH MCHC RDW Plt Count MPV Absolute Nucleated RBC Nucleated RBC % (auto) Anion Gap 11 L Estim Creat Clear Calc 50.7 Estimated GFR > 60 Random Glucose 110 Lactic Acid Calcium 9.2 Iron 19 L TIBC 338 % Saturation 6 L Unsat Iron Binding 319 Total Bilirubin 0.3 AST 19 ALT < 5 Alkaline Phosphatase 92 Troponin I High Sens B-Natriuretic Peptide Total Protein 5.9 L Albumin 3.1 L Urine Color Urine Appearance Urine pH Ur Specific [place] Urine Protein Urine Glucose (UA) Urine Ketones Urine Blood Urine Nitrite Ur Leukocyte Esterase Urine RBC Urine WBC Ur Squamous Epith Cells Urine Bacteria Hyaline Casts Assessment and Plan (1) Orthostatic hypotension: Status: Acute (2) Near syncope: Status: Acute (3) Elevated troponin: Status: Acute (4) Acute UTI: Status: Acute (5) Anemia: Status: Acute (6) Physical deconditioning: Status: Acute Plan An 87 years old lady with PMH of Afib s\p Watchmen procedure, CAD, HTN among others who presents to ED with near syncope events. . Near syncope Likely 2/2 postural hypotension , Parkinson, Infection , physical deconditioning increase physical acitivity continue MEtoprolol for now treat infx check orthostatic vitals Elevated trop No ST\T wave changes, no chest pain No Delta change noticed cardiology following [facility] Low iron stores check occult give IV iron UTI pending cultures continue Ceftriaxone Atelactasis Noticed on CXR Incentive spirometry, chest physiotherapy Physical deconditioning PT rec acute rehab parkinsons sinemet CAD statin, beta miguelangel, holding AC Paroxysmal Afib Continue Multaq and Metoprolol On Apixaban DVT PPx Apixaban The patient will need overnight of hospital stay for management of above problems pending safe discharge plan Time Spent With Patient Time: Total time managing care of this patient today ____ minutes. Quality Stroke Does the patient have a stroke diagnosis?: No VTE Prior VTE?: No VTE Risk Level:: Medical - moderate - high VTE Device Contraindication: Treatment Not Indicated VTE Drug Contraindication: N/A - Med Ordered
--- NOTE | 2023-01-16 11:20 | P.CONCA_ITS ---
History of Present Illness History of Present Illness Date of Service: 01/16/23 Requesting physician: Shannan Dutton Chief complaint: Syncope, postural hypotension, UTI Narrative: I was consulted to manage Chantel in cardiology consultation today for syncopal episode. She is 87-year-old female who follows with Dr. Flores for paroxysmal atrial fibrillation CAD. She recently underwent Watchman device placement at [facility] 2 days prior to presentation here for recurrent epistaxis and fall. Post procedure in the hospital she had some orth ostatic symptoms. Shows care for another day. She was then discharged. Yesterday at home while going to the bathroom she initially felt lightheaded. She had to sit down. Then she subsequently got up again to go to the bathroom and got lightheaded and then passed out. She was brought to the emergency room. In the emergency room she was noted to have significant orthostatic hypertension. She was then admitted. Drop in hematocrit noted on admission but this has remained stable. She denies any overt bleeding from any site. She is noted to have UTI and is currently being treated for it. Repeated orthostatic vitals this morning shows improvement in her orthostatic vital signs. She den ies any palpitations. Overnight noted to have brief episodes of atrial fibrillation. Review of Systems Constitutional: Constitutional: Reports body ache(s), Reports chills and Reports weakness Eyes: Eyes: Reports no additional eye complaints Cardiovascular: Cardiovascular: Denies chest pain, Reports lightheadedness, Reports Loss of Consciousness and Denies palpitations Respiratory: Respiratory: Reports no additional respiratory complaints Genitourinary: Genitourinary: Reports no additional female genitourinary complaints Neurologic: Reports weakness Endocrine: Endocrine: Denies palpitations Hematologic/Lymphatic: Hematologic/Lymphatic: Reports no additional hematologic/lymphatic complaints [facility] Past Medical History Medical History (Updated 01/16/23 @ 11:29 by Eamon Garcia MD) Afib Anxiety Arthritis Asthma Atherosclerotic cardiovascular disease CAD (coronary artery disease) Cataract Chiari malformation Depression Essential tremor Fibromyalgia GERD (gastroesophageal reflux disease) H/O small bowel obstruction HLD (hyperlipidemia) HTN (hypertension) Osteoarthritis Paroxysmal atrial fibrillation Family History Family History Mother CAD (coronary artery disease) Surgical History Surgical History H/O heart artery stent History of appendectomy History of back surgery History of cholecystectomy Social History Social History Household Members: None Housing: House Are you a primary reproductive healthcare assistant to a significant other at home: Yes ( is in a wheelchair) Do you presently have visiting nurse or other home services: No Alcohol intake: current Alcohol intake frequency: a few times a week Alcohol type: wine Patient Tobacco Use Status: Never used Tobacco Smoked in Last 30 Days: No Use of substances other than those prescribed or required for medical reasons: No Currently Displaying Signs/Symptoms of Drug Intoxication Withdrawal: No Have you been hit, kicked, punched, or otherwise hurt by someone within the past year? 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 Advance Directives: Yes Advance Directives on File: Yes Advance Directives Date on File: 10/20/21 Do you have thoughts of harming others: None Recently lost weight without trying: No Eating poorly because of decreased appetite: No Nutrition Risks: No Nutritional Risk Patient : No : No service: No Current occupational status: retired Current occupation: right handed Meds Allergies Allergy/AdvReac Type Severity Reaction Status Date / Time No Known Allergies [NKA] Allergy Verified 01/15/23 09:38 Active Medications: Current Medications Acetaminophen (Acetaminophen 325 Mg Tablet) 650 mg PO Q6H PRN PRN Reason: Pain, Mild (Pain Scale 1-3) Albuterol Sulfate (Albuterol Sulfate 90 Mcg 8 Gm Inhaler) 2 puff INHALE QID PRN PRN Reason: Shortness Of Breath Or Wheezing Amiodarone HCl (Amiodarone Hcl 200 Mg Tablet) 200 mg PO DAILY [facility] Last Admin: 01/16/23 08:43 Dose: 200 mg Apixaban (Apixaban 5 Mg Tablet) 5 mg PO BID [facility] Last Admin: 01/16/23 08:44 Dose: 5 mg Ascorbic Acid (Ascorbic Acid 500 Mg Tablet) 500 mg PO DAILY [facility] Last Admin: 01/16/23 08:44 Dose: 500 mg Atorvastatin Calcium (Atorvastatin Calcium 20 Mg Tablet) 20 mg PO DAILY [facility] Last Admin: 01/16/23 08:43 Dose: 20 mg Baclofen (Baclofen 10 Mg Tablet) 10 mg PO BEDTIME [facility] Last Admin: 01/15/23 21:39 Dose: 10 mg Carbidopa/Levodopa (Carbidopa/Levodopa 25/100 Tablet) 2 tab PO TID [facility] Last Admin: 01/16/23 08:49 Dose: 2 tab Fluticasone Propionate (Fluticasone Propionate 100 Mcg Blst.W.Dev) 1 puff INHALE RBID [facility] Last Admin: 01/16/23 07:50 Dose: Not Given Guaifenesin (Guaifenesin La 600 Mg Tab.Er.12h) 600 mg PO BID [facility] Last Admin: 01/16/23 11:09 Dose: 600 mg Ceftriaxone Sodium 1 gm/ (Sodium Chloride) 50 mls @ 100 mls/hr IV Q24H [facility] Last Admin: 01/16/23 11:09 Dose: 100 mls/hr Ferric Sodium Gluconate Complex 125 mg/ Sodium Chloride 110 mls @ 100 mls/hr IV DAILY [facility] Stop: 01/18/23 10:05 Lactulose (Lactulose 20 Gm/30 Ml Solution) 20 gm PO DAILY [facility] Last Admin: 01/16/23 10:42 Dose: Not Given Magnesium Oxide (Magnesium Oxide 400 Mg Tablet) 200 mg PO DAILY [facility] Last Admin: 01/16/23 08:43 Dose: 200 mg Metoprolol Tartrate (Metoprolol Tartrate 12.5 Mg Halftab) 12.5 mg PO BID [facility]; Protocol Last Admin: 01/16/23 08:44 Dose: 12.5 mg Mirtazapine (Mirtazapine 15 Mg Tablet) 15 mg PO BEDTIME [facility] Last Admin: 01/15/23 21:39 Dose: 15 mg Omeprazole (Omeprazole 20 Mg Capsule.Dr) 20 mg PO BID PRN PRN Reason: Acid Reflux Ondansetron HCl (Ondansetron Hcl 4 Mg/2 Ml Vial) 4 mg IVPUSH Q8H PRN PRN Reason: Nausea and Vomiting Pharmacy Consult (Consult Rx Perform Med Rec) 1 each MISCELLANE ONCE PRN PRN Reason: Consult order Promethazine HCl (Promethazine Hcl 25 Mg Tablet) 12.5 mg PO Q6H PRN PRN Reason: nausea Psyllium Hydrophilic Mucilloid (Psyllium Seed 3.4 Gm Powd.Pack) 3.4 gm PO DAILY [facility] Last Admin: 01/16/23 11:09 Dose: 3.4 gm Sodium Chloride (0.9 % Sodium Chloride Flush 3 Ml Syringe) 3 ml IVFLUSH QSHIFT [facility] Last Admin: 01/16/23 08:49 Dose: 3 ml Home Medications Medication Instructions Recorded Confirmed Last Taken Type carbidopa 25 mg-levodopa 100 mg 2 tab PO TID 11/11/20 01/15/23 01/14/23 History tablet omeprazole 20 mg capsule,delayed 1 cap PO BID PRN Acid Reflux 02/10/22 01/15/23 Unknown History release albuterol sulfate 90 mcg/actuation 2 puff inhalation QID PRN 10/27/22 01/15/23 Unknown History aerosol inhaler Shortness Of Breath Or Wheezing apixaban 5 mg tablet (Eliquis) 5 mg PO BID 10/27/22 01/15/23 01/14/23 History fluticasone propionate 110 1 puff inhalation BID 10/27/22 01/15/23 01/14/23 History mcg/actuation HFA aerosol inhaler (Flovent HFA) promethazine 12.5 mg tablet 12.5 mg PO Q6H PRN nausea 10/27/22 01/15/23 Unknown History ascorbic acid (vitamin C) 500 mg 500 mg PO DAILY 01/15/23 01/15/23 01/14/23 History tablet (Vitamin C) diphenhydramine 25 2 tab PO BEDTIME PRN pain / sleep 01/15/23 01/15/23 Unknown History mg-acetaminophen 500 mg tablet (Tylenol PM Extra Strength) magnesium 250 mg tablet 250 mg PO DAILY 01/15/23 01/15/23 01/14/23 History Physical Exam Vital Signs: Vital Signs: Last Vital Signs Temp 99.6 F 01/16/23 07:57 Pulse 90 01/16/23 09:30 Resp 20 01/16/23 07:57 BP 147/68 H 01/16/23 09:30 Pulse Ox 95 01/16/23 07:57 O2 Del Method Room Air 01/16/23 07:57 BMI result Body Mass Index 34.8 Const: General: cooperative, comfortable, no acute distress, alert and awake Nutritional Appearance: obese Orientation/consciousness: patient oriented x3 HEENT: Head: Yes normocephalic and Yes atraumatic Neck: Neck: Yes trachea midline, Yes supple and Yes no JVD Resp: Effort & Inspection: normal respiratory effort Auscultation: clear to auscultation bilaterally Cardio: Jugular venous distension: no JVD Palpation: normal PMI Rate: regular rate Rhythm: regular rhythm Heart sounds: S1 normal heart sound present, S2 normal heart sound present, no click, no gallops and no murmurs GI: Auscultation: normal bowel sounds Skin: General skin exam: no rashes or lesions noted and ecchymosis Neuro: General: patient oriented x3 and no focal motor deficits Extrem: General: Yes no clubbing, cyanosis or edema Objective Labs and Meds 01/16/23 05:55 01/16/23 05:55 Lab results: Laboratory Results - last 24 hr 01/15/23 01/15/23 01/15/23 10:35 11:22 11:58 WBC RBC Hgb Hct MCV MCH MCHC RDW Plt Count MPV Absolute Nucleated RBC Nucleated RBC % (auto) Sodium Potassium Chloride Carbon Dioxide Anion Gap BUN Creatinine Estim Creat Clear Calc Estimated GFR Random Glucose Lactic Acid Calcium Iron TIBC % Saturation Unsat Iron Binding Total Bilirubin AST ALT Alkaline Phosphatase Troponin I High Sens 33.4 H B-Natriuretic Peptide 436 H Total Protein Albumin Urine Color Yellow Urine Appearance Cloudy Urine pH 5.5 Ur Specific [place] 1.020 Urine Protein 30 (1+) H Urine Glucose (UA) Negative Urine Ketones Trace Urine Blood Negative Urine Nitrite Negative Ur Leukocyte Esterase Large (3+) H Urine RBC 0-2 Urine WBC >50 H Ur Squamous Epith Cells 11-20 Urine Bacteria 1+ Hyaline Casts 3-5 01/15/23 01/16/23 01/16/23 11:58 05:55 05:55 WBC 8.9 RBC 3.47 L Hgb 9.1 L Hct 30.4 L MCV 87.6 MCH 26.2 L MCHC 29.9 L RDW 15.1 Plt Count 248 MPV 10.2 Absolute Nucleated RBC 0.000 Nucleated RBC % (auto) 0.0 Sodium 141 Potassium 3.9 Chloride 107 Carbon Dioxide 27 Anion Gap 11 L BUN 19 H Creatinine 0.81 Estim Creat Clear Calc 50.7 Estimated GFR > 60 Random Glucose 110 Lactic Acid 1.8 Calcium 9.2 Iron 19 L TIBC 338 % Saturation 6 L Unsat Iron Binding 319 Total Bilirubin 0.3 AST 19 ALT < 5 Alkaline Phosphatase 92 Troponin I High Sens B-Natriuretic Peptide Total Protein 5.9 L Albumin 3.1 L Urine Color Urine Appearance Urine pH Ur Specific [place] Urine Protein Urine Glucose (UA) Urine Ketones Urine Blood Urine Nitrite Ur Leukocyte Esterase Urine RBC Urine WBC Ur Squamous Epith Cells Urine Bacteria Hyaline Casts Assessment and Plan (1) Syncope: Status: Acute Syncope secondary to orthostatic hypertension. Exact etiology for orthostasis unclear. He she does have a drop in hematocrit but there is no evidence of active bleeding. Hematocrit is stable. She has been getting iron infusion. Orthostasis has improved. Could be related to dehydration from recent procedure and NPO as well as infection. She is currently treated for UTI. Advise adequate oral hydration. (2) Paroxysmal atrial fibrillation: Status: Acute Paroxysmal atrial fibrillation without any recurrent symptomatic atrial fibrillation episode but noted to have with brief episodes of atrial fibrillation on the monitor. Continue amiodarone therapy. Recent Watchman device placement. Continue Eliquis for total of 6 weeks. If she has recurrent significant drop in hematocrit may need to reconsider this. Will sign of the case and follow-up as outpatient. Time Spent With Patient Time: Total time managing care of this patient today ____ minutes. Procedures Date of Service Date of Service: 01/16/23
[2023-01-16] MEDS: Sodium Ferric Gluconat/Sucrose 125 MG in 0.9 % Sodium Chloride 100 ML 100 MG IV (11:44)
[2023-01-16] MEDS: Acetaminophen 325 MG TABLET 650 MG PO (17:24)
[2023-01-16] MEDS: Mirtazapine 15 MG TABLET PO (21:55)
[2023-01-16] MEDS: Baclofen 10 MG TABLET PO (21:59)
[2023-01-16] MEDS: Fluticasone Propionate 100 MCG BLST.W.DEV 1 PUFF INHALE (23:32)
[2023-01-17 03:23] VITALS: BP 130/58; PULSE 69; RESP 18; TEMP 36.3; O2SAT 93
[2023-01-17 07:10] LABS: Hematocrit 31.6 % (37.0-47.0); Hemoglobin 9.3 g/dl (12.0-16.0); Mean Corpuscular HGB Conc 29.4 g/dl (31.0-35.0); Mean Corpuscular Hemoglobin 26.1 pg (27.0-33.0); Mean Corpuscular Volume 88.8 fL (80.0-98.0); Mean Platelet Volume 10.3 fL (9.4-12.3); Platelet Count 268 X10*3/uL (160-400); Red Blood Count 3.56 X10*6/uL (4.20-5.50); Red Cell Distribution Width 15.1 % (11.0-16.0); White Blood Count 7.2 X10*3/uL (4.8-10.8)
[2023-01-17 07:23] LABS: Anion Gap 11 (12-20); Blood Urea Nitrogen 15 mg/dL (9-16); Calcium 9.4 mg/dL (8.4-10.2); Carbon Dioxide 27 mmol/L (22-29); Chloride 108 mmol/L (96-108); Creatinine Clr Calc Pharmacy 51.4; Estimated Glomerular Filt Rate > 60; Glucose Random 106 mg/dL (60-115); Potassium 4.1 mmol/L (3.3-5.1); Sodium 142 mmol/L (135-145)
[2023-01-17 07:38] VITALS: BP 143/69; PULSE 74; RESP 20; TEMP 36.4; O2SAT 95
[2023-01-17] MEDS: Fluticasone Propionate 100 MCG BLST.W.DEV 1 PUFF INHALE (07:47)
[2023-01-17 07:51] VITALS: PULSE 77; RESP 18; O2SAT 95
[2023-01-17] MEDS: Lactulose 20 GM/30 ML SOLUTION PO (09:39)
[2023-01-17] MEDS: 0.9 % Sodium Chloride Flush 3 ML SYRINGE IVFLUSH (09:40)
[2023-01-17] MEDS: Metoprolol Tartrate 12.5 MG HALFTAB PO (09:40)
[2023-01-17] MEDS: Carbidopa/Levodopa 25/100 TABLET 2 TAB PO (09:40)
[2023-01-17] MEDS: Ascorbic Acid 500 MG TABLET PO (09:40)
[2023-01-17] MEDS: Amiodarone HCL 200 MG TABLET PO (09:41)
[2023-01-17] MEDS: Magnesium Oxide 400 MG TABLET 200 MG PO (09:41)
[2023-01-17] MEDS: Atorvastatin Calcium 20 MG TABLET PO (09:41)
[2023-01-17] MEDS: guaiFENesin LA 600 MG TAB.ER.12H PO (09:41)
[2023-01-17] MEDS: Apixaban 5 MG TABLET PO (09:41)
[2023-01-17] MEDS: Acetaminophen 325 MG TABLET 650 MG PO (09:49)
[2023-01-17] MEDS: Sodium Ferric Gluconat/Sucrose 125 MG in 0.9 % Sodium Chloride 100 ML 100 MG IV (10:09)
[2023-01-17] MEDS: Albuterol/Iprat 2.5/0.5MG 3 ML AMPUL.NEB INHALE (11:15)
[2023-01-17 11:16] VITALS: PULSE 82; RESP 18; O2SAT 95
[2023-01-17 11:35] VITALS: BP 160/67; PULSE 80; RESP 20; TEMP 36.7; O2SAT 95
[2023-01-17] MEDS: cefTRIAXone sodium 1 GM in 0.9 % Sodium Chloride 50 ML IV (12:03)
--- NOTE | 2023-01-17 12:24 | PM.DS ---
DS: Providers Provider Date of Service: 01/17/23 Date of admission: 01/15/23 13:29 Primary care physician: Wesley Livingston MD Consults: 01/15/23 13:29 Consult to Cardiology Routine Consulting Provider: [facility] Reason for consultation: postural hypotension, Elevated Trop I DS: Diagnosis Discharge Diagnosis (1) Syncope: Status: Acute (2) Paroxysmal atrial fibrillation: Status: Acute (3) Physical deconditioning: Status: Acute (4) Orthostatic hypotension: Status: Acute (5) Near syncope: Status: Acute (6) Elevated troponin: Status: Acute (7) Acute UTI: Status: Acute DS: Summary Hospital Course Hospital Course: Admission note HPI An 87 years old lady with PMH of Afib s\p Watchmen procedure, CAD, HTN among others who presents to ED with near syncope events. She reports that she had the surgery done Tuesday but she developed orthostatic dizziness and was kept at [facility] until yesterday. This morning she went to the bathroom and upon standing up she felt dizzy, clammy with associated diaphoresis, dyspnea and chest discomfort. She fell and her daughter was near to help her to the floor. Denies any head injury, loss of consciousness or abnormal movements. In ED she was found orthostatic hypotensive upon standing w drop of SBP from 150 to 105. worsened anemia to 9.8 with leukocytosis. Evidence of UTI. Elevated Trop 33-38 with no delta change. Admitted for further eval and treatment. Hospital course # admitted for evaluation of Near syncope which is Likely 2/2 postural hypotension , Parkinson, Infection , physical deconditioning. improved with treating infection and increase physical acitivity. repeat vitals were stable. continue MEtoprolol. # Elevated trop No ST\T wave changes, no chest pain. No Delta change noticed. seen by cardiology who recommended to continue home medications # CHIO Low iron stores. given IV iron. to be discharged on PO Iron # UTI, Treated with Ceftriaxone. Discharge on Ceftin. # Atelactasis Noticed on CXR. Incentive spirometry, chest physiotherapy # Physical deconditioning PT rec rehablitation. Continue your home medications as prescribed Continue antibiotics Iron supplement Metamucil for constipation Follow with cardiology as outpatient as scheduled Time Spent with Patient Time attestation: Total time managing care of this patient today ____ minutes. Discharge coordination time: Greater than 30 minutes Quality: Safe Use of Opioids Does Pt have an Active Cancer Diagnosis on the Problem List?: No Quality: Stroke Does the patient have a stroke diagnosis?: No Physical Exam Vital Signs: Vital Signs: Last Vital Signs Temp 98.0 F 01/17/23 11:35 Pulse 80 01/17/23 11:35 Resp 20 01/17/23 11:35 BP 160/67 H 01/17/23 11:35 Pulse Ox 95 01/17/23 11:35 O2 Del Method Room Air 01/17/23 11:35 BMI result Body Mass Index 34.8 Const: Other: Constitutional : Alert, oriented, not in distress Neck : Normal inspection, Supple Cardiovascular : RRR, no JVP, no lower extremity edema Respiratory : fair bilateral air entry,? no crackles, wheezes or rhonchi Gastrointestinal:? soft, lax, normal bowel sounds, Non tender Skin : Warm, Dry Neurological : Alert & oriented x3, No focal deficit , CN 2-12 within normal DS: Data Data Completed and Pending Labs on day of discharge: Laboratory Results - last 24 hr 01/17/23 01/17/23 06:13 06:13 WBC 7.2 RBC 3.56 L Hgb 9.3 L Hct 31.6 L MCV 88.8 MCH 26.1 L MCHC 29.4 L RDW 15.1 Plt Count 268 MPV 10.3 Absolute Nucleated RBC 0.000 Nucleated RBC % (auto) 0.0 Sodium 142 Potassium 4.1 Chloride 108 Carbon Dioxide 27 Anion Gap 11 L BUN 15 Creatinine 0.80 Estim Creat Clear Calc 51.4 Estimated GFR > 60 Random Glucose 106 Calcium 9.4 Preliminary micro results at discharge 01/15/23 12:05 Blood Culture - Preliminary Blood - Venous No growth after 24 hours. 01/15/23 11:58 Blood Culture - Preliminary Blood - Venous No growth after 24 hours. Imaging Chest x-ray: Radiologist's impression: ITS Impressions Chest X-Ray 01/15/23 10:04 IMPRESSION: Mild curvilinear atelectasis versus scarring in the right midlung. No acute cardiopulmonary process. Discharge Plan Discharge Anticipated Discharge Date/Time: 01/17/23 12:36 Patient Disposition: Xfer SNF Discharge Diagnosis: Near syncope, fall Orthostatic hypotension Referrals: [facility] [Other] - 1 Week Wesley Livingston MD [Primary Care Provider] - 1 Week Discharge Medications: New Metamucil Fiber Singles 3.4 gram Powder In Packet 3.4 g PO DAILY Qty: 90 0RF guaifenesin [Mucinex] 600 mg Tablet Extended Release 12hr 600 mg PO BID Qty: 14 0RF ferrous sulfate 325 mg (65 mg iron) tablet 325 mg PO DAILY Qty: 30 0RF cefuroxime axetil 250 mg tablet 250 mg PO BID Qty: 7 0RF Continued atorvastatin 20 mg tablet 20 mg PO DAILY Qty: 90 3RF metoprolol tartrate 25 mg tablet 12.5 mg PO BID 90 Days Qty: 90 3RF baclofen 10 mg tablet 10 mg PO BEDTIME Qty: 30 1RF mirtazapine 15 mg tablet 15 mg PO BEDTIME Qty: 30 1RF omeprazole 20 mg capsule,delayed release(DR/EC) 1 cap PO BID PRN (Reason: Acid Reflux) ascorbic acid (vitamin C) [Vitamin C] 500 mg Tablet 500 mg PO DAILY magnesium 250 mg Tablet 250 mg PO DAILY diphenhydramine-acetaminophen [Tylenol PM Extra Strength] 25-500 mg Tablet 2 tab PO BEDTIME PRN (Reason: pain / sleep) carbidopa-levodopa 25-100 mg tablet 2 tab PO TID promethazine 12.5 mg tablet 12.5 mg PO Q6H PRN (Reason: nausea) albuterol sulfate 90 mcg/actuation HFA aerosol inhaler 2 puff inhalation QID PRN (Reason: Shortness Of Breath Or Wheezing) fluticasone propionate [Flovent HFA] 110 mcg/actuation HFA aerosol inhaler 1 puff inhalation BID Eliquis 5 mg tablet 5 mg PO BID amiodarone 200 mg tablet 200 mg PO DAILY Qty: 90 3RF Discharge Orders: Discharge Order (Routine); Ordered 01/17/23 Ordered By: Shannan Dutton Diet: Low salt diet Activity on Discharge: As tolerated Stand Alone Forms: Patient Portal Discharge page Care Plan Goals: Read below Health Concerns: Read below Plan of Treatment: Read below Assessment: You were admitted to the hospital for near syncope event with fall. believed to be a result of drop in your blood pressure upon standing, physical deconditioning and urine infection which were treated with good response during your hospital stay. Continue your home medications as prescribed Continue antibiotics Iron supplement Metamucil for constipation Follow with cardiology as outpatient as scheduled
--- NOTE | 2023-01-17 12:31 | MHC.CM.PN ---
Pt medically cleared for D/C for acute rehab, [facility] in [place] was pts first choice, and they were able to offer her a bed today. Transportation set up for 1pm via [facility].
== END 2023-01-17 13:30 | disposition skilled nursing facility (03) | DRG 312 ==
LOC: HO.ED 11:50 → HO.EDOVER 13:37 → HO.IMC 16:06
PROVIDERS: Admitting Provider Student in an Organized Health Care Education/Training Program; Emergency Provider Student in an Organized Health Care Education/Training Program; PCP Internal Medicine; Visit Provider Student in an Organized Health Care Education/Training Program
DX: I95.1 Orthostatic hypotension (principal); N39.0 Urinary tract infection, site not specified; J98.11 Atelectasis; D50.9 Iron deficiency anemia, unspecified; G20 Parkinson's disease; I48.0 Paroxysmal atrial fibrillation; I25.10 Atherosclerotic heart disease of native coronary artery without angina pectoris; Z95.818 Presence of other cardiac implants and grafts; Z79.01 Long term (current) use of anticoagulants; Z79.51 Long term (current) use of inhaled steroids; Z79.899 Other long term (current) drug therapy
CPT/HCPCS: 36415; 71045; 80048; 80053; 81001; 83540; 83605; 83880; 84484; 85025; 85027; 85610; 87040; 87086; 93005; 94640; 97162; 99285; J0696; J2916

== ENCOUNTER → 2023-01-15 09:32 | Outpatient (BNV) | payer MEDICARE, SELFPAY | PROVIDERS: Admitting Provider Student in an Organized Health Care Education/Training Program; Emergency Provider Student in an Organized Health Care Education/Training Program; PCP Internal Medicine; Visit Provider Internal Medicine Cardiovascular Disease | DX: R94.31 Abnormal electrocardiogram [ECG] [EKG] (principal) | CPT/HCPCS: 93010 ==

== ENCOUNTER → 2023-01-15 13:29 | Outpatient (BNV) | payer MEDICARE, SELFPAY | PROVIDERS: Admitting Provider Student in an Organized Health Care Education/Training Program; Emergency Provider Student in an Organized Health Care Education/Training Program; PCP Internal Medicine; Visit Provider Student in an Organized Health Care Education/Training Program | DX: R55 Syncope and collapse (principal); I48.0 Paroxysmal atrial fibrillation; R53.81 Other malaise; R77.8 Other specified abnormalities of plasma proteins; N39.0 Urinary tract infection, site not specified | CPT/HCPCS: 99223; 99233; 99239 ==

== ENCOUNTER → 2023-01-15 13:29 | Outpatient (BNV) | payer MEDICARE, SELFPAY | PROVIDERS: Admitting Provider Student in an Organized Health Care Education/Training Program; Emergency Provider Student in an Organized Health Care Education/Training Program; PCP Internal Medicine; Visit Provider Internal Medicine Cardiovascular Disease | DX: R55 Syncope and collapse (principal); I48.0 Paroxysmal atrial fibrillation | CPT/HCPCS: 99222 ==

== ENCOUNTER → 2023-02-02 12:59 | Outpatient (REF) | payer MEDICARE, SELFPAY ==
--- NOTE | 2023-02-09 07:30 | HM_ITS ---
* Total monitoring time 3 days. * Underlying rhythm is sinus. Average ventricular rate 64/Min. Range 54 to 94/Min. * Rare supraventricular ectopy. * No significant pauses or AV blocks. * Shortness of breath, chest discomfort in diary associated with sinus rhythm. MTDD
== END ==
LOC: HO.CARD 12:59
PROVIDERS: PCP Internal Medicine; Visit Provider Internal Medicine Cardiovascular Disease
DX: I48.0 Paroxysmal atrial fibrillation (principal); I95.1 Orthostatic hypotension
CPT/HCPCS: 93242

== ENCOUNTER → 2023-02-09 07:30 | Outpatient (BNV) | payer MEDICARE, SELFPAY | PROVIDERS: PCP Internal Medicine; Visit Provider Internal Medicine | DX: I47.1 Supraventricular tachycardia (principal) | CPT/HCPCS: 93244 ==

== ENCOUNTER 2023-02-21 09:04 | Outpatient (AMB) | payer MEDICARE, SELFPAY ==
[2023-02-21 09:08] VITALS: BP 140/70; PULSE 72; BMI 32.7
--- NOTE | 2023-02-21 09:08 | MHC.OFFVIS ---
Intake Vital Signs 02/21/23 09:08 Height 5 ft 2 in Weight 178 lb 9.191 oz BMI 32.7 BP 140/70 H Blood Pressure Location Rt brachial Position Sitting Pulse 72 Intake Visit Reasons: f/u after testing Intake Note: f/up after testing felling some s/b erly in the morning Stitcher Tape Controlled Machine Required: No Allergies No Known Allergies [NKA] Allergy (Verified 02/21/23 09:18) HPI f/u after testing HPI Details Cintia is an 87-year-old female with past medical history of hyperlipidemia, hypertension, CAD with LAD stent 2018, paroxysmal atrial fibrillation, epistaxis with anticoagulation who recently underwent Watchman procedure followed by readmit with orthostatic presyncope and UTI. She now presents for follow-up. Today she reports that she has fogginess in her head in the a.m.. She says it takes her a while to wake up and get moving. She has some lightheadedness initially and sits on the edge of the bed until she is ready. She uses a walker in the house. No falls, presyncope, syncope since her hospital discharge. No concerning chest discomfort at rest or with activity. She does have shortness of breath which she notices even sitting here today. She uses her inhalers as directed and tells me they do help. No palpitations, PND, orthopnea or edema. She describes to nose bleeds in recent months. She continues on Eliquis for anticoagulation. She is waiting to hear from [facility] regarding her next echocardiogram. Son is present. [facility] Medical History (Updated 02/21/23 @ 10:53 by TWIN Duarte) Afib Anemia Anxiety Arthritis Asthma Atherosclerotic cardiovascular disease CAD (coronary artery disease) Cataract Chiari malformation Depression Essential tremor Fibromyalgia GERD (gastroesophageal reflux disease) H/O small bowel obstruction HLD (hyperlipidemia) HTN (hypertension) Osteoarthritis Paroxysmal atrial fibrillation Presence of Watchman left atrial appendage closure device Surgical History H/O heart artery stent History of appendectomy History of back surgery History of cholecystectomy Family History Mother CAD (coronary artery disease) Social History Household Members: None Housing: House Are you a primary career consultant to a significant other at home: Yes ( is in a wheelchair) Do you presently have visiting nurse or other home services: No Alcohol intake: current Alcohol intake frequency: a few times a week Alcohol type: wine Patient Tobacco Use Status: Never used Tobacco Advance Directives Date on File: 10/20/21 service: No Current occupational status: retired Current occupation: right handed Review of Systems Const All systems reviewed & are unremarkable except as noted in HPI and below ENT Reports dizziness Card Reports chest pain, Denies chest pain at rest, Denies chest pain with activity, Denies rapid heart rate, Denies pedal edema, Denies edema, Denies leg edema, Denies lightheadedness, Denies palpitations, Denies dyspnea, Reports dyspnea on exertion and Denies orthopnea Resp Denies cough, Denies dyspnea and Reports dyspnea on exertion GI Denies hematochezia and Denies change in stool character Musc Denies abnormal gait, Reports limited range of motion, Reports muscle cramps, Denies muscle weakness, Denies numbness, Denies radiating pain into limb, Denies stiffness and Denies tingling Neuro Denies abnormal gait, Reports dizziness, Denies numbness and Denies tingling Endo Denies palpitations Physical Exam Vital Signs: Last Vital Signs Pulse 72 02/21/23 09:08 BP 140/70 H 02/21/23 09:08 BMI result Body Mass Index 32.7 Const General: cooperative, comfortable and no acute distress Orientation/consciousness: patient oriented x3 Neck Neck: Yes normal visual inspection Resp Effort & Inspection: normal respiratory effort Auscultation: clear to auscultation bilaterally, no crackles, no rales, no rhonchi and no wheezes Cardio Jugular venous distension: no JVD Rate: regular rate Rhythm: regular rhythm Heart sounds: S1 normal heart sound present, S2 normal heart sound present, no gallops, no murmurs and no rubs Neuro General: patient oriented x3 Extrem General: Yes normal to inspection, No no pedal edema and No calf tenderness Psych Appearance: grossly normal Mental Status: mental status grossly normal Speech and movement: Normal speech and movement present Office Procedures EKG Details: Today, read by me, normal sinus rhythm, nonspecific ST abnormality, rate 72, similar to prior EKG, QTC 448 millisecond [id number], Complete Assessment & Plan Assessment & Plan (1) Paroxysmal atrial fibrillation: Code(s): I48.0 - Paroxysmal atrial fibrillation Plan: History of paroxysmal atrial fibrillation. On last visit she was changed from Multaq to amiodarone due to high cost of Multaq. She has not had known recurrent atrial fibrillation since that time. EKG confirms sinus rhythm and normal QTC intervals. Holter monitor done 02/09/2023 for 3 days shows sinus rhythm, average heart rate 64, heart rate range 54 to 94. She continues on amiodarone 200 mg daily. Recent LFTs normal. Will check TSH today with other labs ordered by her PCP. She does report shortness of breath which has been chronic for her. No recent increase in this symptom. She is on Eliquis for anticoagulation and has had issues with epistaxis. She underwent a Watchman device on 01/12/2023 at [facility]. She required readmission to [facility] on 01/15/2023 with presyncopal event at home. She was treated for orthostatic hypotension and UTI. No documented AFib. EKG from today showing sinus rhythm with nonspecific ST abnormality, rate 72, QTC 448 milliseconds. Continue current management. She is calling [facility] today to confirm next echocardiogram. Cardiology follow-up in this office 3 months, sooner if needed (2) Presence of Watchman left atrial appendage closure device: Comment: 01/12/2023 Code(s): Z95.818 - Presence of other cardiac implants and grafts Plan: As above (3) Near syncope: Code(s): R55 - Syncope and collapse Plan: Presyncopal event in days following Watchman device, occurring at home. Noted to have orthostatic drop in blood pressures. Found to have UTI which was treated. Troponins mildly elevated, no change consistent with ACS. EKG showing sinus rhythm. Holter monitor as above did not show any arrhythmia. Last echo 10/21/2021 showed EF 60-65%, moderate mitral calcification, normal valves Doppler. Not orthostatic on examination today. Her med list does include midodrine 2.5 mg t.i.d. Reviewed good hydration, use caution when sitting to standing, use ambulatory assistive devices as needed. (4) Orthostatic hypotension: Code(s): I95.1 - Orthostatic hypotension Plan: As above (5) Atherosclerotic cardiovascular disease: Code(s): I25.10 - Atherosclerotic heart disease of [place] coronary artery without angina pectoris Plan: Stable without report of anginal sounding symptoms. Echocardiogram last year with normal EF. Nuclear stress test 10/22/2021 shows normal myocardial perfusion imaging. She is not on aspirin as she is on Eliquis. Continue atorvastatin with ideal LDL goal less than 70. Continue low-dose metoprolol. Signs and symptoms of angina reviewed (6) Essential hypertension: Code(s): I10 - Essential (primary) hypertension Plan: Recheck done by me 110/62 sitting, 108/60 standing. No med changes made today (7) Hospital discharge follow-up: Code(s): Z09 - Encounter for follow-up examination after completed treatment for conditions other than malignant neoplasm Orders: Orders TSH reflex Free T4 Today I48.0 - Paroxysmal atrial fibrillation Coding Level of Care Code Est Pt Level 4 (70972) Diagnoses Paroxysmal atrial fibrillation I48.0 Presence of Watchman left atrial appendage closure device Z95.818 Near syncope R55 Orthostatic hypotension I95.1 Atherosclerotic cardiovascular disease I25.10 Essential hypertension I10 Hospital discharge follow-up Z09 CPT Codes EKG - CPT: [id number], Complete ([id number]) Time Spent (min) 28 Comment Chart review, documentation, interview assess
== END 2023-02-21 09:46 | disposition home or self-care (01) ==
PROVIDERS: PCP Internal Medicine; Referring Provider Internal Medicine; Visit Provider Nurse Practitioner Family
DX: I48.0 Paroxysmal atrial fibrillation (principal); Z95.818 Presence of other cardiac implants and grafts; I95.1 Orthostatic hypotension; I25.10 Atherosclerotic heart disease of native coronary artery without angina pectoris; I10 Essential (primary) hypertension; Z09 Encounter for follow-up examination after completed treatment for conditions other than malignant neoplasm
CPT/HCPCS: 93010; 99214

== ENCOUNTER 2023-02-21 09:04 | Outpatient (REF) | payer MEDICARE, SELFPAY ==
[2023-02-21 10:06] LABS: MANUAL DIFF FLAG NO
[2023-02-21 10:15] LABS: Basophils Absolute Auto 0.1 X10*3/uL (0.0-0.2); Basophils Percent Auto 0.6 % (0-2); Eosinophils Absolute Auto 0.2 X10*3/uL (0.0-0.4); Eosinophils Percent Auto 1.8 % (0-4); Hematocrit 42.1 % (37.0-47.0); Hemoglobin 12.6 g/dl (12.0-16.0); Imm Gran Abs Auto 0.04 X10*3/uL (0.00-0.03); Imm Gran Pct Auto 0.5 % (0.0-0.4); Lymphocytes Absolute Auto 1.4 X10*3/uL (1.2-4.9); Lymphocytes Percent Auto 15.9 % (20-40); Mean Corpuscular HGB Conc 29.9 g/dl (31.0-35.0); Mean Corpuscular Hemoglobin 27.5 pg (27.0-33.0); Mean Corpuscular Volume 91.9 fL (80.0-98.0); Mean Platelet Volume 9.9 fL (9.4-12.3); Monocytes Absolute Auto 0.6 X10*3/uL (0.1-1.2); Monocytes Percent Auto 6.5 % (2-11); Neutrophils Absolute Auto 6.5 x10*3/uL (2.0-8.3); Neutrophils Percent Auto 74.7 % (45-73); Platelet Count 294 X10*3/uL (160-400); Red Blood Count 4.58 X10*6/uL (4.20-5.50); Red Cell Distribution Width 15.9 % (11.0-16.0); White Blood Count 8.7 X10*3/uL (4.8-10.8)
[2023-02-21 10:41] LABS: Alanine Aminotransferase 9 U/L (0-31); Alkaline Phosphatase 101 U/L (39-117); Anion Gap 13 (12-20); Aspartate Amino Transferase 18 U/L (5-31); Bilirubin Total 0.4 mg/dL (0.0-1.0); Blood Urea Nitrogen 15 mg/dL (9-16); Carbon Dioxide 25 mmol/L (22-29); Chloride 108 mmol/L (96-108); Estimated Glomerular Filt Rate 49; Glucose Random 131 mg/dL (60-115); Iron 46 mcg/dL (30-160); Percent Iron Saturation 13 % (15-50); Potassium 4.2 mmol/L (3.3-5.1); Sodium 142 mmol/L (135-145); Total Iron Binding Capacity 350 mcg/dL (228-428); Total Protein 7.3 g/dL (6.5-8.0); Unsaturated Iron Binding 304 ug/dL
[2023-02-21 11:02] LABS: TSH reflex Free T4 2.69 uIU/mL (0.32-4.0)
== END 2023-02-21 09:05 | disposition home or self-care (01) ==
LOC: HO.LAB 09:04
PROVIDERS: PCP Internal Medicine; Referring Provider Internal Medicine; Visit Provider Nurse Practitioner Family
DX: I48.0 Paroxysmal atrial fibrillation (principal); E78.00 Pure hypercholesterolemia, unspecified; E78.5 Hyperlipidemia, unspecified; I10 Essential (primary) hypertension; I25.10 Atherosclerotic heart disease of native coronary artery without angina pectoris; R55 Syncope and collapse; I95.1 Orthostatic hypotension; Z09 Encounter for follow-up examination after completed treatment for conditions other than malignant neoplasm; Z79.01 Long term (current) use of anticoagulants; Z95.818 Presence of other cardiac implants and grafts
CPT/HCPCS: 36415; 80053; 83540; 84443; 85025; 93005; 99212

== ENCOUNTER 2023-04-20 14:08 | Outpatient (AMB) | payer MEDICARE, SELFPAY ==
--- NOTE | 2023-04-20 14:22 | A.OFFVIS_ITS ---
Intake Vital Signs 04/20/23 14:24 Height 5 ft 2 in Weight 181 lb BMI 33.1 BP 138/82 Blood Pressure Location Rt brachial Position Sitting Pulse 69 Pulse Source Pulse Oximeter Pulse Oximetry (%) 97 Oxygen Delivery Method Room Air Intake Visit Reasons: f/u appt, no botox just regular f/u/Confirmed Intake Note: Pt presents to office for follow up of chronic headaches. She reports she gets headaches 5 of 7 days out the week. She also complains of bilateral hand tremors and numbness that is worsening and recently started having tremors in the face, the jaw in particular. She is now having trouble drinking out of a glass and eating with a fork. She is having difficulty cooking or threading a needle. She c/o excessive thirst all the time. Allergies No Known Allergies [NKA] Allergy (Verified 04/20/23 14:23) Medication List - Last Reconciled 04/20/23 by Katrin Almendarez MD albuterol sulfate 90 mcg/actuation 2 puffs inhalation QID PRN amiodarone 200 mg PO DAILY ascorbic acid (vitamin C) (Vitamin C) 500 mg PO DAILY aspirin 81 mg PO DAILY atorvastatin 20 mg PO DAILY baclofen 10 mg PO BEDTIME carbidopa-levodopa 25-100 mg 2 tabs PO TID cefuroxime axetil 250 mg PO BID clopidogrel (Plavix) 75 mg PO DAILY ferrous sulfate 325 mg PO DAILY fluticasone propionate 110 mcg/actuation (Flovent HFA) 1 puff inhalation BID magnesium 250 mg PO DAILY metoprolol tartrate 12.5 mg (1/2 x 25 mg) PO BID 90 days midodrine 2.5 mg PO BID mirtazapine 15 mg PO BEDTIME omeprazole 1 cap PO BID PRN psyllium husk (aspartame) 3.4 gram (Metamucil Fiber Singles) 3.4 grams PO DAILY HPI HPI Comments 2 History of Present Illness Details 87y/o female comes for follow up of head aches and tremors.she is doing better with baclofen 10mg qhs . she was treated with botox about 6 mths ago and she did not respond so she did not comes for further sessions. Tremors are same.she reports that her hands has tremors and some jerky movement s. Her neck pain and wakes up with headaches almost every day. Mood is stable now. she was found to have orthosttaic hypotension when she was in rehab after her cardiac surgery. Patient is on sinemet 25/100 2tabs tid . Previous history- she has h/o anxiety and depression. she was admitted for failure to thrive related to depression. 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 The tremors are longstanding more than 25 years . Its mostly postural and action. she also has jaw tremors and she was trialed on botox. she was seeing Dr. Pugh for her headaches and tremors she was seen by Dr. Campbell for possible DBS for tremors. Her grandaughter has tremors.she has trouble writing, sowing, drops things, dressing. she was on gabapentin 900mg per day . she had Cervical spine surgery ( discectomy and fusion)( ACDF- C 5C6) [facility] Medical History Presence of Watchman left atrial appendage closure device Anemia Atherosclerotic cardiovascular disease Paroxysmal atrial fibrillation H/O small bowel obstruction Anxiety Depression Essential tremor Osteoarthritis Asthma Fibromyalgia HLD (hyperlipidemia) HTN (hypertension) Chiari malformation Arthritis Cataract CAD (coronary artery disease) GERD (gastroesophageal reflux disease) Afib Surgical History History of cholecystectomy History of back surgery History of appendectomy H/O heart artery stent Family History Mother CAD (coronary artery disease) Social History Household Members: None Housing: House Are you a primary primary care physician to a significant other at home: Yes ( is in a wheelchair) Do you presently have visiting nurse or other home services: No Alcohol intake: current Alcohol intake frequency: a few times a week Alcohol type: wine Patient Tobacco Use Status: Never used Tobacco Advance Directives Date on File: 10/20/21 service: No Current occupational status: retired Current occupation: right handed Physical Exam Vital Signs: Last Vital Signs Pulse 69 04/20/23 14:24 BP 138/82 04/20/23 14:24 Pulse Ox 97 04/20/23 14:24 Oxygen Delivery Method Room Air 04/20/23 14:24 BMI result Body Mass Index 33.1 Const General: cooperative, healthy appearing, comfortable and anxious Nutritional Appearance: overweight Orientation/consciousness: patient oriented x3 HEENT Other: mild lower lip and jaw tremors , voice tremors Steven levator and splenius tightness and tenderness SPasmodic torticollis Head: Yes normal to inspection Eyes Pupils: Equal, round and reactive pupils present Neuro Other: Mild steven postural and action tremors UE General: patient oriented x3 Cranial nerves: Yes Equal, round and reactive pupils present, Yes Bilaterally intact EOM present, Yes Nystagmus not present and Yes Normal facial strength present Cognition (Neuro): normal cognition Gait exam (Neuro): Other gait observations present (slow , small steps, mild stoop) Motor exam (neuro): 5/5 motor strength present throughout, Normal motor muscle tone present throughout and Tremors during motor activity present Coordination: [id number] test normal Psych Affect: Anxious affect present Assessment & Plan Assessment & Plan (1) Tremors of nervous system: Code(s): R25.1 - Tremor, unspecified (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
[2023-04-20 14:24] VITALS: BP 138/82; PULSE 69; O2SAT 97; BMI 33.1
== END 2023-04-20 14:58 | disposition home or self-care (01) ==
PROVIDERS: PCP Internal Medicine; Visit Provider Psychiatry & Neurology Neurology
DX: G24.3 Spasmodic torticollis (principal); R51.9 Headache, unspecified; G89.29 Other chronic pain
CPT/HCPCS: 99214

== ENCOUNTER → 2023-04-20 14:08 | Outpatient (BNVA) | payer MEDICARE, SELFPAY | PROVIDERS: PCP Internal Medicine; Visit Provider Psychiatry & Neurology Neurology | DX: G24.3 Spasmodic torticollis (principal); R51.9 Headache, unspecified; G89.29 Other chronic pain | CPT/HCPCS: 99212 ==

== ENCOUNTER 2023-05-24 15:24 | Outpatient (AMB) | payer MEDICARE, SELFPAY ==
--- NOTE | 2023-05-24 15:33 | A.OFFVIS_ITS ---
Intake Vital Signs 05/24/23 15:34 Height 5 ft 2 in Weight 179 lb 2 oz BMI 32.8 BP 162/82 H Blood Pressure Location Rt brachial Position Sitting Respiration 16 Pulse 64 Pulse Source Pulse Oximeter Pulse Oximetry (%) 96 Oxygen Delivery Method Room Air Intake Visit Reasons: botox (B&B) Conf w/daughter Intake Note: Pt presents to the office for Botox injections. 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: No Allergies No Known Allergies [NKA] Allergy (Verified 05/24/23 15:34) Medication List - Last Reconciled 05/24/23 by Katrin Almendarez MD albuterol sulfate 90 mcg/actuation 2 puffs inhalation QID PRN amiodarone 200 mg PO DAILY ascorbic acid (vitamin C) (Vitamin C) 500 mg PO DAILY aspirin 81 mg PO DAILY atorvastatin 20 mg PO DAILY baclofen 10 mg PO BEDTIME carbidopa-levodopa 25-100 mg 2 tabs PO TID clopidogrel (Plavix) 75 mg PO DAILY ferrous sulfate 325 mg PO DAILY fluticasone propionate 110 mcg/actuation (Flovent HFA) 1 puff inhalation BID magnesium 250 mg PO DAILY metoprolol tartrate 12.5 mg (1/2 x 25 mg) PO BID 90 days midodrine 2.5 mg PO BID mirtazapine 15 mg PO BEDTIME psyllium husk (aspartame) 3.4 gram (Metamucil Fiber Singles) 3.4 grams PO DAILY HPI HPI Comments History of Present Illness Details 87y/o female comes for treatment of her cervical dystonia ? Side effects including spread of toxin effect, dysphagia, breathing difficulties , bronchitis etc was discussed in detail and the patient agreed to the procedure.An informed consent was obtained ??? Botulinum toxin type A 100units X 1 -was diluted with 2 cc of normal saline at a concentration of 25 units in 0.5cc saline. Lot number [id number] expiration 09/2025 ??? Muscles injected ??? Left Splenius - 75units each right splenius 25 units ??? Total used 100 units PFSH Medical History Presence of Watchman left atrial appendage closure device Anemia Atherosclerotic cardiovascular disease Paroxysmal atrial fibrillation H/O small bowel obstruction Anxiety Depression Essential tremor Osteoarthritis Asthma Fibromyalgia HLD (hyperlipidemia) HTN (hypertension) Chiari malformation Arthritis Cataract CAD (coronary artery disease) GERD (gastroesophageal reflux disease) Afib Surgical History History of cholecystectomy History of back surgery History of appendectomy H/O heart artery stent Family History Mother CAD (coronary artery disease) Household Members: None Housing: House Are you a primary critical care transport nurse to a significant other at home: Yes ( is in a wheelchair) Do you presently have visiting nurse or other home services: No Alcohol intake: current Alcohol intake frequency: a few times a week Alcohol type: wine Patient Tobacco Use Status: Never used Tobacco Advance Directives Date on File: 10/20/21 service: No Current occupational status: retired Current occupation: right handed Physical Exam Vital Signs: Last Vital Signs Pulse 64 05/24/23 15:34 Resp 16 05/24/23 15:34 BP 162/82 H 05/24/23 15:34 Pulse Ox 96 05/24/23 15:34 Oxygen Delivery Method Room Air 05/24/23 15:34 BMI result Body Mass Index 32.8 Const General: cooperative, healthy appearing, comfortable and anxious Nutritional Appearance: overweight Orientation/consciousness: patient oriented x3 HEENT Other: mild lower lip and jaw tremors , voice tremors Steven levator and splenius tightness and tenderness SPasmodic torticollis Head: Yes normal to inspection Eyes Pupils: Equal, round and reactive pupils present Neuro Other: Mild steven postural and action tremors UE General: patient oriented x3 Cranial nerves: Yes Equal, round and reactive pupils present, Yes Bilaterally intact EOM present, Yes Nystagmus not present and Yes Normal facial strength present Cognition (Neuro): normal cognition Gait exam (Neuro): Other gait observations present (slow , small steps, mild stoop) Motor exam (neuro): 5/5 motor strength present throughout, Normal motor muscle tone present throughout and Tremors during motor activity present Coordination: [id number] test normal Psych Affect: Anxious affect present Office Procedures Botulinum toxin Injection 32140 - Dystonia Procedure code (CPT) selection complete Office Meds onabotulinumtoxinA 100 unit solution for injection Performing Provider: Katrin Almendarez MD Performing Location: [facility] [place] [facility] Administered by: Katrin Almendarez MD on 05/24/23 16:03 Dose Route Admin Location Dispensed Lot Number Expiration Date 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 100 unit IM 100 units [id number] 09/01/25 1689-2557-71 ALLERGAN/BOTOX Assessment & Plan Assessment & Plan (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 - Spasmodic torticollis (2) Chronic headaches: Comment: cervicogenic in nature Code(s): R51.9 - Headache, unspecified; G89.29 - Other chronic pain (3) Tremors of nervous system: Code(s): R25.1 - Tremor, unspecified Plan Patient tolerated the procedure well She will call with any side effects Orders: Orders AMB Botulinum toxin Injection Today G24.3 - Spasmodic torticollis Coding Level of Care Code Est Pt Level 1 (02572) Diagnoses Spasmodic torticollis G24.3 Chronic headaches R51.9; G89.29 Tremors of nervous system R25.1 CPT Codes Botox Injection - Botox 4: 46304 - Dystonia ([id number])
[2023-05-24 15:34] VITALS: BP 162/82; PULSE 64; RESP 16; O2SAT 96; BMI 32.8
== END 2023-05-24 16:00 | disposition home or self-care (01) ==
PROVIDERS: PCP Internal Medicine; Visit Provider Psychiatry & Neurology Neurology
DX: G24.3 Spasmodic torticollis (principal)
CPT/HCPCS: 64616

== ENCOUNTER → 2023-05-24 15:24 | Outpatient (BNVA) | payer MEDICARE, SELFPAY | PROVIDERS: PCP Internal Medicine; Visit Provider Psychiatry & Neurology Neurology | DX: G24.3 Spasmodic torticollis (principal); R51.9 Headache, unspecified; R25.1 Tremor, unspecified; G89.29 Other chronic pain | CPT/HCPCS: 64616; 99211; J0585 ==

== ENCOUNTER 2023-05-27 12:23 | Outpatient (REF) | payer MEDICARE, SELFPAY ==
[2023-05-27 13:40] LABS: Estimated Average Glucose 126 mg/dL
[2023-05-27 13:56] LABS: Anion Gap 13 (12-20); Blood Urea Nitrogen 18 mg/dL (9-16); Calcium 9.3 mg/dL (8.4-10.2); Carbon Dioxide 25 mmol/L (22-29); Chloride 108 mmol/L (96-108); Estimated Glomerular Filt Rate 49; Glucose Random 116 mg/dL (60-115); Magnesium 2.1 mg/dL (1.6-2.6); Potassium 4.1 mmol/L (3.3-5.1); Sodium 142 mmol/L (135-145)
[2023-05-27 14:01] LABS: Free T4 (Free Thyroxine) 1.12 ng/dL (0.71-1.85); Thyroid Stimulating Hormone 2.23 uIU/mL (0.32-4.0)
== END 2023-05-27 12:24 | disposition home or self-care (01) ==
LOC: HO.LAB 12:23
PROVIDERS: PCP Internal Medicine; Visit Provider Internal Medicine
DX: R73.03 Prediabetes (principal); I48.91 Unspecified atrial fibrillation; G20.C Parkinsonism, unspecified; I12.9 Hypertensive chronic kidney disease with stage 1 through stage 4 chronic kidney disease, or unspecified chronic kidney disease; N18.9 Chronic kidney disease, unspecified; K21.9 Gastro-esophageal reflux disease without esophagitis; R53.83 Other fatigue
CPT/HCPCS: 36415; 80048; 83036; 83735; 84439; 84443

== ENCOUNTER 2023-06-13 13:25 | Outpatient (AMB) | payer MEDICARE, SELFPAY ==
--- NOTE | 2023-06-13 13:26 | A.OFFVIS_ITS ---
Intake Vital Signs 06/13/23 13:32 Height 5 ft 2 in Weight 176 lb 5.917 oz BMI 32.3 BP 136/70 Blood Pressure Location Rt brachial Position Sitting Pulse 59 Intake Visit Reasons: 3 mth f/up Intake Note: 3 month follow up General Service Technician Required: No Accompanied by: Self / Same As Patient Allergies No Known Allergies [NKA] Allergy (Verified 06/13/23 13:33) Medication List - Last Reconciled 06/13/23 by Wilfredo Flores MD albuterol sulfate 90 mcg/actuation 2 puffs inhalation QID PRN amiodarone 200 mg PO DAILY ascorbic acid (vitamin C) (Vitamin C) 500 mg PO DAILY aspirin 81 mg PO DAILY atorvastatin 20 mg PO DAILY baclofen 10 mg PO BEDTIME carbidopa-levodopa 25-100 mg 2 tabs PO TID clopidogrel (Plavix) 75 mg PO DAILY fluticasone propionate 110 mcg/actuation (Flovent HFA) 1 puff inhalation BID magnesium 250 mg PO DAILY metoprolol tartrate 12.5 mg (1/2 x 25 mg) PO BID 90 days midodrine 2.5 mg PO BID mirtazapine 15 mg PO BEDTIME psyllium husk (aspartame) 3.4 gram (Metamucil Fiber Singles) 3.4 grams PO DAILY HPI HPI Comments History of Present Illness Details Cintia returns for follow-up regarding coronary disease as well as paroxysmal atrial fibrillation. From a cardiac standpoint, she does not really have any clear-cut symptoms. Lots of aches and pains and numerous constitutional symptoms including discomfort all over the body. She also feels short of breath essentially all the time. [facility] Medical History Presence of Watchman left atrial appendage closure device Anemia Atherosclerotic cardiovascular disease Paroxysmal atrial fibrillation H/O small bowel obstruction Anxiety Depression Essential tremor Osteoarthritis Asthma Fibromyalgia HLD (hyperlipidemia) HTN (hypertension) Chiari malformation Arthritis Cataract CAD (coronary artery disease) GERD (gastroesophageal reflux disease) Afib Surgical History History of cholecystectomy History of back surgery History of appendectomy H/O heart artery stent Family History Mother CAD (coronary artery disease) Social History Household Members: None Housing: House Are you a primary veterinarian laboratory animal care to a significant other at home: Yes ( is in a wheelchair) Do you presently have visiting nurse or other home services: No Alcohol intake: current Alcohol intake frequency: a few times a week Alcohol type: wine Patient Tobacco Use Status: Never used Tobacco Advance Directives Date on File: 10/20/21 service: No Current occupational status: retired Current occupation: right handed Review of Systems Const Denies weakness ENT Denies dizziness Card Denies chest pain with activity, Denies syncope, Denies rapid heart rate, Denies pedal edema, Denies edema, Denies leg edema, Denies palpitations, Denies dyspnea, Denies dyspnea on exertion and Denies orthopnea Resp Denies cough, Denies dyspnea and Denies dyspnea on exertion GI Denies hematochezia and Denies change in stool character Musc Denies abnormal gait, Denies muscle cramps, Denies muscle weakness, Denies numbness, Denies radiating pain into limb and Denies tingling Neuro Denies abnormal gait, Denies dizziness, Denies syncope, Denies numbness, Denies tingling and Denies weakness Endo Denies palpitations Physical Exam Vital Signs: Last Vital Signs Pulse 59 06/13/23 13:32 BP 136/70 06/13/23 13:32 BMI result Body Mass Index 32.3 Const General: comfortable and no acute distress Orientation/consciousness: patient oriented x3 HEENT Other: Unremarkable Head: Yes normal to inspection Neck Neck: Yes normal visual inspection Chest Chest palpation & inspection: normal inspection of the chest Resp Auscultation: clear to auscultation bilaterally Cardio Palpation: normal PMI Heart sounds: S1 normal heart sound present, S2 normal heart sound present, no gallops, no murmurs and no rubs GI Palpation (GI): Soft to palpation Back/Spine/Pelvis Other: unremarkable Skin General skin exam: no rashes or lesions noted Neuro General: patient oriented x3 Extrem General: Yes normal to inspection Psych Mental Status: mental status grossly normal Office Procedures EKG Details: EKG with sinus bradycardia at 59/Min; nonspecific ST-T changes; [place]. [address]-[id number], Complete Assessment & Plan Assessment & Plan (1) Paroxysmal atrial fibrillation: Code(s): I48.0 - Paroxysmal atrial fibrillation Plan: Currently on amiodarone as Multaq is too expensive. We can decrease the dose to 100 mg daily. Due to recurrent nosebleeds on Eliquis, she underwent Watchman device. Keep Plavix till July or so and then she can stop it completely and just keep on aspirin. (2) Atherosclerotic cardiovascular disease: Code(s): I25.10 - Atherosclerotic heart disease of [place] coronary artery without angina pectoris Plan: History of LAD stenting in 2018. Apart from the treated LAD lesion, there was no significant disease elsewhere. Myocardial perfusion imaging study does not show any ischemia. Echocardiogram with normal LVEF, 60-65%. Continue statins. She is also on a small dose of beta-blockers. No recent angina. Lipids can be followed through her own PCP. (3) Mitral annular calcification: Code(s): I05.9 - Rheumatic mitral valve disease, unspecified Plan: Echocardiogram with moderate mitral annular calcification but no significant valvular dysfunction. No specific interventions for her. (4) Essential hypertension: Code(s): I10 - Essential (primary) hypertension Plan: Stable. Medications: Changed From mirtazapine 15 mg PO BEDTIME 30 tabs 1RF To mirtazapine 15 mg PO BEDTIME Coding Level of Care Code Est Pt Level 4 (98190) Diagnoses Paroxysmal atrial fibrillation I48.0 Atherosclerotic cardiovascular disease I25.10 Mitral annular calcification I05.9 Essential hypertension I10 CPT Codes EKG - CPT: 27060-[id number], Complete ([id number])
[2023-06-13 13:32] VITALS: BP 136/70; PULSE 59; BMI 32.3
== END 2023-06-13 13:55 | disposition home or self-care (01) ==
PROVIDERS: PCP Internal Medicine; Visit Provider Internal Medicine
DX: I48.0 Paroxysmal atrial fibrillation (principal); I25.10 Atherosclerotic heart disease of native coronary artery without angina pectoris; I05.9 Rheumatic mitral valve disease, unspecified; I10 Essential (primary) hypertension
CPT/HCPCS: 93010; 99214

== ENCOUNTER → 2023-06-13 13:25 | Outpatient (BNVA) | payer MEDICARE, SELFPAY | PROVIDERS: PCP Internal Medicine; Visit Provider Internal Medicine | DX: I48.0 Paroxysmal atrial fibrillation (principal); I25.10 Atherosclerotic heart disease of native coronary artery without angina pectoris; I05.9 Rheumatic mitral valve disease, unspecified; I10 Essential (primary) hypertension | CPT/HCPCS: 93005; 99212 ==

== ENCOUNTER 2023-07-03 23:01 | Inpatient (IN) | payer MEDICARE, SELFPAY ==
--- NOTE | ~2023-07-03 | XR_ITS ---
EXAMINATION: XR CHEST CLINICAL INFORMATION: Syncope. COMPARISON: 01/15/2023 TECHNIQUE: Frontal view of the chest was obtained. FINDINGS: The lung volumes are low. The cardiomediastinal silhouette is stable. There is minimal atelectasis or scarring at the left lung base. The lungs are otherwise clear. The bony structures and soft tissues are unremarkable. XR/XR chest 1V IMPRESSION: Low lung volumes with minimal atelectasis or scarring at the left lung base. No definitive active cardiopulmonary disease.
[2023-07-03 23:15] VITALS: PULSE 109; RESP 18; O2SAT 97; BMI 34.0
[2023-07-04] VITALS (8 sets, daily range): BP systolic 133–151; BP diastolic 52–75; PULSE 60–112; RESP 14–20; TEMP 36.1–36.3; O2SAT 96–98; BMI 35.0
--- NOTE | 2023-07-04 00:47 | ECG_ITS ---
Test Reason : syncope Blood Pressure : / mmHG Vent. Rate : 077 BPM Atrial Rate : 077 BPM P-R Int : 144 ms QRS Dur : 078 ms QT Int : 414 ms P-R-T Axes : 031 -02 031 degrees QTc Int : 468 ms Sinus rhythm with Premature supraventricular complexes Otherwise normal ECG When compared with ECG of 15-JAN-2023 09:53, Premature supraventricular complexes are now Present Referred By: Lenore Chen Electronically Signed By:RHETT MARES
[2023-07-04 00:59] LABS: MANUAL DIFF FLAG NO
--- NOTE | 2023-07-04 00:59 | ED_ITS ---
HPI - General Adult General Chief complaint: General Medical Stated complaint: EPISTAXIS Time Seen by Provider: 07/03/23 23:49 Source: patient, family ( daughter) and EMS Mode of arrival: EMS Limitations: no limitations History of Present Illness HPI narrative: 87-year-old female came in by ambulance for evaluation of right nostril bleed, patient declined any trauma to her nose, patient only take Plavix but no other AC. Will trying to apply nasal packing patient passed out for about few minutes, patient regained her consciousness after removing the anterior packing from the right nostril. Related Data Home Medications Medication Instructions Recorded Confirmed carbidopa 25 mg-levodopa 100 mg 2 tab PO TID 11/11/20 06/13/23 tablet albuterol sulfate 90 mcg/actuation 2 puff inhalation QID PRN 10/27/22 06/13/23 aerosol inhaler Shortness Of Breath Or Wheezing fluticasone propionate 110 1 puff inhalation BID 10/27/22 06/13/23 mcg/actuation HFA aerosol inhaler (Flovent HFA) ascorbic acid (vitamin C) 500 mg 500 mg PO DAILY 01/15/23 06/13/23 tablet (Vitamin C) magnesium 250 mg tablet 250 mg PO DAILY 01/15/23 06/13/23 aspirin 81 mg tablet,delayed 81 mg PO DAILY 04/20/23 06/13/23 release clopidogrel 75 mg tablet (Plavix) 75 mg PO DAILY 04/20/23 06/13/23 midodrine 2.5 mg tablet 2.5 mg PO BID 04/20/23 06/13/23 mirtazapine 15 mg tablet 15 mg PO BEDTIME 06/13/23 06/13/23 Previous Rx's Medication Instructions Recorded metoprolol tartrate 25 mg tablet 12.5 mg (1/2 x 25 mg) PO BID 90 08/30/22 days #90 tabs baclofen 10 mg tablet 10 mg PO BEDTIME #30 tabs 10/25/22 psyllium husk (aspartame) 3.4 gram 3.4 g PO DAILY #90 ea 01/17/23 oral powder packet (Metamucil Fiber Singles) atorvastatin 20 mg tablet 20 mg PO DAILY #90 tabs 04/25/23 amiodarone 100 mg tablet 100 mg PO DAILY #30 tabs 06/13/23 Allergies Allergy/AdvReac Type Severity Reaction Status Date / Time No Known Allergies [NKA] Allergy Verified 06/13/23 13:33 Review of Systems 2 Review of Systems: All other systems are reviewed and are negative Constitutional: Reports as per HPI and Reports no additional constitutional complaints Eyes: Reports as per HPI and Reports no additional eye complaints Reports system reviewed and no additional complaints, except as documented Cardiovascular: Reports as per HPI and Reports no additional cardiovascular complaints Respiratory: Reports as per HPI and Reports no additional respiratory complaints Gastrointestinal: Reports as per HPI and Reports no additional gastrointestinal complaints Genitourinary: Reports no additional female genitourinary complaints Musculoskeletal: Reports no additional musculoskeletal complaints Skin/Breast: Reports system reviewed and no additional complaints, except as docu Psychiatric: Reports no additional psychiatric complaints Endocrine: Reports no additional endocrine complaints Hematologic/Lymphatic: Reports no additional hematologic/lymphatic complaints Allergic/Immunologic: Reports no additional allergic/immunologic complaints Reports system reviewed and no additional complaints, except as documented and Reports Abnormal speech present [facility] Past Medical History Medical History (Reviewed 07/04/23 @ 01: by Lenore Chen MD) Presence of Watchman left atrial appendage closure device Anemia Atherosclerotic cardiovascular disease Paroxysmal atrial fibrillation H/O small bowel obstruction Anxiety Depression Essential tremor Osteoarthritis Asthma Fibromyalgia HLD (hyperlipidemia) HTN (hypertension) Chiari malformation Arthritis Cataract CAD (coronary artery disease) GERD (gastroesophageal reflux disease) Afib Surgical History History of cholecystectomy History of back surgery History of appendectomy H/O heart artery stent Family History Family History Mother CAD (coronary artery disease) Social History Social History (Reviewed 07/04/23 @ 01: by Lenore Chen MD) Household Members: None Housing: House Are you a primary manager wound care to a significant other at home: Yes ( is in a wheelchair) Do you presently have visiting nurse or other home services: No Alcohol intake: current Alcohol intake frequency: a few times a week Alcohol type: wine Patient Tobacco Use Status: Never used Tobacco Advance Directives: Yes Advance Directives Information Provided: Yes Advance Directives on File: No Advance Directives Date on File: 10/20/21 service: No Current occupational status: retired Current occupation: right handed Physical Exam ED Vital Signs: Vital Signs - 24 hr 07/03/23 23:15 Pulse Rate 109 H Respiratory Rate 18 Pulse Oximetry 97 Oxygen Delivery Method Room Air BMI result Body Mass Index 34.0 Vital signs have been reviewed and appear to be correct. Blood pressure elevated. Heart rate normal. Respiratory rate normal. Temperature normal. Oxygen saturation normal. Appearance: Alert. Oriented X3. No acute distress. Head: Normal external exam. Normocephalic. Atraumatic. No Silva signs noted. No raccoon eyes noted Eyes: PERRLA. EOMI. Conjunctiva and sclera normal. Eyelids normal. ENT: Right nostril bleed unclear source of bleeding. Neck: Normal inspection. Neck supple. FROM. No adenopathy. Thyroid Normal. No meningeal signs. No neck mass noted. CVS: Normal heart rate and rhythm. Heart sound normal. No murmurs noted. Pulses normal throughout. Respiratory: No respiratory distress. Painless inspiration. Breath sounds normal. No wheezes/rales/rhonchi noted. Chest nontender. No accessory muscle usage noted or decreased air movement noted. Abdomen: Soft and nontender. Bowel sounds normal in all 4 quadrants. No distention noted. No organomegaly noted. No visible injury noted. Back: No CVA tenderness. Full range of motion noted. Skin: Skin warm and dry. Normal skin color. Normal skin turgor. No rashes/lesions/lacerations noted. Extremities: No lower extremity edema. Extremities exhibit normal range of motion. Extremities nontender. Neuro: Oriented X 3. Cranial nerve exam: II-XII are grossly intact No motor deficit. No sensory deficit. Reflexes normal. Course Reevaluation(s) Reevaluation #1: Patient has a 2nd syncopal episode while she is in the emergency department for a few seconds, epistaxis resolved with no more bleeding. Patient declined chest pain. IV access was established IV fluid was administrated labs were ordered and will admit the patient for cardiac monitoring. Time: 01:02 Medical Decision Making Differential Diagnosis Differential Diagnoses: The differential diagnosis associated with the presentation includes ( Epistaxis, coagulopathy, severe anemia, electrolyte abnormality, vasovagal reflex, syncopal episode secondary to cardiac event.) Admission/Observation Consideration of admission/observation: Escalation of care including admission/observation considered Consult Healthcare Provider Management of the patient was discussed with: Hospitalist (Dr. Wen) Lab Data MDM Lab Attestation statement: I reviewed the patient's lab results. 07/04/23 00:07 07/04/23 00:07 Labs: Lab Results 07/04/23 Range/Units 00:07 WBC 10.2 (4.8-10.8) X10*3/uL RBC 4.09 L (4.20-5.50) X10*6/uL Hgb 11.6 L (12.0-16.0) g/dl Hct 37.1 (37.0-47.0) % MCV 90.7 (80.0-98.0) fL MCH 28.4 (27.0-33.0) pg MCHC 31.3 (31.0-35.0) g/dl RDW 14.4 (11.0-16.0) % Plt Count 291 (160-400) X10*3/uL MPV 9.9 (9.4-12.3) fL Immature Gran % (Auto) 0.9 H (0.0-0.4) % Neut % (Auto) 69.4 (45-73) % Lymph % (Auto) 17.9 L (20-40) % [place] % (Auto) 8.8 (2-11) % Eos % (Auto) 2.5 (0-4) % Baso % (Auto) 0.5 (0-2) % Lymph # (Auto) 1.8 (1.2-4.9) X10*3/uL [place] # (Auto) 0.9 (0.1-1.2) X10*3/uL Eos # (Auto) 0.3 (0.0-0.4) X10*3/uL Baso # (Auto) 0.1 (0.0-0.2) X10*3/uL Abs Immat Gran (auto) 0.09 H (0.00-0.03) X10*3/uL Absolute Neuts (auto) 7.1 (2.0-8.3) x10*3/uL Absolute Nucleated RBC 0.000 (0.0-0.012) X10*3/uL Nucleated RBC % (auto) 0.0 (0.0-0.2) /100WBC Sodium 141 (135-145) mmol/L Potassium 3.9 (3.3-5.1) mmol/L Chloride 108 (96-108) mmol/L Carbon Dioxide 21 L (22-29) mmol/L Anion Gap 16 (12-20) BUN 20 H (9-16) mg/dL Creatinine 1.13 (0.5-1.4) mg/dL Estim Creat Clear Calc 33.2 Estimated GFR 46 Random Glucose 195 H (60-115) mg/dL Calcium 9.3 (8.4-10.2) mg/dL Total Bilirubin 0.5 (0.0-1.0) mg/dL Direct Bilirubin 0.2 (0.0-0.5) mg/dL AST 22 (5-31) U/L ALT 18 (0-31) U/L Alkaline Phosphatase 107 (39-117) U/L Troponin I High Sens 4.4 D (<3.5-17.0) ng/L Total Protein 6.6 (6.5-8.0) g/dL Albumin 3.7 (3.5-5.0) g/dL Lipase 11 (8-78) U/L Independent Interpretation I performed an independent interpretation of an: Plain X-Ray ( chest:Low lung volumes with minimal atelectasis or scarring at the left lung base. No definitive active cardiopulmonary disease. ) Radiology Impression Discussion of test interpretation with radiology: I have reviewed the radiologist's reading. Discharge Plan Discharge Clinical Impression: Epistaxis, Syncope and collapse Patient Disposition: Admitted As Inpatient
[2023-07-04 01:00] LABS: Basophils Absolute Auto 0.1 X10*3/uL (0.0-0.2); Basophils Percent Auto 0.5 % (0-2); Eosinophils Absolute Auto 0.3 X10*3/uL (0.0-0.4); Eosinophils Percent Auto 2.5 % (0-4); Hematocrit 37.1 % (37.0-47.0); Hemoglobin 11.6 g/dl (12.0-16.0); Imm Gran Abs Auto 0.09 X10*3/uL (0.00-0.03); Imm Gran Pct Auto 0.9 % (0.0-0.4); Lymphocytes Absolute Auto 1.8 X10*3/uL (1.2-4.9); Lymphocytes Percent Auto 17.9 % (20-40); Mean Corpuscular HGB Conc 31.3 g/dl (31.0-35.0); Mean Corpuscular Hemoglobin 28.4 pg (27.0-33.0); Mean Corpuscular Volume 90.7 fL (80.0-98.0); Mean Platelet Volume 9.9 fL (9.4-12.3); Monocytes Absolute Auto 0.9 X10*3/uL (0.1-1.2); Monocytes Percent Auto 8.8 % (2-11); Neutrophils Absolute Auto 7.1 x10*3/uL (2.0-8.3); Neutrophils Percent Auto 69.4 % (45-73); Platelet Count 291 X10*3/uL (160-400); Red Blood Count 4.09 X10*6/uL (4.20-5.50); Red Cell Distribution Width 14.4 % (11.0-16.0); White Blood Count 10.2 X10*3/uL (4.8-10.8)
--- NOTE | 2023-07-04 01:00 | PC.NURSE ---
while provider was placing rhino rocket in right nostril pt syncopized. she was placed on desk monitor and suction was present. after several minutes, rhino rocket was removed, and pt came too. she admits that she has been having episodes of dizziness at home and this has been occasionally happening. nose clamps placed and pt continues to bleed however it has slowed at approx 1am pt experienced 2nd syncopal episode while in bed. this one only lasted several seconds. nose clamp still in place as nose is still minimally bleeding. IV access established. 1L NS running per verbal from MD. pt remains in normal sinus rhythm on monitor. c/o her chronic aches and pains but nothing new.
[2023-07-04 01:14] LABS: Alanine Aminotransferase 18 U/L (0-31); Albumin Level 3.7 g/dL (3.5-5.0); Alkaline Phosphatase 107 U/L (39-117); Anion Gap 16 (12-20); Aspartate Amino Transferase 22 U/L (5-31); Bilirubin Direct 0.2 mg/dL (0.0-0.5); Bilirubin Total 0.5 mg/dL (0.0-1.0); Blood Urea Nitrogen 20 mg/dL (9-16); Calcium 9.3 mg/dL (8.4-10.2); Carbon Dioxide 21 mmol/L (22-29); Chloride 108 mmol/L (96-108); Creatinine Clr Calc Pharmacy 33.2; Estimated Glomerular Filt Rate 46; Glucose Random 195 mg/dL (60-115); Lipase 11 U/L (8-78); Potassium 3.9 mmol/L (3.3-5.1); Sodium 141 mmol/L (135-145); Total Protein 6.6 g/dL (6.5-8.0)
[2023-07-04 01:20] LABS: Troponin-I High Sensitivity 4.4 ng/L (<3.5-17.0)
[2023-07-04 01:27] LABS: INTERNATIONAL NORM RATIO 1.1 (0.9-1.1); Prothrombin Time 13.2 SEC (11.1-13.3)
[2023-07-04 01:30] LABS: Partial Thromboplastin Time 32.1 SEC (26.0-36.4)
[2023-07-04] MEDS: Midodrine HCl 5 MG TABLET PO (03:12)
--- NOTE | 2023-07-04 06:00 | PC.NURSE ---
pt up to the commode to have BM. lg BM noted. pericare provided. pt assisted back to bed, while sitting back in bed pt states she is lightheaded and became very quiet. this was how she presented prior to syncope the previous 2times here. pt did not syncopize this time. laying in bed comfortable. vital signs stable. pt states the dizziness has resolved.
--- NOTE | 2023-07-04 07:55 | PC.NURSE ---
Patient awake and alert. skin pwd, resp even and non labored. speaking in full, clear sentences. able to make needs known. NSR via tele. 2 assist to bedside commode. patient c/o headache and neck pain which has been ongoing for months. awaiting admission.
--- NOTE | 2023-07-04 08:47 | PHA.MEDREC ---
Pharmacy Consult ? Medication Reconciliation Pharmacy has completed the medication reconciliation. WAS COMPLETED BY RN, BUT UPON REVIEW, NOTICED THAT CLOPIDOGREL WAS MISSING. SPOKE TO PATIENT TO CONFIRM SHE WAS ON IT STILL. PATIENT ALSO TAKES ASPIRIN. OF NOTE, MIDODRINE IS BID CASSIDY
--- NOTE | 2023-07-04 09:12 | PM.IMHP ---
History of Present Illness Date of Service: 07/04/23 Chief Complaint: Epistaxis, syncope , physical deconditioning An 87 years old lady with PMH of Afib s\p Watchmen procedure, Parkinson disease, CAD, HTN, orthostatic hypotension among others who presents to ED with epistaxis, increase weakness. The patient reports that she started to bleed out of no where with no injury or proceudres done recently. the bleeding did not stop on its own and was associated with clots. in ED it was controlled by nasal packing. while applying that she and returned back to consciousness. She reports getting weaker at home and having to spend too long before getting anything achieved. She denies any falls but reports lightheadedness on many occasions. No chest pain, palpitations, SOB, nausea, vomiting, diarrhea or urinary symptoms. Admitted for observation. Review of Systems Review of Systems: No fever, chills but reports weakness No chest pain, palpitation No shortness of breath or coughing No abdominal pain, nausea or vomiting No urinary symptoms Lightheadedness upon standing [facility] Medical History Presence of Watchman left atrial appendage closure device Anemia Atherosclerotic cardiovascular disease Paroxysmal atrial fibrillation H/O small bowel obstruction Anxiety Depression Essential tremor Osteoarthritis Asthma Fibromyalgia HLD (hyperlipidemia) HTN (hypertension) Chiari malformation Arthritis Cataract CAD (coronary artery disease) GERD (gastroesophageal reflux disease) Afib Family History Mother CAD (coronary artery disease) Surgical History History of cholecystectomy History of back surgery History of appendectomy H/O heart artery stent Social History Household Members: None Housing: House Are you a primary 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 care 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 to a significant other at home: Yes ( is in a wheelchair) Do you presently have visiting nurse or other home services: No Alcohol intake: current Alcohol intake frequency: a few times a week Alcohol type: wine Patient Tobacco Use Status: Never used Tobacco Advance Directives: Yes Advance Directives Information Provided: Yes Advance Directives on File: No Advance Directives Date on File: 10/20/21 service: No Current occupational status: retired Current occupation: right handed Meds Allergies Allergy/AdvReac Type Severity Reaction Status Date / Time No Known Allergies [NKA] Allergy Verified 07/04/23 07:05 Active Medications: Current Medications Acetaminophen (Acetaminophen 325 Mg Tablet) 650 mg PO Q6H PRN PRN Reason: Pain, Mild (Pain Scale 1-3) Albuterol Sulfate (Albuterol Sulfate 90 Mcg 8 Gm Inhaler) 2 puff INHALE QID PRN PRN Reason: Shortness Of Breath Or Wheezing Amiodarone HCl (Amiodarone Hcl 200 Mg Tablet) 100 mg PO DAILY [facility] Ascorbic Acid (Ascorbic Acid 500 Mg Tablet) 500 mg PO DAILY [facility] Aspirin (Aspirin Enteric Coated 81 Mg Tablet.Dr) 81 mg PO DAILY [facility] Atorvastatin Calcium (Atorvastatin Calcium 20 Mg Tablet) 20 mg PO DAILY [facility] Baclofen (Baclofen 10 Mg Tablet) 10 mg PO BEDTIME [facility] Carbidopa/Levodopa (Carbidopa/Levodopa 25/100 Tablet) 2 tab PO TID [facility] Clopidogrel Bisulfate (Clopidogrel Bisulfate 75 Mg Tablet) 75 mg PO DAILY [facility] Metoprolol Tartrate (Metoprolol Tartrate 12.5 Mg Halftab) 12.5 mg PO BID [facility]; Protocol Midodrine (Midodrine Hcl 2.5 Mg Tablet) 2.5 mg PO BID [facility] Mirtazapine (Mirtazapine 15 Mg Tablet) 15 mg PO BEDTIME [facility] Non-Formulary Medication (Fluticasone Propionate [Flovent Hfa]) 1 puff INHALE BID [facility] Non-Formulary Medication (Magnesium) 250 mg PO DAILY [facility] Non-Formulary Medication (Psyllium Husk (Aspartame) [Metamucil Fiber Singles]) 3.4 gm PO DAILY [facility] Ondansetron HCl (Ondansetron Hcl 4 Mg/2 Ml Vial) 4 mg IVPUSH Q8H PRN PRN Reason: Nausea and Vomiting Sodium Chloride (0.9 % Sodium Chloride Flush 3 Ml Syringe) 3 ml IVFLUSH QSHIFT [facility] Home Medications Medication Instructions Recorded Confirmed Last Taken Type carbidopa 25 mg-levodopa 100 mg 2 tab PO TID 11/11/20 07/04/23 01/14/23 History tablet albuterol sulfate 90 mcg/actuation 2 puff inhalation QID PRN 10/27/22 07/04/23 Unknown History aerosol inhaler Shortness Of Breath Or Wheezing fluticasone propionate 110 1 puff inhalation BID 10/27/22 07/04/23 01/14/23 History mcg/actuation HFA aerosol inhaler (Flovent HFA) ascorbic acid (vitamin C) 500 mg 500 mg PO DAILY 01/15/23 07/04/23 01/14/23 History tablet (Vitamin C) magnesium 250 mg tablet 250 mg PO DAILY 01/15/23 07/04/23 01/14/23 History aspirin 81 mg tablet,delayed 81 mg PO DAILY 04/20/23 07/04/23 Unknown History release midodrine 2.5 mg tablet 2.5 mg PO BID 04/20/23 07/04/23 Unknown History mirtazapine 15 mg tablet 15 mg PO BEDTIME 06/13/23 07/04/23 Unknown History clopidogrel 75 mg tablet 75 mg PO DAILY 07/04/23 07/04/23 Unknown History Physical Exam Vital Signs and Narrative: Vital Signs: Last Vital Signs Pulse 95 07/04/23 07:54 Resp 20 07/04/23 07:54 BP 151/70 H 07/04/23 07:54 Pulse Ox 98 07/04/23 07:54 O2 Del Method Room Air 07/04/23 07:54 BMI result Body Mass Index 34.0 Const: Other: Constitutional : Awake, interactive, not in distress Neck : Normal inspection, Supple Nose: dry blood on right nostril, no active bleeding Cardiovascular : irregular, no JVP, no lower extremity edema Respiratory : good bilateral air entry, no crackles, wheezes or rhonchi Gastrointestinal: soft, lax, Normal bowel sounds, Non tender Skin : Warm, Dry Neurological : Alert & oriented x3, No focal deficit Results Labs 07/04/23 00:07 07/04/23 00:07 Labs: Laboratory Results - last 24 hr 07/04/23 00:07 MCV 90.7 MCH 28.4 MCHC 31.3 RDW 14.4 Plt Count 291 MPV 9.9 Immature Gran % (Auto) 0.9 H Neut % (Auto) 69.4 Lymph % (Auto) 17.9 L [place] % (Auto) 8.8 Eos % (Auto) 2.5 Baso % (Auto) 0.5 Lymph # (Auto) 1.8 [place] # (Auto) 0.9 Eos # (Auto) 0.3 Baso # (Auto) 0.1 Abs Immat Gran (auto) 0.09 H Absolute Neuts (auto) 7.1 Absolute Nucleated RBC 0.000 Nucleated RBC % (auto) 0.0 PT 13.2 INR 1.1 APTT 32.1 Anion Gap 16 Estim Creat Clear Calc 33.2 Estimated GFR 46 Random Glucose 195 H Calcium 9.3 Total Bilirubin 0.5 Direct Bilirubin 0.2 AST 22 ALT 18 Alkaline Phosphatase 107 Total Protein 6.6 Albumin 3.7 Lipase 11 Imaging Radiologist's Impressions: Impressions Chest X-Ray 07/04/23 01:00 IMPRESSION: Low lung volumes with minimal atelectasis or scarring at the left lung base. No definitive active cardiopulmonary disease. Assessment and Plan (1) Syncope and collapse: Status: Acute (2) Epistaxis: Status: Acute (3) Physical deconditioning: Status: Acute Plan An 87 years old lady with PMH of Afib s\p Watchmen procedure, Parkinson disease, CAD, HTN, orthostatic hypotension among others who presents to ED with epistaxis, increase weakness. Epistaxis Controlled now DC Plavix Resume Aspirin Syncope likely Vasovagal monitored on Tele Physical deconditioning near fall at home, weaker overall, lives alone related to Parkinson disease PT evaluation parkinsons sinemet CAD statin, beta miguelangel, holding AC Paroxysmal Afib Continue Amiodarone and Metoprolol DVT PPx SCDs The patient will likely need >2 overnight hospital stay pending PT evaluation of her worsening weakness and likely need for a safe discharge plan to a facility. Quality Stroke Does the patient have a stroke diagnosis?: No VTE Prior VTE?: No VTE Risk Level:: Medical - moderate - high VTE Device Contraindication: Treatment Not Indicated VTE Drug Contraindication: N/A - Med Ordered
[2023-07-04] MEDS: Acetaminophen 325 MG TABLET 650 MG PO ×2 (10:42→20:05)
[2023-07-04] MEDS: Amiodarone HCL 200 MG TABLET 100 MG PO (10:43)
[2023-07-04] MEDS: Carbidopa/Levodopa 25/100 TABLET 2 TAB PO ×2 (10:43→20:06)
[2023-07-04] MEDS: Aspirin Enteric Coated 81 MG TABLET.DR PO (10:43)
[2023-07-04] MEDS: Midodrine HCl 2.5 MG TABLET PO (10:49)
--- NOTE | 2023-07-04 15:54 | MHC.EDTECH ---
Patient did not want tray for lunch
[2023-07-04] MEDS: Metoprolol Tartrate 12.5 MG HALFTAB PO (20:06)
[2023-07-04] MEDS: 0.9 % Sodium Chloride Flush 3 ML SYRINGE IVFLUSH (20:06)
[2023-07-04] MEDS: Mirtazapine 15 MG TABLET PO (20:06)
[2023-07-04] MEDS: Baclofen 10 MG TABLET PO (20:06)
[2023-07-04] MEDS: Fluticasone Propionate 100 MCG BLST.W.DEV 1 PUFF INHALE (20:29)
[2023-07-05] VITALS (8 sets, daily range): BP systolic 110–158; BP diastolic 54–70; PULSE 62–70; RESP 16–20; TEMP 36.1–36.6; O2SAT 95–98
--- NOTE | 2023-07-05 08:34 | MHC.CM.PN ---
CM met with Patient at bedside and addressed IMM with her, providing Patient with the original and a copy has been placed on the chart. Patient lives alone in am apartment and she uses a walker to assist with mobility. [facility] and she uses a walker to assist with mobility. PT is recommending STR and Patient has given permission for a SNF search ([facility] IS HER FIRST CHOICE). pATIENT'S dAUGHTER/hcp/Jocelyn [place] [facility] [place]
[2023-07-05] MEDS: Ascorbic Acid 500 MG TABLET PO (08:42)
[2023-07-05] MEDS: Carbidopa/Levodopa 25/100 TABLET 2 TAB PO ×2 (08:42→20:26)
[2023-07-05] MEDS: Amiodarone HCL 200 MG TABLET 100 MG PO (08:42)
[2023-07-05] MEDS: Atorvastatin Calcium 20 MG TABLET PO (08:43)
[2023-07-05] MEDS: Metoprolol Tartrate 12.5 MG HALFTAB PO ×2 (08:43→20:26)
[2023-07-05] MEDS: Magnesium Oxide 400 MG TABLET PO (08:43)
[2023-07-05] MEDS: Midodrine HCl 2.5 MG TABLET PO ×2 (08:43→16:09)
[2023-07-05] MEDS: 0.9 % Sodium Chloride Flush 3 ML SYRINGE IVFLUSH ×3 (08:44→23:54)
[2023-07-05] MEDS: Fluticasone Propionate 100 MCG BLST.W.DEV 1 PUFF INHALE ×2 (09:04→20:18)
--- NOTE | 2023-07-05 09:22 | HO.PM.IMPN ---
Subjective Subjective Date of Service: 07/05/23 Interval History: Seen and evaluated this morning Denies any recurrence of Epistaxis Feels weak and near fall when she went to bathroom no other overnight events Review of Systems Review of Systems: Yes all other systems are reviewed and are negative Physical Exam Vital Signs: Vital Signs: Last Vital Signs Temp 97.0 F 07/05/23 07:12 Pulse 63 07/05/23 09:04 Resp 16 07/05/23 09:04 BP 122/61 07/05/23 08:23 Pulse Ox 97 07/05/23 08:23 O2 Del Method Room Air 07/05/23 07:12 BMI result Body Mass Index 35.0 Const: Other: Constitutional : Awake, interactive, not in distress Neck : Normal inspection, Supple Nose: dry blood on right nostril, no active bleeding Cardiovascular : irregular, no JVP, no lower extremity edema Respiratory : good bilateral air entry, no crackles, wheezes or rhonchi Gastrointestinal: soft, lax, Normal bowel sounds, Non tender Skin : Warm, Dry Neurological : Alert & oriented x3, No focal deficit Objective Data Active Medications Acetaminophen (Acetaminophen 325 Mg Tablet) 650 mg PO Q6H PRN PRN Reason: Pain, Mild (Pain Scale 1-3) Last Admin: 07/04/23 20:05 Dose: 650 mg Documented By: GEETA Albuterol Sulfate (Albuterol Sulfate 90 Mcg 8 Gm Inhaler) 2 puff INHALE QID PRN PRN Reason: Shortness Of Breath Or Wheezing Amiodarone HCl (Amiodarone Hcl 200 Mg Tablet) 100 mg PO DAILY [facility] Last Admin: 07/05/23 08:42 Dose: 100 mg Documented By: ZAIRA Ascorbic Acid (Ascorbic Acid 500 Mg Tablet) 500 mg PO DAILY [facility] Last Admin: 07/05/23 08:42 Dose: 500 mg Documented By: ZAIRA Aspirin (Aspirin Enteric Coated 81 Mg Tablet.) 81 mg PO DAILY [facility] Last Admin: 07/04/23 10:43 Dose: 81 mg Documented By: UMER Atorvastatin Calcium (Atorvastatin Calcium 20 Mg Tablet) 20 mg PO DAILY [facility] Last Admin: 07/05/23 08:43 Dose: 20 mg Documented By: ZAIRA Baclofen (Baclofen 10 Mg Tablet) 10 mg PO BEDTIME [facility] Last Admin: 07/04/23 20:06 Dose: 10 mg Documented By: GEETA Carbidopa/Levodopa (Carbidopa/Levodopa 25/100 Tablet) 2 tab PO TID [facility] Last Admin: 07/05/23 08:42 Dose: 2 tab Documented By: ZAIRA Fluticasone Propionate (Fluticasone Propionate 100 Mcg Blst.W.Dev) 1 puff INHALE RBID [facility] Last Admin: 07/05/23 09:04 Dose: 1 puff Documented By: JORGITO Magnesium Oxide (Magnesium Oxide 400 Mg Tablet) 400 mg PO DAILY [facility] Last Admin: 07/05/23 08:43 Dose: 400 mg Documented By: ZAIRA Metoprolol Tartrate (Metoprolol Tartrate 12.5 Mg Halftab) 12.5 mg PO BID [facility]; Protocol Last Admin: 07/05/23 08:43 Dose: 12.5 mg Documented By: ZAIRA Midodrine (Midodrine Hcl 2.5 Mg Tablet) 2.5 mg PO BIDWM [facility] Last Admin: 07/05/23 08:43 Dose: 2.5 mg Documented By: ZAIRA Mirtazapine (Mirtazapine 15 Mg Tablet) 15 mg PO BEDTIME [facility] Last Admin: 07/04/23 20:06 Dose: 15 mg Documented By: GEETA Ondansetron HCl (Ondansetron Hcl 4 Mg/2 Ml Vial) 4 mg IVPUSH Q8H PRN PRN Reason: Nausea and Vomiting Psyllium Hydrophilic Mucilloid (Psyllium Seed 3.7 Gm Packet) 3.7 gm PO DAILY [facility] Last Admin: 07/05/23 08:47 Dose: Not Given Documented By: ZAIRA Non-Admin Reason: Patient Refused Sodium Chloride (0.9 % Sodium Chloride Flush 3 Ml Syringe) 3 ml IVFLUSH QSHIFT [facility] Last Admin: 07/05/23 08:44 Dose: 3 ml Documented By: ZAIRA Labs 07/04/23 00:07 07/04/23 00:07 Assessment and Plan (1) Syncope and collapse: Status: Acute (2) Epistaxis: Status: Acute (3) Physical deconditioning: Status: Acute Plan An 87 years old lady with PMH of Afib s\p Watchmen procedure, Parkinson disease, CAD, HTN, orthostatic hypotension among others who presents to ED with epistaxis, increase weakness. Epistaxis No reported bleeding overnight DC Plavix Resume Aspirin SCDs for DVT PPx Syncope likely Vasovagal , no recurrence monitored on Tele Physical deconditioning near fall at home, weaker overall, lives alone related to Parkinson disease PT evaluation parkinsons sinemet CAD statin, beta miguelangel, holding AC Paroxysmal Afib Continue Amiodarone and Metoprolol DVT PPx SCDs The patient will likely need overnight hospital stay pending PT evaluation of her worsening weakness and likely need for a safe discharge plan to a facility. Quality Stroke Does the patient have a stroke diagnosis?: No VTE Prior VTE?: No VTE Risk Level:: Medical - moderate - high VTE Device Contraindication: Treatment Not Indicated VTE Drug Contraindication: N/A - Med Ordered
[2023-07-05] MEDS: ondansetron HCL 4 MG/2 ML VIAL IVPUSH (16:11)
[2023-07-05] MEDS: Mirtazapine 15 MG TABLET PO (20:26)
[2023-07-05] MEDS: Baclofen 10 MG TABLET PO (20:26)
[2023-07-05] MEDS: Acetaminophen 325 MG TABLET 650 MG PO (23:57)
[2023-07-06] VITALS: BP 119/56; PULSE 63; RESP 17; TEMP 36.4; O2SAT 95
[2023-07-06 03:33] VITALS: BP 104/52; PULSE 62; RESP 18; TEMP 36.7; O2SAT 96
[2023-07-06 07:42] VITALS: BP 109/52; PULSE 58; RESP 18; TEMP 36.6; O2SAT 95
--- NOTE | 2023-07-06 08:00 | PM.PRCOR ---
Brief Operative Note Date of procedure: 07/06/23 Procedure: Right shoulder cortisone injection 1 cc 80mg depomedrol and 8cc 1% plain lido injected into the right subacromial space. Consent obtained from the patient prior to injection. The patient tolerated the procedure well. No complications. Lead Slot Technician: Anni Matamoros Estimated blood loss (mL): 0 IV fluids (mL): 0 Urine output (mL): 0 Pathology: none sent Disposition: floor
[2023-07-06] MEDS: Fluticasone Propionate 100 MCG BLST.W.DEV 1 PUFF INHALE (08:07)
[2023-07-06 08:10] VITALS: PULSE 64; RESP 16; O2SAT 97
[2023-07-06] MEDS: Metoprolol Tartrate 12.5 MG HALFTAB PO (08:54)
[2023-07-06] MEDS: 0.9 % Sodium Chloride Flush 3 ML SYRINGE IVFLUSH ×2 (08:54→14:57)
[2023-07-06] MEDS: Acetaminophen 325 MG TABLET 650 MG PO (08:54)
[2023-07-06] MEDS: Amiodarone HCL 200 MG TABLET 100 MG PO (08:55)
[2023-07-06] MEDS: Midodrine HCl 2.5 MG TABLET PO (08:55)
--- NOTE | 2023-07-06 09:07 | PM.DS ---
DS: Providers Provider Date of Service: 07/06/23 Date of admission: 07/04/23 13:06 Primary care physician: Wesley Livingston MD Consults: 07/05/23 12:09 Consult to Orthopedics Routine Consulting Provider: [facility] Reason for consultation: Right should OA for eval and steroid shot DS: Diagnosis Discharge Diagnosis (1) Syncope and collapse: Status: Acute (2) Epistaxis: Status: Acute (3) Physical deconditioning: Status: Acute DS: Summary Hospital Course Hospital Course: from initial hpi: 87 years old lady with PMH of Afib s\p Watchmen procedure, Parkinson disease, CAD, HTN, orthostatic hypotension among others who presents to ED with epistaxis, increase weakness. The patient reports that she started to bleed out of no where with no injury or proceudres done recently. the bleeding did not stop on its own and was associated with clots. in ED it was controlled by nasal packing. while applying that she and returned back to consciousness. She reports getting weaker at home and having to spend too long before getting anything achieved. She denies any falls but reports lightheadedness on many occasions. No chest pain, palpitations, SOB, nausea, vomiting, diarrhea or urinary symptoms. Admitted for observation. hospital course: Patient was admitted for epistaxis. Bleeding stopped. The Plavix was discontinued. Aspirin was continued. For syncope this was felt to be vasovagal, no events on telemetry. For physical deconditioning was seen by Physical therapy who recommended short-term rehab. For Parkinson's disease was continue on Sinemet. For coronary disease was continue on statin, beta-miguelangel, aspirin. For paroxysmal atrial fibrillation was continue amiodarone and metoprolol. For right shoulder pain received cortisone injection. Patient is feeling better will be discharged to short-term rehab. Time Attestation Discharge coordination time: Greater than 30 minutes Quality: Safe Use of Opioids Does Pt have an Active Cancer Diagnosis on the Problem List?: No Quality: Stroke Does the patient have a stroke diagnosis?: No Physical Exam Vital Signs: Vital Signs: Last Vital Signs Temp 97.9 F 07/06/23 07:42 Pulse 64 07/06/23 08:10 Resp 16 07/06/23 08:10 BP 109/52 L 07/06/23 07:42 Pulse Ox 95 07/06/23 07:42 O2 Del Method Room Air 07/06/23 07:42 BMI result Body Mass Index 35.0 Const: Other: Constitutional : Awake, interactive, not in distress Neck : Normal inspection, Supple Nose: dry blood on right nostril, no active bleeding Cardiovascular : irregular, no JVP, no lower extremity edema Respiratory : good bilateral air entry, no crackles, wheezes or rhonchi Gastrointestinal: soft, lax, Normal bowel sounds, Non tender Skin : Warm, Dry Neurological : Alert & oriented x3, No focal deficit Discharge Plan Discharge Anticipated Discharge Date/Time: 07/06/23 09:04 Patient Disposition: Xfer SNF Discharge Diagnosis: epistaxis, syncope Referrals: Wesley Livingston MD [Primary Care Provider] - 1 Week Discharge Medications: Continued metoprolol tartrate 25 mg tablet 12.5 mg PO BID 90 Days Qty: 90 3RF baclofen 10 mg tablet 10 mg PO BEDTIME Qty: 30 1RF atorvastatin 20 mg tablet 20 mg PO DAILY Qty: 90 3RF amiodarone 100 mg tablet 100 mg PO DAILY Qty: 30 11RF Rx Instructions: New dose of 100 mg daily (100 mg tablet - no need to cut) ascorbic acid (vitamin C) [Vitamin C] 500 mg Tablet 500 mg PO DAILY magnesium 250 mg Tablet 250 mg PO DAILY Metamucil Fiber Singles 3.4 gram Powder In Packet 3.4 g PO DAILY Qty: 90 0RF carbidopa-levodopa 25-100 mg tablet 2 tab PO TID albuterol sulfate 90 mcg/actuation HFA aerosol inhaler 2 puff inhalation QID PRN (Reason: Shortness Of Breath Or Wheezing) fluticasone propionate [Flovent HFA] 110 mcg/actuation HFA aerosol inhaler 1 puff inhalation BID aspirin 81 mg tablet,delayed release (DR/EC) 81 mg PO DAILY midodrine 2.5 mg tablet 2.5 mg PO BID Rx Instructions: do not give last dose of day after 6PM or within 4 hrs of bedtime mirtazapine 15 mg tablet 15 mg PO BEDTIME Discontinued clopidogrel 75 mg tablet 75 mg PO DAILY Discharge Orders: Discharge Order (Routine); Ordered 07/06/23 Ordered By: Dontae Chance Diet: Advance to usual diet Activity on Discharge: As tolerated Stand Alone Forms: Patient Portal Discharge page Care Plan Goals: recovery Health Concerns: epistaxis Plan of Treatment: holding plavix, conitnue rehab at snf Assessment: see above
--- NOTE | 2023-07-06 10:32 | MHC.CM.PN ---
pt to be dcd to [facility] today at 4
[2023-07-06 15:16] VITALS: BP 122/58; PULSE 76; RESP 20; TEMP 36.4; O2SAT 95
--- NOTE | 2023-07-13 15:22 | P.CDIM_ITS ---
PROVIDER RESPONSE TEXT: To clarify, the appropriate diagnosis supported by the clinical indicators: Other (explain): hemorrhage from dual antiplatelets QUERY TEXT: PHYSICIAN'S DOCUMENTATION REQUEST Date of Query: 07/05/2023 01:30 PM EST Patient Name: Cintia Gandhi Admit Date: 07/04/2023 Dear Shannan Dutton, A review of the medical record indicates additional documentation may be needed. Please review below and update the documentation accordingly. 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 Please use your independent medical judgment in providing your response. THIS QUERY IS PART OF THE PERMANENT MEDICAL RECORD
== END 2023-07-06 18:15 | disposition skilled nursing facility (03) | DRG 813 ==
LOC: HO.ED 07-04 01:05 → HO.EDOVER 07-04 09:20 → HO.IMC 07-04 15:16 → HO.S3 07-05 17:53
PROVIDERS: Admitting Provider Student in an Organized Health Care Education/Training Program; Emergency Provider Emergency Medicine; PCP Internal Medicine; Visit Provider Internal Medicine
DX: D68.32 Hemorrhagic disorder due to extrinsic circulating anticoagulants (principal); R04.0 Epistaxis; T45.525A Adverse effect of antithrombotic drugs, initial encounter; I48.0 Paroxysmal atrial fibrillation; T39.015A Adverse effect of aspirin, initial encounter; R55 Syncope and collapse; M25.511 Pain in right shoulder; I25.10 Atherosclerotic heart disease of native coronary artery without angina pectoris; G20.A1 Parkinson's disease without dyskinesia, without mention of fluctuations; Z95.818 Presence of other cardiac implants and grafts; Z79.02 Long term (current) use of antithrombotics/antiplatelets; Z79.51 Long term (current) use of inhaled steroids; Z79.82 Long term (current) use of aspirin; Z79.899 Other long term (current) drug therapy
CPT/HCPCS: 36415; 71045; 80048; 80076; 83690; 84484; 85025; 85610; 85730; 93005; 94640; 97162; 99222; 99285; J2405

== ENCOUNTER → 2023-07-04 00:47 | Outpatient (BNV) | payer MEDICARE, SELFPAY | PROVIDERS: Admitting Provider Student in an Organized Health Care Education/Training Program; Emergency Provider Emergency Medicine; Visit Provider Internal Medicine | DX: R55 Syncope and collapse (principal); I49.3 Ventricular premature depolarization | CPT/HCPCS: 93010 ==

== ENCOUNTER → 2023-07-04 13:06 | Outpatient (BNV) | payer MEDICARE, SELFPAY | PROVIDERS: Admitting Provider Student in an Organized Health Care Education/Training Program; Emergency Provider Emergency Medicine; PCP Internal Medicine; Visit Provider Physician Assistant | DX: M25.511 Pain in right shoulder (principal) | CPT/HCPCS: 20610 ==

== ENCOUNTER → 2023-07-04 13:06 | Outpatient (BNV) | payer MEDICARE, SELFPAY | PROVIDERS: Admitting Provider Student in an Organized Health Care Education/Training Program; Emergency Provider Emergency Medicine; Visit Provider Student in an Organized Health Care Education/Training Program | DX: R55 Syncope and collapse (principal); R04.0 Epistaxis; R53.81 Other malaise | CPT/HCPCS: 99222; 99232; 99239 ==

== ENCOUNTER 2023-08-31 12:25 | Outpatient (REF) | payer MEDICARE, SELFPAY ==
--- NOTE | ~2023-08-31 | XR_ITS ---
EXAMINATION: XR THORACIC SPINE, LUMBAR SPINE CLINICAL INFORMATION: Back pain. COMPARISON: TECHNIQUE: 3 views of the cervical spine, 3 views of the lumbar spine. FINDINGS: LUMBAR SPINE: Degenerative changes in the bilateral sacroiliac joints, greater on the left. Redemonstration of postsurgical changes at L4-L5 with bilateral rods and transpedicular screws as well as interdisc device. Hardware appears intact. Degenerative changes with moderate loss of disc space height in the remainder of the lumbar spine. THORACIC SPINE: The bones are diffusely demineralized. Moderate multilevel degenerative changes in the thoracic spine. Mild rightward curvature of the thoracic spine. Limited images of the cervical spine demonstrate anterior fusion hardware at C5-C6, difficult to assess due to limited imaging overlying bony structures. Cervical spine CT scan of 07/10/2022 better demonstrated ACDF hardware at C5-C6. XR/XR thoracic spine 3V IMPRESSION: 1. Postsurgical changes at L4-L5. Hardware appears intact. 2. Moderate multilevel degenerative changes in the thoracic spine. 3. Limited images of the cervical spine demonstrate anterior fusion hardware at C5-C6, difficult to assess due to limited imaging overlying bony structures. Cervical spine CT scan of 07/10/2022 better demonstrated ACDF hardware at C5-C6.
--- NOTE | ~2023-08-31 | XR_ITS ---
EXAMINATION: XR THORACIC SPINE, LUMBAR SPINE CLINICAL INFORMATION: Back pain. COMPARISON: TECHNIQUE: 3 views of the cervical spine, 3 views of the lumbar spine. FINDINGS: LUMBAR SPINE: Degenerative changes in the bilateral sacroiliac joints, greater on the left. Redemonstration of postsurgical changes at L4-L5 with bilateral rods and transpedicular screws as well as interdisc device. Hardware appears intact. Degenerative changes with moderate loss of disc space height in the remainder of the lumbar spine. THORACIC SPINE: The bones are diffusely demineralized. Moderate multilevel degenerative changes in the thoracic spine. Mild rightward curvature of the thoracic spine. Limited images of the cervical spine demonstrate anterior fusion hardware at C5-C6, difficult to assess due to limited imaging overlying bony structures. Cervical spine CT scan of 07/10/2022 better demonstrated ACDF hardware at C5-C6. XR/XR lumbar spine 2-3V IMPRESSION: 1. Postsurgical changes at L4-L5. Hardware appears intact. 2. Moderate multilevel degenerative changes in the thoracic spine. 3. Limited images of the cervical spine demonstrate anterior fusion hardware at C5-C6, difficult to assess due to limited imaging overlying bony structures. Cervical spine CT scan of 07/10/2022 better demonstrated ACDF hardware at C5-C6.
[2023-08-31 12:44] LABS: MANUAL DIFF FLAG NO
[2023-08-31 13:14] LABS: Basophils Percent Auto 0.5 % (0-2); Eosinophils Absolute Auto 0.2 X10*3/uL (0.0-0.4); Eosinophils Percent Auto 3.7 % (0-4); Hematocrit 39.4 % (37.0-47.0); Hemoglobin 11.7 g/dl (12.0-16.0); Imm Gran Abs Auto 0.05 X10*3/uL (0.00-0.03); Imm Gran Pct Auto 0.8 % (0.0-0.4); Lymphocytes Absolute Auto 1.1 X10*3/uL (1.2-4.9); Lymphocytes Percent Auto 16.6 % (20-40); Mean Corpuscular HGB Conc 29.7 g/dl (31.0-35.0); Mean Platelet Volume 10.1 fL (9.4-12.3); Monocytes Absolute Auto 0.6 X10*3/uL (0.1-1.2); Monocytes Percent Auto 9.4 % (2-11); Neutrophils Absolute Auto 4.5 x10*3/uL (2.0-8.3); Platelet Count 260 X10*3/uL (160-400); Red Blood Count 4.33 X10*6/uL (4.20-5.50); Red Cell Distribution Width 14.8 % (11.0-16.0); White Blood Count 6.6 X10*3/uL (4.8-10.8)
[2023-08-31 13:51] LABS: Alanine Aminotransferase < 5 U/L (0-31); Albumin Level 3.8 g/dL (3.5-5.0); Alkaline Phosphatase 103 U/L (39-117); Anion Gap 9 (12-20); Aspartate Amino Transferase 23 U/L (5-31); Bilirubin Total 0.4 mg/dL (0.0-1.0); Blood Urea Nitrogen 16 mg/dL (9-16); C Reactive Protein < 0.10 mg/dL (< or = 0.50); Calcium 9.3 mg/dL (8.4-10.2); Carbon Dioxide 29 mmol/L (22-29); Chloride 105 mmol/L (96-108); Estimated Glomerular Filt Rate > 60; Glucose Random 112 mg/dL (60-115); Lipase 12 U/L (8-78); Potassium 4.4 mmol/L (3.3-5.1); Sodium 139 mmol/L (135-145); Total Protein 6.9 g/dL (6.5-8.0)
[2023-08-31 14:08] LABS: Thyroid Stimulating Hormone 1.26 uIU/mL (0.32-4.0)
== END 2023-08-31 12:26 | disposition home or self-care (01) ==
LOC: HO.LAB 12:25
PROVIDERS: PCP Internal Medicine; Visit Provider Internal Medicine
DX: M54.50 Low back pain, unspecified (principal); R53.83 Other fatigue; K21.9 Gastro-esophageal reflux disease without esophagitis; K58.9 Irritable bowel syndrome, unspecified; I12.9 Hypertensive chronic kidney disease with stage 1 through stage 4 chronic kidney disease, or unspecified chronic kidney disease; N18.9 Chronic kidney disease, unspecified; Z91.81 History of falling; G20.A1 Parkinson's disease without dyskinesia, without mention of fluctuations
CPT/HCPCS: 36415; 72072; 72100; 80053; 83690; 83735; 84443; 85025; 86140

== ENCOUNTER 2023-09-13 13:48 | Outpatient (AMB) | payer MEDICARE, SELFPAY ==
--- NOTE | 2023-09-13 13:49 | MHC.OFFVIS ---
Intake Vital Signs 09/13/23 13:55 Height 5 ft Weight 172 lb BMI 33.6 BP 160/70 H Blood Pressure Location Lt brachial Position Sitting Pulse 68 Pulse Source Pulse Oximeter Pulse Oximetry (%) 97 Oxygen Delivery Method Room Air Intake Visit Reasons: Back Pain with (R) SI Pain (per referral) Intake Note: Pain today 8/10 Sap Fico Architect Required: No Accompanied by: Daughter Allergies No Known Allergies [NKA] Allergy (Verified 09/13/23 13:54) HPI Back Pain with (R) SI Pain (per referral) HPI Details Patient is a pleasant 88 years old female with prior history of L4-L5 lumbar surgery with bilateral rods, transpedicular screws and interdisc device, ACDF at C5-C6, cervical dystonia, osteoarthritis, fibromyalgia, s/p Watchman procedure ([facility] [place], 01/2023) presents today for initial evaluation for chronic lower back pain with radicular symptoms. She is accompanied by her daughter Jonelle who has worked for [employer] as RN for many years. Patient and family reports multiple falls with minor injuries due to syncopal episodes. She is being evaluated by Cardiology and her PCP for this, as well has had several ER visits per EMR review. Back pain is axial and also radiates into her sacral areas and lateral hips, worse on the right side. She reports tightness in her right posterior thigh but no radiation of pain below knee level bilaterally. Pain is constant and ranges from 8-10/10 during most activities and movements and 4/10 at rest. Pain affects her daily activities, functioning, sleep, social activities, mood and quality of life. Family reports patient's appetite has been decreasing lately. Patient reports her pain is intractable and has been resistant to conservative treatments, including PT. She avoids NSAIDs due to recent history of anticoagulation with Eliquis and currently on daily Aspirin for Afib. She receives Botox injections for cervical dystonia by Dr. Almendarez. Denies any fever, abdominal or groin pain, dizziness, shortness of breath, bladder or bowel incontinence or saddle anesthesia. Location Lower back, radiates down sacral areas and right leg Duration Chronic pain, worsening for past 1 year Characteristics of symptom or complaint Stabbing, sharp, aching, sore, constant Aggravating or associated factors Standing, bending, walking, prolonged sitting, changing positions Relieving factors Tylenol, lidocaine patch, heating pad, resting, activity modifications Treatment PT- made pain worse. H/o back surgery and back injections [facility] Medical History Presence of Watchman left atrial appendage closure device Anemia Atherosclerotic cardiovascular disease Paroxysmal atrial fibrillation H/O small bowel obstruction Anxiety Depression Essential tremor Osteoarthritis Asthma Fibromyalgia HLD (hyperlipidemia) HTN (hypertension) Chiari malformation Arthritis Cataract CAD (coronary artery disease) GERD (gastroesophageal reflux disease) Afib Surgical History History of cholecystectomy History of back surgery History of appendectomy H/O heart artery stent Family History Mother CAD (coronary artery disease) Social History Household Members: None Housing: Assisted Living Facility Are you a primary health careers instructor to a significant other at home: Yes ( is in a wheelchair) Do you presently have visiting nurse or other home services: No Alcohol intake: current Alcohol intake frequency: a few times a week Alcohol type: wine Patient Tobacco Use Status: Never used Tobacco Advance Directives Date on File: 10/20/21 service: No Current occupational status: retired Current occupation: right handed Review of Systems Const All systems reviewed & are unremarkable except as noted in HPI and below Physical Exam Vital Signs: Last Vital Signs Pulse 68 09/13/23 13:55 BP 160/70 H 09/13/23 13:55 Pulse Ox 97 09/13/23 13:55 Oxygen Delivery Method Room Air 09/13/23 13:55 BMI result Body Mass Index 33.6 General: Appears afebrile. No acute distress. Alert and oriented. Not confused. Mood and affect appropriate. Pleasant. Follows and participates in conversation appropriately. Respiratory effort is unlabored. No cough. Able to transition from sit to stand with assistance. Uses walker. Ambulates with bilaterally normal heel strike and toe off. Back/Spine/Pelvis Other: Limited lumbar ROM due to pain. Antalgic gait with mild limping. Can flex forward to 55-65 degrees and extend to 5-10 degrees before experiencing lumbar pain. Demonstrates 4/5 strength of quadriceps bilaterally as well as flexion/dorsiflexion of bilateral feet against resistance. 2+ pedal pulses bilaterally. Seated straight leg rise with dorsiflexion negative bilaterally. Diminished patellar and achilles reflexes bilaterally. Facet loading test positive bilaterally. Iker sign, Jayden?s, Gaenslen, Pelvic compression and Stinchfield tests are positive bilaterally, right>left. No groin pain with I/E hip rotations. Cervical Spine: cervical muscular tenderness, pain with cervical ROM, Cervical spine scars present and No Cervical spine tenderness Thoracic/Lumbar Spine: thoracic and lumbar spine normal to inspection, Thoracic/lumbar spine scar(s), Lasegue's sign negative, straight leg raise negative bilaterally, pain with thoraco-lumbar ROM, paraspinal muscle tenderness, thoraco-lumbar ROM limited, No thoracic spinal tenderness and lumbar spinal tenderness (L3-S1) Pelvis: buttock tenderness bilaterally Sacroiliac joints: bilaterally tender to palpation Results Reviewed Results Reviewed: XR THORACIC SPINE, LUMBAR SPINE 08/31/23 FINDINGS: LUMBAR SPINE: Degenerative changes in the bilateral sacroiliac joints, greater on the left. Redemonstration of postsurgical changes at L4-L5 with bilateral rods and transpedicular screws as well as interdisc device. Hardware appears intact. Degenerative changes with moderate loss of disc space height in the remainder of the lumbar spine. THORACIC SPINE: The bones are diffusely demineralized. Moderate multilevel degenerative changes in the thoracic spine. Mild rightward curvature of the thoracic spine. Limited images of the cervical spine demonstrate anterior fusion hardware at C5-C6, difficult to assess due to limited imaging overlying bony structures. Cervical spine CT scan of 07/10/2022 better demonstrated ACDF hardware at C5-C6. IMPRESSION: 1. Postsurgical changes at L4-L5. Hardware appears intact. 2. Moderate multilevel degenerative changes in the thoracic spine. 3. Limited images of the cervical spine demonstrate anterior fusion hardware at C5-C6, difficult to assess due to limited imaging overlying bony structures. Cervical spine CT scan of 07/10/2022 better demonstrated ACDF hardware at C5-C6. CT/CT abdomen pelvis w IV con 05/12/22 OSSEOUS STRUCTURES: There is L4-L5 disc prosthesis stabilized with posterior hardware. No aggressive lytic or sclerotic process seen. There is vacuum degeneration L5-S1 disc level. Assessment & Plan Assessment & Plan (1) Sacroiliac joint pain: Code(s): M53.3 - Sacrococcygeal disorders, not elsewhere classified (2) Lumbar degenerative disc disease: Code(s): M51.36 - Other intervertebral disc degeneration, lumbar region (3) Postlaminectomy syndrome: Code(s): M96.1 - Postlaminectomy syndrome, not elsewhere classified (4) Lumbosacral spondylosis: Code(s): M47.817 - Spondylosis without myelopathy or radiculopathy, lumbosacral region Plan Recent spine imaging reviewed with patient and family. Discussed interventional treatments for axial low back pain with facetogenic and sacroiliac joint pain components. Patient's chronic back pain is function and mobility limiting and has been resistant to conservative treatments. Schedule Bilateral Therapeutic Sacroiliac Joint injections with local and fluoroscopy, and oral Ativan per patient's request. Expectations, risks and benefits were reviewed. Patient is aware she will be contacted to schedule this procedure. Patient is on anticoagulation (Aspirin) and instructions given on when to pause with prescribing physician permission. All questions were answered and the patient is in agreement of plan. Follow-up after injections and sooner as needed. Medications: New food supplemt, lactose-reduced (Ensure Original oral liquid) 1 ea PO DAILY 30 days 30 ea 1RF daily nutrition supplement Coding Level of Care Code New Pt Level 4 (81269) Diagnoses Sacroiliac joint pain M53.3 Lumbar degenerative disc disease M51.36 Postlaminectomy syndrome M96.1 Lumbosacral spondylosis M47.817
[2023-09-13 13:55] VITALS: BP 160/70; PULSE 68; O2SAT 97; BMI 33.6
== END 2023-09-13 14:44 | disposition home or self-care (01) ==
PROVIDERS: PCP Internal Medicine; Referring Provider Internal Medicine; Visit Provider Nurse Practitioner Family
DX: M53.3 Sacrococcygeal disorders, not elsewhere classified (principal); M51.36 Other intervertebral disc degeneration, lumbar region; M96.1 Postlaminectomy syndrome, not elsewhere classified; M47.817 Spondylosis without myelopathy or radiculopathy, lumbosacral region
CPT/HCPCS: 99204; 99214

== ENCOUNTER → 2023-09-13 13:48 | Outpatient (BNVA) | payer MEDICARE, SELFPAY | PROVIDERS: PCP Internal Medicine; Referring Provider Internal Medicine; Visit Provider Nurse Practitioner Family | DX: M53.3 Sacrococcygeal disorders, not elsewhere classified (principal); M51.36 Other intervertebral disc degeneration, lumbar region; M96.1 Postlaminectomy syndrome, not elsewhere classified; M47.817 Spondylosis without myelopathy or radiculopathy, lumbosacral region | CPT/HCPCS: 99202 ==

== ENCOUNTER 2023-09-29 12:24 | Outpatient (AMB) | payer MEDICARE, SELFPAY ==
--- NOTE | 2023-09-29 12:28 | MHC.OFFVIS ---
Intake Vital Signs 09/29/23 12:29 Height 5 ft Weight 172 lb BMI 33.6 BP 122/70 Blood Pressure Location Rt brachial Position Sitting Respiration 16 Pulse 63 Pulse Source Pulse Oximeter Pulse Oximetry (%) 97 Oxygen Delivery Method Room Air Intake Visit Reasons: Botox (B&B)-CONF Intake Note: Pt presents to the office for Botox injections. Program Checker Required: No Allergies No Known Allergies [NKA] Allergy (Verified 09/29/23 12:29) Medication List - Last Reconciled 09/29/23 by Katrin Almendarez MD albuterol sulfate 90 mcg/actuation 2 puffs inhalation QID PRN amiodarone 100 mg PO DAILY ascorbic acid (vitamin C) (Vitamin C) 500 mg PO DAILY aspirin 81 mg PO DAILY atorvastatin 20 mg PO DAILY baclofen 10 mg PO BEDTIME carbidopa-levodopa 25-100 mg 2 tabs PO TID 90 days fluticasone propionate 110 mcg/actuation (Flovent HFA) 1 puff inhalation BID food supplemt, lactose-reduced (Ensure Original oral liquid) 1 ea PO DAILY 30 days magnesium 250 mg PO DAILY metoprolol tartrate 12.5 mg (1/2 x 25 mg) PO BID 90 days midodrine 2.5 mg PO BID mirtazapine 15 mg PO BEDTIME psyllium husk (aspartame) 3.4 gram (Metamucil Fiber Singles) 3.4 grams PO DAILY HPI HPI Comments History of Present Illness Details 88y/o female comes for treatment of her cervical dystonia ? Side effects including spread of toxin effect, dysphagia, breathing difficulties , bronchitis etc was discussed in detail and the patient agreed to the procedure.An informed consent was obtained ??? Botulinum toxin type A 100units X 1 -was diluted with 2 cc of normal saline at a concentration of 25 units in 0.5cc saline. Lot number [id number] expiration 11/2025 ??? Muscles injected ??? Left Splenius - 50units each right splenius 50 units ??? Total used 100 units PFSH Medical History Presence of Watchman left atrial appendage closure device Anemia Atherosclerotic cardiovascular disease Paroxysmal atrial fibrillation H/O small bowel obstruction Anxiety Depression Essential tremor Osteoarthritis Asthma Fibromyalgia HLD (hyperlipidemia) HTN (hypertension) Chiari malformation Arthritis Cataract CAD (coronary artery disease) GERD (gastroesophageal reflux disease) Afib Surgical History History of cholecystectomy History of back surgery History of appendectomy H/O heart artery stent Family History Mother CAD (coronary artery disease) Social History Household Members: None Housing: Assisted Living Facility Are you a primary acute care physician to a significant other at home: Yes ( is in a wheelchair) Do you presently have visiting nurse or other home services: No Alcohol intake: current Alcohol intake frequency: a few times a week Alcohol type: wine Patient Tobacco Use Status: Never used Tobacco Advance Directives Date on File: 10/20/21 service: No Current occupational status: retired Current occupation: right handed Physical Exam Vital Signs: Last Vital Signs Pulse 63 09/29/23 12:29 Resp 16 09/29/23 12:29 BP 122/70 09/29/23 12:29 Pulse Ox 97 09/29/23 12:29 Oxygen Delivery Method Room Air 09/29/23 12:29 BMI result Body Mass Index 33.6 Const General: cooperative, healthy appearing, comfortable and anxious Nutritional Appearance: overweight Orientation/consciousness: patient oriented x3 HEENT Other: mild lower lip and jaw tremors , voice tremors Steven levator and splenius tightness and tenderness SPasmodic torticollis Head: Yes normal to inspection Eyes Pupils: Equal, round and reactive pupils present Neuro Other: Mild steven postural and action tremors UE General: patient oriented x3 Cranial nerves: Yes Equal, round and reactive pupils present, Yes Bilaterally intact EOM present, Yes Nystagmus not present and Yes Normal facial strength present Cognition (Neuro): normal cognition Gait exam (Neuro): Other gait observations present (slow , small steps, mild stoop) Motor exam (neuro): 5/5 motor strength present throughout, Normal motor muscle tone present throughout and Tremors during motor activity present Coordination: [id number] test normal Psych Affect: Anxious affect present Office Procedures Botulinum toxin Injection 87606 - Dystonia Procedure code (CPT) selection complete Office Meds onabotulinumtoxinA 100 unit solution for injection Performing Provider: Katrin Almendarez MD Performing Location: [facility] [place] [facility] Administered by: Katrin Almendarez MD on 09/29/23 12:52 Dose Route Admin Location Dispensed Lot Number Expiration Date [facility] English [employer] 100 unit IM 100 units [id number] 11/01/25 2246-0204-71 [employer] Comments: see HPI Assessment & Plan Assessment & Plan (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 - Spasmodic torticollis (2) Chronic headaches: Comment: cervicogenic in nature Code(s): R51.9 - Headache, unspecified; G89.29 - Other chronic pain (3) Tremors of nervous system: Code(s): R25.1 - Tremor, unspecified Plan Patient tolerated the procedure well She will call with any side effects Orders: Orders AMB Botulinum toxin Injection Today G24.3 - Spasmodic torticollis Medications: Changed From carbidopa-levodopa 25-100 mg 2 tabs PO TID To carbidopa-levodopa 25-100 mg 2 tabs PO TID 540 tabs 6RF 90 days Coding Level of Care Code Est Pt Level 1 (69216) Diagnoses Spasmodic torticollis G24.3 Chronic headaches R51.9; G89.29 Tremors of nervous system R25.1 CPT Codes Botox Injection - Botox 4: 15079 - Dystonia ([id number])
[2023-09-29 12:29] VITALS: BP 122/70; PULSE 63; RESP 16; O2SAT 97; BMI 33.6
== END 2023-09-29 14:03 | disposition home or self-care (01) ==
PROVIDERS: PCP Internal Medicine; Visit Provider Psychiatry & Neurology Neurology
DX: G24.3 Spasmodic torticollis (principal)
CPT/HCPCS: 64616

== ENCOUNTER → 2023-09-29 12:24 | Outpatient (BNVA) | payer MEDICARE, SELFPAY | PROVIDERS: PCP Internal Medicine; Visit Provider Psychiatry & Neurology Neurology | DX: G24.3 Spasmodic torticollis (principal); R51.9 Headache, unspecified; G89.29 Other chronic pain | CPT/HCPCS: 64616; 99211; J0585 ==

== ENCOUNTER 2023-10-11 06:09 | Outpatient (REF) | payer MEDICARE, SELFPAY ==
--- NOTE | ~2023-10-11 | FL_ITS ---
EXAMINATION: XR FLUOROSCOPY WITH IMAGES CLINICAL INFORMATION: Bilateral sacrococcygeal disorders. COMPARISON: CT abdomen and pelvis dated 05/20/2022. TECHNIQUE: Fluoroscopy Supervised By: Dr. Hi Hernandes. Fluoroscopy Time: 0.2 minutes. Cumulative Dose: 3.41 mGy. DAP: 0.595 Gycm2. Images: 2. FINDINGS: The submitted images show injection needles and injected contrast in the vicinity of the bilateral sacroiliac joints. FL/FL guidance in treatment room IMPRESSION: Intraoperative fluoroscopic guidance is provided during bilateral sacroiliac joint pain management procedure. Please see the patient's Operative Report for full procedural details.
== END 2023-10-11 06:10 | disposition home or self-care (01) ==
LOC: CF 06:09
PROVIDERS: Visit Provider Anesthesiology
DX: M53.3 Sacrococcygeal disorders, not elsewhere classified (principal); M51.36 Other intervertebral disc degeneration, lumbar region; M96.1 Postlaminectomy syndrome, not elsewhere classified; M47.817 Spondylosis without myelopathy or radiculopathy, lumbosacral region
CPT/HCPCS: 27096; J2795; J3301; Q9967

== ENCOUNTER 2023-10-11 08:56 | Outpatient (AMB) | payer MEDICARE, SELFPAY ==
[2023-10-11 09:07] VITALS: BP 114/60; PULSE 59; RESP 14; O2SAT 95
--- NOTE | 2023-10-11 09:07 | A.OFFVIS_ITS ---
Intake Vital Signs 10/11/23 09:07 10/11/23 09:51 BP 114/60 140/70 H Blood Pressure Location Lt brachial Lt brachial Position Sitting Sitting Respiration 14 14 Pulse 59 61 Pulse Source Pulse Oximeter Pulse Oximeter Pulse Oximetry (%) 95 95 Oxygen Delivery Method Room Air Room Air Intake Visit Reasons: BILATERAL THERAPEUTIC SIJ INJECTIONS Allergies No Known Allergies [NKA] Allergy (Verified 10/11/23 09:07) PFSH Medical History Presence of Watchman left atrial appendage closure device Anemia Atherosclerotic cardiovascular disease Paroxysmal atrial fibrillation H/O small bowel obstruction Anxiety Depression Essential tremor Osteoarthritis Asthma Fibromyalgia HLD (hyperlipidemia) HTN (hypertension) Chiari malformation Arthritis Cataract CAD (coronary artery disease) GERD (gastroesophageal reflux disease) Afib Surgical History History of cholecystectomy History of back surgery History of appendectomy H/O heart artery stent Family History Mother CAD (coronary artery disease) Social History Household Members: None Housing: Assisted Living Facility Are you a primary child care lead 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 to a significant other at home: Yes ( is in a wheelchair) Do you presently have visiting nurse or other home services: No Alcohol intake: current Alcohol intake frequency: a few times a week Alcohol type: wine Patient Tobacco Use Status: Never used Tobacco Advance Directives Date on File: 10/20/21 service: No Current occupational status: retired Current occupation: right handed Physical Exam Vital Signs: Last Vital Signs Pulse 61 10/11/23 09:51 Resp 14 10/11/23 09:51 BP 140/70 H 10/11/23 09:51 Pulse Ox 95 10/11/23 09:51 Oxygen Delivery Method Room Air 10/11/23 09:51 Assessment & Plan Assessment & Plan (1) Sacroiliac joint pain: Code(s): M53.3 - Sacrococcygeal disorders, not elsewhere classified Plan: Bilateral therapeutic Sacroiliac joint injection. Informed consent was explained thoroughly to the patient.? All questions about benefits and risks for the procedure were answered. Patient came to the operating room and was positioned prone on the operating table with the pillow under the pelvis.? The lower back and buttocks of the patient were prepped with ChloraPrep prepped and draped with sterile utility towels.? Sterilely draped C-arm was brought over the operating field and sq picture of patient's pelvis was demonstrated on the screen.? For each joint tilting C-arm contralateral to the site of the joint the most posterior portion of the joints was superimposed with anterior silhouette of the joint.? Skin was injected in the projection of the joint slightly medial to the location of the joint with 25 gauge 1/2 inch needle using local lidocaine 2% . After that 22 gauge 3 and 1/2 inch needle was driven to the right and the left joint in tunnel vision fashion.? When needle entered the joint capsule injection of the contrast was performed demonstrating intra-articular and minimally periarticular spread of the contrast.? After that 4 cc. of ropivacaine 0.5% mixed with Kenalog 20 mg was injected into each joint.? Upon completion of the injections the needles were removed and pressure were applied.? Sterile dressing was applied.? Upon completion of the injection patient was taken outside of the operating room to the recovery room where recovered uneventfully. (2) Lumbar degenerative disc disease: Code(s): M51.36 - Other intervertebral disc degeneration, lumbar region (3) Postlaminectomy syndrome: Code(s): M96.1 - Postlaminectomy syndrome, not elsewhere classified (4) Lumbosacral spondylosis: Code(s): M47.817 - Spondylosis without myelopathy or radiculopathy, lumbosacral region Plan Recent spine imaging reviewed with patient and family. Discussed interventional treatments for axial low back pain with facetogenic and sacroiliac joint pain components. Patient's chronic back pain is function and mobility limiting and has been resistant to conservative treatments. Schedule Bilateral Therapeutic Sacroiliac Joint injections with local and fluoroscopy, and oral Ativan per patient's request. Expectations, risks and benefits were reviewed. Patient is aware she will be contacted to schedule this procedure. Patient is on anticoagulation (Aspirin) and instructions given on when to pause with prescribing physician permission. All questions were answered and the patient is in agreement of plan. Follow-up after injections and sooner as needed. Orders: Orders FL guidance in treatment room 10/11/23 M53.3 - Sacrococcygeal disorders, not elsewhere classified Coding Level of Care Code Procedure Only Diagnoses Sacroiliac joint pain M53.3 Lumbar degenerative disc disease M51.36 Postlaminectomy syndrome M96.1 Lumbosacral spondylosis M47.817
[2023-10-11 09:51] VITALS: BP 140/70; PULSE 61; RESP 14; O2SAT 95
== END 2023-10-11 09:52 | disposition home or self-care (01) ==
LOC: HO.PMCPRC 08:56
PROVIDERS: PCP Internal Medicine; Visit Provider Anesthesiology
DX: M53.3 Sacrococcygeal disorders, not elsewhere classified (principal)
CPT/HCPCS: 27096

== ENCOUNTER 2023-11-08 11:39 | Outpatient (AMB) | payer MEDICARE, SELFPAY ==
--- NOTE | 2023-11-08 11:46 | A.OFFVIS_ITS ---
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 Hernandes. Patient reports ongoing 90-100% pain relief in the projections of lower back, sacral areas and lateral hips areas. She reports improvement in her daily functioning and sleep. Patient did arrive in wheelchair today due to frequent episodes of dizziness and shortness of breath. Family reports patient has follow-up with her PCP this afternoon for further evaluation and blood work. Patient reports increased levels of stress due to moving and has decreased appetite. Overall, patient is content with outcome of therapeutic injections and will continue monitor the longevity of steroidal effects for the next few months. She rates her pain at 0/10. Denies any recent cough, cold, infection, fever, any significant changes in her medical history, medications or recent hospitalizations. Past Procedures: 10/11/23: Bilateral Therapeutic SIJ [id number] ongoing pain relief PRIOR: Patient is a pleasant 88 years old female with prior history of L4-L5 lumbar surgery with bilateral rods, transpedicular screws and interdisc device, ACDF at C5-C6, cervical dystonia, osteoarthritis, fibromyalgia, [place] [place] presents today for initial evaluation for chronic lower back pain with radicular symptoms. She is accompanied by her daughter Jonelle who has worked for [employer] as RN for many years. Patient and family reports multiple falls with minor injuries due to syncopal episodes. She is being evaluated by Cardiology and her PCP for this, as well has had several ER visits per EMR review. Back pain is axial and also radiates into her sacral areas and lateral hips, worse on the right side. She reports tightness in her right posterior thigh but no radiation of pain below knee level bilaterally. Pain is constant and ranges from 8-10/10 during most activities and movements and 4/10 at rest. Pain affects her daily activities, functioning, sleep, social activities, mood and quality of life. Family reports patient's appetite has been decreasing lately. Patient reports her pain is intractable and has been resistant to conservative treatments, including PT. She avoids NSAIDs due to recent history of anticoagulation with Eliquis and currently on daily Aspirin for Afib. She receives Botox injections for cervical dystonia by Dr. Almendarez. Denies any fever, abdominal or groin pain, dizziness, shortness of breath, bladder or bowel incontinence or saddle anesthesia. Location Lower back, radiates down sacral areas and right leg Duration Chronic pain, worsening for past 1 year Characteristics of symptom or complaint Stabbing, sharp, aching, sore, constant Aggravating or associated factors Standing, bending, walking, prolonged sitting, changing positions Relieving factors Tylenol, lidocaine patch, heating pad, resting, activity modifications Treatment PT- made pain worse. H/o back surgery and back injections [facility] Medical History Presence of Watchman left atrial appendage closure device Anemia Atherosclerotic cardiovascular disease Paroxysmal atrial fibrillation H/O small bowel obstruction Anxiety Depression Essential tremor Osteoarthritis Asthma Fibromyalgia HLD (hyperlipidemia) HTN (hypertension) Chiari malformation Arthritis Cataract CAD (coronary artery disease) GERD (gastroesophageal reflux disease) Afib Surgical History History of cholecystectomy History of back surgery History of appendectomy H/O heart artery stent Family History Mother CAD (coronary artery disease) Social History Household Members: None Housing: Assisted Living Facility Are you a primary emergency care tech to a significant other at home: Yes ( is in a wheelchair) Do you presently have visiting nurse or other home services: No Alcohol intake: current Alcohol intake frequency: a few times a week Alcohol type: wine Patient Tobacco Use Status: Never used Tobacco Advance Directives Date on File: 10/20/21 service: No Current occupational status: retired Current occupation: right handed Review of Systems Const All systems reviewed & are unremarkable except as noted in HPI and below Reports as per HPI, Denies body aches, Denies chills, Denies difficulty sleeping, Reports fatigue, Denies fever(s), Denies headache(s), Reports lethargy, Denies malaise, Denies night sweats, Reports poor appetite, Reports weakness and Reports weight loss ENT Denies headache(s) Card Denies chest pain with activity, Denies claudication, Reports lightheadedness, Denies palpitations and Reports dyspnea on exertion Resp Denies chest congestion, Denies cough, Denies pain on inspiration, Reports dyspnea on exertion and Denies wheezing Neuro Denies headache(s) and Reports weakness Endo Reports fatigue and Denies palpitations Aller/Immun Denies wheezing Physical Exam Vital Signs: Last Vital Signs Pulse 70 11/08/23 11:50 Resp 14 11/08/23 11:50 BP 135/62 11/08/23 11:50 Pulse Ox 96 11/08/23 11:50 Oxygen Delivery Method Room Air 11/08/23 11:50 BMI result Body Mass Index 33.6 General: Appears afebrile. No acute distress. Alert and oriented. Mood and affect appropriate. Pleasant. Follows and participates in conversation appropriately. Respiratory effort is unlabored. No cough. Able to transition from sit to stand with assistance. Sitting comfortably in wheelchair. Resp Effort & Inspection: normal respiratory effort, able to speak in complete sentences, no cough, no respiratory distress and symmetric chest movement Results Reviewed Results Reviewed: XR THORACIC SPINE, LUMBAR SPINE 08/31/23 FINDINGS: LUMBAR SPINE: Degenerative changes in the bilateral sacroiliac joints, greater on the left. Redemonstration of postsurgical changes at L4-L5 with bilateral rods and transpedicular screws as well as interdisc device. Hardware appears intact. Degenerative changes with moderate loss of disc space height in the remainder of the lumbar spine. THORACIC SPINE: The bones are diffusely demineralized. Moderate multilevel degenerative changes in the thoracic spine. Mild rightward curvature of the thoracic spine. Limited images of the cervical spine demonstrate anterior fusion hardware at C5-C6, difficult to assess due to limited imaging overlying bony structures. Cervical spine CT scan of 07/10/2022 better demonstrated ACDF hardware at C5-C6. IMPRESSION: 1. Postsurgical changes at L4-L5. Hardware appears intact. 2. Moderate multilevel degenerative changes in the thoracic spine. 3. Limited images of the cervical spine demonstrate anterior fusion hardware at C5-C6, difficult to assess due to limited imaging overlying bony structures. Cervical spine CT scan of 07/10/2022 better demonstrated ACDF hardware at C5-C6. CT/CT abdomen pelvis w IV con 05/12/22 OSSEOUS STRUCTURES: There is L4-L5 disc prosthesis stabilized with posterior hardware. No aggressive lytic or sclerotic process seen. There is vacuum degeneration L5-S1 disc level. Assessment & Plan Assessment & Plan (1) Postlaminectomy syndrome: Code(s): M96.1 - Postlaminectomy syndrome, not elsewhere classified Category: Medical (2) Sacroiliac joint pain: Code(s): M53.3 - Sacrococcygeal disorders, not elsewhere classified Category: Medical (3) Lumbosacral spondylosis: Code(s): M47.817 - Spondylosis without myelopathy or radiculopathy, lumbosacral region Category: Medical Plan Patient is 1 month status post bilateral therapeutic sacroiliac joint injections with good results. Reports improvement in her ADLs, mobility and sleep. Patient has follow-up with your PCP this afternoon regarding new onset of dizziness, shortness of breath, generalized weakness and poor appetite with some weight loss per family. She utilizes W/C and walker for transfers and mobility. Patient reports good family support system. Patient will continue to monitor therapeutic effects of steroid injections and notify our office when her pain returns to baseline. All questions and concerns have been answered and patient agreed with the plan. Follow-up as needed. Coding Level of Care Code Est Pt Level 3 (60722) Diagnoses Postlaminectomy syndrome M96.1 Sacroiliac joint pain M53.3 Lumbosacral spondylosis M47.817
[2023-11-08 11:50] VITALS: BP 135/62; PULSE 70; RESP 14; O2SAT 96; BMI 33.6
== END 2023-11-08 12:23 | disposition home or self-care (01) ==
PROVIDERS: PCP Internal Medicine; Visit Provider Nurse Practitioner Family
DX: M96.1 Postlaminectomy syndrome, not elsewhere classified (principal); M53.3 Sacrococcygeal disorders, not elsewhere classified; M47.817 Spondylosis without myelopathy or radiculopathy, lumbosacral region
CPT/HCPCS: 99213

== ENCOUNTER → 2023-11-08 11:39 | Outpatient (BNVA) | payer MEDICARE, SELFPAY | PROVIDERS: PCP Internal Medicine; Visit Provider Nurse Practitioner Family | DX: M96.1 Postlaminectomy syndrome, not elsewhere classified (principal); M53.3 Sacrococcygeal disorders, not elsewhere classified; M47.817 Spondylosis without myelopathy or radiculopathy, lumbosacral region; Z98.890 Other specified postprocedural states | CPT/HCPCS: 99212 ==

== ENCOUNTER 2023-11-12 20:10 | Emergency (ER) | payer MEDICARE, SELFPAY ==
--- NOTE | 2023-11-12 | ECG_ITS ---
Test Reason : WEAKNESS Blood Pressure : / mmHG Vent. Rate : 100 BPM Atrial Rate : 100 BPM P-R Int : 164 ms QRS Dur : 088 ms QT Int : 380 ms P-R-T Axes : 048 -25 053 degrees QTc Int : 490 ms Normal sinus rhythm Left ventricular hypertrophy with repolarization abnormality ( Trey product ) Prolonged QT Abnormal ECG When compared with ECG of 04-JUL-2023 00:53, Premature supraventricular complexes are no longer Present Referred By: Generic ED Physician Electronically Signed By:Vishnu Humphries
[2023-11-12 20:16] VITALS: BP 134/82; BP 145/69; PULSE 74; PULSE 98; RESP 19; TEMP 36.7; O2SAT 93; O2SAT 94; BMI 30.2
[2023-11-12 20:57] LABS: MANUAL DIFF FLAG NO
[2023-11-12 21:08] LABS: Basophils Percent Auto 0.5 % (0-2); Eosinophils Absolute Auto 0.2 X10*3/uL (0.0-0.4); Eosinophils Percent Auto 2.9 % (0-4); Hematocrit 46.1 % (37.0-47.0); Hemoglobin 14.9 g/dl (12.0-16.0); Imm Gran Abs Auto 0.06 X10*3/uL (0.00-0.03); Lymphocytes Absolute Auto 0.9 X10*3/uL (1.2-4.9); Lymphocytes Percent Auto 13.8 % (20-40); Mean Corpuscular HGB Conc 32.3 g/dl (31.0-35.0); Mean Corpuscular Hemoglobin 27.5 pg (27.0-33.0); Mean Corpuscular Volume 85.2 fL (80.0-98.0); Mean Platelet Volume 10.1 fL (9.4-12.3); Monocytes Absolute Auto 0.6 X10*3/uL (0.1-1.2); Monocytes Percent Auto 9.5 % (2-11); Neutrophils Absolute Auto 4.5 x10*3/uL (2.0-8.3); Neutrophils Percent Auto 72.3 % (45-73); Platelet Count 240 X10*3/uL (160-400); Red Blood Count 5.41 X10*6/uL (4.20-5.50); Red Cell Distribution Width 15.6 % (11.0-16.0); White Blood Count 6.2 X10*3/uL (4.8-10.8)
[2023-11-12 21:18] LABS: Alanine Aminotransferase < 5 U/L (0-31); Albumin Level 3.7 g/dL (3.5-5.0); Alkaline Phosphatase 88 U/L (39-117); Anion Gap 15 (12-20); Aspartate Amino Transferase 17 U/L (5-31); Bilirubin Total 0.6 mg/dL (0.0-1.0); Blood Urea Nitrogen 22 mg/dL (9-16); Calcium 9.5 mg/dL (8.4-10.2); Carbon Dioxide 23 mmol/L (22-29); Chloride 105 mmol/L (96-108); Creatinine Clr Calc Pharmacy 36.5; Estimated Glomerular Filt Rate 56; Glucose Random 139 mg/dL (60-115); Lipase 18 U/L (8-78); Potassium 3.7 mmol/L (3.3-5.1); Sodium 139 mmol/L (135-145); Total Protein 6.6 g/dL (6.5-8.0)
[2023-11-12 21:20] LABS: B Type Natriuretic Peptide 164 pg/mL (<100)
--- NOTE | 2023-11-12 21:20 | ED_ITS ---
HPI - Weakness General Chief complaint: Weakness Stated complaint: weakness,chest pressure,dizzy Time Seen by Provider: 11/12/23 21:19 Source: patient and family Mode of arrival: ambulatory Limitations: no limitations History of Present Illness HPI Narrative: Patient's history of paroxysmal AFib orthostatic hypotension on midodrine 2.5 mg 3 times a day which is noncompliant not taking for weeks patient lives alone been feeling more depressed brought by her daughter for dizziness lightheadedness specially on standing daughter checked her blood pressure standing to 70s no chest pain no palpitation no fever no urinary symptoms patient has been living alone for last 15 months since her family is around nearby Related Data Home Medications ?Medication ?Instructions ?Recorded ?Confirmed albuterol sulfate 90 mcg/actuation 2 puff inhalation QID PRN 10/27/22 09/29/23 aerosol inhaler Shortness Of Breath Or Wheezing fluticasone propionate 110 1 puff inhalation BID 10/27/22 09/29/23 mcg/actuation HFA aerosol inhaler (Flovent HFA) ascorbic acid (vitamin C) 500 mg 500 mg PO DAILY 01/15/23 09/29/23 tablet (Vitamin C) magnesium 250 mg tablet 250 mg PO DAILY 01/15/23 09/29/23 aspirin 81 mg tablet,delayed 81 mg PO DAILY 04/20/23 09/29/23 release midodrine 2.5 mg tablet 2.5 mg PO BID 04/20/23 09/29/23 mirtazapine 15 mg tablet 15 mg PO BEDTIME 06/13/23 09/29/23 Previous Rx's ?Medication ?Instructions ?Recorded metoprolol tartrate 25 mg tablet 12.5 mg (1/2 x 25 mg) PO BID 90 08/30/22 days #90 tabs baclofen 10 mg tablet 10 mg PO BEDTIME #30 tabs 10/25/22 psyllium husk (aspartame) 3.4 gram 3.4 g PO DAILY #90 ea 01/17/23 oral powder packet (Metamucil Fiber Singles) atorvastatin 20 mg tablet 20 mg PO DAILY #90 tabs 04/25/23 amiodarone 100 mg tablet 100 mg PO DAILY #30 tabs 06/13/23 food supplemt, lactose-reduced 1 ea PO DAILY daily nutrition 09/13/23 (Ensure Original oral liquid) supplement 30 days #30 ea carbidopa 25 mg-levodopa 100 mg 2 tab PO TID 90 days #540 tabs 09/29/23 tablet lorazepam 0.5 mg tablet 0.5 mg PO ONCE PRN anxiety 1 day 10/06/23 #3 tabs Allergies Allergy/AdvReac Type Severity Reaction Status Date / Time No Known Allergies [NKA] Allergy Verified 11/12/23 20:21 Review of Systems 2 Review of Systems: Yes all other systems are reviewed and are negative [facility] Past Medical History Medical History Presence of Watchman left atrial appendage closure device Anemia Atherosclerotic cardiovascular disease Paroxysmal atrial fibrillation H/O small bowel obstruction Anxiety Depression Essential tremor Osteoarthritis Asthma Fibromyalgia HLD (hyperlipidemia) HTN (hypertension) Chiari malformation Arthritis Cataract CAD (coronary artery disease) GERD (gastroesophageal reflux disease) Afib Surgical History History of cholecystectomy History of back surgery History of appendectomy H/O heart artery stent Family History Family History Mother CAD (coronary artery disease) Social History Social History Household Members: None Housing: Assisted Living Facility Are you a primary careers counsellor to a significant other at home: Yes ( is in a wheelchair) Do you presently have visiting nurse or other home services: No Alcohol intake: current Alcohol intake frequency: a few times a week Alcohol type: wine Patient Tobacco Use Status: Never used Tobacco Smoked in Last 30 Days: No Use of substances other than those prescribed or required for medical reasons: No Advance Directives: Yes Advance Directives on File: Yes Advance Directives Date on File: 10/20/21 Do you have a plan to hurt others: No Plan service: No Current occupational status: retired Current occupation: right handed Physical Exam 2 Vital Signs: Vital Signs: Last Vital Signs Temp 98.4 F 11/13/23 01:28 Pulse 57 11/13/23 01:28 Resp 16 11/13/23 01:28 BP 145/63 H 11/13/23 01:28 Pulse Ox 96 11/13/23 01:28 O2 Del Method Room Air 11/13/23 01:28 BMI result Body Mass Index 30.2 Appearance: Alert. Oriented X3. No acute distress. Eyes: PERRLA, No Nystagmus ENT: Pharynx normal. Oral Mucosa moist Neck: Normal inspection. Neck supple. CVS: Normal heart rate and rhythm. Pulses normal. Respiratory: No respiratory distress. Equal air entry bilateral, no wheezing/rales/rhonchi Abdomen: Soft and nontender. Bowel sounds are present, no mass palpable, no CVA tenderness Skin: Skin warm and dry. Normal skin color. Normal skin turgor. Extremities: No lower extremity edema. No calf tenderness Neuro: Oriented X 3. No motor deficit. No sensory deficit.No cerebellar signs , cranial nerves II-XII intact Medications Administered Discontinued Medications Generic Name Dose Route Start Last Admin Trade Name Freq PRN Reason Stop Dose Admin Sodium Chloride 1,000 mls @ 999 mls/hr 11/12/23 22:03 11/12/23 23:08 Ns IV 11/12/23 23:03 Infused .Q1H1M ONE Infusion Sodium Chloride 1,000 mls @ 999 mls/hr 11/12/23 22:58 11/13/23 00:18 Ns IV 11/12/23 23:58 Infused .Q1H1M ONE Infusion Midodrine 5 mg 11/12/23 22:33 11/12/23 22:48 Midodrine Hcl 5 Mg Tablet PO 11/12/23 22:34 5 mg ONCE ONE Administration Medical Decision Making Medical Decision Making [facility] Narrative: Patient's history of depression orthostatic hypotension noncompliant with medication lives alone noticed to have significant orthostatic hypotension while in the ER will give midodrine and IV fluids recheck vitals Patient after 2 L of IV fluids felt much better no significant orthostatic hypotension patient also received midodrine 5 mg family at bedside will follow with case management on working advised to continue to have increased oral intake and have extra salt Lab Data [facility] Lab Attestation statement: I reviewed the patient's lab results. 11/12/23 20:51 11/12/23 20:51 Labs: Lab Results 11/12/23 11/13/23 Range/Units 20:51 00:09 WBC 6.2 (4.8-10.8) X10*3/uL RBC 5.41 D (4.20-5.50) X10*6/uL Hgb 14.9 D (12.0-16.0) g/dl Hct 46.1 (37.0-47.0) % MCV 85.2 (80.0-98.0) fL MCH 27.5 (27.0-33.0) pg MCHC 32.3 (31.0-35.0) g/dl RDW 15.6 (11.0-16.0) % Plt Count 240 (160-400) X10*3/uL MPV 10.1 (9.4-12.3) fL Immature Gran % (Auto) 1.0 H (0.0-0.4) % Neut % (Auto) 72.3 (45-73) % Lymph % (Auto) 13.8 L (20-40) % Harlan % (Auto) 9.5 (2-11) % Eos % (Auto) 2.9 (0-4) % Baso % (Auto) 0.5 (0-2) % Lymph # (Auto) 0.9 L (1.2-4.9) X10*3/uL Harlan # (Auto) 0.6 (0.1-1.2) X10*3/uL Eos # (Auto) 0.2 (0.0-0.4) X10*3/uL Baso # (Auto) 0.0 (0.0-0.2) X10*3/uL Abs Immat Gran (auto) 0.06 H (0.00-0.03) X10*3/uL Absolute Neuts (auto) 4.5 (2.0-8.3) x10*3/uL Absolute Nucleated RBC 0.000 (0.0-0.012) X10*3/uL Nucleated RBC % (auto) 0.0 (0.0-0.2) /100WBC Sodium 139 (135-145) mmol/L Potassium 3.7 (3.3-5.1) mmol/L Chloride 105 (96-108) mmol/L Carbon Dioxide 23 (22-29) mmol/L Anion Gap 15 (12-20) BUN 22 H (9-16) mg/dL Creatinine 0.95 (0.5-1.4) mg/dL Estim Creat Clear Calc 36.5 Estimated GFR 56 Random Glucose 139 H (60-115) mg/dL Calcium 9.5 (8.4-10.2) mg/dL Total Bilirubin 0.6 (0.0-1.0) mg/dL AST 17 (5-31) U/L ALT < 5 (0-31) U/L Alkaline Phosphatase 88 (39-117) U/L Troponin I High Sens 9.2 D (<3.5-17.0) ng/L B-Natriuretic Peptide 164 H (<100) pg/mL Total Protein 6.6 (6.5-8.0) g/dL Albumin 3.7 (3.5-5.0) g/dL Lipase 18 (8-78) U/L Urine Color Dark Yellow Urine Appearance Turbid Urine pH 5.5 (5.0-9.0) Ur Specific [place] >= 1.030 H (1.005-1.025) Urine Protein 30 (1+) H (Neg-Trace) mg/dL Urine Glucose (UA) Negative (Negative) mg/dL Urine Ketones 15 (Negative) mg/dL Urine Blood Negative (Negative) Urine Nitrite Negative (Negative) Ur Leukocyte Esterase Moderate (2+) H (Negative) Urine RBC >20 H (0-2) /HPF Urine WBC >50 H (0-5) /HPF Ur Squamous Epith Cells 6-10 (0-2) /HPF Urine Bacteria 4+ (None Seen) Hyaline Casts 11-20 (0-2) /LPF Independent Interpretation I performed an independent interpretation of an: EKG Interpretation: Normal sinus rhythm LVH QT interval 490 no acute STT wave changes no acute ischemia Critical Care Time Critical Care Time Critical Care Time: Yes Total Critical Care Time: 45 Attestation: The patient was critically ill with a high probability of imminent or life threatening deterioration. I spent greater than 50???minutes of discontinuous time evaluating the patient,delivering critical care at the bedside, discussing and evaluating pertinent data with consultants. Critical care time does not include time spent performing separately billable procedures or teaching. Total time spent performing critical care was 45???minutes. Discharge Plan Discharge Clinical Impression: Chronic orthostatic hypotension Patient Disposition: Home, Self-Care Instructions: Hypotension (ED) Additional Instructions: Drink plenty of fluids at least 3 L a day increased salt intake to 8-10 g a day Continue midodrine 2.5 mg 3 times a day Follow with your seafood service team member/PCP if not better Prescriptions: No Action metoprolol tartrate 25 mg tablet 12.5 mg PO BID 90 Days Qty: 90 3RF baclofen 10 mg tablet 10 mg PO BEDTIME Qty: 30 1RF atorvastatin 20 mg tablet 20 mg PO DAILY Qty: 90 3RF amiodarone 100 mg tablet 100 mg PO DAILY Qty: 30 11RF Rx Instructions: New dose of 100 mg daily (100 mg tablet - no need to cut) lorazepam 0.5 mg tablet 0.5 mg PO ONCE PRN (Reason: anxiety) 1 Days Qty: 3 0RF Rx Instructions: Take 15-30 min prior to procedure on 10/11/23, may repeat x2 as needed. ascorbic acid (vitamin C) [Vitamin C] 500 mg Tablet 500 mg PO DAILY magnesium 250 mg Tablet 250 mg PO DAILY Metamucil Fiber Singles 3.4 gram Powder In Packet 3.4 g PO DAILY Qty: 90 0RF albuterol sulfate 90 mcg/actuation HFA aerosol inhaler 2 puff inhalation QID PRN (Reason: Shortness Of Breath Or Wheezing) fluticasone propionate [Flovent HFA] 110 mcg/actuation HFA aerosol inhaler 1 puff inhalation BID Ensure Original Liquid 1 ea PO DAILY 30 Days Qty: 30 1RF aspirin 81 mg tablet,delayed release (DR/EC) 81 mg PO DAILY midodrine 2.5 mg tablet 2.5 mg PO BID Rx Instructions: do not give last dose of day after 6PM or within 4 hrs of bedtime mirtazapine 15 mg tablet 15 mg PO BEDTIME carbidopa-levodopa 25-100 mg tablet 2 tab PO TID 90 Days Qty: 540 6RF Interventions: ED Discharge Assessment Last Done: 11/13/23 01:28 Discharge Date/Time: 11/13/23 01:29 Print Language: Polish
[2023-11-12 21:22] LABS: Troponin-I High Sensitivity 9.2 ng/L (<3.5-17.0)
[2023-11-12] MEDS: 0.9 % Sodium Chloride 1,000 ML 999 ML IV ×2 (22:15→23:05)
[2023-11-12 22:26] VITALS: BP 127/55; PULSE 57
[2023-11-12 22:27] VITALS: BP 111/61; BP 134/63; PULSE 59; PULSE 70
[2023-11-12] MEDS: Midodrine HCl 5 MG TABLET PO (22:48)
[2023-11-13 00:11] VITALS: BP 150/62; PULSE 58
[2023-11-13 00:12] VITALS: BP 154/70; PULSE 57
[2023-11-13 00:15] VITALS: BP 127/72; PULSE 62
--- NOTE | 2023-11-13 00:16 | MHC.EDTECH ---
PATIENT WAS AMBULATED TO BATHROOM ,URINE SAMPLE COLLECTED AND SENT TO LAB .
[2023-11-13 00:21] LABS: Appearance Urine Turbid; Color Urine Dark Yellow; Glucose Urine UA Negative (Negative); Leukocyte Esterase Urine Moderate (2+) (Negative); Nitrite Urine Negative (Negative); PH 5.5 (5.0-9.0); Specific Gravity - Urine >= 1.030 (1.005-1.025); UMIC TRIGGER UACC YES; Urine Blood Negative (Negative); Urine Ketones 15 mg/dL (Negative); Urine Protein 30 (1+) mg/dL (Neg-Trace)
[2023-11-13 00:36] LABS: Bacteria Urine 4+ (None Seen); RBC Urine >20 /HPF (0-2); UACC Culture Trigger YES; WBC Urine >50 /HPF (0-5)
[2023-11-13 01:28] VITALS: BP 145/63; PULSE 57; RESP 16; TEMP 36.9; O2SAT 96
--- NOTE | 2023-11-14 12:52 | MHC.CM.ED ---
Received telephone call from patient's daughter, Jonelle. Jonelle is looking for a little extra help at home for her mother. Specifically she is looking for a chief pilot for her mom, some light housekeeping and possible assistance with meals. Jonelle agreeable to referral to [facility]. Referral sent to [facility] to reach out to Jonelle.
== END 2023-11-13 01:29 | disposition home or self-care (01) ==
PROVIDERS: Emergency Provider Internal Medicine
DX: I95.1 Orthostatic hypotension (principal); R53.1 Weakness; I48.0 Paroxysmal atrial fibrillation; Z91.148 Patient's other noncompliance with medication regimen for other reason; R42 Dizziness and giddiness; Z79.899 Other long term (current) drug therapy
CPT/HCPCS: 36415; 80053; 81001; 83690; 83880; 84484; 85025; 87086; 93005; 96360; 96361; 99284; 99285

== ENCOUNTER → 2023-11-12 20:18 | Outpatient (BNV) | payer MEDICARE, SELFPAY | PROVIDERS: Emergency Provider Internal Medicine; Visit Provider Internal Medicine Cardiovascular Disease | DX: R53.1 Weakness (principal) | CPT/HCPCS: 93010 ==

== ENCOUNTER 2023-12-15 12:36 | Outpatient (AMB) | payer MEDICARE, SELFPAY ==
[2023-12-15 12:40] VITALS: BP 124/64; PULSE 69; BMI 30.2
--- NOTE | 2023-12-15 12:40 | MHC.OFFVIS ---
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 Required: No Accompanied by: Daughter Allergies No Known Allergies [NKA] Allergy (Verified 11/12/23 20:21) Medication List - Last Reconciled 12/15/23 by Wilfredo Flores MD albuterol sulfate 90 mcg/actuation 2 puffs inhalation QID PRN amiodarone 100 mg PO DAILY aspirin 81 mg PO DAILY atorvastatin 20 mg PO DAILY baclofen 10 mg PO BEDTIME buspirone 5 mg PO BID carbidopa-levodopa 25-100 mg 2 tabs PO TID 90 days fluticasone propionate 110 mcg/actuation (Flovent HFA) 1 puff inhalation BID metoprolol tartrate 12.5 mg (1/2 x 25 mg) PO BID 90 days midodrine 2.5 mg PO TID mirtazapine 15 mg PO BEDTIME psyllium husk (aspartame) 3.4 gram (Metamucil Fiber Singles) 3.4 grams PO DAILY HPI Comments Details: Cintia returns for follow-up regarding coronary disease as well as paroxysmal atrial fibrillation. Overall, generally doing well. There is a concern for orthostatic blood pressure drops but apart from that no cardiac symptoms. No recurrence of atrial fibrillation itself. [facility] Medical History Presence of Watchman left atrial appendage closure device Anemia Atherosclerotic cardiovascular disease Paroxysmal atrial fibrillation H/O small bowel obstruction Anxiety Depression Essential tremor Osteoarthritis Asthma Fibromyalgia HLD (hyperlipidemia) HTN (hypertension) Chiari malformation Arthritis Cataract CAD (coronary artery disease) GERD (gastroesophageal reflux disease) Afib Surgical History History of cholecystectomy History of back surgery History of appendectomy H/O heart artery stent Family History Mother CAD (coronary artery disease) Social History Household Members: None Housing: Assisted Living Facility Are you a primary physician primary care sports medicine to a significant other at home: Yes ( is in a wheelchair) Do you presently have visiting nurse or other home services: No Alcohol intake: current Alcohol intake frequency: a few times a week Alcohol type: wine Patient Tobacco Use Status: Never used Tobacco Advance Directives Date on File: 10/20/21 service: No Current occupational status: retired Current occupation: right handed Review of Systems Const Denies chills, Denies fatigue, Denies fever(s), Denies frequent falls, Denies weakness, Denies weight gain and Denies weight loss ENT Denies dizziness Card Denies chest pain, Denies leg edema, Denies lightheadedness, Denies palpitations, Denies dyspnea and Denies dyspnea on exertion Resp Denies cough, Denies dyspnea and Denies dyspnea on exertion GI Denies hematochezia Musc Denies abnormal gait, Denies muscle weakness, Denies numbness, Denies radiating pain into limb and Denies tingling Neuro Denies abnormal gait, Denies dizziness, Denies frequent falls, Denies numbness, Denies tingling and Denies weakness Endo Denies fatigue and Denies palpitations Physical Exam Vital Signs: Last Vital Signs Pulse 69 12/15/23 12:40 BP 124/64 12/15/23 12:40 BMI result Body Mass Index 30.2 Const General: comfortable and no acute distress Orientation/consciousness: patient oriented x3 HEENT Other: Unremarkable Head: Yes normal to inspection Neck Neck: Yes normal visual inspection Chest Chest palpation & inspection: normal inspection of the chest Resp Auscultation: clear to auscultation bilaterally Cardio Palpation: normal PMI Heart sounds: S1 normal heart sound present, S2 normal heart sound present, no gallops, no murmurs and no rubs GI Palpation (GI): Soft to palpation Back/Spine/Pelvis Other: unremarkable Skin General skin exam: no rashes or lesions noted Neuro General: patient oriented x3 Extrem General: Yes normal to inspection Psych Mental Status: mental status grossly normal Office Procedures EKG Details: EKG with sinus rhythm at 69/Min; premature supraventricular ectopy; nonspecific ST-T changes in the lateral leads. [id number], Complete Assessment & Plan Assessment & Plan (1) Paroxysmal atrial fibrillation: Code(s): I48.0 - Paroxysmal atrial fibrillation Category: Medical Plan: On low-dose amiodarone. Multaq is too expensive. Thyroid seems okay. She had recurrent epistaxis on Eliquis. Now status post Watchman device. Otherwise, on aspirin. (2) Atherosclerotic cardiovascular disease: Code(s): I25.10 - Atherosclerotic heart disease of [place] coronary artery without angina pectoris Category: Medical Plan: History of LAD stenting in 2018. Apart from the treated LAD lesion, there was no significant disease elsewhere. Myocardial perfusion imaging study 2021 does not show any ischemia. Echocardiogram with normal LVEF, 60-65%. Continue statins. She is also on a small dose of beta-blockers. No recent angina. Lipids can be followed through her own PCP. At her age and frailty and comorbidities, probably not be too aggressive. (3) Mitral annular calcification: Code(s): I05.9 - Rheumatic mitral valve disease, unspecified Category: Medical Plan: Echocardiogram with moderate mitral annular calcification but no significant valvular dysfunction. No specific interventions for her. (4) Orthostatic hypotension: Code(s): I95.1 - Orthostatic hypotension Category: Medical Plan: Patient is on Midodrine. May add an additional 2.5 mg as necessary on those days where she feels more dizzy. Discussed with daughter as well who has a nurse. Medications: New midodrine do not give last dose of day after 6PM or within 4 hrs of bedtime Use in addition to 2.5mg tid as needed (for low BP, dizziness). 2.5 mg PO ONCE PRN 90 tabs 1RF low BP Coding Level of Care Code Est Pt Level 4 (01920) Diagnoses Paroxysmal atrial fibrillation I48.0 Atherosclerotic cardiovascular disease I25.10 Mitral annular calcification I05.9 Orthostatic hypotension I95.1 CPT Codes EKG - CPT: 13199-[id number], Complete ([id number])
== END 2023-12-15 13:06 | disposition home or self-care (01) ==
PROVIDERS: PCP Internal Medicine; Visit Provider Internal Medicine
DX: I48.0 Paroxysmal atrial fibrillation (principal); I25.10 Atherosclerotic heart disease of native coronary artery without angina pectoris; I05.9 Rheumatic mitral valve disease, unspecified; I95.1 Orthostatic hypotension
CPT/HCPCS: 93010; 99214

== ENCOUNTER 2023-12-15 12:36 | Outpatient (REF) | payer MEDICARE, SELFPAY ==
[2023-12-15 13:22] LABS: MANUAL DIFF FLAG NO
[2023-12-15 14:03] LABS: Basophils Percent Auto 0.5 % (0-2); Eosinophils Absolute Auto 0.2 X10*3/uL (0.0-0.4); Eosinophils Percent Auto 2.5 % (0-4); Hemoglobin 14.7 g/dl (12.0-16.0); Imm Gran Abs Auto 0.16 X10*3/uL (0.00-0.03); Lymphocytes Absolute Auto 1.1 X10*3/uL (1.2-4.9); Lymphocytes Percent Auto 13.3 % (20-40); Mean Corpuscular HGB Conc 31.3 g/dl (31.0-35.0); Mean Corpuscular Hemoglobin 27.8 pg (27.0-33.0); Mean Corpuscular Volume 88.8 fL (80.0-98.0); Mean Platelet Volume 10.2 fL (9.4-12.3); Monocytes Absolute Auto 0.5 X10*3/uL (0.1-1.2); Monocytes Percent Auto 6.7 % (2-11); Neutrophils Absolute Auto 6.1 x10*3/uL (2.0-8.3); Platelet Count 245 X10*3/uL (160-400); Red Blood Count 5.29 X10*6/uL (4.20-5.50); Red Cell Distribution Width 16.5 % (11.0-16.0); White Blood Count 8.1 X10*3/uL (4.8-10.8)
[2023-12-15 14:32] LABS: Alanine Aminotransferase 6 U/L (0-31); Albumin Level 3.7 g/dL (3.5-5.0); Alkaline Phosphatase 88 U/L (39-117); Anion Gap 12 (12-20); Aspartate Amino Transferase 20 U/L (5-31); Bilirubin Total 0.7 mg/dL (0.0-1.0); Blood Urea Nitrogen 24 mg/dL (9-16); Calcium 9.4 mg/dL (8.4-10.2); Carbon Dioxide 24 mmol/L (22-29); Chloride 106 mmol/L (96-108); Estimated Glomerular Filt Rate 51; Glucose Random 129 mg/dL (60-115); Potassium 3.7 mmol/L (3.3-5.1); Sodium 138 mmol/L (135-145); Total Protein 6.6 g/dL (6.5-8.0)
== END 2023-12-15 12:37 | disposition home or self-care (01) ==
LOC: HO.LAB 12:36
PROVIDERS: Absent Provider Internal Medicine; PCP Internal Medicine; Visit Provider Internal Medicine
DX: I10 Essential (primary) hypertension (principal); I25.10 Atherosclerotic heart disease of native coronary artery without angina pectoris; M79.7 Fibromyalgia; K58.9 Irritable bowel syndrome, unspecified; I48.0 Paroxysmal atrial fibrillation; I50.9 Heart failure, unspecified; I95.1 Orthostatic hypotension
CPT/HCPCS: 36415; 80053; 85025; 93005; 99212